=== PATIENT | male | born 1985 | race Hispanic/Latino ===

== ENCOUNTER 2017-09-01 19:21 | Emergency (ER) | payer OTHER ==
--- NOTE | 2017-09-01 20:18 | RAD REPORT ---
EXAM DESCRIPTION: RAD - Chest Pa And Lat (2 Views) - 09/01/2017 8:09 pm CLINICAL HISTORY: Chest pain. COMPARISON: 09/22/2015, 04/23/2013 FINDINGS: The lungs are clear. The heart is normal in size. No displaced fractures. IMPRESSION: No acute or concerning finding suspected.
--- NOTE | 2017-09-01 20:54 | EDPHYS ---
Physician Documentation [facility] Name: Raza Causey Age: 32 yrs Sex: Male : 1985 Arrival Date: 09/01/2017 Time: 19:21 Bed 12 Private MD: ED Physician South Siu HPI: 09/01 20:55 This 32 yrs old Male presents to ER via Ambulatory with complaints of Back snw Pain- W/ deep breath. 20:55 Onset: The symptoms/episode began/occurred gradually, this morning, and became snw persistent. Associated signs and symptoms: The patient has no apparent associated signs or symptoms. Modifying factors: The patient symptoms are alleviated by nothing, the patient symptoms are aggravated by movement, deep breath. The patient has not experienced similar symptoms in the past. The patient has not recently seen a physician, the patient's primary care provider is Dr. Junior. Historical: - Allergies: 19:44 No Known Allergies; fc - Home Meds: 19:44 lisinopril 20 mg Oral tab 1 tab once daily [Active]; omeprazole 20 mg Oral cpDR 1 cap fc once daily [Active]; - PMHx: 19:44 Hypertension; Anxiety; ADD/ADHD; fc - PSHx: 19:44 jaw surgery; fc - Immunization history:: Last tetanus immunization: up to date. - Social history:: Smoking status: Patient uses tobacco products, quit 2 weeks ago, Patient/guardian denies using alcohol, street drugs. ROS: 20:54 Constitutional: Negative for fever, chills, and weight loss, Eyes: Negative for injury, snw pain, redness, and discharge, ENT: Negative for injury, pain, and discharge, Neck: Negative for injury, pain, and swelling, Cardiovascular: Negative for chest pain, palpitations, and edema, Respiratory: Negative for shortness of breath, cough, wheezing, and pleuritic chest pain, Abdomen/GI: Negative for abdominal pain, nausea, vomiting, diarrhea, and constipation, : Negative for injury, bleeding, discharge, and swelling, MS/Extremity: Negative for injury and deformity, Skin: Negative for injury, rash, and discoloration, Neuro: Negative for headache, weakness, numbness, tingling, and seizure. 20:54 Back: Positive for pain with movement, pain to upper back with deep inspiration since this am. Exam: 20:54 Constitutional: This is a well developed, well nourished patient who is awake, alert, snw and in no acute distress. Head/Face: Normocephalic, atraumatic. Eyes: Pupils equal round and reactive to light, extra-ocular motions intact. Lids and lashes normal. Conjunctiva and sclera are non-icteric and not injected. Cornea within normal limits. Periorbital areas with no swelling, redness, or edema. ENT: Nares patent. No nasal discharge, no septal abnormalities noted. Tympanic membranes are normal and external auditory canals are clear. Oropharynx with no redness, swelling, or masses, exudates, or evidence of obstruction, uvula midline. Mucous membranes moist. Neck: Trachea midline, no thyromegaly or masses palpated, and no cervical lymphadenopathy. Supple, full range of motion without nuchal rigidity, or vertebral point tenderness. No Meningismus. Chest/axilla: Normal chest wall appearance and motion. Nontender with no deformity. No lesions are appreciated. Cardiovascular: Regular rate and rhythm with a normal S1 and S2. No gallops, murmurs, or rubs. Normal PMI, no JVD. No pulse deficits. Respiratory: Lungs have equal breath sounds bilaterally, clear to auscultation and percussion. No rales, rhonchi or wheezes noted. No increased work of breathing, no retractions or nasal flaring. Abdomen/GI: Soft, non-tender, with normal bowel sounds. No distension or tympany. No guarding or rebound. No evidence of tenderness throughout. Back: No spinal tenderness. No costovertebral tenderness. Full range of motion. Skin: Warm, dry with normal turgor. Normal color with no rashes, no lesions, and no evidence of cellulitis. MS/ Extremity: Pulses equal, no cyanosis. Neurovascular intact. Full, normal range of motion. Neuro: Awake and alert, GCS 15, oriented to person, place, time, and situation. Cranial nerves II-XII grossly intact. Motor strength 5/5 in all extremities. Sensory grossly intact. Cerebellar exam normal. Normal gait. Vital Signs: 19:44 BP 121 / 92; Pulse 82; Resp 18; Temp 98(O); Pulse Ox 98.4% on R/A; Weight 104.33 kg fc (R); Height 5 ft. 9 in. (175.26 cm) (R); Pain 7/10; 21:44 BP 116 / 82; Pulse 75; Resp 18; Pulse Ox 99% ; aj1 19:44 Body Mass Index 33.96 (104.33 kg, 175.26 cm) fc MDM: 20:01 Patient medically screened. [facility] [place] 20:56 Data reviewed: vital signs, nurses notes. Data interpreted: Pulse oximetry: on room air snw is 98 %. Interpretation: normal. Counseling: I had a detailed discussion with the patient and/or guardian regarding: the presence of at least one elevated blood pressure reading (>120/80) during this emergency department visit, radiology results, to return to the emergency department if symptoms worsen or persist or if there are any questions or concerns that arise at home. Special discussion: I have referred the patient to see his PCP for further evaluation of high blood pressure. Based on the history and exam findings, there is no indication for further emergent testing or inpatient evaluation. I discussed with the patient/guardian the need to see the primary care provider for further evaluation of the symptoms. 09/01 19:57 Order name: Chest Pa And Lat (2 Views) XRAY; Complete Time: 20:27 snw Administered Medications: 21:39 Drug: TORadol 60 mg Route: IM; Site: right gluteus; aj1 22:06 Follow up: Response: No adverse reaction aj1 Disposition: 09/02 06:47 Co-signature as Attending Physician, South Siu MD I agree with the assessment and [facility] [place] plan of care. Disposition: 09/01/17 20:53 Discharged to Home. Impression: Essential (primary) hypertension, Muscle spasm of back. - Condition is Stable. - Discharge Instructions: Hypertension, Muscle Cramps and Spasms, Back Exercises, [id number], Cryotherapy, Heat Therapy, Managing Your High Blood Pressure. - Prescriptions for Diclofenac Sodium 75 mg Oral Tablet Sustained Release - take 1 tablet by ORAL route 2 times per day; 30 tablet. orphenadrine citrate 100 mg Oral Tablet Sustained Release - take 1 tablet by ORAL route 2 times per day As needed; 20 tablet. - Work release form, Medication Reconciliation Form, Thank You Letter, Antibiotic Education, Prescription Opioid Use form. - Follow up: Private Physician; When: 2 - 3 days; Reason: Recheck today's complaints, Continuance of care, Re-evaluation by your physician. Follow up: Emergency Department; When: As needed; Reason: Worsening of condition. Signatures: Dispatcher [employer] Arabella Bean, RN RN South Lopez MD MD cha Therrien, Shelly, LABORER AMMUNITION ASSEMBLY-C LABORER AMMUNITION ASSEMBLY-Csnw Rosa Calhoun RN RN fc
--- NOTE | 2017-09-01 20:54 | ER ---
Nurse's Notes [facility] Name: Raza Causey Age: 32 yrs Sex: Male : 1985 Arrival Date: 09/01/2017 Time: 19:21 Bed 12 Private MD: Diagnosis: Essential (primary) hypertension;Muscle spasm of back Presentation: 09/01 19:40 Presenting complaint: Patient states: that he is having a sharp pain to his upper back fc but it is worse when he takes a deep breath. Denies any cough or congestion. Also denies any injury. Transition of care: patient was not received from another setting of care. Onset of symptoms was September 01, 2017 at 05:00. Care prior to arrival: Medication(s) given: Motrin, 600 mg, last at 1400. 19:40 Acuity: DEBO 4 fc 19:40 Method Of Arrival: Ambulatory fc Triage Assessment: 21:41 General: Behavior is calm, cooperative. aj1 Historical: - Allergies: 19:44 No Known Allergies; fc - Home Meds: 19:44 lisinopril 20 mg Oral tab 1 tab once daily [Active]; omeprazole 20 mg Oral cpDR 1 cap fc once daily [Active]; - PMHx: 19:44 Hypertension; Anxiety; ADD/ADHD; fc - PSHx: 19:44 jaw surgery; fc - Immunization history:: Last tetanus immunization: up to date. - Social history:: Smoking status: Patient uses tobacco products, quit 2 weeks ago, Patient/guardian denies using alcohol, street drugs. Screenin:55 Abuse screen: Denies threats or abuse. Denies injuries from another. Nutritional aj1 screening: No deficits noted. Tuberculosis screening: No symptoms or risk factors identified. 21:41 Fall Risk None identified. aj1 Assessment: 19:55 General: Appears in no apparent distress. comfortable. Pain: Complains of pain in left aj1 scapular area, right scapular area and thoracic area Pain does not radiate. Quality of pain is described as sharp, Pain began this morning Is continuous, Alleviated by nothing. Aggravated by deep breathing. Neuro: Level of Consciousness is awake, alert, obeys commands, Oriented to person, place, time, situation, Garage Hand are equal bilaterally Moves all extremities. Full function Gait is steady, Speech is normal, Facial symmetry appears normal, Pupils are PERRLA, Intact. Cardiovascular: Patient's skin is warm and dry. Respiratory: Airway is patent Respiratory effort is even, unlabored, Respiratory pattern is regular, symmetrical. GI: No signs and/or symptoms were reported involving the gastrointestinal system. : No signs and/or symptoms were reported regarding the genitourinary system. EENT: No signs and/or symptoms were reported regarding the EENT system. Derm: No signs and/or symptoms reported regarding the dermatologic system. Skin is pink, warm \T\ dry. normal. Musculoskeletal: No signs and/or symptoms reported regarding the musculoskeletal system. Range of motion: intact in all extremities. 20:55 Reassessment: Patient appears in no apparent distress at this time. No changes from [facility] previously documented assessment. Patient and/or family updated on plan of care and expected duration. Pain level reassessed. Patient is alert, oriented x 3, equal unlabored respirations, skin warm/dry/pink. 21:41 Reassessment: Patient appears in no apparent distress at this time. No changes from [facility] previously documented assessment. Patient and/or family updated on plan of care and expected duration. Pain level reassessed. Patient is alert, oriented x 3, equal unlabored respirations, skin warm/dry/pink. Vital Signs: 19:44 BP 121 / 92; Pulse 82; Resp 18; Temp 98(O); Pulse Ox 98.4% on R/A; Weight 104.33 kg fc (R); Height 5 ft. 9 in. (175.26 cm) (R); Pain 7/10; 21:44 BP 116 / 82; Pulse 75; Resp 18; Pulse Ox 99% ; aj1 19:44 Body Mass Index 33.96 (104.33 kg, 175.26 cm) ED Course: 19:21 Patient arrived in ED. ds1 19:42 Triage completed. fc 19:42 Arm band placed on Patient placed in an exam room. 19:47 Arabella Webb, RN is Primary Nurse. aj1 19:55 Patient has correct armband on for positive identification. Call light in reach. aj1 19:55 No provider procedures requiring assistance completed. aj1 19:56 Geov[facility] Key [facility]-C [facility] snw 19:56 South Siu MD is Attending Physician. snw 20:06 X-ray completed. Patient tolerated procedure well. kc2 20:06 Chest Pa And Lat (2 Views) XRAY In Process Unspecified. EDMS 21:41 Patient did not have IV access during this emergency room visit. aj1 Administered Medications: 21:39 Drug: TORadol 60 mg Route: IM; Site: right gluteus; aj1 22:06 Follow up: Response: No adverse reaction aj1 Outcome: 20:53 Discharge ordered by MD. hopper 22:06 Discharged to home ambulatory. aj1 22:06 Condition: good 22:06 Discharge instructions given to patient, Instructed on discharge instructions, follow up and referral plans. medication usage, Demonstrated understanding of instructions, follow-up care, medications, Prescriptions given X 2. 22:07 Patient left the ED. aj1 Signatures: Dispatcher [employer] EDArabella Andrew RN RN aj1 Geovanna Key, OPERATIONS MANAGER ASSISTANT-C OPERATIONS MANAGER ASSISTANT-Csnw Rosa Calhoun RN RN fc Sanford, Demi ds1 Dorcas Bhatti kc2
[2017-09-01] MEDS ORDERED: KETOROLAC 30 MG/ML INJ ONE (21:31)
[2017-09-01 22:11] VITALS: TEMP 98
[2017-09-01 22:13] VITALS: BP 116/82; O2SAT 99
== END 2017-09-01 22:07 | disposition home or self-care (01) ==
LOC: ER 19:21
DX: M62.830 Muscle spasm of back (principal); I10 Essential (primary) hypertension
CPT/HCPCS: 71046; 96372; 99283

== ENCOUNTER 2018-03-09 19:32 | Emergency (ER) | payer OTHER ==
[2018-03-09] MEDS ORDERED: KETOROLAC 30 MG/ML INJ ONE (20:38)
[2018-03-09] MEDS ORDERED: NA CHLORIDE 0.9% 1,000 ML ONE (20:38)
[2018-03-09 21:02] LABS: Absolute Lymphocytes (CBC) 0.9 K/uL (0.7-4.9); Absolute Monocytes 0.9 K/uL (0.1-1.3); Basophils % 0.1 % (0-1.3); Hematocrit 44.5 % (39.6-49.0); MCH 28.4 pg (27.0-35.0); MCV 84.3 fL (80-100); Monocytes % 6.3 % (3.3-12.3); RBC Red Blood Cell Count 5.28 M/uL (4.33-5.43)
[2018-03-09 21:19] LABS: Albumin 3.4 g/dL (3.4-5.0); Bilirubin Total 0.5 mg/dL (0.2-1.0); Potassium 3.8 mmol/L (3.5-5.1); Protein, Total 6.8 g/dL (6.4-8.2)
--- NOTE | 2018-03-09 21:24 | RAD REPORT ---
EXAM DESCRIPTION: [place] Single View03/09/2018 9:12 pm CLINICAL HISTORY: fever COMPARISON: August 2017 FINDINGS: The lungs appear clear of acute infiltrate. The heart is normal size. The mediastinum is a little more prominent than on the prior exam IMPRESSION: The mediastinum is little more prominent on the prior exam. This may simply be secondary to positioning and technique. PA and lateral chest series is recommended
--- NOTE | 2018-03-09 23:08 | ER ---
Nurse's Notes [facility] Name: Raza Causey Age: 32 yrs Sex: Male : 1985 Arrival Date: 03/09/2018 Time: 19:34 Bed 13 Private MD: Guerrero Junior Diagnosis: Viral Syndrome Presentation: 03/09 20:13 Presenting complaint: states: Fever since yesterday, with hallucinations; Patient lp1 last given Tylenol an hour ago for fever of 102; states any time he is sick, he starts hallucinating. Transition of care: patient was not received from another setting of care. Onset of symptoms was March 09, 2018. Risk Assessment: Do you want to hurt yourself or someone else? Patient reports no desire to harm self or others. Initial Sepsis Screen: Does the patient meet any 2 criteria? No. Patient's initial sepsis screen is negative. Does the patient have a suspected source of infection? No. Patient's initial sepsis screen is negative. Care prior to arrival: None. 20:13 Method Of Arrival: Wheelchair lp1 20:13 Acuity: DEBO 3 lp1 Historical: - Allergies: 20:12 No Known Allergies; lp1 - Home Meds: 20:12 None [Active]; lp1 - PMHx: 20:12 ADD/ADHD; Anxiety; Hypertension; lp1 - PSHx: 20:12 jaw surgery; lp1 Screenin:30 Abuse screen: Denies threats or abuse. Denies injuries from another. Nutritional aa1 screening: No deficits noted. Tuberculosis screening: No symptoms or risk factors identified. Fall Risk None identified. Assessment: 20:30 General: Appears in no apparent distress. comfortable, Behavior is calm, cooperative. aa1 Pain: Complains of pain in head Quality of pain is described as pressure, throbbing. Neuro: Level of Consciousness is awake, alert, obeys commands, Oriented to person, place, time, situation, Moves all extremities. Speech is normal, Facial symmetry appears normal, Pupils are PERRLA, Reports headache. Cardiovascular: Heart tones S1 S2 present. Respiratory: Airway is patent Respiratory effort is even, unlabored, Respiratory pattern is regular, symmetrical. GI: No signs and/or symptoms were reported involving the gastrointestinal system. : No signs and/or symptoms were reported regarding the genitourinary system. EENT: No signs and/or symptoms were reported regarding the EENT system. Derm: Skin is intact, is healthy with good turgor, Skin is moist, Skin is normal, Skin temperature is hot. Musculoskeletal: Circulation, motion, and sensation intact. Capillary refill < 3 seconds. 21:44 Reassessment: Patient appears in no apparent distress at this time. Patient and/or aa1 family updated on plan of care and expected duration. Pain level reassessed. Patient is alert, oriented x 3, equal unlabored respirations, skin warm/dry/pink. NS bolus still infusing. Reminded pt not to bend his arm to his fluids will continue to flow Patient states feeling better. 23:16 Reassessment: Patient appears in no apparent distress at this time. Patient is alert, aa1 oriented x 3, equal unlabored respirations, skin warm/dry/pink. Discussed d/c \T\ f/u instructions with pt \T\ spouse; denies questions or concerns at this time. Vital Signs: 20:11 BP 130 / 114; Pulse 111; Resp 18; Temp 101(O); Pulse Ox 100% on R/A; Weight 108.86 kg; lp1 Height 5 ft. 9 in. (175.26 cm); 20:50 BP 127 / 70; Pulse 99; Resp 20; Pulse Ox 97% on R/A; aa1 21:43 BP 124 / 80; Pulse 88; Resp 18; Temp 98.7(O); Pulse Ox 97% on R/A; aa1 23:16 BP 111 / 72; Pulse 82; Resp 18; Pulse Ox 98% on R/A; Pain 3/10; aa1 20:11 Body Mass Index 35.44 (108.86 kg, 175.26 cm) lp1 ED Course: 19:34 Patient arrived in ED. es 19:34 Guerrero Junior MD is Private Physician. es 20:09 Praneeth Joiner MD is Attending Physician. ps1 20:13 Alma Lopez, KEI is Primary Nurse. aa1 20:14 Triage completed. lp1 20:14 Arm band placed on left wrist. lp1 20:30 Patient has correct armband on for positive identification. Bed in low position. Call aa1 light in reach. Side rails up X2. Pulse ox on. NIBP on. 20:37 Initial lab(s) drawn, by me, held in ED. Inserted saline lock: 18 gauge in right cc antecubital area, using aseptic technique. Blood collected. 20:40 Flu and/or RSV swab sent to lab. cc 21:12 CXR XRAY In Process Unspecified. EDMS 23:04 X-ray completed. Patient tolerated procedure well. Patient moved back from radiology. ml 23:05 Chest Pa And Lat (2 Views) In Process Unspecified. EDMS 23:07 Guerrero Junior MD is Referral Physician. ps1 23:16 No provider procedures requiring assistance completed. IV discontinued, intact, aa1 bleeding controlled, No redness/swelling at site. Pressure dressing applied. Administered Medications: 20:49 Drug: NS 0.9% 1000 ml Route: IV; Rate: 1 bolus; Site: right antecubital; aa1 22:45 Follow up: IV Status: Completed infusion aa1 20:50 Drug: TORadol 30 mg Route: IVP; Site: right antecubital; aa1 21:50 Follow up: Response: No adverse reaction; Pain is decreased aa1 Outcome: 23:07 Discharge ordered by . ps1 23:16 Discharged to home ambulatory, with significant other. aa1 23:16 Condition: good 23:16 Discharge instructions given to patient, significant other, Instructed on discharge instructions, follow up and referral plans. medication usage, Demonstrated understanding of instructions, follow-up care, medications. 23:18 Patient left the ED. aa1 Signatures: Dispatcher [employer] Alma Laureano RN RN aa1 Odalys Yen Melissa ml Christian, Chelsea Reina Renee RN RN lp1 Praneeth Joiner MD MD ps1
--- NOTE | 2018-03-09 23:08 | EDPHYS ---
Physician Documentation [facility] Name: Raza Causey Age: 32 yrs Sex: Male : 1985 Arrival Date: 03/09/2018 Time: 19:34 Bed 13 Private MD: Guerrero Junior ED Physician Praneeth Joiner HPI: 03/09 22:54 This 32 yrs old Male presents to ER via Wheelchair with complaints of Fever. ps1 22:54 patient has viral syndrome, headache, fever, fatigue, bodyaches, and somnolent. Onset ps1 was two days ago. Has not felt well since. Decreased oral intake. Worked outside in rain and then got sick. No remitting or exacerbating factors. None tried. . Historical: - Allergies: 20:12 No Known Allergies; lp1 - Home Meds: 20:12 None [Active]; lp1 - PMHx: 20:12 ADD/ADHD; Anxiety; Hypertension; lp1 - PSHx: 20:12 jaw surgery; lp1 ROS: 22:54 Eyes: Negative for injury, pain, redness, and discharge, Cardiovascular: Negative for ps1 chest pain, palpitations, and edema, Respiratory: Negative for shortness of breath, cough, wheezing, and pleuritic chest pain, Abdomen/GI: Negative for abdominal pain, nausea, vomiting, diarrhea, and constipation, MS/Extremity: Negative for injury and deformity, Skin: Negative for injury, rash, and discoloration, Allergy/Immunology: Negative for hives, rash, and allergies. 22:54 Constitutional: Positive for body aches, chills, fatigue, fever, malaise, poor PO intake. 22:54 Neuro: Positive for headache. Exam: 22:54 Constitutional: This is a well developed, well nourished patient who is awake, alert, ps1 and in no acute distress. Head/Face: Normocephalic, atraumatic. Eyes: Pupils equal round and reactive to light, extra-ocular motions intact. Lids and lashes normal. Conjunctiva and sclera are non-icteric and not injected. Chest/axilla: Normal chest wall appearance and motion. Nontender with no deformity. No lesions are appreciated. Cardiovascular: Regular rate and rhythm. No gallops, murmurs, or rubs. Normal PMI, no JVD. No pulse deficits. Respiratory: Lungs have equal breath sounds bilaterally, clear to auscultation and percussion. No rales, rhonchi or wheezes noted. No increased work of breathing, no retractions or nasal flaring. Abdomen/GI: Soft, non-tender, with normal bowel sounds. No distension or tympany. No guarding or rebound. No evidence of tenderness throughout. Back: No spinal tenderness. No costovertebral tenderness. Full range of motion. MS/ Extremity: Pulses equal, no cyanosis. Neurovascular intact. Full, normal range of motion. Neuro: Awake and alert, GCS 15, oriented to person, place, time, and situation. Cranial nerves II-XII grossly intact. Sensory grossly intact. Psych: Awake, alert, with orientation to person, place and time. Behavior, mood, and affect are within normal limits. Vital Signs: 20:11 BP 130 / 114; Pulse 111; Resp 18; Temp 101(O); Pulse Ox 100% on R/A; Weight 108.86 kg; lp1 Height 5 ft. 9 in. (175.26 cm); 20:50 BP 127 / 70; Pulse 99; Resp 20; Pulse Ox 97% on R/A; aa1 21:43 BP 124 / 80; Pulse 88; Resp 18; Temp 98.7(O); Pulse Ox 97% on R/A; aa1 23:16 BP 111 / 72; Pulse 82; Resp 18; Pulse Ox 98% on R/A; Pain 3/10; aa1 20:11 Body Mass Index 35.44 (108.86 kg, 175.26 cm) lp1 MDM: 20:34 Patient medically screened. ps1 22:54 Data reviewed: vital signs, nurses notes, lab test result(s), radiologic studies, and ps1 as a result, I will discharge patient, administer IV fluids, NS bolus. Counseling: I had a detailed discussion with the patient and/or guardian regarding: the historical points, exam findings, and any diagnostic results supporting the discharge/admit diagnosis, lab results, radiology results. 03/09 20:11 Order name: Flu; Complete Time: 21:26 lp1 03/09 20:22 Order name: Lactate; Complete Time: 21:44 ps1 03/09 20:23 Order name: CBC with Automated Diff; Complete Time: 21:26 EDMS 03/09 20:23 Order name: Comprehensive Metabolic Panel; Complete Time: 21:26 EDMS 03/09 20:22 Order name: Urine Dipstick-Ancillary (obtain specimen); Complete Time: 22:18 ps1 03/09 20:22 Order name: CXR XRAY; Complete Time: 21:26 ps1 03/09 22:12 Order name: Urine Dipstick--Ancillary (enter results) mw2 03/09 22:53 Order name: Chest Pa And Lat (2 Views) EDMS Administered Medications: 20:49 Drug: NS 0.9% 1000 ml Route: IV; Rate: 1 bolus; Site: right antecubital; aa1 22:45 Follow up: IV Status: Completed infusion aa1 20:50 Drug: TORadol 30 mg Route: IVP; Site: right antecubital; aa1 21:50 Follow up: Response: No adverse reaction; Pain is decreased aa1 Disposition: 03/09/18 23:07 Discharged to Home. Impression: Viral Syndrome. - Condition is Stable. - Discharge Instructions: Fever, Adult. - Medication Reconciliation Form, Thank You Letter, Antibiotic Education, Prescription Opioid Use form. - Follow up: Guerrero Junior MD; When: As needed; Reason: Further diagnostic work-up, Recheck today's complaints, Re-evaluation by your physician. Follow up: Emergency Department; When: As needed; Reason: Worsening of condition. - Problem is new. - Symptoms have improved. Signatures: Dispatcher [employer] EDMS Alma Lopez RN RN aa1 Reina Renee RN RN lp1 Praneeth Joiner MD MD ps1 Corrections: (The following items were deleted from the chart) 23:18 23:07 03/09/2018 23:07 Discharged to Home. Impression: Viral Syndrome. Condition is aa1 Stable. Forms are Medication Reconciliation Form, Thank You Letter, Antibiotic Education, Prescription Opioid Use. Follow up: Guerrero Junior; When: As needed; Reason: Further diagnostic work-up, Recheck today's complaints, Re-evaluation by your physician. Follow up: Emergency Department; When: As needed; Reason: Worsening of condition. Problem is new. Symptoms have improved. ps1
[2018-03-09 23:27] VITALS: TEMP 98.7
[2018-03-09 23:28] VITALS: BP 111/72; O2SAT 98
[2018-03-10 00:40] LABS: Urine Blood TRACE (NEG); Urine Glucose NEGATIVE (NEG); Urine Protein NEGATIVE (NEG); Urine Specific Gravity 1.025 (1.005-1.030); Urine pH 5.5 (5.0-7.0)
--- NOTE | 2018-03-10 09:10 | RAD REPORT ---
EXAM DESCRIPTION: RAD - Chest Pa And Lat (2 Views) - 03/09/2018 11:04 pm CLINICAL HISTORY: ABNORMAL PA Chest pain. COMPARISON: Chest Single View dated 03/09/2018; Chest Pa And Lat (2 Views) dated 09/01/2017; Chest Si ngle View dated 09/22/2015; CHEST SINGLE VIEW dated 04/23/2013 FINDINGS: The lungs are clear. The heart is normal in size. No displaced fractures. IMPRESSION: No acute or concerning finding suspected.
== END 2018-03-09 23:18 | disposition home or self-care (01) ==
LOC: ER 19:32
DX: B34.9 Viral infection, unspecified (principal); I10 Essential (primary) hypertension
CPT/HCPCS: 36415; 71045; 71046; 80053; 81003; 83605; 85025; 87804; 96361; 96374; 99284; J7030

== ENCOUNTER 2018-05-21 17:37 | Emergency (ER) | payer OTHER ==
--- OUTSIDE RECORDS SUMMARY | 2018-05-21 17:39 | XMS REPORT ---
:1985 [facility] Organization [facility] Address Formerly [facility] Ram[address]rez [address] [place] [id number] Care Team Providers Name Role Phone Unavailable Unavailable Unavailable Problems This patient has no known problems. Allergies, Adverse Reactions, Alerts This patient has no known allergies or adverse reactions. Medications This patient has no known medications.
--- NOTE | 2018-05-21 19:28 | ER ---
Nurse's Notes [facility] Name: Raza Causey Age: 32 yrs Sex: Male : 1985 Arrival Date: 05/21/2018 Time: 17:40 Bed Waiting Private MD: Diagnosis: Presentation: 05/21 18:45 Presenting complaint: Patient states: Cough, congestion, pain with cough for 3 days. aj Transition of care: patient was not received from another setting of care. Onset of symptoms was May 18, 2018. Risk Assessment: Do you want to hurt yourself or someone else? Patient reports no desire to harm self or others. Initial Sepsis Screen: Does the patient meet any 2 criteria? No. Patient's initial sepsis screen is negative. Does the patient have a suspected source of infection? No. Patient's initial sepsis screen is negative. Care prior to arrival: None. 18:45 Method Of Arrival: Ambulatory 18:45 Acuity: DEBO 3 aj Triage Assessment: 18:46 General: Appears in no apparent distress. comfortable, Behavior is calm, cooperative, aj appropriate for age. Pain: Denies pain. EENT: Reports nasal congestion nasal discharge. Neuro: Level of Consciousness is awake, alert, obeys commands, Oriented to person, place, time, situation, Appropriate for age. Respiratory: Reports cough that is pain with cough Airway is patent Respiratory effort is even, unlabored, Respiratory pattern is regular, symmetrical. Derm: Skin is intact, is healthy with good turgor, Skin is pink, warm \T\ dry. normal. Historical: - Allergies: 18:46 No Known Allergies; aj - Home Meds: 18:46 None [Active]; aj - PMHx: 18:46 ADD/ADHD; Anxiety; Hypertension; aj - PSHx: 18:46 jaw surgery; aj - Immunization history:: Adult Immunizations up to date. - Social history:: Smoking status: Patient uses tobacco products, smokes one pack cigarettes per day. - Ebola Screening: : Patient negative for fever greater than or equal to 101.5 degrees Fahrenheit, and additional compatible Ebola Virus Disease symptoms Patient denies exposure to infectious person Patient denies travel to an Ebola-affected area in the 21 days before illness onset No symptoms or risks identified at this time. Assessment: 19:03 Reassessment: called from krzysztof, no answer will call XRAY to see if patient is having em images obtained. Vital Signs: 18:46 BP 143 / 103; Pulse 100; Resp 20; Temp 97.8; Pulse Ox 99% on R/A; Weight 101.6 kg; aj Height 5 ft. 8 in. (172.72 cm); 18:46 Body Mass Index 34.06 (101.60 kg, 172.72 cm) aj ED Course: 17:40 Patient arrived in ED. sb2 18:46 Triage completed. aj 18:46 Arm band placed on left wrist. Patient placed in waiting room, Patient notified of wait aj time. Labs ordered per protocol. X-ray ordered. 19:26 Patient's name was called from ER lobby. No response. Unable to locate patient. Will bb disposition as left without being seen by a provider. Administered Medications: No medications were administered Outcome: 19:27 Patient left the ED. bb Signatures: Jenelle Escobedo, RN RN Rodrigo Cruz LVN LVN em Ballard, Brenda RN RN Moon Amezcua sb2
[2018-05-21 19:34] VITALS: BP 143/103; TEMP 97.8; O2SAT 99
== END 2018-05-21 19:27 | disposition left against medical advice (07) ==
LOC: ER 17:37
DX: R05 Cough (principal); F17.210 Nicotine dependence, cigarettes, uncomplicated; Z53.21 Procedure and treatment not carried out due to patient leaving prior to being seen by health care provider
CPT/HCPCS: 87070; 87081; 87804; 99282

== ENCOUNTER 2018-10-12 17:49 | Emergency (ER) | payer SELFPAY ==
--- OUTSIDE RECORDS SUMMARY | 2018-10-12 17:52 | XMS REPORT ---
:1985 [facility] Ram[address]rez [address] [place] [id number] Care Team Providers Name Role Phone Unavailable Unavailable Unavailable Problems This patient has no known problems. Allergies, Adverse Reactions, Alerts This patient has no known allergies or adverse reactions. Medications This patient has no known medications.
[2018-10-12 18:43] LABS: Absolute Lymphocytes (CBC) 3.7 K/uL (0.7-4.9); Absolute Monocytes 0.7 K/uL (0.1-1.3); Absolute Neutrophil 7.3 K/uL (1.8-8.0); Eosinophils % 0.3 % (0-4.4); Hematocrit 47.6 % (39.6-49.0); Lymphocytes % 31.4 % (15.3-44.8); MPV 8.8 fL (7.6-11.3); Monocytes % 5.7 % (3.3-12.3); RBC Red Blood Cell Count 5.73 M/uL (4.33-5.43)
[2018-10-12] MEDS ORDERED: ONDANSETRON 4 MG/2 ML VIAL ONE (19:00)
[2018-10-12] MEDS ORDERED: FENTANYL CITR 100 MCG/2 ML ONE (19:00)
[2018-10-12] MEDS ORDERED: FAMOTIDINE 20 MG/2 ML VIAL IV ONE (19:00)
[2018-10-12 20:23] LABS: ALT/SGPT 27 U/L (12-78); AST/SGOT 24 U/L (15-37); Albumin 3.6 g/dL (3.4-5.0); Alkaline Phosphatase 104 U/L (45-117); BUN Blood Urea Nitrogen 17 mg/dL (7-18); Bicarbonate 23 mmol/L (21-32); Bilirubin Direct < 0.1 mg/dL (0-0.2); Bilirubin Total 0.3 mg/dL (0.2-1.0); Glucose Level 100 mg/dL (74-106); Lipase 76 U/L (73-393); Protein, Total 7.3 g/dL (6.4-8.2); Sodium Level 140 mmol/L (136-145)
[2018-10-12 20:25] LABS: Potassium 4.3 mmol/L (3.5-5.1)
--- NOTE | 2018-10-12 20:37 | RAD REPORT ---
EXAM DESCRIPTION: CT - Abdomen Pelvis W Contrast - 10/12/2018 8:28 pm CLINICAL HISTORY: Abdominal pain, epigastric pain radiating to the right lower quadrant COMPARISON: None. TECHNIQUE: Biphasic, helical CT imaging of the abdomen and pelvis was performed following 100 ml non -ionic IV contrast. Oral contrast was given. All CT scans are performed using dose optimization technique as appropriate and may include automated exposure control or mA/KV adjustment according to patient size. FINDINGS: No suspicious findings in the lung bases. The liver, spleen, and pancreas show no suspicious findings. Gallbladder and biliary tree are also wi thout suspicious finding. Symmetric renal function is seen with no hydronephrosis or suspicious renal mass. No pyelonephritis o r acute parenchymal process. Fullness of left renal pelvis and calices noted believed to be a normal variant. Patient has a 10 mm stellate calcification lower pole calyx on the left. No adrenal abnormal ities. No urinary bladder abnormality. Prostate gland and seminal vesicles show no suspicious finding s. No dilated bowel loops or bowel wall thickening. Appendix is normal. No free air, free fluid or infla mmatory stranding. No hernia, mass or bulky lymphadenopathy. No suspicious bony findings. IMPRESSION: Contrast enhanced CT abdomen and pelvis showing no significant or suspicious finding. N o abnormality seen to explain epigastric or right lower quadrant pain. Patient has a 10 mm stellate calcification lower pole calyx on the left. No acute finding.
--- NOTE | 2018-10-12 20:47 | EDPHYS ---
Physician Documentation [facility] Name: Raza Causey Age: 33 yrs Sex: Male : 1985 Arrival Date: 10/12/2018 Time: 17:53 Bed 15 Private MD: ED Physician Lloyd Willson HPI: 10/12 19:37 This 33 yrs old Male presents to ER via Ambulatory with complaints of jr8 Abdominal Pain. 19:37 The patient presents with abdominal pain in the upper abdomen, right lower quadrant. jr8 Onset: The symptoms/episode began/occurred acutely, today. The symptoms do not radiate. Associated signs and symptoms: Pertinent positives: nausea. The symptoms are described as stabbing. Modifying factors: The symptoms are alleviated by nothing, the symptoms are aggravated by nothing. Severity of pain: At its worst the pain was moderate in the emergency department the pain is unchanged. The patient has not experienced similar symptoms in the past. The patient has not recently seen a physician. 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 - Social history:: Smoking status: Patient uses tobacco products, smokes one pack cigarettes per day. - Ebola Screening: : Patient denies travel to an Ebola-affected area in the 21 days before illness onset. ROS: 19:37 ENT: Negative for injury, pain, and discharge, Neck: Negative for injury, pain, and jr8 swelling, Cardiovascular: Negative for chest pain, palpitations, and edema, Respiratory: Negative for shortness of breath, cough, wheezing, and pleuritic chest pain, Back: Negative for injury and pain, MS/Extremity: Negative for injury and deformity, Skin: Negative for injury, rash, and discoloration, Neuro: Negative for headache, weakness, numbness, tingling, and seizure. 19:37 Abdomen/GI: Positive for abdominal pain, nausea, Negative for vomiting, diarrhea, constipation, abdominal cramps, abdominal distension, anorexia, dysphagia, hematemesis, black/tarry stool, rectal pain, rectal bleeding, bowel incontinence, flatulence. Exam: 19:37 Eyes: Pupils equal round and reactive to light, extra-ocular motions intact. Lids and jr8 lashes normal. Conjunctiva and sclera are non-icteric and not injected. Cornea within normal limits. Periorbital areas with no swelling, redness, or edema. ENT: Nares patent. No nasal discharge, no septal abnormalities noted. Tympanic membranes are normal and external auditory canals are clear. Oropharynx with no redness, swelling, or masses, exudates, or evidence of obstruction, uvula midline. Mucous membranes moist. Neck: Trachea midline, no thyromegaly or masses palpated, and no cervical lymphadenopathy. Supple, full range of motion without nuchal rigidity, or vertebral point tenderness. No Meningismus. Cardiovascular: Regular rate and rhythm with a normal S1 and S2. No gallops, murmurs, or rubs. Normal PMI, no JVD. No pulse deficits. Respiratory: Lungs have equal breath sounds bilaterally, clear to auscultation and percussion. No rales, rhonchi or wheezes noted. No increased work of breathing, no retractions or nasal flaring. Back: No spinal tenderness. No costovertebral tenderness. Full range of motion. Skin: Warm, dry with normal turgor. Normal color with no rashes, no lesions, and no evidence of cellulitis. MS/ Extremity: Pulses equal, no cyanosis. Neurovascular intact. Full, normal range of motion. Neuro: Awake and alert, GCS 15, oriented to person, place, time, and situation. Cranial nerves II-XII grossly intact. Motor strength 5/5 in all extremities. Sensory grossly intact. Cerebellar exam normal. Normal gait. 19:37 Abdomen/GI: Inspection: obese Bowel sounds: active, all quadrants, Palpation: soft, in all quadrants, moderate abdominal tenderness, in the epigastric area and right lower quadrant, mass, is not appreciated, rebound tenderness, is not appreciated, voluntary guarding, is not appreciated, involuntary guarding, is not appreciated, no appreciated organomegaly, Indicators: McBurney's point is not tender, Copeland's sign is negative, Rovsing's sign is negative, Liver: tenderness, is not appreciated. Vital Signs: 18:02 BP 149 / 105; Pulse 93; Resp 18; Temp 97.2; Pulse Ox 98% on R/A; Weight 104.33 kg (R); aj1 Height 5 ft. 9 in. (175.26 cm) (R); Pain 8/10; 18:48 BP 154 / 90; Pulse 81; Resp 17 S; Pulse Ox 97% on R/A; ca1 19:04 BP 144 / 103; Pulse 81; Resp 17; Pulse Ox 95% on R/A; ca1 19:16 BP 145 / 92; Pulse 82; Resp 18; Pulse Ox 97% ; ca1 20:00 BP 136 / 77; Pulse 76; Resp 18; Pulse Ox 98% ; ea 21:15 BP 130 / 86; Pulse 66; Resp 18; Pulse Ox 97% on R/A; ea 18:02 Body Mass Index 33.96 (104.33 kg, 175.26 cm) aj1 MDM: 18:10 Patient medically screened. jr8 20:45 Data reviewed: vital signs, nurses notes, lab test result(s), radiologic studies, CT jr8 scan. Data interpreted: Pulse oximetry: on room air is 97 %. Interpretation: normal. Counseling: I had a detailed discussion with the patient and/or guardian regarding: the historical points, exam findings, and any diagnostic results supporting the discharge/admit diagnosis, lab results, radiology results, the need for outpatient follow up, a family practitioner, a permastone installer, to return to the emergency department if symptoms worsen or persist or if there are any questions or concerns that arise at home. Response to treatment: the patient's symptoms have markedly improved after treatment. Special discussion: Based on the patient's Hx, exam, and Dx evaluation, there is no indication for emergent surgery or inpatient Tx. It is understood by the patient/guardian that if the Sx's persist or worsen they need to return immediately for re-evaluation. 10/12 18:13 Order name: Basic Metabolic Panel; Complete Time: 20:27 8 10/12 18:13 Order name: CBC with Diff; Complete Time: 19:28 8 10/12 18:13 Order name: Creatinine for Radiology; Complete Time: 20:20 8 10/12 18:13 Order name: Hepatic Function; Complete Time: 20:27 jr8 10/12 18:13 Order name: Lipase; Complete Time: 20:27 8 10/12 19:28 Order name: CT Abd/Pelvis - W/Contrast; Complete Time: 20:41 jr8 10/12 18:13 Order name: IV Saline Lock; Complete Time: 18:36 jr8 10/12 18:13 Order name: Labs collected and sent; Complete Time: 18:36 Administered Medications: 18:42 Drug: Zofran 4 mg Route: IVP; Site: right antecubital; ca1 19:30 Follow up: Response: No adverse reaction; Nausea is decreased ea 18:45 Drug: Pepcid 20 mg Route: IVP; Site: right antecubital; ca1 20:47 Follow up: Response: No adverse reaction ea 18:50 Drug: fentaNYL (PF) 50 mcg Route: IVP; Site: right antecubital; ca1 19:30 Follow up: Response: No adverse reaction ea 21:17 Drug: GI Cocktail without - (Maalox Suspension 30 ml, Lidocaine Liquid 2 % 15 ea ml) Route: PO; 21:17 Follow up: Response: Medication administered at discharge. ea Disposition: 10/13 07:04 Co-signature as Attending Physician, Lloyd Willson MD. rn Disposition: 10/12/18 20:46 Discharged to Home. Impression: Gastritis, unspecified. - Condition is Stable. - Discharge Instructions: Gastritis, Adult. - Medication Reconciliation Form, Thank You Letter, Antibiotic Education, Prescription Opioid Use form. - Follow up: Laura Spence MD; When: 2 - 3 days; Reason: Recheck today's complaints, Continuance of care, Re-evaluation by your physician. - Problem is new. - Symptoms have improved. - Notes: Continue nexium at home No spicy, greecy, or acidic foods Signatures: Dispatcher [employer] EDArabella Andrew RN RN aj1 Lloyd Willson MD MD rn Roszak, Josh, PA PA jr8 Calli Carlos RN RN ea Prudence Randhawa RN RN ca1 Corrections: (The following items were deleted from the chart) 10/12 21: 20:46 10/12/2018 20:46 Discharged to Home. Impression: Gastritis, unspecified. ea Condition is Stable. Forms are Medication Reconciliation Form, Thank You Letter, Antibiotic Education, Prescription Opioid Use. Follow up: Laura Spence; When: 2 - 3 days; Reason: Recheck today's complaints, Continuance of care, Re-evaluation by your physician. Problem is new. Symptoms have improved. jr8
--- NOTE | 2018-10-12 20:47 | ER ---
Nurse's Notes [facility] Name: Raza Causey Age: 33 yrs Sex: Male : 1985 Arrival Date: 10/12/2018 Time: 17:53 Bed 15 Private MD: Diagnosis: Gastritis, unspecified Presentation: 10/12 17:59 Presenting complaint: Patient states: "I got pain right here (pt points to epigastric aj1 area) and it goes down to here (pts to RLQ)" reports nausea. Denies V/D/fever. Patient started yesterday and got worse today, Reports that pain is worse after eating. Transition of care: patient was not received from another setting of care. Onset of symptoms was October 11, 2018 at 19:00. Risk Assessment: Do you want to hurt yourself or someone else? Patient reports no desire to harm self or others. Initial Sepsis Screen: Does the patient meet any 2 criteria? HR > 90 bpm. No. Patient's initial sepsis screen is negative. Does the patient have a suspected source of infection? Yes: Acute abdominal pain. Care prior to arrival: None. 17:59 Method Of Arrival: [facility] 17:59 Acuity: DEBO 3 aj1 Triage Assessment: 18:01 General: Appears in no apparent distress. comfortable, Behavior is calm, cooperative, aj1 appropriate for age. Pain: Complains of pain in epigastric area Pain radiates to right lower quadrant. Pain: Pain currently is 8 out of 10 on a pain scale. Neuro: Level of Consciousness is awake, alert, obeys commands, Oriented to person, place, time, situation. Cardiovascular: Patient's skin is warm and dry. Respiratory: Airway is patent Respiratory effort is even, unlabored, Respiratory pattern is regular, symmetrical. GI: Reports lower abdominal pain, nausea, Patient currently denies diarrhea, vomiting. 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 - Social history:: Smoking status: Patient uses tobacco products, smokes one pack cigarettes per day. - Ebola Screening: : Patient denies travel to an Ebola-affected area in the 21 days before illness onset. Screenin:10 Abuse screen: Denies threats or abuse. Denies injuries from another. Nutritional ca1 screening: No deficits noted. Tuberculosis screening: No symptoms or risk factors identified. Fall Risk None identified. Assessment: 18:10 General: Appears in no apparent distress. comfortable, Behavior is calm, cooperative, ca1 appropriate for age. Pain: Complains of pain in right lower quadrant and abdomen and epigastric area Pain does not radiate. Pain currently is 8 out of 10 on a pain scale. Quality of pain is described as sharp, Pain began 1 day ago. Is intermittent, Aggravated by eating. Neuro: Level of Consciousness is awake, alert, obeys commands, Oriented to person, place, time, situation. Cardiovascular: Heart tones S1 S2 present Capillary refill < 3 seconds Patient's skin is warm and dry. Respiratory: Airway is patent Respiratory effort is even, unlabored, Respiratory pattern is regular, symmetrical, Breath sounds are clear bilaterally. GI: Abdomen is round non-distended, Bowel sounds present X 4 quads. Abd is soft X 4 quads Abdomen is tender to palpation in epigastric area, right upper quadrant and right lower quadrant Reports nausea. : No deficits noted. No signs and/or symptoms were reported regarding the genitourinary system. EENT: No deficits noted. No signs and/or symptoms were reported regarding the EENT system. Derm: Skin is intact, is healthy with good turgor, Skin is pink, warm \\T\\ dry. Musculoskeletal: Circulation, motion, and sensation intact. Capillary refill < 3 seconds, Range of motion: intact in all extremities. 18:55 Reassessment: Patient appears in no apparent distress at this time. Patient and/or ca1 family updated on plan of care and expected duration. Pain level reassessed. Patient is alert, oriented x 3, equal unlabored respirations, skin warm/dry/pink. 19:10 General: Appears in no apparent distress. comfortable, Behavior is calm, cooperative, ca1 appropriate for age. Pain: Complains of pain in right lower quadrant Pain currently is 6 out of 10 on a pain scale. Quality of pain is described as aching, Pain began 1 day ago. Neuro: Level of Consciousness is awake, alert, obeys commands, Oriented to person, place, time, situation. Cardiovascular: Patient's skin is warm and dry. Respiratory: Airway is patent Respiratory effort is even, unlabored, Respiratory pattern is regular, symmetrical. GI: Abdomen is non-distended, Bowel sounds present X 4 quads. Reports nausea. Derm: Skin is pink, warm \\T\\ dry. Musculoskeletal: Circulation, motion, and sensation intact. Range of motion:. 20:45 Reassessment: Patient and/or family updated on plan of care and expected duration. Pain ea level reassessed. Patient is alert, oriented x 3, equal unlabored respirations, skin warm/dry/pink. 21:15 Reassessment: Patient and/or family updated on plan of care and expected duration. Pain ea level reassessed. Patient is alert, oriented x 3, equal unlabored respirations, skin warm/dry/pink. Discharge instructions given to patient, verbalized the understanding of instruction. Pt left ED ambulatory, tolerating well. Patient states symptoms have improved. Vital Signs: 18:02 BP 149 / 105; Pulse 93; Resp 18; Temp 97.2; Pulse Ox 98% on R/A; Weight 104.33 kg (R); aj1 Height 5 ft. 9 in. (175.26 cm) (R); Pain 8/10; 18:48 BP 154 / 90; Pulse 81; Resp 17 S; Pulse Ox 97% on R/A; ca1 19:04 BP 144 / 103; Pulse 81; Resp 17; Pulse Ox 95% on R/A; ca1 19:16 BP 145 / 92; Pulse 82; Resp 18; Pulse Ox 97% ; ca1 20:00 BP 136 / 77; Pulse 76; Resp 18; Pulse Ox 98% ; ea 21:15 BP 130 / 86; Pulse 66; Resp 18; Pulse Ox 97% on R/A; ea 18:02 Body Mass Index 33.96 (104.33 kg, 175.26 cm) aj1 ED Course: 17:53 Patient arrived in ED. mr 18:00 Triage completed. aj1 18:02 Arm band placed on Patient placed in an exam room. aj1 18:04 Prudence Randhawa, KEI is Primary Nurse. ca1 18:10 Jaylon Miguel PA is PHCP. jr8 18:10 Lloyd Willson MD is Attending Physician. jr8 18:10 Patient has correct armband on for positive identification. Placed in gown. Bed in low ca1 position. Call light in reach. Side rails up X 1. Pulse ox on. NIBP on. Warm blanket given. 18:30 No provider procedures requiring assistance completed. Inserted saline lock: 20 gauge ca1 in right antecubital area, using aseptic technique. Blood collected. 20:07 Radiology exam delayed due to lab results not completed at this time. (BUN/Creatinine). 2 20:28 CT Abd/Pelvis - W/Contrast In Process Unspecified. EDMS 20:46 Laura Spence MD is Referral Physician. jr8 21:10 IV discontinued, intact, bleeding controlled, No redness/swelling at site. Pressure ea dressing applied. Administered Medications: 18:42 Drug: Zofran 4 mg Route: IVP; Site: right antecubital; ca1 19:30 Follow up: Response: No adverse reaction; Nausea is decreased ea 18:45 Drug: Pepcid 20 mg Route: IVP; Site: right antecubital; ca1 20:47 Follow up: Response: No adverse reaction ea 18:50 Drug: fentaNYL (PF) 50 mcg Route: IVP; Site: right antecubital; ca1 19:30 Follow up: Response: No adverse reaction ea 21:17 Drug: GI Cocktail without - (Maalox Suspension 30 ml, Lidocaine Liquid 2 % 15 ea ml) Route: PO; 21:17 Follow up: Response: Medication administered at discharge. ea Outcome: 20:46 Discharge ordered by . jr8 21:18 Discharged to home ambulatory, with family. ea 21:18 Condition: improved 21:18 Discharge instructions given to patient, Instructed on discharge instructions, follow up and referral plans. Demonstrated understanding of instructions, follow-up care. 21:19 Patient left the ED. ea Signatures: Dispatcher [employer] EDMS Arabella Webb RN RN [email or web address] Gloria Ware mr Jaylon Miguel, JODY VERA jr8 Quiana Roth 2 Calli Carlos RN RN ea Acob, Cheryl, RN RN ca1 Corrections: (The following items were deleted from the chart) 18:02 17:59 Presenting complaint: Patient states: "I got pain right here (pt points to aj1 epigastric area) and it goes down to here (pts to RLQ)" reports nausea. Denies V/D/fever. aj1
[2018-10-12] MEDS ORDERED: MAGNE/ALUM HYDROXD 30 ML UCUP ONE (21:17)
[2018-10-12] MEDS ORDERED: LIDOCAINE VISCOUS 2% SOLN 15 ML UDC ONE (21:17)
[2018-10-12 22:06] VITALS: BP 112/63; TEMP 98; O2SAT 99
== END 2018-10-12 21:19 | disposition home or self-care (01) ==
LOC: ER 17:49
DX: K29.70 Gastritis, unspecified, without bleeding (principal); I10 Essential (primary) hypertension; F17.210 Nicotine dependence, cigarettes, uncomplicated
CPT/HCPCS: 36415; 74177; 80048; 80076; 83690; 85025; 96374; 96375; 99284; J2405; J3010; Q9967

== ENCOUNTER 2019-04-03 09:57 | Emergency (ER) | payer SELFPAY ==
[2019-04-03] MEDS ORDERED: ALBUTEROL 2.5 MG/3 ML NEB SOL ONE (11:46)
[2019-04-03] MEDS ORDERED: IPRATROPIUM BROM 0.5MG/2.5ML ONE (11:46)
[2019-04-03] MEDS ORDERED: HYDROCODONE/CHLORPHEN 5 ML/OSYR ONE (11:47)
[2019-04-03] MEDS ORDERED: predniSONE 20 MG TAB ONE (11:47)
--- NOTE | 2019-04-03 12:30 | EDPHYS ---
Physician Documentation [facility] Name: Raza Causey Age: 33 yrs Sex: Male : 1985 Arrival Date: 04/03/2019 Time: 09:58 Bed 17 Private MD: ED Physician Vinod Chester HPI: 04/03 11:20 This 33 yrs old Male presents to ER via Ambulatory with complaints of pm1 Shortness Of Breath, Chest Pain, Back Pain. 11:20 The patient or guardian reports cough, with productive sputum. Onset: The pm1 symptoms/episode began/occurred 3 day(s) ago. Severity of symptoms: in the emergency department the symptoms are actually worse. Modifying factors: The symptoms are alleviated by nothing, the symptoms are aggravated by nothing. Associated signs and symptoms: Pertinent positives: chest pain, with cough, sore throat, Shortness of breath, Pertinent negatives: diarrhea, fever, nausea, vomiting. The patient has not experienced similar symptoms in the past. The patient has not recently seen a physician. Patient with complaints of post nasal drainage with cough and sore throat. Chest pain with coughing. 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 - Social history:: Smoking status: Patient uses tobacco products, smokes one-half pack cigarettes per day. - Ebola Screening: : Patient denies exposure to infectious person Patient denies travel to an Ebola-affected area in the 21 days before illness onset. ROS: 11:20 Constitutional: Negative for fever, chills, and weight loss, Eyes: Negative for injury, pm1 pain, redness, and discharge, Neck: Negative for injury, pain, and swelling, Cardiovascular: Negative for chest pain, palpitations, and edema, Abdomen/GI: Negative for abdominal pain, nausea, vomiting, diarrhea, and constipation, Back: Negative for injury and pain, MS/Extremity: Negative for injury and deformity, Skin: Negative for injury, rash, and discoloration. 11:20 ENT: Positive for sore throat, Negative for ear pain, difficulty swallowing, difficulty handling secretions, hoarseness. 11:20 Respiratory: Positive for cough, shortness of breath. Exam: 11:20 Constitutional: This is a well developed, well nourished patient who is awake, alert, pm1 and in no acute distress. Head/Face: Normocephalic, atraumatic. Eyes: Pupils equal round and reactive to light, extra-ocular motions intact. Lids and lashes normal. Conjunctiva and sclera are non-icteric and not injected. Cornea within normal limits. Periorbital areas with no swelling, redness, or edema. ENT: Nares patent. No nasal discharge, no septal abnormalities noted. Tympanic membranes are normal and external auditory canals are clear. Oropharynx with no redness, swelling, or masses, exudates, or evidence of obstruction, uvula midline. Mucous membranes moist. Neck: Trachea midline, no thyromegaly or masses palpated, and no cervical lymphadenopathy. Supple, full range of motion without nuchal rigidity, or vertebral point tenderness. No Meningismus. Chest/axilla: Normal chest wall appearance and motion. Nontender with no deformity. No lesions are appreciated. Cardiovascular: Regular rate and rhythm with a normal S1 and S2. No gallops, murmurs, or rubs. Normal PMI, no JVD. No pulse deficits. 11:20 Abdomen/GI: Soft, non-tender, with normal bowel sounds. No distension or tympany. No guarding or rebound. No evidence of tenderness throughout. Back: No spinal tenderness. No costovertebral tenderness. Full range of motion. Skin: Warm, dry with normal turgor. Normal color with no rashes, no lesions, and no evidence of cellulitis. MS/ Extremity: Pulses equal, no cyanosis. Neurovascular intact. Full, normal range of motion. 11:20 Respiratory: the patient does not display signs of respiratory distress, Respirations: normal, Breath sounds: wheezing: expiratory that is mild, is heard in the right posterior upper lobe and right posterior middle lobe. 11:20 Neuro: Orientation: is normal, Motor: is normal, moves all fours, Gait: is steady, at a normal pace, without difficulty. Vital Signs: 10:19 BP 159 / 101; Pulse 93; Resp 17; Temp 98.4(TE); Pulse Ox 98% on R/A; Weight 104.33 kg; ss Height 5 ft. 8 in. (172.72 cm); Pain 8/10; 12:12 BP 145 / 101; Pulse 88; Resp 18; Pulse Ox 100% on R/A; kj1 13:02 BP 140 / 85; Pulse 102; Resp 16; Pulse Ox 97% on R/A; em 10:19 Body Mass Index 34.97 (104.33 kg, 172.72 cm) ss MDM: 10:59 Patient medically screened. pm1 12:28 Data reviewed: vital signs. Data interpreted: Pulse oximetry: on room air is 100 %. pm1 Interpretation: normal. Counseling: I had a detailed discussion with the patient and/or guardian regarding: the historical points, exam findings, and any diagnostic results supporting the discharge/admit diagnosis. 04/03 11:19 Order name: Flu; Complete Time: 12:25 pm1 04/03 11:19 Order name: Strep; Complete Time: 12:25 pm1 04/03 11:19 Order name: Chest Pa And Lat (2 Views) XRAY pm1 Administered Medications: 11:55 Drug: Albuterol - atroVENT (3:1) (2.5 mg - 0.5 mg) 3 ml Route: Nebulizer; em 12:10 Follow up: Response: No adverse reaction em 11:55 Drug: predniSONE 60 mg Route: PO; em 12:10 Follow up: Response: No adverse reaction em 11:55 Drug: Tussionex Pennkinetic ER 5 ml Route: PO; em 12:11 Follow up: Response: No adverse reaction em 12:48 Drug: Rocephin (cefTRIAXone) 1 grams Route: IM; Site: right gluteus; em 13:01 Follow up: Response: No adverse reaction em Disposition: 04/03/19 12:29 Discharged to Home. Impression: Streptococcal pharyngitis. - Condition is Stable. - Discharge Instructions: Strep Throat. - Prescriptions for Zithromax Z- Zach 250 mg Oral Tablet - take 1 tablet by ORAL route as directed for 5 days Day 1 - take two (2) tablets one time. Day 2, 3, 4 , 5 take one (1) tablet once daily.; 6 tablet. Guaifenesin AC 10- 100 mg/5 mL Oral Liquid - take 10 milliliter by ORAL route every 4 hours As needed; 240 milliliter. - Medication Reconciliation Form, Thank You Letter, Antibiotic Education, Prescription Opioid Use form. - Follow up: Emergency Department; When: As needed; Reason: Worsening of condition. Follow up: Private Physician; When: 2 - 3 days; Reason: Recheck today's complaints, Continuance of care, Re-evaluation by your physician. - Problem is new. - Symptoms have improved. Addendum: 04/04/2019 16:42 Co-signature as Attending Physician, Vinod Chester MD. m a2 Signatures: Dispatcher [employer] EDTN Rodrigo Sharma, FOOD ADVISER FOOD ADVISER em Pam Medrano RN RN ss Romel Dia, REAL ESTATE PORTFOLIO MANAGER REAL ESTATE PORTFOLIO MANAGER pm1 Vinod Chester MD MD ma2 Corrections: (The following items were deleted from the chart) 04/03 13:03 12:29 04/03/2019 12:29 Discharged to Home. Impression: Streptococcal pharyngitis. em Condition is Stable. Forms are Medication Reconciliation Form, Thank You Letter, Antibiotic Education, Prescription Opioid Use. Follow up: Emergency Department; When: As needed; Reason: Worsening of condition. Follow up: Private Physician; When: 2 - 3 days; Reason: Recheck today's complaints, Continuance of care, Re-evaluation by your physician. Problem is new. Symptoms have improved. pm1
--- NOTE | 2019-04-03 12:30 | ER ---
Nurse's Notes [facility] Name: Raza Causey Age: 33 yrs Sex: Male : 1985 Arrival Date: 04/03/2019 Time: 09:58 Bed 17 Private MD: Diagnosis: Streptococcal pharyngitis Presentation: 04/03 10:20 Presenting complaint: Patient states: cough, painful cough, nasal/ chest congestion, ss headache that began 3-4 days ago. Denies fever. Transition of care: patient was not received from another setting of care. Onset of symptoms was March 30, 2019. Risk Assessment: Do you want to hurt yourself or someone else? Patient reports no desire to harm self or others. Initial Sepsis Screen: Does the patient meet any 2 criteria? HR > 90 bpm. Does the patient have a suspected source of infection? No. Patient's initial sepsis screen is negative. Care prior to arrival: None. 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 - Social history:: Smoking status: Patient uses tobacco products, smokes one-half pack cigarettes per day. - Ebola Screening: : Patient denies exposure to infectious person Patient denies travel to an Ebola-affected area in the 21 days before illness onset. Screenin:07 Abuse screen: Denies threats or abuse. Nutritional screening: No deficits noted. em Tuberculosis screening: No symptoms or risk factors identified. Fall Risk None identified. Assessment: 11:30 General: Appears in no apparent distress. uncomfortable, Behavior is calm, cooperative, em Reports fever for 1-2 days. Pain: Complains of pain in head and throat Pain does not radiate. Pain currently is 7 out of 10 on a pain scale. Pain began 2-3 days ago. Neuro: Level of Consciousness is awake, alert, obeys commands, Oriented to person, place, time, situation, Appropriate for age. Cardiovascular: Heart tones S1 S2 present Capillary refill < 3 seconds Patient's skin is warm and dry. Respiratory: Airway is patent Respiratory effort is even, unlabored, Respiratory pattern is regular, symmetrical, Breath sounds are clear bilaterally. Denies shortness of breath labored breathing. GI: Abdomen is flat, Patient currently denies nausea, vomiting. Derm: Skin is intact, is healthy with good turgor, Skin is pink, warm \T\ dry. Musculoskeletal: Capillary refill < 3 seconds, Range of motion: intact in all extremities. 11:40 General: The previous assessment is accurate, call light remains within reach. ss 12:12 Reassessment: Patient appears in no apparent distress at this time. Patient and/or em family updated on plan of care and expected duration. Pain level reassessed. Patient is alert, oriented x 3, equal unlabored respirations, skin warm/dry/pink. rates pain 4/10 Patient states feeling better. Patient states symptoms have improved. 12:48 Reassessment: pending shot time. em Vital Signs: 10:19 BP 159 / 101; Pulse 93; Resp 17; Temp 98.4(TE); Pulse Ox 98% on R/A; Weight 104.33 kg; ss Height 5 ft. 8 in. (172.72 cm); Pain 8/10; 12:12 BP 145 / 101; Pulse 88; Resp 18; Pulse Ox 100% on R/A; kj1 13:02 BP 140 / 85; Pulse 102; Resp 16; Pulse Ox 97% on R/A; em 10:19 Body Mass Index 34.97 (104.33 kg, 172.72 cm) ED Course: 09:58 Patient arrived in ED. rg4 10:19 Arm band placed on right wrist. ss 10:21 Triage completed. ss 10:59 Romel Dia NP is PHCP. pm1 10:59 Vinod Chester MD is Attending Physician. pm1 11:07 Rodrigo Sharma LVN is Primary Nurse. em 11:07 Patient has correct armband on for positive identification. Placed in gown. Bed in low em position. Call light in reach. Pulse ox on. NIBP on. 11:07 Patient maintains SpO2 saturation greater than 95% on room air. em 11:39 Chest Pa And Lat (2 Views) XRAY In Process Unspecified. EDMS 12:02 Strep Sent. kj1 12:02 Flu Sent. kj1 13:02 No provider procedures requiring assistance completed. Patient did not have IV access em during this emergency room visit. Administered Medications: 11:55 Drug: Albuterol - atroVENT (3:1) (2.5 mg - 0.5 mg) 3 ml Route: Nebulizer; em 12:10 Follow up: Response: No adverse reaction em 11:55 Drug: predniSONE 60 mg Route: PO; em 12:10 Follow up: Response: No adverse reaction em 11:55 Drug: Tussionex Pennkinetic ER 5 ml Route: PO; em 12:11 Follow up: Response: No adverse reaction em 12:48 Drug: Rocephin (cefTRIAXone) 1 grams Route: IM; Site: right gluteus; em 13:01 Follow up: Response: No adverse reaction em Outcome: 12:29 Discharge ordered by . pm1 13:02 Discharged to home ambulatory. em 13:02 Condition: good 13:02 Discharge instructions given to patient, Instructed on discharge instructions, follow up and referral plans. medication usage, Demonstrated understanding of instructions, follow-up care, medications, wound care, Prescriptions given X 2. 13:03 Patient left the ED. em Signatures: Dispatcher [employer] EDRodrigo Coleman, ASSISTANT PROFESSOR OF CRIMINAL JUSTICE ASSISTANT PROFESSOR OF CRIMINAL JUSTICE em Pam Medrano RN RN ss Marinas, Patrick, NP TIMBER MANAGEMENT SPECIALIST pm1 Carrie Nunez4 Oksana Mccray1
[2019-04-03] MEDS ORDERED: LIDOCAINE 1% MPF 2 ML AMPULE ONE (12:44)
[2019-04-03] MEDS ORDERED: CEFTRIAXONE 1000 MG/VIAL ONE (12:44)
--- NOTE | 2019-04-03 13:13 | RAD REPORT ---
EXAM DESCRIPTION: Jack Pryor (2 Views)04/03/2019 11:41 am CLINICAL HISTORY: Cough COMPARISON: 2018 FINDINGS: The lungs appear clear of acute infiltrate. The heart is normal size IMPRESSION: No acute abnormalities displayed
[2019-04-03 13:19] VITALS: TEMP 98.4
[2019-04-03 13:22] VITALS: BP 140/85; O2SAT 97
--- OUTSIDE RECORDS SUMMARY | 2019-04-04 07:06 | XMS REPORT ---
:1985 [facility] Address [address] [place] [address] [address] [place] [address] Care Team Providers Name Role Phone Unavailable Unavailable Unavailable Problems This patient has no known problems. Allergies, Adverse Reactions, Alerts This patient has no known allergies or adverse reactions. Medications This patient has no known medications.
== END 2019-04-03 13:03 | disposition home or self-care (01) ==
LOC: ER 09:57
DX: J02.0 Streptococcal pharyngitis (principal); I10 Essential (primary) hypertension; F17.210 Nicotine dependence, cigarettes, uncomplicated
CPT/HCPCS: 71046; 87081; 87804; 94640; 96372; 99285; J2001; J7512

== ENCOUNTER 2019-11-23 13:43 | Emergency (ER) | payer SELFPAY ==
--- NOTE | 2019-11-23 15:09 | RAD REPORT ---
EXAM DESCRIPTION: RAD - Chest Single View - 11/23/2019 3:02 pm CLINICAL HISTORY: CHEST PAIN COMPARISON: Two view chest March 2019 TECHNIQUE: AP portable chest image was obtained 11/23/2019 3:02 pm . FINDINGS: Lungs are clear. Heart and vasculature are normal. No measurable pleural effusion and no p neumothorax. No acute bony abnormality seen. No acute aortic findings suspected. IMPRESSION: No acute cardiopulmonary process. No suspicious interval change.
[2019-11-23] MEDS ORDERED: NA CHLORIDE 0.9% 1,000 ML ONE (15:12)
[2019-11-23] MEDS ORDERED: KETOROLAC 30 MG/ML INJ ONE (15:12)
[2019-11-23 15:30] LABS: Absolute Lymphocytes (CBC) 2.9 K/uL (0.7-4.9); Basophils % 0.8 % (0-1.3); Hematocrit 47.7 % (39.6-49.0); Lymphocytes % 24.8 % (15.3-44.8); RBC Red Blood Cell Count 5.66 M/uL (4.33-5.43)
[2019-11-23 15:37] LABS: ALT/SGPT 41 U/L (12-78); Albumin 3.5 g/dL (3.4-5.0); Alkaline Phosphatase 108 U/L (45-117); BUN Blood Urea Nitrogen 20 mg/dL (7-18); Bicarbonate 25 mmol/L (21-32); Bilirubin Direct < 0.1 mg/dL (0-0.2); Bilirubin Total 0.4 mg/dL (0.2-1.0); Glucose Level 102 mg/dL (74-106); NT PRO-BNP 25 pg/mL (<125); Protein, Total 7.3 g/dL (6.4-8.2); Sodium Level 139 mmol/L (136-145); Troponin (Emerg Dept Use Only) < 0.02 ng/mL (0.0-0.045)
[2019-11-23 15:38] LABS: AST/SGOT 24 U/L (15-37); Magnesium 2.3 mg/dL (1.8-2.4); Potassium 3.7 mmol/L (3.5-5.1); Protime INR 1.15
--- NOTE | 2019-11-23 16:48 | EDPHYS ---
Physician Documentation [facility] Name: Raza Causey Age: 34 yrs Sex: Male : 1985 Arrival Date: 11/23/2019 Time: 13:45 Bed 8 Private MD: ED Physician Karthik Lakhani HPI: 11/23 07:45 This 34 yrs old Male presents to ER via Ambulatory with complaints of Chest kdr Pain, Back Pain, Shortness Of Breath, Weakness. 07:46 The patient has generally been feeling poorly for the last few days. He denies fever or kdr congestion.. He has been hurting all over. He has no focal c/o. Onset: The symptoms/episode began/occurred gradually, 3 day(s) ago. Severity of symptoms: At their worst the symptoms were mild moderate just prior to arrival, in the emergency department the symptoms are unchanged. The patient has not experienced similar symptoms in the past. The patient has not recently seen a physician. 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 - Social history:: Smoking status: Patient reports the use of cigarette tobacco products, smokes one pack cigarettes per day. ROS: 11/23 07:46 Constitutional: Negative for fever, chills, and weight loss, Eyes: Negative for injury, kdr pain, redness, and discharge, ENT: Negative for injury, pain, and discharge, Neck: Negative for injury, pain, and swelling, Cardiovascular: Negative for chest pain, palpitations, and edema, Abdomen/GI: Negative for abdominal pain, nausea, vomiting, diarrhea, and constipation, : Negative for injury, bleeding, discharge, and swelling, MS/Extremity: Negative for injury and deformity, Skin: Negative for injury, rash, and discoloration, Neuro: Negative for headache, weakness, numbness, tingling, and seizure activity. Psych: Negative for depression, anxiety, suicide ideation, homicidal ideation, and hallucinations, Allergy/Immunology: Negative for hives, rash, and allergies, Endocrine: Negative for neck swelling, polydipsia, polyuria, polyphagia, and marked weight changes, Hematologic/Lymphatic: Negative for swollen nodes, abnormal bleeding, and unusual bruising. Respiratory: Positive for cough, Negative for hemoptysis, orthopnea, pleurisy, sputum production. Exam: 07:46 Constitutional: This is a well developed, well nourished patient who is awake, alert, kdr and in no acute distress. Head/Face: Normocephalic, atraumatic. Eyes: Pupils equal round and reactive to light, extra-ocular motions intact. Lids and lashes normal. Conjunctiva and sclera are non-icteric and not injected. Cornea within normal limits. Periorbital areas with no swelling, redness, or edema. Neck: Trachea midline, no thyromegaly or masses palpated, and no cervical lymphadenopathy. Supple, full range of motion without nuchal rigidity, or vertebral point tenderness. No Meningismus. Chest/axilla: Normal chest wall appearance and motion. Nontender with no deformity. No lesions are appreciated. Cardiovascular: Regular rate and rhythm with a normal S1 and S2. No gallops, murmurs, or rubs. Normal PMI, no JVD. No pulse deficits. Respiratory: Lungs have equal breath sounds bilaterally, clear to auscultation and percussion. No rales, rhonchi or wheezes noted. No increased work of breathing, no retractions or nasal flaring. Abdomen/GI: Soft, non-tender, with normal bowel sounds. No distension or tympany. No guarding or rebound. No evidence of tenderness throughout. Back: No spinal tenderness. No costovertebral tenderness. Full range of motion. Skin: Warm, dry with normal turgor. Normal color with no rashes, no lesions, and no evidence of cellulitis. MS/ Extremity: Pulses equal, no cyanosis. Neurovascular intact. Full, normal range of motion. Neuro: Awake and alert, GCS 15, oriented to person, place, time, and situation. Cranial nerves II-XII grossly intact. Motor strength 5/5 in all extremities. Sensory grossly intact. Cerebellar exam normal. Normal gait. Psych: Awake, alert, with orientation to person, place and time. Behavior, mood, and affect are within normal limits. Vital Signs: 11/22 14:02 BP 158 / 114; Pulse 93; Resp 18; Temp 98.5(O); Pulse Ox 99% on R/A; Weight 107.05 kg em (R); Height 5 ft. 9 in. (175.26 cm); Pain 8/10; 15:13 BP 161 / 116; Pulse 80; Resp 18; Pulse Ox 100% on R/A; ls4 14:02 Body Mass Index 34.85 (107.05 kg, 175.26 cm) em MDM: 16:48 Patient medically screened. kdr 11/23 07:46 Data reviewed: vital signs, nurses notes, lab test result(s), radiologic studies. kdr Counseling: I had a detailed discussion with the patient and/or guardian regarding: the historical points, exam findings, and any diagnostic results supporting the discharge/admit diagnosis, lab results, radiology results, the need for outpatient follow up. 11/22 14:50 Order name: Basic Metabolic Panel; Complete Time: 16:03 [facility] 11/22 14:50 Order name: CBC with Diff; Complete Time: 16:03 [facility] 11/22 14:50 Order name: LFT's; Complete Time: 16:03 [facility] 11/22 14:50 Order name: Magnesium; Complete Time: 16:03 [facility] 11/22 14:50 Order name: NT PRO-BNP; Complete Time: 16:03 [facility] 11/22 14:50 Order name: PT-INR; Complete Time: 16:03 [facility] 11/22 14:50 Order name: Troponin (emerg Dept Use Only); Complete Time: 16:03 [facility] 11/22 14:50 Order name: XRAY Chest (1 view); Complete Time: 15:19 [facility] 11/22 14:50 Order name: EKG; Complete Time: 14:51 [facility] 11/22 14:50 Order name: Cardiac monitoring; Complete Time: 15:09 [facility] 11/22 16:46 Order name: COVID-19 kdr 11/22 14:50 Order name: EKG - Nurse/Tech; Complete Time: 15:08 [facility] 11/22 14:50 Order name: IV Saline Lock; Complete Time: 15:09 [facility] 11/22 14:50 Order name: Labs collected and sent; Complete Time: 15:09 [facility] 11/22 14:50 Order name: O2 Per Protocol; Complete Time: 15:09 [facility] 11/22 14:50 Order name: O2 Sat Monitoring; Complete Time: 15:09 ls4 Administered Medications: 11/22 15:08 Drug: TORadol - Ketorolac 15 mg Route: IVP; Site: right antecubital; ls4 16:08 Follow up: Response: No adverse reaction; Marked relief of symptoms ls4 15:08 Drug: NS 0.9% 1000 ml Route: IV; Rate: 1 bolus; Site: right antecubital; ls4 16:08 Follow up: IV Status: Completed infusion; IV Intake: 1000ml ls4 17:00 Drug: Tylenol #3 (300 mg-30 mg) 2 tabs Route: PO; ls4 Disposition: 11/23/19 16:48 Discharged to Home. Impression: Viral infection, unspecified, Myalgia. - Condition is Stable. - Discharge Instructions: Musculoskeletal Pain, Pain Without a Known Cause, Viral Respiratory Infection, Kkgf-Vg-Asiw, COVID-19. - Prescriptions for Tramadol 50 mg Oral Tablet - take 1 tablet by ORAL route every 8 hours as needed; 20 tablet. Zofran 4 mg Oral Tablet - take 1 tablet by ORAL route every 12 hours As needed; 20 tablet. - Medication Reconciliation Form, Thank You Letter, Prescription Opioid Use form. - SBAR form (11/23/19 21:19). ls4 - Follow up: Private Physician; When: 2 - 3 days; Reason: If symptoms return, Further diagnostic work-up, Recheck today's complaints, Continuance of care, Re-evaluation by your physician. - Problem is new. - Symptoms have improved. Signatures: Dispatcher [employer] [facility] Karthik Lakhani MD MD kdr Munoz, Edgar, RN RN em Sania Butler RN RN ls4 Corrections: (The following items were deleted from the chart) 17:20 16:48 11/23/2019 16:48 Discharged to Home. Impression: Viral infection, unspecified; ls4 Myalgia. Condition is Stable. Forms are Medication Reconciliation Form, Thank You Letter, Antibiotic Education, Prescription Opioid Use. Follow up: Private Physician; When: 2 - 3 days; Reason: If symptoms return, Further diagnostic work-up, Recheck today's complaints, Continuance of care, Re-evaluation by your physician. Problem is new. Symptoms have improved. kdr
--- NOTE | 2019-11-23 16:48 | ER ---
Nurse's Notes [facility] Name: Raza Causey Age: 34 yrs Sex: Male : 1985 Arrival Date: 11/23/2019 Time: 13:45 Bed 8 Private MD: Diagnosis: Viral infection, unspecified;Myalgia Presentation: 11/22 14:02 Chief complaint: Patient states: weakness, cough, chest tightness and back pain since em yesterday morning, denies fever or shortness of breath. Coronavirus screen: Surgical mask placed on patient. Patient moved to private room, placed in contact and droplet isolation with eye protection until further assessment. Patient reports a cough. Patient reports shortness of breath or difficulty breathing. Patient denies measured and/or subjective temperature greater than 100.4F prior to today's visit. Patient denies travel on a cruise ship or to a country the [facility] currently lists as an affected area. Patient denies contact with known and/or suspected case of COVID-19. Ebola Screen: Patient negative for fever greater than or equal to 101.5 degrees Fahrenheit, and additional compatible Ebola Virus Disease symptoms Patient denies exposure to infectious person. Patient denies travel to an Ebola-affected area in the 21 days before illness onset. No symptoms or risks identified at this time. Initial Sepsis Screen: Does the patient meet any 2 criteria? HR > 90 bpm. No. Patient's initial sepsis screen is negative. Does the patient have a suspected source of infection? No. Patient's initial sepsis screen is negative. Risk Assessment: Do you want to hurt yourself or someone else? Patient reports no desire to harm self or others. Onset of symptoms was November 23, 2019. 14:02 Method Of Arrival: Ambulatory em 14:02 Acuity: DEBO 3 em Triage Assessment: 14:19 General: Appears in no apparent distress. comfortable, Behavior is calm, cooperative. 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 - Social history:: Smoking status: Patient reports the use of cigarette tobacco products, smokes one pack cigarettes per day. Screenin:14 Abuse screen: Denies threats or abuse. Denies injuries from another. Nutritional ls4 screening: No deficits noted. Tuberculosis screening: No symptoms or risk factors identified. Fall Risk None identified. Assessment: 14:58 Reassessment: Patient appears in no apparent distress at this time. Patient and/or ls4 family updated on plan of care and expected duration. Pain level reassessed. Patient is alert, oriented x 3, equal unlabored respirations, skin warm/dry/pink. 14:58 Pain: Complains of pain in forehead Pain does not radiate. Pain currently is 8 out of ls4 10 on a pain scale. Pain began gradually, 2-3 days ago. Cardiovascular: Reports fatigue, Denies chest pain, diaphoresis, lightheadedness, nausea, palpitations, shortness of breath, syncope, vomiting, Capillary refill < 3 seconds Clubbing of nail beds is absent Patient's skin is warm and dry. Respiratory: Airway is patent Respiratory effort is even, unlabored, Respiratory pattern is regular, Denies cough, shortness of breath labored breathing. GI: No deficits noted. No signs and/or symptoms were reported involving the gastrointestinal system. : No deficits noted. No signs and/or symptoms were reported regarding the genitourinary system. Derm: Skin is pink, warm \T\ dry. Skin temperature is. Vital Signs: 14:02 BP 158 / 114; Pulse 93; Resp 18; Temp 98.5(O); Pulse Ox 99% on R/A; Weight 107.05 kg em (R); Height 5 ft. 9 in. (175.26 cm); Pain 8/10; 15:13 BP 161 / 116; Pulse 80; Resp 18; Pulse Ox 100% on R/A; ls4 14:02 Body Mass Index 34.85 (107.05 kg, 175.26 cm) em ED Course: 13:45 Patient arrived in ED. as 13:59 Karthik Lakhani MD is Attending Physician. kdr 14:05 Triage completed. em 14:06 Arm band placed on. em 14:14 Sania Butler, KEI is Primary Nurse. ls4 14:14 Patient has correct armband on for positive identification. Bed in low position. Call ls4 light in reach. Side rails up X 1. classroom monitor on. Pulse ox on. NIBP on. Verbal reassurance given. 14:55 No provider procedures requiring assistance completed. Initial lab(s) drawn, by sony [email or web address] sent to lab. EKG done, by debug technician. reviewed by Karthik Lakhani MD. Inserted saline lock: in right antecubital area, using aseptic technique. Blood collected. 14:55 Patient maintains SpO2 saturation greater than 95% on room air. ls4 15:03 XRAY Chest (1 view) In Process Unspecified. EDMS Administered Medications: 15:08 Drug: TORadol - Ketorolac 15 mg Route: IVP; Site: right antecubital; ls4 16:08 Follow up: Response: No adverse reaction; Marked relief of symptoms ls4 15:08 Drug: NS 0.9% 1000 ml Route: IV; Rate: 1 bolus; Site: right antecubital; ls4 16:08 Follow up: IV Status: Completed infusion; IV Intake: 1000ml ls4 17:00 Drug: Tylenol #3 (300 mg-30 mg) 2 tabs Route: PO; ls4 Intake: 16:08 IV: 1000ml; Total: 1000ml. ls4 Outcome: 16:48 Discharge ordered by . kdr 17:20 Patient left the ED. ls4 Addendum: 11/26/2019 08:56 Addendum: Other pt notified of negative COVID-19 swab results. Pt advised to remain in d m5 isolation until symptom free for 3 days and to return to the ED if symptoms worsen. Signatures: Dispatcher [employer] Eliazbeth Razo, RN RN dm5 Karthik Lakhani MD MD kdr Munoz, Edgar, RN Yuni Chan Lisa, RN RN ls4
[2019-11-23] MEDS ORDERED: CODEINE 30MG/APAP 300MG TAB ONE (17:20)
[2019-11-23 17:28] VITALS: TEMP 98.5
[2019-11-23 17:29] VITALS: BP 161/116; O2SAT 100
--- OUTSIDE RECORDS SUMMARY | 2019-11-23 18:52 | XMS REPORT | Continuity of Care Document ---
:1985 Author Organization [facility] t Address [address] [place] [address] Care Team Providers Name Role Phone Unavailable Unavailable Unavailable Problems This patient has no known problems. Allergies, Adverse Reactions, Alerts This patient has no known allergies or adverse reactions. Medications This patient has no known medications. Procedures This patient has no known procedures. Results This patient has no known results.
--- NOTE | 2019-11-23 20:57 | EKG ---
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
== END 2019-11-23 17:20 | disposition home or self-care (01) ==
LOC: ER 13:43
DX: B34.9 Viral infection, unspecified (principal); Z20.828 Contact with and (suspected) exposure to other viral communicable diseases; I10 Essential (primary) hypertension; F17.210 Nicotine dependence, cigarettes, uncomplicated
CPT/HCPCS: 36415; 71045; 80048; 80076; 83735; 83880; 84484; 85025; 85610; 93005; 96361; 96374; 99285; J7030; U0001

== ENCOUNTER 2020-02-15 21:19 | Emergency (ER) | payer BC, SELFPAY ==
--- OUTSIDE RECORDS SUMMARY | 2020-02-15 21:21 | XMS REPORT | Continuity of Care Document ---
:1985 Author Organization [facility] t Address [address] [place] [address] Care Team Providers Name Role Phone Unavailable Unavailable Unavailable Problems This patient has no known problems. Allergies, Adverse Reactions, Alerts This patient has no known allergies or adverse reactions. Medications This patient has no known medications. Procedures This patient has no known procedures. Results This patient has no known results.
[2020-02-15] MEDS ORDERED: MORPHINE 2 MG/ML SYR ONE (21:48)
--- NOTE | 2020-02-15 23:33 | ER ---
Nurse's Notes [facility] Name: Raza Causey Age: 34 yrs Sex: Male : 1985 Arrival Date: 02/15/2020 Time: 21: Bed External Waiting [facility] MD: Diagnosis: Presentation: 02/14 21:27 Chief complaint: Patient states: intermittent chest pain started Thursday night, worse dm5 when drinking something, sometimes it is a sharp pain in left breast area to left axilla. Pain rated 6/10 this time, 8/10 at worse. Coronavirus screen: Client denies travel out of the [place] in the last 14 days. shortness of breath. Ebola Screen: Patient negative for fever greater than or equal to 101.5 degrees Fahrenheit, and additional compatible Ebola Virus Disease symptoms Patient denies exposure to infectious person. Patient denies travel to an Ebola-affected area in the 21 days before illness onset. No symptoms or risks identified at this time. Initial Sepsis Screen: Does the patient meet any 2 criteria? No. Patient's initial sepsis screen is negative. Does the patient have a suspected source of infection? No. Patient's initial sepsis screen is negative. Risk Assessment: Do you want to hurt yourself or someone else? Patient reports no desire to harm self or others. Onset of symptoms was February 12, 2020. 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 Vital Signs: 21:27 Weight 106.14 kg (R); Height 5 ft. 9 in. (175.26 cm); Pain 6/10; dm5 21:31 BP 148 / 105; Pulse 75; Resp 19; Temp 98.3(TE); Pulse Ox 99% on R/A; dm5 21:27 Body Mass Index 34.56 (106.14 kg, 175.26 cm) dm5 ED Course: :23 Patient arrived in ED. am2 21:30 Triage completed. dm5 21:35 Arm band placed on Patient placed in waiting room. dm5 22:27 Geovanna Curiel FNP-C is [facility]. snw 22:27 [place] MD is Attending Physician. snw 23:31 Pavel Hennessy, RN is Primary Nurse. mg2 Administered Medications: No medications were administered Outcome: 23:32 Patient left the ED. dm5 Signatures: Elizabeth Ng RN RN dmGeovanna Mock FNP-C [employer] Jenelle Guzman am2 Pavel Hennessy, RN RN mg2
[2020-02-16 00:11] VITALS: BP 148/105; TEMP 98.3; O2SAT 99
== END 2020-02-15 23:32 | disposition left against medical advice (07) ==
LOC: ER 21:19
DX: Z53.21 Procedure and treatment not carried out due to patient leaving prior to being seen by health care provider (principal)
CPT/HCPCS: 93005; 99281; J2270

== ENCOUNTER 2020-04-09 07:06 | Emergency (ER) | payer SELFPAY ==
--- OUTSIDE RECORDS SUMMARY | 2020-04-09 07:07 | XMS REPORT | Continuity of Care Document ---
:1985 Author Organization [facility] t Address [address] [place] [address] Care Team Providers Name Role Phone Ziggy Alva Attending Clinician Elizabet Covarrubias Attending Clinician Problems This patient has no known problems. Allergies, Adverse Reactions, Alerts This patient has no known allergies or adverse reactions. Medications This patient has no known medications. Procedures This patient has no known procedures. Encounters Start End Encounter Admission Attending Care Care Encounter Source Date/Time Date/Time Type Type Clinicians Facility Department ID 2020-02-16 2020-02-17 Emergency Ziggy Prasad [facility] [id number] 21:41:00 00:50:00 Jennifer Rangel [id number] [place] [id number] [place] [id number] 2019-06-12 2019-06-12 Emergency Kayla [facility] [id number] 16:15:07 18:19:00 Siobhan Rangel [id number] [place] [id number] [place] [address] [id number] Results This patient has no known results.
--- OUTSIDE RECORDS SUMMARY | 2020-04-09 07:08 | XMS REPORT | Summary of Care ---
:1985 Author Organization [facility] - Health Address [address] [place] [address] Care Team Providers Name Role Phone Pcp, Patient Does Not Have A Primary Care Provider [phone] Reason for Referral Radiology Services (STAT) Status Reason Specialty Diagnoses / Referred By Referred To Procedures Contact Contact New Request Diagnostic Diagnoses Chest pain, unspecified type Alan Sol, Radiology Procedures XR CHEST [address] [place] [address] [address] [place] [address] Reason for Visit Reason Comments Chest Pain Auth/Cert Status Reason Specialty Diagnoses / Referred By Referred To Procedures Contact Contact Emergency Medicine Diagnoses CHEST PAIN [facility] [address] [place] [address] Fax: Encounter Details Date Type Department Care Team Description 02/16/2020 - Emergency [facility] Osmar, K Pleuritic pain (Primary Dx); 02/17/2020 Department LINDSAY Rodriguez Chest pain, unspecified type [id number] [place] [id number] [place] [address] [phone] [id number] Allergies No Known Allergiesdocumented as of this encounter (statuses as of 02/17/2020) Medications Medication Sig Dispensed Refills Start Date End Date Status LISINOPRIL ORAL Take by mouth. 0 Active traMADOL 50 mg tablet Take 1 tablet by 10 tablet 0 01/28/2018 Active mouth every 8 (eight) hours as needed for Pain (scale 4-6). proMETHazine 25 mg Take 1 tablet by 12 tablet 0 03/10/2018 Active tablet mouth every 6 (six) hours as needed for Nausea and Vomiting (N/V). traMADOL (ULTRAM) 50 Take 1 tablet by 20 tablet 0 03/10/2018 Active mg tablet mouth every 6 (six) hours as needed for Pain (scale 4-6). benzonatate 200 mg Take 1 capsule by 21 capsule 0 05/13/2018 Active capsule mouth 3 (three) times daily as needed for Cough. albuterol 2.5 mg /3 Inhale 3 mL every 1 Box 0 04/05/2019 Active mL (0.083 %) 4 (four) hours as nebulizer needed for solutionIndications: Wheezing or Bronchitis Shortness of Breath. ibuprofen 600 mg Take 1 tablet by 30 tablet 0 02/17/2020 Active tabletIndications: mouth every 6 Pleuritic pain (six) hours as needed for Pain (scale 4-6). documented as of this encounter (statuses as of 02/17/2020) Active Problems No known active problemsdocumented as of this encounter (statuses as of 02/17/2020) Social History Tobacco Use Types Packs/Day Years Used Date Never Assessed Sex Assigned at Date Recorded Not on file COVID-19 Exposure Response Date Recorded In the last month, have you been in contact with No / Unsure 02/16/2020 8:43 PM CDT someone who was confirmed or suspected to have Coronavirus / COVID-19? documented as of this encounter Last Filed Vital Signs Vital Sign Reading Time Taken Comments Blood Pressure 124/77 02/17/2020 12:00 AM CDT Pulse 65 02/17/2020 12:00 AM CDT Temperature 36.8 C (98.2 F) 02/16/2020 8:13 PM CDT Respiratory Rate 16 02/17/2020 12:00 AM CDT Oxygen Saturation 97% 02/17/2020 12:00 AM CDT Inhaled Oxygen Concentration - - Weight 107 kg (236 lb) 02/16/2020 8:13 PM CDT Height - - Body Mass Index 34.85 06/12/2019 4:12 PM [employer] documented in this encounter Discharge Instructions AttachmentsThe following attachments cannot be sent through Care Everywhere. Chest Pain, Noncardiac (Frisian)documented in this encounter ED Notes Susan Zavala RN - 02/16/2020 8:12 PM CDTPatient c/o cp that has been ongoing x3 and becoming worse. Patient states that at times it "feels like my heart is racing". Patient states he had been taking lisinopril however is not now due to insurance. documented in this encounter Miscellaneous Notes ED Nurse Note - Nancy Morley, RN - 02/17/2020 12:48 AM CDTPt given printed and verbal discharge instructions regarding noncardiac chest pain and pleuritic pain, encouraged hydration. Prescriptions provided. Discussed ibuprofen and to take with food to avoid GI distress. Pt verbalized understanding of instructions, pt awake alert oriented, resp reg unlabored, skin w/d, color appropriate for race, moves all ext well, pt encouraged to follow up with PCP. Advised to seek medical attention for new/prolonged/worsening of symptoms. Symptoms addressed. No adverse reaction to meds given in ER noted upon discharge. PIV d'cd, dressing to site, catheter intact. Pt leaving amb with steady gait, in no apparent distress. documented in this encounter Plan of Treatment Health Maintenance Due Date Last Done Comments VARICELLA VACCINES (1 of 2 - 2-dose childhood series) 1984 PNEUMOCOCCAL 0-64 YEARS COMBINED SERIES (1 of 3 - 1989 PCV13) Depression Screening 1995 DTaP,Tdap,and Td Vaccines (1 - Tdap) 2002 INFLUENZA VACCINE (#1) 2020 documented as of this encounter Procedures Procedure Name Priority Date/Time Associated Diagnosis Comme nts TROPONIN I STAT 02/16/2020 10:49 Chest pain, Results for this PM CDT unspecified type procedure a re in the results section. XR CHEST 1 VW STAT 02/16/2020 9:30 Chest pain, Results fo r this PM CDT unspecified type procedure a re in the results section. ACTIVATED PARTIAL STAT 02/16/2020 8:21 Chest pain, Result s for this THRMPLAS AMY PM CDT unspecified type procedure a re in the results section. PROTHROMBIN TIME / STAT 02/16/2020 8:21 Chest pain, Resul ts for this INR PM CDT unspecified type procedure a re in the results section. CBC WITH DIFF STAT 02/16/2020 8:21 Chest pain, Results fo r this PM CDT unspecified type procedure a re in the results section. COMP. METABOLIC STAT 02/16/2020 8:21 Chest pain, Results for this PANEL (66874) PM CDT unspecified type procedure are in the results section. TROPONIN I STAT 02/16/2020 8:21 Chest pain, Results for this PM CDT unspecified type procedure a re in the results section. LIPASE STAT 02/16/2020 8:21 Chest pain, Results for this PM CDT unspecified type procedure a re in the results section. EKG-12 LEAD STAT 02/16/2020 8:18 PM CDT NOTICE OF PRIVACY Routine 02/16/2020 8:08 PRACTICES PM CDT CONSENT/REFUSAL FOR Routine 02/16/2020 8:08 DIAGNOSIS AND PM CDT TREATMENT documented in this encounter Results TROPONIN I (02/16/2020 10:49 PM CDT) Pathologist Sig nature TROPONIN I 0.001 <=0.034 ng/mL [facility] Specimen Blood - VENOUS Narrative Performed At Equal or Less than 0.034 ng/ml---Normal [facility] Note: Cardiac troponin begins to rise 3-4 hours after the onset of ischemia. Repeat in 4-6 hours if the sample was drawn within 3-4 hours of the onset of the symptom and found normal. Between 0.035 and 0.120 ng/mL--- Borderline. Questionable myocardial injury or necros is Note: Serial measurement may be necessary to confirm or exclude the diagnosis of myocardial injury or necrosis; Clinical correlation (symptoms, EKGs, imaging studies, and others) required; Repeat in 4-6 hours if clinically indicated. Equal or Higher than 0.121 ng/mL---Abnormal. Myocardial Injury or Necrosis Likely Biotin has been reported to cause a negative bias, interpret results relative to patient's use of biotin. Performing Organization Address City/State/Zipcode Phone Number [facility] CLIA: [id number] [place] [address] XR CHEST 1 VW (02/16/2020 9:30 PM CDT) Specimen Impressions Performed At [facility] No acute intrathoracic abnormality. Preliminary Report Dictated by Resident: Rome Kapoor MD., have reviewed this study and agree with the above report. Narrative Performed At PROCEDURE: XR CHEST [address] [facility]SE CLINICAL INDICATION: cp COMPARISON: Chest x-ray dated 05/13/2018 . FINDINGS: The lungs are clear. No pleural effusion or pneumothor ax is seen. The heart is normal in size. No acute bony abnormality. Procedure Note [facility], Radiant Results Inft User - 2019 11:44 PM CDT PROCEDURE: XR CHEST 1 VW CLINICAL INDICATION: cp COMPARISON: Chest x-ray dated 05/13/2018 . FINDINGS: The lungs are clear. No pleural effusion or pneumothorax is seen. The heart is normal in size. No acute bony abnormality. IMPRESSION No acute intrathoracic abnormality. Preliminary Report Dictated by Resident: Yuridia Diaz I, Rome Soria MD., have review ed this study and agree with the above report. Performing Organization Address City/State/Zipcode Phone Number [facility]//[facility] CBC WITH DIFF (02/16/2020 8:21 PM CDT) Pathologist Sig nature WBC 11.25 (H) 4.20 - 10.70 [facility] 10*3/L [facility] RBC 5.44 4.26 - 5.52 [facility] 10*6/L [facility] HGB 16.1 12.2 - 16.4 [facility] g/dL [facility] HCT 46.5 38.4 - 49.3 % [facility] MCV 85.5 81.7 - 95.6 fL [facility] MCH 29.6 26.1 - 32.7 pg [facility] MCHC 34.6 31.2 - 35.0 [facility] g/dL [facility] RDW-SD 42.9 38.5 - 51.6 fL [facility] RDW-CV 13.8 12.1 - 15.4 % [facility] PLT 173 150 - 328 [facility] 10*3/L [facility] MPV 11.3 9.8 - 13.0 fL [facility] NRBC/100 WBC 0.0 0.0 - 10.0 /100 [facility] WBCs [facility] NRBC x10^3 <0.01 10*3/L [facility] GRAN MAT (NEUT) % 62.6 % [facility] IMM GRAN % 0.40 % [facility] LYMPH % 31.0 % [facility] MONO % 5.2 % [facility] EOS % 0.4 % [facility] BASO % 0.4 % [facility] GRAN MAT x10^3(ANC) 7.04 (H) 1.99 - 6.95 [facility] 10*3/uL [facility]ITAL [facility] IMM GRAN x10^3 0.04 0.00 - 0.06 [facility] 10*3/uL [facility] LYMPH x10^3 3.49 (H) 1.09 - 3.23 [facility] 10*3/uL [facility] MONO x10^3 0.59 0.36 - 1.02 [facility] 10*3/uL [facility] EOS x10^3 0.04 (L) 0.06 - 0.53 [facility] 10*3/uL [facility] BASO x10^3 0.05 0.01 - 0.09 [facility] 10*3/uL [facility] Specimen Blood - VENOUS Performing Organization Address City/[facility]/Zipcode Phone Number [facility] CLIA: [id number] [place], [place] [id number] LABORATORY [address] [place] [address] LIPASE, SERUM (02/16/2020 8:21 PM CDT) Pathologist Sig nature LIPASE 85 0 - 220 U/L [facility] Specimen Blood - VENOUS Performing Organization Address City/[facility]/Zipcode Phone Number [facility] CLIA: [id number] [place], [place] [address] LABORATORY [address] [facility] COMP. METABOLIC PANEL (40550) (02/16/2020 8:21 PM CDT) Pathologist Sig nature NA 139 135 - 145 [facility] mmol/L [facility] K 3.9 3.5 - 5.0 [facility] mmol/L [facility] CL 105 98 - 108 mmol/L [facility] CO2 TOTAL 25 23 - 31 mmol/L [facility] AGAP 9 2 - 16 [facility] BUN 19 7 - 23 mg/dL [facility] GLUCOSE 115 (H) 70 - 110 mg/dL [facility] CREATININE 1.06 0.60 - 1.25 [facility] mg/dL [facility] TOTAL BILI 0.4 0.1 - 1.1 mg/dL [facility] CALCIUM 9.3 8.6 - 10.6 [facility] mg/dL [facility] T PROTEIN 7.5 6.3 - 8.2 g/dL [facility] ALBUMIN 4.1 3.5 - 5.0 g/dL [facility] ALK PHOS 88 34 - 122 U/L [facility] ALTv 20 5 - 50 U/L [facility] AST(SGOT) 28 13 - 40 U/L [facility] eGFR Calculation 79.1 mL/min/1.73m2 [facility] (Non-[facility] LABORATORY [place]) eGFR Calculation 95.8 mL/min/1.73m2 [facility] () [facility] Specimen Blood - VENOUS Narrative Performed At Association of Glomerular Filtration Rate (GFR) [facility] and Staging of Kidney Disease* + + +- + | GFR (mL/min/1.73 m2) | With Kidney Damage | Without Kidney Damage + + +- + | >90 | Stage one | Normal + + +- + | 60-89 | Stage two | Decreased GFR + + +- + | 30-59 | Stage three | Stage three + + +- + | 15-29 | Stage four | Stage four + + +- + | <15 (or dialysis) | Stage five | Stage five + + +- + *Each stage assumes the associated GFR level has been in effect for at least three months. Stages 1 to 5, with or without kidney disease, indicate chronic kidney disease. Notes: Determination of stages one and two (with eGFR >59mL/min/1.73 m2) requires estimation of kidney damage for at least three months as defined by structural or functional abnormalities of the kidney, manifested by either: Pathological abnormalities or Markers of kidney damage (including abnormalities in the composition of the blood or urine or abnormalities in imaging tests). Performing Organization Address City/State/Zipcode Phone Number [facility] CLIA: [id number] [place] [address] PROTHROMBIN TIME / INR (02/16/2020 8:21 PM CDT) PROTIME PATIENT 14.8 (H) 12.0 - 14.7 [facility] LABORATORY INR 1.2Comment: Normal [facility] INR <1.1; Warfarin [facility] Therapeutic range LABORATORY 2.0 to 3.0 or 2.5 to 3.5, depending upon the indications. Specimen Blood - VENOUS Performing Organization Address [facility] Phone Number [facility] CLIA: [id number] [place] [address] aPTT (02/16/2020 8:21 PM CDT) Pathologist Sig nature APTT Patient 34 23 - 38 Seconds [facility] Specimen Blood - VENOUS Narrative Performed At The [facility] patient population mean normal value [facility] for aPTT is 30 seconds. Performing Organization Address [facility] Phone Number [facility] CLIA: [id number] [place] [address] TROPONIN I (02/16/2020 8:21 PM CDT) Pathologist Sig nature TROPONIN I 0.001 <=0.034 ng/mL [facility] Specimen Blood - VENOUS Narrative Performed At Equal or Less than 0.034 ng/ml---Normal [facility] Note: Cardiac troponin begins to rise 3-4 hours after the onset of ischemia. Repeat in 4-6 hours if the sample was drawn within 3-4 hours of the onset of the symptom and found normal. Between 0.035 and 0.120 ng/mL--- Borderline. Questionable myocardial injury or necros is Note: Serial measurement may be necessary to confirm or exclude the diagnosis of myocardial injury or necrosis; Clinical correlation (symptoms, EKGs, imaging studies, and others) required; Repeat in 4-6 hours if clinically indicated. Equal or Higher than 0.121 ng/mL---Abnormal. Myocardial Injury or Necrosis Likely Biotin has been reported to cause a negative bias, interpret results relative to patient's use of biotin. Performing Organization Address City/State/Zipcode Phone Number [facility] CLIA: [id number] [place] [address] documented in this encounter Visit Diagnoses Diagnosis Pleuritic pain - Primary Painful respiration Chest pain, unspecified type documented in this encounter Administered Medications Medication Order MAR Action Action Date Dose Rate Site ketorolac (TORADOL) injection 30 Given 02/16/2020 11:03 PM CDT 3 0 mg mg 30 mg, Slow IV Push, ONCE, 1 dose, Thu02/17/20 at 0015, JONAS, philosophy faculty member approving Restricted medication: Ziggy SAN documented in this encounter Insurance Payer Benefit Plan Subscriber ID Effective Dates Phone Address Type / Group [facility] [place] [id number] 2019-Jessi [phone] [address] PPO/POS [facility] [id number] [place] [address] [phone] [address] (Home) [phone] [place], [place] 0 (Work) [id number] documented as of this encounter
--- NOTE | 2020-04-09 07:48 | RAD REPORT ---
EXAM DESCRIPTION: Jack Single View04/09/2020 7:30 am CLINICAL HISTORY: Cough COMPARISON: November 2019 FINDINGS: The lungs appear clear of acute infiltrate. The heart is normal size IMPRESSION: No acute abnormalities displayed
--- NOTE | 2020-04-09 08:27 | ER ---
Nurse's Notes [facility] [place] Name: Raza Causey Age: 34 yrs Sex: Male : 1985 Arrival Date: 04/09/2020 Time: 07:08 Bed 14 Private MD: Diagnosis: Fever, unspecified;Cough Presentation: 04/09 07:14 Chief complaint: Patient states: chills and body aches that began yesterday. TMAX 99.0. ss Coronavirus screen: Client denies travel out of the [place] in the last 14 days. chills, muscle pain, Client presents with at least one sign or symptom that may indicate coronavirus-19. Standard/surgical mask placed on the client. Provider contacted for isolation considerations. Ebola Screen: Patient denies exposure to infectious person. Patient denies travel to an Ebola-affected area in the 21 days before illness onset. Initial Sepsis Screen: Does the patient meet any 2 criteria? No. Patient's initial sepsis screen is negative. Does the patient have a suspected source of infection? No. Patient's initial sepsis screen is negative. Risk Assessment: Do you want to hurt yourself or someone else? Patient reports no desire to harm self or others. Onset of symptoms was April 08, 2020. 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 - Social history:: Smoking status: Patient reports the use of cigarette tobacco products, smokes one pack cigarettes per day. - Family history:: not pertinent. - Hospitalizations: : No recent hospitalization is reported. Screenin:50 Abuse screen: Denies threats or abuse. Denies injuries from another. Nutritional zb screening: No deficits noted. Tuberculosis screening: No symptoms or risk factors identified. Fall Risk No fall in past 12 months (0 pts). No secondary diagnosis (0 pts). No IV (0 pts). Ambulatory Aid- Furniture (30 pts.). Gait- Normal/Bed Rest/Wheelchair (0 pts) Mental Status- Oriented to own ability (0 pts). Total Gorman Fall Scale indicates No Risk (0-24 pts). Assessment: 07:48 General: Appears in no apparent distress. comfortable, well groomed, Behavior is calm, zb cooperative, appropriate for age. Pain: Complains of pain in generalized body aches. Neuro: Level of Consciousness is awake, alert, obeys commands, Oriented to person, place, time, situation. Cardiovascular: Capillary refill < 3 seconds in bilateral fingers. Respiratory: Airway is patent Respiratory effort is even, unlabored, Respiratory pattern is regular. GI: Abdomen is round. : No signs and/or symptoms were reported regarding the genitourinary system. EENT: No signs and/or symptoms were reported regarding the EENT system. Derm: No signs and/or symptoms reported regarding the dermatologic system. Skin is intact, is healthy with good turgor. Musculoskeletal: Circulation, motion, and sensation intact. 08:43 Reassessment: Patient appears in no apparent distress at this time. Patient and/or ph family updated on plan of care and expected duration. Pain level reassessed. Patient is alert, oriented x 3, equal unlabored respirations, skin warm/dry/pink. D/C pending flu swab results. Vital Signs: 07:14 BP 149 / 103; Pulse 83; Resp 16; Temp 98.1(TE); Pulse Ox 99% on R/A; Weight 107.05 kg; ss Height 5 ft. 9 in. (175.26 cm); Pain 8/10; 08:54 BP 141 / 89; Pulse 81; Resp 18; Pulse Ox 99% on R/A; ph 07:14 Body Mass Index 34.85 (107.05 kg, 175.26 cm) ED Course: 07:08 Patient arrived in ED. bp1 07:12 Lloyd Willson MD is Attending Physician. rn 07:15 Triage completed. ss 07:16 Arm band placed on right wrist. ss 07:30 XRAY Chest (1 view) In Process Unspecified. EDMS 07:48 Digna Blackburn, KEI is Primary Nurse. zb 07:51 No provider procedures requiring assistance completed. Patient did not have IV access zb during this emergency room visit. 07:51 Flu and/or RSV swab sent to lab. pt covid swabbed. zb 07:59 Patient has correct armband on for positive identification. Bed in low position. Call zb light in reach. Side rails up X 1. Administered Medications: No medications were administered Outcome: 08:27 Discharge ordered by . kei 09:32 Discharged to home ambulatory. susanne 09:32 Condition: good 09:32 Discharge instructions given to patient, Instructed on discharge instructions, follow up and referral plans. Demonstrated understanding of instructions, follow-up care, Prescriptions given X 09:32 Patient left the ED. susanne Addendum: 04/11/2020 12:27 Addendum: COVID-19 Result: Negative result given to RN to notify pt. Contacted by: Carmelo Ng RN. Notified pt of negative COVID 19 swab results. Pt advised that even with a negative test result they should remain in isolation until symptom free for 3 days without medication. Pt also advised to return to the ED for worsening symptoms. Signatures: Dispatcher [employer] EDMS Elizabeth Ng, KEI CHOUDHURY [id number] Lloyd Willson MD MD rn Smirch, Shelby, RN RN Modesta Geiger RN RN Abimbola Smith [place], RN RN zb
--- NOTE | 2020-04-09 08:28 | EDPHYS ---
Physician Documentation [facility] Name: Raza Causey Age: 34 yrs Sex: Male : 1985 Arrival Date: 04/09/2020 Time: 07:08 Bed 14 Private MD: ED Physician Lloyd Willson HPI: 04/09 07:43 This 34 yrs old Male presents to ER via Ambulatory with complaints of Body rn Aches, Chills. 07:43 The patient reports fever, that was measured at 99 degrees Fahrenheit. Onset: The rn symptoms/episode began/occurred yesterday. Modifying factors: there are no obvious modifying factors. Associated signs and symptoms: Pertinent positives: chills, cough, myalgias, Pertinent negatives: abdominal pain, altered mental status, chest pain, diarrhea, earache, headache, hemoptysis, runny nose, sinus congestion, sinus drainage, skin rash, shortness of breath, sore throat, swelling, vomiting. Severity of symptoms: At their worst the symptoms were mild in the emergency department the symptoms are unchanged. The patient has not experienced similar symptoms in the past. The patient has not recently seen a physician. 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 - Social history:: Smoking status: Patient reports the use of cigarette tobacco products, smokes one pack cigarettes per day. - Family history:: not pertinent. - Hospitalizations: : No recent hospitalization is reported. 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 Exam: 07:43 Constitutional: This is a well developed, well nourished patient who is awake, alert, rn and in no acute distress. Head/Face: Normocephalic, atraumatic. Eyes: Pupils equal round and reactive to light, extra-ocular motions intact. Lids and lashes normal. Conjunctiva and sclera are non-icteric and not injected. Cornea within normal limits. Periorbital areas with no swelling, redness, or edema. ENT: No stridor Neck: Trachea midline, and no cervical lymphadenopathy. Supple, full range of motion without nuchal rigidity, or vertebral point tenderness. No Meningismus. Cardiovascular: Regular rate and rhythm. No pulse deficits. Respiratory: Speaking full sentences. No increased work of breathing, no retractions or nasal flaring. Abdomen/GI: soft, non-tender Skin: Warm, dry with normal turgor. Normal color with no rashes, no lesions, and no evidence of cellulitis. MS/ Extremity: Pulses equal, no cyanosis. Neurovascular intact. Full, normal range of motion. Equal circumference. Neuro: Awake and alert, GCS 15, oriented to person, place, time, and situation. Vital Signs: 07:14 BP 149 / 103; Pulse 83; Resp 16; Temp 98.1(TE); Pulse Ox 99% on R/A; Weight 107.05 kg; ss Height 5 ft. 9 in. (175.26 cm); Pain 8/10; 08:54 BP 141 / 89; Pulse 81; Resp 18; Pulse Ox 99% on R/A; ph 07:14 Body Mass Index 34.85 (107.05 kg, 175.26 cm) ss MDM: 07:12 Patient medically screened. rn 08:26 Differential diagnosis: viral Infection, bacterial infection, URI, bronchitis, rn pneumonia. Data reviewed: vital signs, nurses notes, radiologic studies, plain films, and as a result, I will discharge patient. Counseling: I had a detailed discussion with the patient and/or guardian regarding: the historical points, exam findings, and any diagnostic results supporting the discharge/admit diagnosis, radiology results, the need for outpatient follow up, to return to the emergency department if symptoms worsen or persist or if there are any questions or concerns that arise at home. Special discussion: I discussed with the patient/guardian in detail that at this point there is no indication for admission to the hospital. It is understood, however, that if the symptoms persist or worsen the patient needs to return immediately for re-evaluation. ED course: Neg cxr, covid sent, no oxygen requirement. Will dc home pending covid results. Return precautions given and understood. . 08:27 ED course: Lab barely received FLu swab because batched with COVID, delay of care rn because of this. . 04/09 07:18 Order name: Flu; Complete Time: 09:20 rn 04/09 07:18 Order name: COVID-19 rn 04/09 07:18 Order name: XRAY Chest (1 view); Complete Time: 07:51 rn Administered Medications: No medications were administered Disposition: 04/09/20 08:27 Discharged to Home. Impression: Fever, unspecified, Cough. - Condition is Stable. - Discharge Instructions: Fever, Adult, Cough, Adult. - Medication Reconciliation Form, Thank You Letter, Antibiotic Education, Prescription Opioid Use, Work release form form. - Follow up: Private Physician; When: As needed; Reason: Recheck today's complaints, Re-evaluation by your physician. - Problem is new. - Symptoms have improved. Signatures: Dispatcher [employer] EDMS Lloyd Willson MD MD rn Smirch, Shelby, RN RN ss Brown, Zipporah, RN RN zb Corrections: (The following items were deleted from the chart) 09:32 08:27 04/09/2020 08:27 Discharged to Home. Impression: Fever, unspecified; Cough. zb Condition is Stable. Forms are Medication Reconciliation Form, Thank You Letter, Antibiotic Education, Prescription Opioid Use. Follow up: Private Physician; When: As needed; Reason: Recheck today's complaints, Re-evaluation by your physician. Problem is new. Symptoms have improved. rn
[2020-04-09 09:55] VITALS: TEMP 98.1; O2SAT 99
[2020-04-09 09:57] VITALS: BP 141/89
== END 2020-04-09 09:32 | disposition home or self-care (01) ==
LOC: ER 07:06
DX: R05 Cough (principal); Z20.828 Contact with and (suspected) exposure to other viral communicable diseases; I10 Essential (primary) hypertension; F17.210 Nicotine dependence, cigarettes, uncomplicated
CPT/HCPCS: 71045; 87804; 99283; U0002

== ENCOUNTER 2020-06-18 18:55 | Emergency (ER) | payer SELFPAY ==
--- OUTSIDE RECORDS SUMMARY | 2020-06-18 18:57 | XMS REPORT | Continuity of Care Document ---
:1985 Author Organization [facility] t Address [address] [place] [address] Care Team Providers Name Role Phone Ziggy [...] Department ID 2020-02-16 2020-02-17 Emergency Ziggy Prasad [facility] [id number] 21:41:00 00:50:00 Jennifer Rangel [id number] [place] [id number] [place] [phone] [id number] 2019-06-12 2019-06-12 Emergency Kayla WAGRETEL [id number] 16:15:07 18:19:00 Siobhan Rangel [id number] [place] [id number] [place] [phone] [id number] Results This patient has no known results.
[2020-06-18] MEDS ORDERED: lisinopriL 20 MG TAB ONE (22:38)
[2020-06-18 23:19] LABS: Absolute Lymphocytes (CBC) 4.1 K/uL (0.7-4.9); Basophils % 0.7 % (0-1.3); Hematocrit 48.9 % (39.6-49.0); Lymphocytes % 34.3 % (15.3-44.8); MPV 9.2 fL (7.6-11.3); RBC Red Blood Cell Count 5.67 M/uL (4.33-5.43)
[2020-06-18 23:20] LABS: Protime INR 1.16
[2020-06-18 23:36] LABS: ALT/SGPT 26 U/L (12-78); AST/SGOT 17 U/L (15-37); Albumin 3.7 g/dL (3.4-5.0); Alkaline Phosphatase 99 U/L (45-117); BUN Blood Urea Nitrogen 16 mg/dL (7-18); Bicarbonate 26 mmol/L (21-32); Bilirubin Direct < 0.1 mg/dL (0-0.2); Bilirubin Total 0.4 mg/dL (0.2-1.0); Glucose Level 88 mg/dL (74-106); Magnesium 2.2 mg/dL (1.8-2.4); NT PRO-BNP 25 pg/mL (<125); Potassium 3.9 mmol/L (3.5-5.1); Protein, Total 7.3 g/dL (6.4-8.2); Sodium Level 137 mmol/L (136-145); Troponin (Emerg Dept Use Only) < 0.02 ng/mL (0.0-0.045)
--- NOTE | 2020-06-18 23:45 | EDPHYS ---
Physician Documentation [facility] Name: Raza Causey Age: 35 yrs Sex: Male : 1985 Arrival Date: 06/18/2020 Time: 19:00 Bed 19 Private MD: ED Physician Praneeth Joiner HPI: 06/18 22:11 This 35 yrs old Male presents to ER via Ambulatory with complaints of pm1 Headache, Chest Pain. 22:11 The patient complains of pain to the left side of head. The patient describes the pm1 headache as aching, constant. Onset: The symptoms/episode began/occurred 3 day(s) ago. Associated signs and symptoms: Pertinent positives: chest pain, Pertinent negatives: fever, nausea, vomiting, cough, shortness of breath. Severity of symptoms: in the emergency department the pain is unchanged, a " 6" out of "10". Headache History: Other has had headache in the past when his blood pressure was elevated. Feels just like it. Patient has not taken his lisinopril 10 mg PO BID since last year. The symptoms are alleviated by nothing. the symptoms are aggravated by nothing. The patient has not recently seen a physician. 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 - Social history:: Smoking status: Patient reports the use of cigarette tobacco products, smokes one pack cigarettes per day. Patient uses alcohol, occasionally. Patient/guardian denies using street drugs. ROS: 22:11 Constitutional: Negative for fever, chills, and weight loss, Eyes: Negative for injury, pm1 pain, redness, and discharge, Neck: Negative for injury, pain, and swelling. 22:11 Respiratory: Negative for shortness of breath, cough, wheezing, and pleuritic chest pain, Abdomen/GI: Negative for abdominal pain, nausea, vomiting, diarrhea, and constipation, Back: Negative for injury and pain, MS/Extremity: Negative for injury and deformity, Skin: Negative for injury, rash, and discoloration. 22:11 Cardiovascular: Positive for chest pain, Negative for edema, orthopnea, palpitations. 22:11 Neuro: Positive for headache, Negative for dizziness, numbness, tingling, weakness. Exam: 22:11 Constitutional: This is a well developed, well nourished patient who is awake, alert, pm1 and in no acute distress. Head/Face: Normocephalic, atraumatic. 22:11 Skin: Warm, dry with normal turgor. Normal color with no rashes, no lesions, and no evidence of cellulitis. MS/ Extremity: Pulses equal, no cyanosis. Neurovascular intact. Full, normal range of motion. 22:11 Chest/axilla: Inspection: normal, Palpation: tenderness, that is mild, of the left lateral anterior chest, that totally reproduces the patient's complaints. 22:11 Cardiovascular: Exam negative for acute changes, Rate: normal, Rhythm: regular, Pulses: no pulse deficits are appreciated. 22:11 Respiratory: Exam negative for acute changes, respiratory distress, shortness of breath. 22:11 Neuro: Exam negative for acute changes, Orientation: is normal, Mentation: is normal, Motor: is normal, moves all fours, Sensation: is normal, no obvious gross deficits. Vital Signs: 19:16 BP 160 / 105; Pulse 81; Resp 17; Temp 98; Pulse Ox 99% ; Weight 107.05 kg; Height 5 ft. rr5 9 in. (175.26 cm); Pain 8/10; 22:00 BP 150 / 111; Pulse 66; Resp 18; Pulse Ox 100% on R/A; vg1 22:06 BP 163 / 107; Pulse 70; Resp 16; Pulse Ox 100% on R/A; vg1 23:00 BP 155 / 107; Pulse 64; Resp 20; Pulse Ox 98% on R/A; vg1 06/19 00:26 BP 142 / 85; Pulse 66; Resp 16; Pulse Ox 99% ; rr5 06/18 19:16 Body Mass Index 34.85 (107.05 kg, 175.26 cm) rr5 MDM: 06/18 22:05 Patient medically screened. pm1 23:42 Data reviewed: vital signs. Data interpreted: Pulse oximetry: on room air is 100 %. pm1 Interpretation: normal. Counseling: I had a detailed discussion with the patient and/or guardian regarding: the historical points, exam findings, and any diagnostic results supporting the discharge/admit diagnosis, lab results, radiology results, the need for outpatient follow up, to return to the emergency department if symptoms worsen or persist or if there are any questions or concerns that arise at home. Special discussion: I have referred the patient to see his PCP for further evaluation of high blood pressure. will restart patient on prior blood pressure medications and instructed patient to follow up with a PCP/clinic to continue blood pressure management. 06/18 22:09 Order name: Basic Metabolic Panel pm06/18 22:09 Order name: CBC with Diff; Complete Time: 23:27 pm06/18 22:09 Order name: LFT's; Complete Time: 23:38 pm06/18 22:09 Order name: Magnesium; Complete Time: 23:38 pm06/18 22:09 Order name: NT PRO-BNP; Complete Time: 23:38 pm06/18 22:09 Order name: PT-INR; Complete Time: 23:27 pm06/18 22:09 Order name: Troponin (emerg Dept Use Only); Complete Time: 23:38 pm1 06/18 22:09 Order name: XRAY Chest (1 view) 06/18 22:09 Order name: CT Head Brain wo Cont 06/18 22:10 Order name: Basic Metabolic Panel; Complete Time: 23:38 EDMS 06/18 22:12 Order name: Head Brain Wo Cont EDMS 06/18 19:40 Order name: EKG - Nurse/Tech; Complete Time: 19:40 rr5 06/18 22:09 Order name: EKG; Complete Time: 22:11 pm06/18 22:09 Order name: Cardiac monitoring; Complete Time: 22:12 pm06/18 22:09 Order name: IV Saline Lock; Complete Time: 23:21 pm06/18 22:09 Order name: Labs collected and sent; Complete Time: 23:21 pm06/18 22:09 Order name: O2 Per Protocol; Complete Time: 22:10 pm06/18 22:09 Order name: O2 Sat Monitoring; Complete Time: 22:10 pm06/18 22:11 Order name: EKG Electrocardiogram EDMS Administered Medications: 22:23 Drug: Lisinopril 20 mg Route: PO; vg1 06/19 00:10 Follow up: Response: No adverse reaction vg1 00:09 Drug: Benadryl 25 mg Route: IVP; Site: right antecubital; vg1 00:27 Follow up: Response: No adverse reaction rr5 00:09 Drug: Reglan 10 mg Route: IVP; Site: right antecubital; vg1 00:27 Follow up: Response: No adverse reaction rr5 00:10 Drug: TORadol 30 mg Route: IVP; Site: right antecubital; vg1 00:28 Follow up: Response: No adverse reaction; Pain is decreased rr5 Disposition: 04:05 Co-signature as Attending Physician, Praneeth Joiner MD did not see or evaluate patient. ps1 Signature for administrative purposes. . Disposition: 06/18/20 23:44 Discharged to Home. Impression: Chest pain, unspecified, Headache, Essential (primary) hypertension. - Condition is Stable. - Discharge Instructions: Nonspecific Chest Pain, General Headache Without Cause, Hypertension, How to Take Your Blood Pressure, Ldez-eo-Tbmh, DASH Eating Plan, Managing Your Hypertension. - Prescriptions for Lisinopril 20 mg Oral Tablet - take 1 tablet by ORAL route once daily; 20 tablet. - Medication Reconciliation Form, Thank You Letter, Antibiotic Education, Prescription Opioid Use form. - Follow up: Emergency Department; When: As needed; Reason: Worsening of condition. Follow up: Private Physician; When: 2 - 3 days; Reason: Recheck today's complaints, Continuance of care, Re-evaluation by your physician. - Problem is new. - Symptoms have improved. Signatures: Dispatcher [employer] [facility] [place] Romel Dia, LOGGING OPERATIONS INSPECTOR LOGGING OPERATIONS INSPECTOR pm1 Praneeth Joiner MD MD ps1 Alessandro Velarde, RN RN rr5 Quiana Nunez RN RN vg1 Corrections: (The following items were deleted from the chart) 06/18 22:14 22:11 Chest Single View ordered. [facility] 06/19 00:28 06/18 23:44 06/18/2020 23:44 Discharged to Home. Impression: Chest pain, unspecified; rr5 Headache; Essential (primary) hypertension. Condition is Stable. Forms are Medication Reconciliation Form, Thank You Letter, Antibiotic Education, Prescription Opioid Use. Follow up: Emergency Department; When: As needed; Reason: Worsening of condition. Follow up: Private Physician; When: 2 - 3 days; Reason: Recheck today's complaints, Continuance of care, Re-evaluation by your physician. Problem is new. Symptoms have improved. pm1
--- NOTE | 2020-06-18 23:45 | ER ---
Nurse's Notes [facility] Name: Raza Causey Age: 35 yrs Sex: Male : 1985 Arrival Date: 06/18/2020 Time: 19:00 Bed 19 Private MD: Diagnosis: Chest pain, unspecified;Headache;Essential (primary) hypertension Presentation: 06/18 19:16 Chief complaint: Patient states: the left side of my head starts pounding and it gets rr5 worse started last Thursday and left sided rib cage area pain started today 1100H. denies cough, Nausea, vomiting or fever. Coronavirus screen: Client denies travel out of the [place] in the last 14 days. At this time, the client does not indicate any symptoms associated with coronavirus-19. Ebola Screen: Patient negative for fever greater than or equal to 101.5 degrees Fahrenheit, and additional compatible Ebola Virus Disease symptoms Patient denies exposure to infectious person. Patient denies travel to an Ebola-affected area in the 21 days before illness onset. Initial Sepsis Screen: Does the patient meet any 2 criteria? No. Patient's initial sepsis screen is negative. Does the patient have a suspected source of infection? No. Patient's initial sepsis screen is negative. Risk Assessment: Do you want to hurt yourself or someone else? Patient reports no desire to harm self or others. Onset of symptoms was June 18, 2020. 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 - Social history:: Smoking status: Patient reports the use of cigarette tobacco products, smokes one pack cigarettes per day. Patient uses alcohol, occasionally. Patient/guardian denies using street drugs. Screenin:06 Abuse screen: Denies threats or abuse. Nutritional screening: No deficits noted. vg1 Tuberculosis screening: No symptoms or risk factors identified. Fall Risk No fall in past 12 months (0 pts). No secondary diagnosis (0 pts). No IV (0 pts). Ambulatory Aid- None/Bed Rest/Nurse Assist (0 pts). Gait- Normal/Bed Rest/Wheelchair (0 pts) Mental Status- Oriented to own ability (0 pts). Total Gorman Fall Scale indicates No Risk (0-24 pts). Assessment: 21:55 General: Appears in no apparent distress. comfortable, Behavior is calm, cooperative. vg1 Pain: Complains of pain in left side of head and left side of chest. Pain currently is 8 out of 10 on a pain scale. Pain began Thursday. Neuro: Level of Consciousness is awake, alert, obeys commands, Oriented to person, place, time, situation. Neuro: Reports blurred vision. Cardiovascular: Patient's skin is warm and dry. Respiratory: Airway is patent Respiratory effort is even, unlabored, Respiratory pattern is regular, symmetrical. GI: Patient currently denies diarrhea, nausea, vomiting. : No signs and/or symptoms were reported regarding the genitourinary system. EENT: No signs and/or symptoms were reported regarding the EENT system. Derm: Skin is intact, is healthy with good turgor. Musculoskeletal: Circulation, motion, and sensation intact. 22:57 Reassessment: Patient appears in no apparent distress at this time. Patient and/or vg1 family updated on plan of care and expected duration. Pain level reassessed. Patient is alert, oriented x 3, equal unlabored respirations, skin warm/dry/pink. 23:44 Reassessment: Patient appears in no apparent distress at this time. Patient and/or vg1 family updated on plan of care and expected duration. Pain level reassessed. Patient is alert, oriented x 3, equal unlabored respirations, skin warm/dry/pink. states pain is 6/10. Provider notified. 06/19 00:26 Reassessment: Patient appears in no apparent distress at this time. Patient is alert, rr5 oriented x 3, equal unlabored respirations, skin warm/dry/pink. discharge instruction given and explained without complaints made Patient states feeling better. Patient states symptoms have improved. Vital Signs: 06/18 19:16 BP 160 / 105; Pulse 81; Resp 17; Temp 98; Pulse Ox 99% ; Weight 107.05 kg; Height 5 ft. rr5 9 in. (175.26 cm); Pain 8/10; 22:00 BP 150 / 111; Pulse 66; Resp 18; Pulse Ox 100% on R/A; vg1 22:06 BP 163 / 107; Pulse 70; Resp 16; Pulse Ox 100% on R/A; vg1 23:00 BP 155 / 107; Pulse 64; Resp 20; Pulse Ox 98% on R/A; vg1 06/19 00:26 BP 142 / 85; Pulse 66; Resp 16; Pulse Ox 99% ; rr5 06/18 19:16 Body Mass Index 34.85 (107.05 kg, 175.26 cm) rr5 ED Course: 06/18 19:00 Patient arrived in ED. mr 19:19 Triage completed. rr5 19:21 Arm band placed on right wrist. EKG completed in triage. Results shown to MD. rr5 21:28 Romel Dia NP is PHCP. pm1 21:28 Praneeth Joiner MD is Attending Physician. pm1 21:47 Quiana Nunez, KEI is Primary Nurse. vg1 22:06 Patient has correct armband on for positive identification. Bed in low position. Call vg1 light in reach. Side rails up X 1. 22:[address] via stretcher. vg1 22:31 Head Brain Wo Cont In Process Unspecified. EDMS 22:34 XRAY Chest (1 view) In Process Unspecified. EDMS 22:56 Initial lab(s) drawn, by me, sent to lab. Inserted saline lock: 20 gauge in right vg1 antecubital area, using aseptic technique. Blood collected. 06/19 00:11 IV discontinued, intact, bleeding controlled, No redness/swelling at site. Pressure vg1 dressing applied. 00:27 No provider procedures requiring assistance completed. rr5 Administered Medications: 06/18 22:23 Drug: Lisinopril 20 mg Route: PO; vg1 06/19 00:10 Follow up: Response: No adverse reaction vg1 00:09 Drug: Benadryl 25 mg Route: IVP; Site: right antecubital; vg1 00:27 Follow up: Response: No adverse reaction rr5 00:09 Drug: Reglan 10 mg Route: IVP; Site: right antecubital; vg1 00:27 Follow up: Response: No adverse reaction rr5 00:10 Drug: TORadol 30 mg Route: IVP; Site: right antecubital; vg1 00:28 Follow up: Response: No adverse reaction; Pain is decreased rr5 Outcome: 06/18 23:44 Discharge ordered by . pm1 06/19 00:27 Discharged to home ambulatory. rr5 Condition: stable Discharge instructions given to patient, Instructed on discharge instructions, follow up and referral plans. medication usage, Demonstrated understanding of instructions, follow-up care, medications, Prescriptions given X 1. 00:28 Patient left the ED. rr5 Signatures: Dispatcher [employer] Gloria Thacker mr DiaRomel, REVENUE INSPECTOR REVENUE INSPECTOR pm1 Alessandro Velarde RN RN rr5 Quiana Nunez RN RN vg1
[2020-06-19] MEDS ORDERED: METOCLOPRAMIDE 10 MG/2mL INJ ONE (00:05)
[2020-06-19] MEDS ORDERED: DIPHENHYDRAMINE 50 MG/ML VIAL ONE (00:05)
[2020-06-19] MEDS ORDERED: KETOROLAC 30 MG/ML INJ ONE (00:06)
[2020-06-19 00:51] VITALS: TEMP 98
[2020-06-19 00:56] VITALS: BP 142/85; O2SAT 99
--- NOTE | 2020-06-19 06:52 | RAD REPORT ---
EXAM DESCRIPTION: RAD - Chest Single View - 06/18/2020 10:35 pm CLINICAL HISTORY: CHEST PAIN COMPARISON: Portable March 2020 TECHNIQUE: AP portable chest image was obtained 06/18/2020 10:35 pm . FINDINGS: Lungs are clear. Heart and vasculature are normal. No measurable pleural effusion and no p neumothorax. No acute bony abnormality seen. No acute aortic findings suspected. IMPRESSION: No acute cardiopulmonary process. No significant change from comparison study.
--- NOTE | 2020-06-19 10:43 | RAD REPORT ---
EXAM DESCRIPTION: CT - Head Brain Wo Cont - 06/19/2020 6:38 am CLINICAL HISTORY: Headache. COMPARISON: 03/07/2017 TECHNIQUE: CT scan of the brain was performed without IV contrast. This exam was performed accordi ng to our departmental dose-optimization program, which includes automated exposure control, adjustme nt of the mA and/or kV according to patient size and/or use of iterative reconstruction technique. FINDINGS: The ventricles, cisterns, and sulci are age-appropriate. No evidence of acute infarction, intracranial hemorrhage, extra-axial fluid collection, or midline shift. No air-fluid levels are seen in the paranasal sinuses to suggest acute sinusitis. No depressed skull fracture. IMPRESSION: No acute intracranial findings. Electronically signed by: Francis Hurst MD 06/18/2020 10:44 PM [facility]
--- NOTE | 2020-06-20 06:31 | EKG ---
Test Date: 2020-06-18 Test Time: 19:13:15 Elastic Yarn Twister Helper: RR MEASUREMENT RESULTS: Intervals: Rate: 87 CA: 154 QRSD: 90 QT: 360 QTc: 433 [place]: P: 56 CA: 154 QRS: 44 T: 14 INTERPRETIVE STATEMENTS: Normal sinus rhythm Normal ECG Compared to ECG 02/15/2020 21:30:13 No significant changes Electronically Signed On 06-20-20 06:27:30 RANCH HELPER by Jose Juan Thao
== END 2020-06-19 00:28 | disposition home or self-care (01) ==
LOC: ER 18:55
DX: R07.9 Chest pain, unspecified (principal); I10 Essential (primary) hypertension; F41.9 Anxiety disorder, unspecified; F17.210 Nicotine dependence, cigarettes, uncomplicated
CPT/HCPCS: 36415; 70450; 71045; 80048; 80076; 83735; 83880; 84484; 85025; 85610; 93005; 96374; 96375; 99284

== ENCOUNTER 2020-09-05 07:44 | Emergency (ER) | payer SELFPAY ==
--- OUTSIDE RECORDS SUMMARY | 2020-09-05 19:47 | XMS REPORT | Continuity of Care Document ---
:1985 Author Organization [facility] t Address [address] [place] [address] Care Team Providers Name Role Phone Alan Sol MD Attending Clinician Doctor Unassigned, [place] Attending Clinician Unavailable Jennifer Alva Attending Clinician Elizabet Covarrubias Attending Clinician Problems This patient has no known problems. Allergies, Adverse Reactions, Alerts This patient has no known allergies or adverse reactions. Medications This patient has no known medications. Procedures This patient has no known procedures. Encounters Start End Encounter Admission Attending Care Care Encounter Source Date/Time Date/Time Type Type Clinicians Facility Department ID 2020-08-21 2020-08-21 Emergency TED Sol [id number] 07:58:00 10:27:00 Alan Rangel [id number] [place] [id number] [place] [id number] 2020-08-21 2020-08-21 Orders Doctor ZHU [id number] 00:00:00 00:00:00 Only UnassignedLAUREN [id number] [place] [facility] [id number] 2020-02-16 2020-02-17 Emergency Ziggy Prasad [id number] 21:41:00 00:50:00 Jennifer Moraeston [id number] [place] [id number] [place] [id number] 2019-06-12 2019-06-12 Emergency Kayla, [facility] [id number] 16:15:07 18:19:00 Siobhan Moraeston [id number] [place] [id number] [place] [id number] Results This patient has no known results.
[2020-09-05] MEDS ORDERED: NA CHLORIDE 0.9% 500 ML ONE (22:13)
[2020-09-05] MEDS ORDERED: ASPIRIN 81 MG CHEWABLE TABLET ONE (22:13)
[2020-09-05] MEDS ORDERED: lisinopriL 20 MG TAB ONE (22:13)
[2020-09-05 22:38] LABS: Absolute Lymphocytes (CBC) 3.6 K/uL (0.7-4.9); Basophils % 0.5 % (0-1.3); Hematocrit 44.9 % (39.6-49.0); Lymphocytes % 32.3 % (15.3-44.8); MPV 9.1 fL (7.6-11.3); Protime INR 1.3; RBC Red Blood Cell Count 5.37 M/uL (4.33-5.43)
[2020-09-05 23:11] LABS: ALT/SGPT 28 U/L (12-78); AST/SGOT 18 U/L (15-37); Albumin 3.8 g/dL (3.4-5.0); Alkaline Phosphatase 93 U/L (45-117); BUN Blood Urea Nitrogen 17 mg/dL (7-18); Bicarbonate 27 mmol/L (21-32); Bilirubin Direct < 0.1 mg/dL (0-0.2); Bilirubin Total 0.4 mg/dL (0.2-1.0); Glucose Level 117 mg/dL (74-106); Protein, Total 7.3 g/dL (6.4-8.2); Sodium Level 141 mmol/L (136-145); Troponin (Emerg Dept Use Only) < 0.02 ng/mL (0.0-0.045)
--- NOTE | 2020-09-06 01:25 | ER ---
Nurse's Notes [facility] Name: Raza Causey Age: 35 yrs Sex: Male : 1985 Arrival Date: 09/05/2020 Time: 19:46 Bed 24 Private MD: Diagnosis: Hypertensive heart disease;Other chest pain Presentation: 09/05 20:35 Chief complaint: Patient states: I have a left sided chest pain that comes and goes and bb it started this morning. My left palm feels weird. I have a history of hypertension and have not had my meds for a few weeks because I ran out. I do not have a regular Dr. Coronavirus screen: Client denies travel out of the [place] in the last 14 days. Ebola Screen: Patient negative for fever greater than or equal to 101.5 degrees Fahrenheit, and additional compatible Ebola Virus Disease symptoms Patient denies exposure to infectious person. Patient denies travel to an Ebola-affected area in the 21 days before illness onset. Initial Sepsis Screen: Does the patient meet any 2 criteria? No. Patient's initial sepsis screen is negative. Does the patient have a suspected source of infection? No. Patient's initial sepsis screen is negative. Risk Assessment: Do you want to hurt yourself or someone else? Patient reports no desire to harm self or others. Onset of symptoms was September 05, 2020. 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 - Social history:: Smoking status: Patient reports the use of cigarette tobacco products, smokes one pack cigarettes per day. Screenin:48 Abuse screen: Denies threats or abuse. Nutritional screening: No deficits noted. bb Tuberculosis screening: No symptoms or risk factors identified. Fall Risk None identified. Assessment: 21:48 General: Appears in no apparent distress. Behavior is calm, cooperative. Pain: Denies bb pain. Pain does not radiate. Pain began pt has been having intermittent chest pain for several weeks states he is out of his blood pressure medication, denies pain at this time. Neuro: Level of Consciousness is awake, alert, obeys commands, Oriented to person, place, time, situation. Cardiovascular: Reports chest pain, Denies chest pain, at this time Heart tones present Capillary refill < 3 seconds Patient's skin is warm and dry. Respiratory: Airway is patent Respiratory effort is even, unlabored, Respiratory pattern is regular. Derm: Skin is pink, warm \T\ dry. Musculoskeletal: Circulation, motion, and sensation intact. 22:30 Reassessment: No changes from previously documented assessment. Patient is alert, bb oriented x 3, equal unlabored respirations, skin warm/dry/pink. awaiting diagnostic results. 23:53 Reassessment: pt appears to be sleeping, eyes closed, resp unlabored, IV site intact, bb no erythema or edema noted. 09/06 00:42 Reassessment: pt appears to be sleeping, eyes closed, resp unlabored, arouses easily, bb 2nd trop collected and sent to lab. IV site intact, patent. 01:32 Reassessment: Patient is alert, oriented x 3, equal unlabored respirations, skin bb warm/dry/pink. pt verbalized understanding of and agrees to plan of care discharge instructions given pt ambulated with steady gait to exit. Vital Signs: 09/05 20:37 BP 166 / 109; Pulse 73; Resp 16; Temp 98.2; Pulse Ox 99% on R/A; Weight 104.33 kg; bb Height 5 ft. 9 in. (175.26 cm); Pain 6/10; 22:29 BP 142 / 96; Pulse 68; Resp 16 S; Pulse Ox 94% on R/A; bb 23:54 BP 127 / 83; Pulse 63; Resp 14 S; Pulse Ox 97% on R/A; bb 09/06 00:43 BP 127 / 94; Pulse 62; Resp 14 S; Pulse Ox 99% on R/A; bb 01:31 BP 136 / 106; Pulse 73; Resp 16 S; Temp 97.8(O); Pulse Ox 95% on R/A; bb 09/05 20:37 Body Mass Index 33.96 (104.33 kg, 175.26 cm) bb ED Course: 09/05 19:46 Patient arrived in ED. cl3 20:36 Triage completed. bb 20:38 Arm band placed on right wrist. bb 20:46 EKG completed in triage. Results shown to MD. bb 21:35 [place] PA is PHCP. cp 21:35 Lloyd Willson MD is Attending Physician. cp 21:48 Patient has correct armband on for positive identification. Pulse ox on. NIBP on. bb 21:48 Patient maintains SpO2 saturation greater than 95% on room air. bb 22:00 Initial lab(s) drawn, by me, sent to lab. Inserted saline lock: 20 gauge in right bb antecubital area, using aseptic technique. Blood collected. 22:46 XRAY Chest (1 view) In Process Unspecified. EDMS 23:53 Eloina Avila RN is Primary Nurse. bb 09/06 00:42 Repeat lab(s) drawn. by me, sent to lab. bb 01:32 No provider procedures requiring assistance completed. IV discontinued, intact, bb bleeding controlled, No redness/swelling at site. Pressure dressing applied. Administered Medications: 09/05 22:05 Drug: Aspirin Chewable Tablet 324 mg Route: PO; bb 22:35 Follow up: Response: No adverse reaction bb 22:05 Drug: Lisinopril 20 mg Route: PO; bb 22:35 Follow up: Response: Blood pressure is lowered bb 22:05 Drug: NS 0.9% 500 ml Route: IV; Rate: bolus; Site: right antecubital; bb 22:36 Follow up: IV Status: Completed infusion; IV Intake: 500ml bb Intake: 22:36 IV: 500ml; Total: 500ml. bb Outcome: 09/06 01:24 Discharge ordered by MD. cp 01:32 Discharged to home ambulatory. bb 01:32 Condition: stable 01:32 Discharge instructions given to patient, Instructed on discharge instructions, follow up and referral plans. medication usage, Demonstrated understanding of instructions, follow-up care, medications, Prescriptions given X 1. 01:33 Patient left the ED. bb Signatures: Dispatcher [employer] EDMS Eloina Avila, KEI RN bb [place] PA PA cp Lewis, Charde cl3
--- NOTE | 2020-09-06 01:25 | EDPHYS ---
Physician Documentation [facility] Name: Raza Causey Age: 35 yrs Sex: Male : 1985 Arrival Date: 09/05/2020 Time: 19:46 Bed 24 Private MD: ED Physician Lloyd Willson HPI: 09/05 22:00 This 35 yrs old Male presents to ER via Ambulatory with complaints of Chest cp Pain. 22:00 The patient or guardian reports chest pain that is located primarily in the anterior cp chest wall, bilaterally. 22:00 The pain does not radiate. Associated signs and symptoms: Pertinent negatives: cp abdominal pain, diaphoresis, headache, lower extremity pain, lower extremity swelling, palpitations, shortness of breath, syncope, vomiting. Duration: The patient or guardian reports multiple episodes, that are intermittent. Modifying factors: the symptoms are aggravated by nothing. 22:00 Patient reports history of hypertension and that he takes Lisinopril. Patient reports cp he ran out of medication and does not have a primary physician. 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 - Social history:: Smoking status: Patient reports the use of cigarette tobacco products, smokes one pack cigarettes per day. ROS: 22:05 Constitutional: Negative for body aches, chills, fever, poor PO intake. cp 22:05 Cardiovascular: Positive for chest pain, Negative for edema, palpitations. cp 22:05 Respiratory: Negative for cough, shortness of breath, wheezing. 22:05 Abdomen/GI: Negative for abdominal pain, nausea, vomiting, and diarrhea. Exam: 20:50 ECG was reviewed by the Attending Physician. cp 22:10 Constitutional: The patient appears in no acute distress, alert, awake, comfortable, cp non-diaphoretic, non-toxic, well developed, well nourished. 22:10 Head/Face: Normocephalic, atraumatic. cp 22:10 Eyes: Periorbital structures: appear normal, Conjunctiva: normal, no exudate, no injection, Sclera: no appreciated abnormality, Lids and lashes: appear normal, bilaterally. 22:10 ENT: External ear(s): are unremarkable, Nose: is normal, Mouth: Lips: moist, Oral mucosa: moist, Posterior pharynx: Airway: no evidence of obstruction, patent. 22:10 Neck: ROM/movement: is normal, is supple, without pain, no range of motions limitations, no nuchal rigidity. 22:10 Chest/axilla: Inspection: normal, Palpation: is normal, no crepitus, no tenderness. 22:10 Cardiovascular: Rate: normal, Rhythm: regular, Edema: is not appreciated, JVD: is not appreciated. 22:10 Respiratory: the patient does not display signs of respiratory distress, Respirations: normal, no use of accessory muscles, no retractions, labored breathing, is not present, Breath sounds: are clear throughout, no decreased breath sounds. 22:10 Abdomen/GI: Inspection: abdomen appears normal, Palpation: abdomen is soft and non-tender, in all quadrants. 22:10 Neuro: Orientation: to person, place \T\ time. Mentation: is normal, Cerebellar function: is grossly normal, Motor: moves all fours, strength is normal, Sensation: is normal. Vital Signs: 20:37 BP 166 / 109; Pulse 73; Resp 16; Temp 98.2; Pulse Ox 99% on R/A; Weight 104.33 kg; bb Height 5 ft. 9 in. (175.26 cm); Pain 6/10; 22:29 BP 142 / 96; Pulse 68; Resp 16 S; Pulse Ox 94% on R/A; bb 23:54 BP 127 / 83; Pulse 63; Resp 14 S; Pulse Ox 97% on R/A; bb 09/06 00:43 BP 127 / 94; Pulse 62; Resp 14 S; Pulse Ox 99% on R/A; bb 01:31 BP 136 / 106; Pulse 73; Resp 16 S; Temp 97.8(O); Pulse Ox 95% on R/A; bb 09/05 20:37 Body Mass Index 33.96 (104.33 kg, 175.26 cm) bb MDM: 09/05 21:44 Patient medically screened. cp 22:15 Differential diagnosis: acute myocardial infarction, acute pericarditis, cp costochondritis, pancreatitis, pneumonia, pneumothorax, pulmonary embolus, stable angina, thoracic aortic disection, unstable angina. 09/06 01:23 Data reviewed: vital signs, nurses notes, lab test result(s), EKG, radiologic studies, cp plain films. 01:23 Test interpretation: by ED physician or midlevel provider: ECG, plain radiologic cp studies, chest xray negative for acute findings. Counseling: I had a detailed discussion with the patient and/or guardian regarding: the historical points, exam findings, and any diagnostic results supporting the discharge/admit diagnosis, the presence of at least one elevated blood pressure reading (>120/80) during this emergency department visit, lab results, radiology results, the need for outpatient follow up, for definitive care, a family practitioner. Response to treatment: the patient's symptoms have markedly improved after treatment, and as a result, I will discharge patient. 09/05 21:48 Order name: Basic Metabolic Panel; Complete Time: 23:44 cp 09/05 23:44 Interpretation: Normal except: GLUC 117; GFR 83. cp 09/05 21:48 Order name: CBC with Diff; Complete Time: 22:56 cp 09/05 22:56 Interpretation: Normal except: WBC 11.30. cp 09/05 21:48 Order name: LFT's; Complete Time: 23:44 cp 09/05 21:48 Order name: Magnesium; Complete Time: 23:44 cp 09/05 21:48 Order name: PT-INR; Complete Time: 22:56 cp 09/05 21:48 Order name: Troponin (emerg Dept Use Only); Complete Time: 23:44 cp 09/05 23:44 Interpretation: Normal except: TROPED < 0.02. 09/05 21:48 Order name: XRAY Chest (1 view) 09/05 21:48 Order name: EKG; Complete Time: 21:49 09/06 00:27 Order name: Troponin I 09/06 00:27 Order name: Troponin I [facility] 09/05 21:48 Order name: Cardiac monitoring; Complete Time: 22:36 cp 09/05 21:48 Order name: EKG - Nurse/Tech; Complete Time: 21:50 cp 09/05 21:48 Order name: IV Saline Lock; Complete Time: 22:36 cp 09/05 21:48 Order name: Labs collected and sent; Complete Time: 22:36 cp 09/05 21:48 Order name: O2 Per Protocol; Complete Time: 21:50 cp 09/05 21:48 Order name: O2 Sat Monitoring; Complete Time: 21:50 cp 09/05 22:20 Order name: Blood Pressure Recheck: bilateral upper extremity; Complete Time: 22:36 cp EC/14 20:50 Rate is 78 beats/min. Rhythm is regular. AL interval is normal. QRS interval is normal. cp QT interval is normal. T waves are Inverted in leads III, aVR. Interpreted by me. Reviewed by me. Administered Medications: 22:05 Drug: Aspirin Chewable Tablet 324 mg Route: PO; bb 22:35 Follow up: Response: No adverse reaction bb 22:05 Drug: Lisinopril 20 mg Route: PO; bb 22:35 Follow up: Response: Blood pressure is lowered bb 22:05 Drug: NS 0.9% 500 ml Route: IV; Rate: bolus; Site: right antecubital; bb 22:36 Follow up: IV Status: Completed infusion; IV Intake: 500ml bb Disposition: 09/06 01:35 Chart complete. cp 02:34 Co-signature as Attending Physician, Lloyd Willson MD. rn Disposition: 09/06/20 01:24 Discharged to Home. Impression: Hypertensive heart disease, Other chest pain. - Condition is Stable. - Discharge Instructions: Nonspecific Chest Pain, Hypertension, Aspirin and Your Heart. - Prescriptions for Lisinopril 20 mg Oral Tablet - take 1 tablet by ORAL route once daily; 30 tablet. - Medication Reconciliation Form, Thank You Letter, Antibiotic Education, Prescription Opioid Use form. - Follow up: Private Physician; When: 1 - 2 days; Reason: Recheck today's complaints. - Problem is new. - Symptoms have improved. Signatures: Dispatcher [employer] Eloina Edmonds RN RN Lloyd Jennings MD MD rn Page, Corey, PA PA cp Corrections: (The following items were deleted from the chart) 01:33 01:24 09/06/2020 01:24 Discharged to Home. Impression: Hypertensive heart disease; bb Other chest pain. Condition is Stable. Forms are Medication Reconciliation Form, Thank You Letter, Antibiotic Education, Prescription Opioid Use. Follow up: Private Physician; When: 1 - 2 days; Reason: Recheck today's complaints. Problem is new. Symptoms have improved. cp
[2020-09-06 01:46] VITALS: BP 136/106; TEMP 97.8; O2SAT 95
--- NOTE | 2020-09-06 07:35 | EKG ---
Test Date: 2020-09-05 Test Time: 20:42:58 Cutter Machine: TL MEASUREMENT RESULTS: Intervals: Rate: 78 MD: 156 QRSD: 86 QT: 366 QTc: 417 Jackson: P: 49 MD: 156 QRS: 9 T: 25 INTERPRETIVE STATEMENTS: Normal sinus rhythm Normal ECG Compared to ECG 06/18/2020 19:13:15 No significant changes Electronically Signed On 09-06-20 07:34:30 CDT by Jose Juan Thao
--- NOTE | 2020-09-06 09:16 | RAD REPORT ---
EXAM DESCRIPTION: RAD - Chest Single View - 09/05/2020 10:48 pm CLINICAL HISTORY: CHEST PAIN Chest pain. COMPARISON: Chest Single View dated 06/18/2020; Chest Single View dated 04/09/2020; Chest Single View dated 11/23/2019; Chest Pa And Lat (2 Views) dated 04/03/2019 FINDINGS: Portable technique limits examination quality. The lungs are grossly clear. The heart is normal in size. No displaced fractures. IMPRESSION: No acute intrathoracic process suspected.
== END 2020-09-06 01:33 | disposition home or self-care (01) ==
LOC: ER 07:44
DX: I11.9 Hypertensive heart disease without heart failure (principal); I10 Essential (primary) hypertension; F17.210 Nicotine dependence, cigarettes, uncomplicated
CPT/HCPCS: 36415; 71045; 80048; 80076; 83735; 84484; 85025; 85610; 93005; 96360; 99284; J7040

== ENCOUNTER 2020-10-17 13:51 | Emergency (ER) | payer SELFPAY ==
--- OUTSIDE RECORDS SUMMARY | 2020-10-17 13:53 | XMS REPORT | Continuity of Care Document ---
:1985 Author Organization [facility] t Address [address] [place] [address] Care Team Providers Name Role Phone Alan Sol MD Attending Clinician Doctor Unassigned, [place] Attending Clinician Unavailable Jennifer Alva Attending Clinician [...] Department ID 2020-08-21 2020-08-21 Emergency TED Sol [id number] 07:58:00 10:27:00 Alan Rangel [id number] [place] [id number] [place] [id number] 2020-08-21 2020-08-21 Orders Doctor ZHU [id number] 00:00:00 00:00:00 Only UnassignedLAUREN [id number] [place] [facility] [id number] 2020-02-16 2020-02-17 Emergency Ziggy Prasad [id number] 21:41:00 00:50:00 Jennifer [place] [id number] [place] [id number] [place] [id number] 2019-06-12 2019-06-12 Emergency Kayla, [facility] [id number] 16:15:07 18:19:00 Siobhan Moraeston [id number] [place] [id number] [place] [id number] [id number] Results This patient has no known results.
[2020-10-17 15:28] LABS: Urine Blood Trace-intact (Negative); Urine Glucose Negative (Negative); Urine Protein Negative (Negative); Urine Specific Gravity >=1.030 (1.005-1.030)
[2020-10-17 15:29] LABS: Absolute Lymphocytes (CBC) 2.9 K/uL (0.7-4.9); Basophils % 0.6 % (0-1.3); Hematocrit 47.8 % (39.6-49.0); Lymphocytes % 27.9 % (15.3-44.8); MPV 8.9 fL (7.6-11.3); RBC Red Blood Cell Count 5.67 M/uL (4.33-5.43)
--- NOTE | 2020-10-17 16:00 | RAD REPORT ---
EXAM DESCRIPTION: Jack Single View10/17/2020 3:27 pm CLINICAL HISTORY: malaise COMPARISON: August 2020 FINDINGS: The lungs appear clear of acute infiltrate. The heart is normal size IMPRESSION: No acute abnormalities displayed
[2020-10-17 16:01] LABS: BUN Blood Urea Nitrogen 15 mg/dL (7-18); Bicarbonate 25 mmol/L (21-32); Glucose Level 117 mg/dL (74-106); Potassium 4.4 mmol/L (3.5-5.1); Sodium Level 137 mmol/L (136-145)
[2020-10-17 16:35] LABS: SARS-COV-2 RT PCR NEGATIVE (NEGATIVE)
--- NOTE | 2020-10-17 16:38 | ER ---
Nurse's Notes [facility] Name: Raza Causey Age: 35 yrs Sex: Male : 1985 Arrival Date: 10/17/2020 Time: 13:54 Bed 19 Private MD: Diagnosis: Malaise and fatigue;Urinary tract infection, site not specified Presentation: 10/17 14:07 Chief complaint: Patient states: body aches since Thursday and pain when breathing, em states he started taking hydroxyzine and lisinopril, denies N/V, cough or fever, also reports rash on back and chest that started today. Coronavirus screen: Client denies travel out of the [place] in the last 14 days. Ebola Screen: Patient negative for fever greater than or equal to 101.5 degrees Fahrenheit, and additional compatible Ebola Virus Disease symptoms Patient denies exposure to infectious person. Patient denies travel to an Ebola-affected area in the 21 days before illness onset. No symptoms or risks identified at this time. Initial Sepsis Screen: Does the patient meet any 2 criteria? No. Patient's initial sepsis screen is negative. Does the patient have a suspected source of infection? No. Patient's initial sepsis screen is negative. Risk Assessment: Do you want to hurt yourself or someone else? Patient reports no desire to harm self or others. Onset of symptoms was October 17, 2020. 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 - Social history:: Smoking status: Patient denies any tobacco usage or history of. Screenin:23 Abuse screen: Denies threats or abuse. Nutritional screening: No deficits noted. ap3 Tuberculosis screening: No symptoms or risk factors identified. Fall Risk None identified. Assessment: 15:24 General: Appears in no apparent distress. comfortable, Behavior is calm, cooperative, ap3 appropriate for age. Pain: Complains of pain in generalized pain Pain does not radiate. Pain currently is 6 out of 10 on a pain scale. Quality of pain is described as aching. Neuro: Level of Consciousness is awake, alert, obeys commands, Oriented to person, place, time, situation, Speech is normal. Cardiovascular: Denies chest pain, shortness of breath, Capillary refill < 3 seconds. Respiratory: Airway is patent Respiratory effort is even, unlabored, Respiratory pattern is regular, symmetrical, Denies cough. GI: No signs and/or symptoms were reported involving the gastrointestinal system. : No signs and/or symptoms were reported regarding the genitourinary system. Vital Signs: 14:07 BP 132 / 99; Pulse 98; Resp 16; Temp 98.0; Pulse Ox 99% on R/A; Weight 102.51 kg; em Height 5 ft. 9 in. (175.26 cm); Pain 6/10; 15:27 BP 129 / 92; Pulse 88; Pulse Ox 97% on R/A; Pain 6/10; ap3 16:00 BP 128 / 92; Pulse 88; Pulse Ox 97% on R/A; ap3 14:07 Body Mass Index 33.37 (102.51 kg, 175.26 cm) em ED Course: 13:54 Patient arrived in ED. mr 14:11 Triage completed. em 14:12 Arm band placed on. em 14:16 Nanette Mccray FNP-C is [facility]. kb 14:16 Karthik Lakhani MD is Attending Physician. kb 14:20 Karthik Lakhani MD is Attending Physician. kdr 15:17 CBC with Diff Sent. mh5 15:17 Chem 7 Sent. mh5 15:17 Initial lab(s) drawn, by sd, sent to lab. Inserted saline lock: 18 gauge in right mh5 wrist, using aseptic technique. Blood collected. 15:18 COVID swab sent to lab. Flu and/or RSV swab sent to lab. mh5 15:19 Jenelle Langford, RN is Primary Nurse. ap3 15:23 Patient has correct armband on for positive identification. Bed in low position. Call ap3 light in reach. Side rails up X2. Pulse ox on. NIBP on. Door closed. Noise minimized. 15:27 CXR XRAY In Process Unspecified. EDMS 15:28 Urine collected: clean catch specimen, clear. 5 16:56 No provider procedures requiring assistance completed. IV discontinued, intact, ap3 bleeding controlled, No redness/swelling at site. Pressure dressing applied. Administered Medications: 16:56 Drug: Bactrim (trimethoprim-sulfamethoxazole) (160 mg-800 mg (DS) 1 tablet Route: PO; ap3 16:57 Follow up: Response: No adverse reaction ap3 Outcome: 16:38 Discharge ordered by . kdr 16:56 Discharged to home ambulatory. ap3 16:56 Condition: good 16:56 Discharge instructions given to patient, Instructed on discharge instructions, follow up and referral plans. medication usage, Demonstrated understanding of instructions, follow-up care, medications, Prescriptions given X 1. 16:57 Patient left the ED. ap3 Signatures: Dispatcher [employer] EDNanette Márquez, MANUFACTURING SUPPORT ENGINEER-C MANUFACTURING SUPPORT ENGINEER-Ckb Karthik Lakhani MD MD kdr Rivera, Mary Rodrigo Sharma RN RN Bisi Arnold [facility] Jenelle Langford RN RN ap3 Corrections: (The following items were deleted from the chart) 14:13 14:07 Chief complaint: Patient states: body aches since Ken and pain when breathing, em states he started taking hydroxyzine and lisinopril, denies N/V, cough or fever, em 15:51 15:17 CORONAVIRUS+MR.LAB.BRZ drawn and sent. [address] 15:51 15:17 Influenza Screen (A \T\ B)+BA.LAB.BRZ drawn and sent. [address]
--- NOTE | 2020-10-17 16:39 | EDPHYS ---
Physician Documentation [facility] Name: Raza Causey Age: 35 yrs Sex: Male : 1985 Arrival Date: 10/17/2020 Time: 13:54 Bed 19 Private MD: ED Physician Karthik Lakhani HPI: 10/17 18:06 This 35 yrs old Male presents to ER via Ambulatory with complaints of Body kdr Aches,chills, Rash. 18:06 The patient states that he has had general malaise and not feeling well since Thursday. kdr He also just noted a generalized raised trash today after taking a shower. The rash does not itch or is otherwise bothersome. HE has not had this before. Onset: The symptoms/episode began/occurred gradually, Thursday. Severity of symptoms: At their worst the symptoms were mild in the emergency department the symptoms are unchanged. The patient has not experienced similar symptoms in the past. The patient has not recently seen a physician. 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 - Social history:: Smoking status: Patient denies any tobacco usage or history of. ROS: 18:06 Constitutional: Negative for fever, chills, and weight loss - he has had weakness and kdr general malaise Eyes: Negative for injury, pain, redness, and discharge, ENT: Negative for injury, pain, and discharge, Neck: Negative for injury, pain, and swelling, Cardiovascular: Negative for chest pain, palpitations, and edema, Respiratory: Negative for shortness of breath, cough, wheezing, and pleuritic chest pain, Abdomen/GI: Negative for abdominal pain, nausea, vomiting, diarrhea, and constipation, Back: Negative for injury and pain, : Negative for injury, bleeding, discharge, and swelling, MS/Extremity: Negative for injury and deformity, Neuro: Negative for headache, weakness, numbness, tingling, and seizure activity. Psych: Negative for depression, anxiety, suicide ideation, homicidal ideation, and hallucinations, Allergy/Immunology: Negative for hives, rash, and allergies, Endocrine: Negative for neck swelling, polydipsia, polyuria, polyphagia, and marked weight changes, Hematologic/Lymphatic: Negative for swollen nodes, abnormal bleeding, and unusual bruising. 18:06 Skin: Positive for rash. Exam: 18:06 Constitutional: This is a well developed, well nourished patient who is awake, alert, kdr and in no acute distress. Head/Face: Normocephalic, atraumatic. Eyes: Pupils equal round and reactive to light, extra-ocular motions intact. Lids and lashes normal. Conjunctiva and sclera are non-icteric and not injected. Cornea within normal limits. Periorbital areas with no swelling, redness, or edema. Neck: Trachea midline, no thyromegaly or masses palpated, and no cervical lymphadenopathy. Supple, full range of motion without nuchal rigidity, or vertebral point tenderness. No Meningismus. Chest/axilla: Normal chest wall appearance and motion. Nontender with no deformity. No lesions are appreciated. Cardiovascular: Regular rate and rhythm with a normal S1 and S2. No gallops, murmurs, or rubs. Normal PMI, no JVD. No pulse deficits. Respiratory: Lungs have equal breath sounds bilaterally, clear to auscultation and percussion. No rales, rhonchi or wheezes noted. No increased work of breathing, no retractions or nasal flaring. Abdomen/GI: Soft, non-tender, with normal bowel sounds. No distension or tympany. No guarding or rebound. No evidence of tenderness throughout. Back: No spinal tenderness. No costovertebral tenderness. Full range of motion. MS/ Extremity: Pulses equal, no cyanosis. Neurovascular intact. Full, normal range of motion. Neuro: Awake and alert, GCS 15, oriented to person, place, time, and situation. Cranial nerves II-XII grossly intact. Motor strength 5/5 in all extremities. Sensory grossly intact. Cerebellar exam normal. Normal gait. Psych: Awake, alert, with orientation to person, place and time. Behavior, mood, and affect are within normal limits. 18:06 Skin: rash a moderate rash is noted, rash can be described as nonspecific, papular, raised. Vital Signs: 14:07 BP 132 / 99; Pulse 98; Resp 16; Temp 98.0; Pulse Ox 99% on R/A; Weight 102.51 kg; em Height 5 ft. 9 in. (175.26 cm); Pain 6/10; 15:27 BP 129 / 92; Pulse 88; Pulse Ox 97% on R/A; Pain 6/10; ap3 16:00 BP 128 / 92; Pulse 88; Pulse Ox 97% on R/A; ap3 14:07 Body Mass Index 33.37 (102.51 kg, 175.26 cm) em MDM: 14:16 Patient medically screened. kb 18:06 Data reviewed: vital signs, nurses notes, lab test result(s). Counseling: I had a kdr detailed discussion with the patient and/or guardian regarding: the historical points, exam findings, and any diagnostic results supporting the discharge/admit diagnosis, lab results, the need for outpatient follow up. 10/17 14:56 Order name: CBC with Diff; Complete Time: 15:43 kdr 10/17 14:56 Order name: Chem 7; Complete Time: 16:37 kdr 10/17 15:28 Order name: Urine Dipstick-Ancillary; Complete Time: 15:43 EDMS 10/17 16:36 Order name: COVID-19/FLU A+B; Complete Time: 16:37 EDMS 10/17 14:56 Order name: Urine Dipstick-Ancillary (obtain specimen); Complete Time: 15:28 kdr 10/17 14:56 Order name: CXR XRAY; Complete Time: 16:37 kdr Administered Medications: 16:56 Drug: Bactrim (trimethoprim-sulfamethoxazole) (160 mg-800 mg (DS) 1 tablet Route: PO; ap3 16:57 Follow up: Response: No adverse reaction ap3 Disposition: 10/17/20 16:38 Discharged to Home. Impression: Malaise and fatigue, Urinary tract infection, site not specified. - Condition is Stable. - Discharge Instructions: Urinary Tract Infection, Adult, [id number]. - Prescriptions for Bactrim DS 800- 160 mg Oral Tablet - take 1 tablet by ORAL route every 12 hours for 3 days; 6 tablet. - Medication Reconciliation Form, Thank You Letter, Antibiotic Education form. - Follow up: Private Physician; When: 2 - 3 days; Reason: If symptoms return, Further diagnostic work-up, Recheck today's complaints, Continuance of care, Re-evaluation by your physician. - Problem is new. - Symptoms have improved. Signatures: Dispatcher [employer] EDSC Nanette Mccray, ELECTRICAL CALIBRATOR-C ELECTRICAL CALIBRATOR-CkKarthik Franklin MD MD kdr Munoz, Edgar, RN RN em Jenelle Langford RN RN ap3 Corrections: (The following items were deleted from the chart) 15:51 14:56 CORONAVIRUS+MR.LAB.BRZ ordered. [facility] EDSC 15:51 14:56 Influenza Screen (A \T\ B)+BA.LAB.BRZ ordered. [facility] 16:57 16:38 10/17/2020 16:38 Discharged to Home. Impression: Malaise and fatigue; Urinary ap3 tract infection, site not specified. Condition is Stable. Forms are Medication Reconciliation Form, Thank You Letter, Antibiotic Education, Prescription Opioid Use. Follow up: Private Physician; When: 2 - 3 days; Reason: If symptoms return, Further diagnostic work-up, Recheck today's complaints, Continuance of care, Re-evaluation by your physician. Problem is new. Symptoms have improved. kdr
[2020-10-17] MEDS ORDERED: SMZ./TMP. 800/160 MG TABLET ONE (17:12)
[2020-10-17 18:59] VITALS: TEMP 98
[2020-10-17 19:01] VITALS: O2SAT 97
[2020-10-17 19:03] VITALS: BP 128/92
== END 2020-10-17 16:57 | disposition home or self-care (01) ==
LOC: ER 13:51
DX: N39.0 Urinary tract infection, site not specified (principal); R53.81 Other malaise; R21 Rash and other nonspecific skin eruption; F90.9 Attention-deficit hyperactivity disorder, unspecified type; F41.9 Anxiety disorder, unspecified; I10 Essential (primary) hypertension
CPT/HCPCS: 0240U; 36415; 71045; 80048; 81003; 85025; 99284

== ENCOUNTER 2021-03-19 18:51 | Emergency (ER) | payer SELFPAY ==
[2021-03-19] MEDS ORDERED: AZITHROMYCIN 250 MG TAB ONE (19:49)
[2021-03-19] MEDS ORDERED: NA CHLORIDE 0.9% 1,000 ML ONE (19:49)
[2021-03-19 19:50] LABS: Absolute Lymphocytes (CBC) 1.5 K/uL (0.7-4.9); Basophils % 0.4 % (0-1.3); Hematocrit 42.1 % (39.6-49.0); Lymphocytes % 40.2 % (15.3-44.8); MPV 8.8 fL (7.6-11.3)
[2021-03-19 20:11] LABS: ALT/SGPT 34 U/L (12-78); Albumin 3.7 g/dL (3.4-5.0); Alkaline Phosphatase 73 U/L (45-117); BUN Blood Urea Nitrogen 18 mg/dL (7-18); Bicarbonate 25 mmol/L (21-32); Bilirubin Total 0.2 mg/dL (0.2-1.0); Glucose Level 137 mg/dL (74-106); Protein, Total 7.2 g/dL (6.4-8.2); Sodium Level 142 mmol/L (136-145)
--- NOTE | 2021-03-19 20:22 | RAD REPORT ---
EXAM DESCRIPTION: RAD - Chest Single View - 03/19/2021 7:50 pm CLINICAL HISTORY: COUGH COMPARISON: Chest Single View dated 10/17/2020; Chest Single View dated 09/05/2020; Chest Single View dated 06/18/2020; Chest Single View dated 04/09/2020 FINDINGS: Lines: None. Lungs: No evidence of edema or pneumonia. Pleural: No significant pleural effusions or pneumothorax. Cardiac: The heart size is within normal limits. Bones: No acute fractures. Other: IMPRESSION: No acute cardiopulmonary disease.
[2021-03-19 20:23] LABS: AST/SGOT 23 U/L (15-37); Potassium 3.5 mmol/L (3.5-5.1)
--- NOTE | 2021-03-19 20:57 | EDPHYS ---
Physician Documentation [facility] Name: Raza Causey Age: 35 yrs Sex: Male : 1985 Arrival Date: 03/19/2021 Time: 18:53 Bed 11 Private MD: ANSON Physician [place] Siu HPI: 03/19 19:21 This 35 yrs old Male presents to ER via Ambulatory with complaints of Fever, clemente Diarrhea. 19:21 This 35 yrs old Male presents to ER via Ambulatory with complaints of Fever, clemente Diarrhea. 19:21 The patient reports fever, that was measured at 100 degrees Fahrenheit. Onset: The clemente symptoms/episode began/occurred 3 day(s) ago. Modifying factors: there are no obvious modifying factors. Associated signs and symptoms: Pertinent positives: cough, with yellow sputum. Severity of symptoms: At their worst the symptoms were mild in the emergency department the symptoms are unchanged. The patient has not experienced similar symptoms in the past. diarrhea and fever with cough and production x 3 days. 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 - Social history:: Smoking status: Patient reports the use of cigarette tobacco products, smokes one-half pack cigarettes per day. - Family history:: not pertinent. ROS: 19:21 Eyes: Negative for injury, pain, redness, and discharge, ENT: Negative for injury, clemente pain, and discharge, Neck: Negative for injury, pain, and swelling, Cardiovascular: Negative for chest pain, palpitations, and edema, Respiratory: Negative for shortness of breath, cough, wheezing, and pleuritic chest pain, Back: Negative for injury and pain, : Negative for injury, bleeding, discharge, and swelling, MS/Extremity: Negative for injury and deformity, Skin: Negative for injury, rash, and discoloration, Neuro: Negative for headache, weakness, numbness, tingling, and seizure, Psych: Negative for depression, anxiety, suicide ideation, homicidal ideation, and hallucinations, Allergy/Immunology: Negative for hives, rash, and allergies, Endocrine: Negative for neck swelling, polydipsia, polyuria, polyphagia, and marked weight changes, Hematologic/Lymphatic: Negative for swollen nodes, abnormal bleeding, and unusual bruising. 19:21 Constitutional: Positive for fever. 19:21 Respiratory: Positive for cough, with green sputum. 19:21 Abdomen/GI: Positive for diarrhea. Exam: 19:21 Constitutional: This is a well developed, well nourished patient who is awake, alert, clemente and in no acute distress. Head/Face: Normocephalic, atraumatic. Eyes: Pupils equal round and reactive to light, extra-ocular motions intact. Lids and lashes normal. Conjunctiva and sclera are non-icteric and not injected. Cornea within normal limits. Periorbital areas with no swelling, redness, or edema. ENT: Nares patent. No nasal discharge, no septal abnormalities noted. Tympanic membranes are normal and external auditory canals are clear. Oropharynx with no redness, swelling, or masses, exudates, or evidence of obstruction, uvula midline. Mucous membranes moist. Neck: Trachea midline, no thyromegaly or masses palpated, and no cervical lymphadenopathy. Supple, full range of motion without nuchal rigidity, or vertebral point tenderness. No Meningismus. Chest/axilla: Normal chest wall appearance and motion. Nontender with no deformity. No lesions are appreciated. Cardiovascular: Regular rate and rhythm with a normal S1 and S2. No gallops, murmurs, or rubs. Normal PMI, no JVD. No pulse deficits. Respiratory: Lungs have equal breath sounds bilaterally, clear to auscultation and percussion. No rales, rhonchi or wheezes noted. No increased work of breathing, no retractions or nasal flaring. Abdomen/GI: Soft, non-tender, with normal bowel sounds. No distension or tympany. No guarding or rebound. No evidence of tenderness throughout. Back: No spinal tenderness. No costovertebral tenderness. Full range of motion. Skin: Warm, dry with normal turgor. Normal color with no rashes, no lesions, and no evidence of cellulitis. MS/ Extremity: Pulses equal, no cyanosis. Neurovascular intact. Full, normal range of motion. Neuro: Awake and alert, GCS 15, oriented to person, place, time, and situation. Cranial nerves II-XII grossly intact. Motor strength 5/5 in all extremities. Sensory grossly intact. Cerebellar exam normal. Normal gait. Psych: Awake, alert, with orientation to person, place and time. Behavior, mood, and affect are within normal limits. 19:21 Musculoskeletal/extremity: DVT Exam: No signs of deep vein thrombosis. no pain, no swelling, no tenderness, negative Homans' sign noted on exam, no appreciated bluish discoloration, no erythema, no increased warmth. Vital Signs: 19:02 BP 130 / 98; Pulse 90; Resp 18; Temp 98.4; Pulse Ox 98% ; Weight 99.79 kg; Height 5 ft. tw5 9 in. (175.26 cm); Pain 0/10; 19:37 BP 126 / 92; Pulse 86; Resp 18; Pulse Ox 99% on R/A; ld1 20:33 BP 128 / 95; Pulse 88; Resp 18; Pulse Ox 99% on R/A; ld1 19:02 Body Mass Index 32.49 (99.79 kg, 175.26 cm) tw5 MDM: 19:07 Patient medically screened. [facility] 19:28 Differential diagnosis: viral Infection, bacterial infection, URI, bronchitis, clemente pneumonia gastroenteritis. Data reviewed: vital signs, nurses notes, lab test result(s), radiologic studies, plain films. Data interpreted: overhead cleaner: rate is 90 beats/min, rhythm is regular, Pulse oximetry: on room air is 98 %. Test interpretation: by ED physician or midlevel provider: plain radiologic studies. Counseling: I had a detailed discussion with the patient and/or guardian regarding: the historical points, exam findings, and any diagnostic results supporting the discharge/admit diagnosis, lab results, radiology results, the need for outpatient follow up, for definitive care, a family practitioner. 03/19 19:21 Order name: SARS-COV-2 RT PCR (Document "Date of Onset" if Symptomatic); Complete Time: clemente 20:42 03/19 19:21 Order name: CBC with Diff; Complete Time: 20:22 [facility] 03/19 19:21 Order name: Chest Single View XRAY; Complete Time: 20:42 [facility] 03/19 19:21 Order name: Comprehensive Metabolic Panel; Complete Time: 20:42 [facility] Administered Medications: 19:24 Drug: Zithromax (azithromycin) 500 mg Route: PO; ld1 19:37 Follow up: Response: No adverse reaction ld1 19:37 Drug: NS 0.9% 1000 ml Route: IV; Rate: 1 bolus; Site: right antecubital; ld1 20:53 Follow up: Response: No adverse reaction; IV Status: Completed infusion; IV Intake: ld1 1000ml 20:52 Drug: Aspirin Chewable Tablet 324 mg Route: PO; ld1 20:53 Follow up: Response: No adverse reaction ld1 20:53 Not Given (Patient Refused): Pepcid (famotidine) 40 mg PO once ld1 20:53 Not Given (Patient Refused): Casirivimab-Imdevimab Dose Pack 120 mg/mL-120 mg/mL (EUA) ld1 1 vials IV at per protocol once; infuse 1,200 mg CASIRIVIMAB and 1,200 mg IMDEVIMAB (2,400 mg total dose) together as a SINGLE infusion per protocol Disposition Summary: 03/19/21 20:57 Discharge Ordered Location: Home [facility] Problem: new [facility] Symptoms: have improved clemente Condition: Stable clemente Diagnosis - Bronchitis, not specified as acute or chronic clemente - Fever, unspecified clemente - Diarrhea, unspecified clemente - Coronavirus infection, unspecified clemente Followup: clemente - With: Private Physician - When: 2 - 3 days - Reason: Recheck today's complaints, Continuance of care, Re-evaluation by your physician Followup: clemente - With: - When: 2 - 3 days - Reason: Recheck today's complaints, Re-evaluation by your physician Discharge Instructions: - Discharge Summary Sheet clemente - Acute Bronchitis, Adult clemente - Food Choices to Help Relieve Diarrhea, Adult clemente - Diarrhea, Adult clemente - Fever, Adult clemente - Upper Respiratory Infection, Adult clemente - COVID-19 clemente - COVID-19 Frequently Asked Questions [facility] - 10 Things You Can Do to Manage Your COVID-19 Symptoms at Home - [facility] Forms: - Medication Reconciliation Form clemente - Thank You Letter clemente - Antibiotic Education clemente - Prescription Opioid Use [facility] Prescriptions: - Pepcid 20 mg Oral Tablet - take 1 tablet by ORAL route every 12 hours for 15 days; 30 tablet; Refills: 0, [facility] Product Selection Permitted - Singulair 10 mg Oral tablet - take 1 tablet by ORAL route once daily; 30 tablet; Refills: 0, Product [facility] Selection Permitted - Zithromax 500 mg Oral Tablet - take 1 tablet by ORAL route once daily for 5 days; 5 tablet; Refills: 0, [facility] Product Selection Permitted - ivermectin 3 mg Oral tablet - take 5 tablet by ORAL route once daily; 15 tablet; Refills: 0, Product [facility] Selection Permitted Signatures: Dispatcher [employer] [place] MD MD cha Dibbern, Lauren RN RN ld1 Brittany Cheung [facility]
--- NOTE | 2021-03-19 20:57 | ER ---
Nurse's Notes [facility] Name: Raza Causey Age: 35 yrs Sex: Male : 1985 Arrival Date: 03/19/2021 Time: 18:53 Bed 11 Private MD: Diagnosis: Bronchitis, not specified as acute or chronic;Fever, unspecified;Diarrhea, unspecified;Coronavirus infection, unspecified Presentation: 03/19 19:02 Chief complaint: Patient states: "Started Thursday morning, Started body aches, fever, tw5 all day Thursday all night. All day Thursday and all night. This morning my fever was 100.9, then the fever stopped then I started getting diarrhea. I still have body aches and sweats.". Coronavirus screen: Vaccine status: Patient reports being unvaccinated. Ebola Screen: Patient negative for fever greater than or equal to 101.5 degrees Fahrenheit, and additional compatible Ebola Virus Disease symptoms Patient denies exposure to infectious person. Patient denies travel to an Ebola-affected area in the 21 days before illness onset. Initial Sepsis Screen: Does the patient meet any 2 criteria? No. Patient's initial sepsis screen is negative. Does the patient have a suspected source of infection? No. Patient's initial sepsis screen is negative. Risk Assessment: Do you want to hurt yourself or someone else? Patient reports no desire to harm self or others. Onset of symptoms was March 17, 2021. 19:02 Method Of Arrival: Ambulatory tw5 19:02 Acuity: DEBO 4 tw5 Triage Assessment: 19:04 General: Appears in no apparent distress. Behavior is calm, cooperative. Pain: Denies tw5 pain. GI: Reports diarrhea. 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 - Social history:: Smoking status: Patient reports the use of cigarette tobacco products, smokes one-half pack cigarettes per day. - Family history:: not pertinent. Screenin:37 Abuse screen: Denies threats or abuse. Denies injuries from another. Nutritional ld1 screening: No deficits noted. Tuberculosis screening: No symptoms or risk factors identified. Fall Risk None identified. Assessment: 19:37 General: Appears in no apparent distress. comfortable, Behavior is calm, cooperative, ld1 appropriate for age. Pain: Denies pain. Neuro: Level of Consciousness is awake, alert, obeys commands, Oriented to person, place, time, situation. Cardiovascular: Capillary refill < 3 seconds Patient's skin is warm and dry. Respiratory: Airway is patent Respiratory effort is even, unlabored, Respiratory pattern is regular, symmetrical. GI: Abdomen is flat, non-distended. GI: Reports diarrhea, nausea. : No signs and/or symptoms were reported regarding the genitourinary system. EENT: No signs and/or symptoms were reported regarding the EENT system. Derm: No signs and/or symptoms reported regarding the dermatologic system. Musculoskeletal: No signs and/or symptoms reported regarding the musculoskeletal system. 20:33 Reassessment: Patient appears in no apparent distress at this time. No changes from ld1 previously documented assessment. Patient and/or family updated on plan of care and expected duration. Pain level reassessed. Patient is alert, oriented x 3, equal unlabored respirations, skin warm/dry/pink. 20:53 Reassessment: PT refused Regen. Stated "I do not want that or the vaccine." Notified ld1 ERP. Vital Signs: 19:02 BP 130 / 98; Pulse 90; Resp 18; Temp 98.4; Pulse Ox 98% ; Weight 99.79 kg; Height 5 ft. tw5 9 in. (175.26 cm); Pain 0/10; 19:37 BP 126 / 92; Pulse 86; Resp 18; Pulse Ox 99% on R/A; ld1 20:33 BP 128 / 95; Pulse 88; Resp 18; Pulse Ox 99% on R/A; ld1 19:02 Body Mass Index 32.49 (99.79 kg, 175.26 cm) tw5 ED Course: 18:53 Patient arrived in ED. mr 19:04 Triage completed. tw5 19:04 Arm band placed on right wrist. tw5 19:07 [place] Siu MD is Attending Physician. clemente 19:21 Gisel Dobbins, KEI is Primary Nurse. ld1 19:37 Patient has correct armband on for positive identification. Bed in low position. Call ld1 light in reach. Side rails up X2. Pulse ox on. NIBP on. Door closed. Noise minimized. Warm blanket given. 19:37 SARS-COV-2 RT PCR (Document "Date of Onset" if Symptomatic) Sent. ld1 19:37 CBC with Diff Sent. ld1 19:37 Comprehensive Metabolic Panel Sent. ld1 19:37 No provider procedures requiring assistance completed. Inserted saline lock: 20 gauge ld1 in right antecubital area, using aseptic technique. Blood collected. 19:50 Chest Single View XRAY In Process Unspecified. EDMS 20:57 Iron Payne MD is Referral Physician. clemente 21:05 IV discontinued, intact, bleeding controlled, No redness/swelling at site. ld1 Administered Medications: 19:24 Drug: Zithromax (azithromycin) 500 mg Route: PO; ld1 19:37 Follow up: Response: No adverse reaction ld1 19:37 Drug: NS 0.9% 1000 ml Route: IV; Rate: 1 bolus; Site: right antecubital; ld1 20:53 Follow up: Response: No adverse reaction; IV Status: Completed infusion; IV Intake: ld1 1000ml 20:52 Drug: Aspirin Chewable Tablet 324 mg Route: PO; ld1 20:53 Follow up: Response: No adverse reaction ld1 20:53 Not Given (Patient Refused): Pepcid (famotidine) 40 mg PO once ld1 20:53 Not Given (Patient Refused): Casirivimab-Imdevimab Dose Pack 120 mg/mL-120 mg/mL (EUA) ld1 1 vials IV at per protocol once; infuse 1,200 mg CASIRIVIMAB and 1,200 mg IMDEVIMAB (2,400 mg total dose) together as a SINGLE infusion per protocol Intake: 20:53 IV: 1000ml; Total: 1000ml. ld1 Outcome: 20:57 Discharge ordered by . clemente 21:05 Discharged to home ambulatory. ld1 21:05 Condition: stable 21:05 Discharge instructions given to patient, Instructed on discharge instructions, follow up and referral plans. medication usage, Demonstrated understanding of instructions, follow-up care, medications, Prescriptions given X 4. 21:05 Patient left the ED. ld1 Signatures: Dispatcher [employer] EDSouth Nieto MD MD cha Rivera, Mary mr Dibbern, Lauren, RN RN ld1 Brittany Cheung tw5
[2021-03-19] MEDS ORDERED: CASIRIVIMAB/IMDEVIMAB 10 ML VIAL ONE (21:08)
[2021-03-19] MEDS ORDERED: ASPIRIN 81 MG CHEWABLE TABLET ONE (21:11)
[2021-03-19] MEDS ORDERED: FAMOTIDINE 20 MG TAB ONE (21:11)
[2021-03-19 21:15] VITALS: TEMP 98.4
[2021-03-19 21:16] VITALS: O2SAT 99
[2021-03-19 21:17] VITALS: BP 128/95
== END 2021-03-19 21:05 | disposition home or self-care (01) ==
LOC: ER 18:51
DX: U07.1 COVID-19 (principal); J40 Bronchitis, not specified as acute or chronic; R19.7 Diarrhea, unspecified; I10 Essential (primary) hypertension; F41.9 Anxiety disorder, unspecified
CPT/HCPCS: 36415; 71045; 80053; 85025; 96360; 99284; J7030; U0003

== ENCOUNTER 2021-10-10 21:19 | Emergency (ER) | payer SELFPAY ==
--- OUTSIDE RECORDS SUMMARY | 2021-10-10 21:24 | XMS REPORT | Continuity of Care Document ---
:1985 Author Organization [facility] t Address [address] [place] [address] Care Team Providers Name Role Phone Erickson Sol MD Attending Clinician ERICKSON SOL Attending Clinician Unavailable Doctor Unassigned, [place] Attending Clinician Unavailable Jennifer Alva Attending Clinician Elizabet Covarrubias Attending Clinician Payers Payer Name Policy Type Policy Number Effective Date Expiration Date S osiris [facility] [id number] 2019 00:00:00 Problems Condition Condition Condition Status Onset Resolution Last Treating Co mments Source Name Details Category Date Date Treatment Clinician Date No known No known Disease Unive rs active active ity of problems problems [place] [facility] Allergies, Adverse Reactions, Alerts Allergy Allergy Status Severity Reaction(s) Onset Inactive Treating Comm ents Source Name Type Date Date Clinician NO KNOWN Drug Active Univers ALLERGIE Class ity of S [place] [facility] Social History Social Habit Start Date Stop Date Quantity Comments Source Exposure to Not sure [facility] SARS-CoV-2 (event) Medica l Branch Sex Assigned At [birth year] [facility] 00:00:00 00:00:00 [place] Smoking Status Start Date Stop Date Source Unknown if ever smoked [facility] Medications Ordered Filled Start Stop Current Ordering Indication Dosage Frequency Signature Comments Components Source Medication Medication Date Date Medication? Clinician (SIG) Name Name NaCl 0.9% No 1000mL at 999 Uni vers (NS) bolus 3-30 03-30 mL/hr, ity of infusion 15:45: 15:25 1,000 mL, Shyam as 1,000 mL 00 :00 IV Medical Piggyback, Branch ONCE, 1 dose, 08/21/20 at 1045, STAT ketorolac 2019- No 30mg 30 mg, Unive rs (TORADOL) 02-16 0925 Slow IV ity of injection 05:15: 04:03 Push, [place] 30 mg 00 :00 ONCE, 1 Medical dose, Fri Branch 02/17/20 at 0015, JONAS
Fa culty member approving Restricted medication : Ziggy SAN ibuprofen 2019-0 Yes [id number] 600mg Take 1 Un ana maria 600 mg 9-25 tablet by ity of tablet 00:00: mouth [place] 00 every 6 Medical (six) Branch hours as needed for Pain (scale 4-6). ibuprofen 2019-0 Yes [id number] 600mg Take 1 Un ana maria 600 mg 9-25 tablet by ity of tablet 00:00: mouth [place] 00 every 6 Medical (six) Branch hours as needed for Pain (scale 4-6). ibuprofen 2019-0 Yes [id number] 600mg Take 1 Un ana maria 600 mg 9-25 tablet by ity of tablet 00:00: mouth [place] 00 every 6 Medical (six) Branch hours as needed for Pain (scale 4-6). ibuprofen 2019-2019- No 800mg 800 mg, Uni vers (IBU) 06-12 Oral, ity of tablet 800 23:45: 22:54 ONCE, 1 Shyam as mg 00 :00 dose, [facility] 06/12/19 at Branch 1745, JONAS amoxicillin 2019- 2020- No [id number] 875mg Take 1 Univers 875 mg 06-12 tablet by ity of tablet 00:00: 05:59 mouth 2 [place] 00 :00 (two) Medical times Branch daily for 10 days. oseltamivir 2019- 2020- No [id number] 75mg Take 1 Univers 75 mg 06-12 capsule by ity of capsule 00:00: 05:59 mouth 2 [place] 00 :00 (two) Medical times Branch daily for 5 days. albuterol 2018-05 Yes [id number] 2.5mg Inhale 3 Univers 2.5 mg /3 1-12 mL every 4 ity of mL (0.083 00:00: (four) [place] %) 00 hours as Medical nebulizer needed for Bran ch solution Wheezing or Shortness of Breath. albuterol 2018-05 Yes [id number] 2.5mg Inhale 3 Univers 2.5 mg /3 1-12 mL every 4 ity of mL (0.083 00:00: (four) [place] %) 00 hours as Medical nebulizer needed for Bran ch solution Wheezing or Shortness of Breath. albuterol 2018-05 Yes [id number] 2.5mg Inhale 3 Univers 2.5 mg /3 1-12 mL every 4 ity of mL (0.083 00:00: (four) [place] %) 00 hours as Medical nebulizer needed for Bran ch solution Wheezing or Shortness of Breath. albuterol 2018-05 Yes [id number] 2.5mg Inhale 3 Univers 2.5 mg /3 1-12 mL every 4 ity of mL (0.083 00:00: (four) [place] %) 00 hours as Medical nebulizer needed for Bran ch solution Wheezing or Shortness of Breath. benzonatate 2017-05 Yes 200mg Take 1 Uni vers 200 mg 2-20 capsule by ity of capsule 00:00: mouth 3 (three) Medical times Branch daily as needed for Cough. benzonatate 2017-05 Yes 200mg Take 1 Uni vers 200 mg 2-20 capsule by ity of capsule 00:00: mouth 3 (three) Medical times Branch daily as needed for Cough. benzonatate 2017-05 Yes 200mg Take 1 Uni vers 200 mg 2-20 capsule by ity of capsule 00:00: mouth 3 (three) Medical times Branch daily as needed for Cough. benzonatate 2017-05 Yes 200mg Take 1 Uni vers 200 mg 2-20 capsule by ity of capsule 00:00: mouth 3 (three) Medical times Branch daily as needed for Cough. proMETHazin 2017-05 Yes 25mg Take 1 Univ ers e 25 mg 0-17 tablet by ity of tablet 00:00: mouth [place] 00 every 6 Medical (six) Branch hours as needed for Nausea and Vomiting (N/V). traMADOL 2017- Yes 50mg Take 1 Univers (ULTRAM) 50 0-17 tablet by ity of mg tablet 00:00: mouth [place] 00 every 6 Medical (six) Branch hours as needed for Pain (scale 4-6). proMETHazin 2017- Yes 25mg Take 1 Univ ers e 25 mg 0-17 tablet by ity of tablet 00:00: mouth [place] 00 every 6 Medical (six) Branch hours as needed for Nausea and Vomiting (N/V). traMADOL 2017-05 Yes 50mg Take 1 Univers (ULTRAM) 50 0-17 tablet by ity of mg tablet 00:00: mouth [place] 00 every 6 Medical (six) Branch hours as needed for Pain (scale 4-6). proMETHazin 2017- Yes 25mg Take 1 Univ ers e 25 mg 0-17 tablet by ity of tablet 00:00: mouth [place] 00 every 6 Medical (six) Branch hours as needed for Nausea and Vomiting (N/V). traMADOL 2017-05 Yes 50mg Take 1 Univers (ULTRAM) 50 0-17 tablet by ity of mg tablet 00:00: mouth [place] 00 every 6 Medical (six) Branch hours as needed for Pain (scale 4-6). proMETHazin 2017- Yes 25mg Take 1 Univ ers e 25 mg 0-17 tablet by ity of tablet 00:00: mouth [place] 00 every 6 Medical (six) Branch hours as needed for Nausea and Vomiting (N/V). traMADOL 2017-05 Yes 50mg Take 1 Univers (ULTRAM) 50 0-17 tablet by ity of mg tablet 00:00: mouth [place] 00 every 6 Medical (six) Branch hours as needed for Pain (scale 4-6). LISINOPRIL 2018-0 Yes Take by Uni vers ORAL 01-28 mouth. ity of 20:38: [address] LISINOPRIL 2018-0 Yes Take by Uni vers ORAL 01-28 mouth. ity of 20:38: [address] LISINOPRIL 2018-0 Yes Take by Uni vers ORAL 01-28 mouth. ity of 20:38: [address] LISINOPRIL 2018-0 Yes Take by Uni vers ORAL 01-28 mouth. ity of 20:38: [address] traMADOL 50 2017-0 Yes 50mg Take 1 Univ ers mg tablet 9-06 tablet by ity o f 00:00: mouth [place] 00 every 8 Medical (eight) Branch hours as needed for Pain (scale 4-6). traMADOL 50 2018-0 Yes 50mg Take 1 Univ ers mg tablet 9-06 tablet by ity o f 00:00: mouth [place] 00 every 8 Medical (eight) Branch hours as needed for Pain (scale 4-6). traMADOL 50 2018-0 Yes 50mg Take 1 Univ ers mg tablet 9-06 tablet by ity o f 00:00: mouth [place] 00 every 8 Medical (eight) Branch hours as needed for Pain (scale 4-6). traMADOL 50 2018-0 Yes 50mg Take 1 Univ ers mg tablet 9-06 tablet by ity o f 00:00: mouth [place] 00 every 8 Medical (eight) Branch hours as needed for Pain (scale 4-6). Vital Signs Vital Name Observation Time Observation Value Comments Source Systolic blood 2020-08-21 15:00:00 139 mm[facility]Hg[facility] 2020-08-21 15:00:00 103 [facility]Hg[facility] 2020-08-21 15:00:00 77 /min [facility] Respiratory rate 2020-08-21 15:00:00 16 /min [facility] Oxygen saturation in 2020-08-21 15:00:00 96 /min [facility] Arterial blood by [facility] Pulse oximetry Branch Body temperature 2020-08-21 12:54:00 36.89 Gini [facility] Body weight 2020-08-21 12:54:00 104.327 kg [facility] BMI 2020-08-21 12:54:00 33.97 kg/m2 [facility] Systolic blood 2020-08-21 15:00:00 139 mm[Hg] [facility] blood 2020-08-21 15:00:00 103 mm[Hg] [facility] 2020-08-21 15:00:00 77 /min [facility] Respiratory rate 2020-08-21 15:00:00 16 /min [facility] [place] [facility] Oxygen saturation in 2020-08-21 15:00:00 96 /min University of Arterial blood by [facility] snehal Pulse oximetry Branch Body temperature 2020-08-21 12:54:00 36.89 Gini [facility] [place] [facility] Body weight 2020-08-21 12:54:00 104.327 kg [facility] [place] [facility] BMI 2020-08-21 12:54:00 33.97 kg/m2 [facility] [place] [facility] Systolic blood 2020-02-17 05:00:00 124 mm[Hg] Univer sity of pressure [place] [facility] Diastolic blood 2020-02-17 05:00:00 77 mm[Hg] Unive rsity of pressure [place] [facility] Heart rate 2020-02-17 05:00:00 65 /min [facility] [place] [facility] Respiratory rate 2020-02-17 05:00:00 16 /min [facility] [place] [facility] Oxygen saturation in 2020-02-17 05:00:00 97 /min University of Arterial blood by [facility] snehal Pulse oximetry Branch Body temperature 2020-02-17 01:13:00 36.78 Gini [facility] [place] [facility] Body weight 2020-02-17 01:13:00 107.049 kg [facility] [place] [facility] BMI 2020-02-17 01:13:00 34.85 kg/m2 [facility] [place] [facility] Systolic blood 2020-02-17 05:00:00 124 mm[Hg] Univer sity of [facility] [place] [facility] Diastolic blood 2020-02-17 05:00:00 77 mm[Hg] Unive rsity of pressure [place] [facility] Heart rate 2020-02-17 05:00:00 65 /min [facility] [place] [facility] Respiratory rate 2020-02-17 05:00:00 16 /min [facility] [place] [facility] Oxygen saturation in 2020-02-17 05:00:00 97 /min University of Arterial blood by [facility] snehal Pulse oximetry Branch Body temperature 2020-02-17 01:13:00 36.78 Gini [facility] [place] [facility] Body weight 2020-02-17 01:13:00 107.049 kg [facility] [place] [facility] BMI 2020-02-17 01:13:00 34.85 kg/m2 [facility] [place] [facility] Body temperature 2019-06-13 00:13:36 37.22 Gini [facility] [place] [facility] Systolic blood 2019-06-12 22:12:00 155 mm[Hg] Univer sity of [facility] [place] [facility] Diastolic blood 2019-06-12 22:12:00 111 mm[Hg] Unive rsity of pressure [place] [facility] Heart rate 2019-06-12 22:12:00 111 /min [facility] [place] [facility] Respiratory rate 2019-06-12 22:12:00 18 /min [facility] [place] [facility] Body height 2019-06-12 22:12:00 175.3 cm [facility] [place] [facility] Body weight 2019-06-12 22:12:00 102.513 kg [facility] [place] [facility] BMI 2019-06-12 22:12:00 33.37 kg/m2 [facility] [place] [facility] Oxygen saturation in 2019-06-12 22:12:00 99 /min University of Arterial blood by [place] [employer] snehal Pulse oximetry Branch Body temperature 2019-06-13 00:13:36 37.22 Gini [facility] [place] [facility] Systolic blood 2019-06-12 22:12:00 155 mm[Hg] Univer sity of pressure [place] [facility] Diastolic blood 2019-06-12 22:12:00 111 mm[Hg] Unive rsity of pressure [place] [facility] Heart rate 2019-06-12 22:12:00 111 /min [facility] [place] [facility] Respiratory rate 2019-06-12 22:12:00 18 /min [facility] [place] [facility] Body height 2019-06-12 22:12:00 175.3 cm [facility] [place] [facility] Body weight 2019-06-12 22:12:00 102.513 kg [facility] [place] [facility] BMI 2019-06-12 22:12:00 33.37 kg/m2 [facility] [place] [facility] Oxygen saturation in 2019-06-12 22:12:00 99 /min University of Arterial blood by [place] [employer] Pulse oximetry Branch Procedures Procedure Date / Time Performing Clinician Source Performed XR CHEST 1 VW 2020-08-21 15:08:40 Erickson Sol [facility] CREATINE KINASE 2020-08-21 13:31:00 Erickson Sol [facility] MAGNESIUM 2020-08-21 13:31:00 Erickson Sol [facility] THYROID STIMULATING 2020-08-21 13:31:00 Erickson Sol [facility] HORMONE Medical Branch HEPATIC FUNCTION PANEL 2020-08-21 13:31:00 Erickson Sol [facility] ([id number]) (ALB,T.PRO,BILI Medical Branch T,BU/BC,ALT,AST,ALK PHOS) BASIC METABOLIC PANEL 2020-08-21 13:31:00 Erickson Sol [facility] (NA, K, CL, CO2, Medical Branch GLUCOSE, BUN, CREATININE, CA) CBC WITH DIFF 2020-08-21 13:31:00 Ebenezer Erickson [facility] URINALYSIS 2020-08-21 13:31:00 Ebenezer Erickson [facility] ADC / LCC - DRUG SCREEN 2020-08-21 13:31:00 Ebenezer [facility] TRIAGE Medical Branch COVID-19 (ID NOW RAPID 2020-08-21 13:31:00 Erickson Sol [facility] TESTING) Medical Branch NOTICE OF PRIVACY 2020-08-21 12:46:36 Doctor Unassigned, No [facility] PRACTICES Name Medical Branch CONSENT/REFUSAL FOR 2020-08-21 12:46:21 Doctor Unassigned, No [facility] DIAGNOSIS AND TREATMENT Name [facility] TROPONIN I 2020-02-17 03:49:00 Ziggy San [facility] XR CHEST 1 VW 2020-02-17 02:30:42 Erickson Sol [facility] LIPASE 2020-02-17 01:21:00 Erickson Sol [facility] TROPONIN I 2020-02-17 01:21:00 Erickson Sol [facility] COMP. METABOLIC PANEL 2020-02-17 01:21:00 Erickson Sol [facility] ([id number]) Medical Branch CBC WITH DIFF 2020-02-17 01:21:00 Ebenezer Erickson [facility] PROTHROMBIN TIME / INR 2020-02-17 01:21:00 Erickson Sol [facility] ACTIVATED PARTIAL 2020-02-17 01:21:00 Erickson Sol [facility] THRMPLAS AMY [facility] EKG-12 LEAD 2020-02-17 01:18:35 Erickson Sol [place] [facility] Branch NOTICE OF PRIVACY 2020-02-17 01:08:49 Doctor Unassigned, No [facility] [place] PRACTICES Name Medical Branch CONSENT/REFUSAL FOR 2020-02-17 01:08:34 Doctor Unassigned, No [facility] [place] DIAGNOSIS AND TREATMENT Name Medical Branch RAPID STREP SCREEN FOR 2019-06-12 22:38:00 Siobhan Garza [facility] [place] GROUP A Medical Branch ADC,CLC OR LCC ONLY - 2019-06-12 22:38:00 Siobhan Garza [facility] [place] INFLUENZA A & B DIRECT Medical B ranch ANTIGEN CONSENT/REFUSAL FOR 2019-06-12 22:06:34 Doctor Unassigned, No [facility] [place] DIAGNOSIS AND TREATMENT Name [place] Encounters Start End Encounter Admission Attending Care Care Encounter Source Date/Time Date/Time Type Type Clinicians Facility Department ID 2020-08-21 2020-08-21 [id number] 07:58:00 10:27:00 Erickson Rangel [id number] [place] 4.2.7.2.686 [place] [id number] [facility] 2020-08-21 2020-08-21 [facility] [id number] [facility] 07:58:00 10:27:00 Erickson Rangel [id number] i ty of [place] 4.2.7.2.6 [facility] [id number] [place] [address] Branch 2020-08-21 2020-08-21 Emergency [facility] [id number] Univers 07:48:00 07:48:00 ERICKSON luther [facility] 2020-08-21 2020-08-21 Orders Doctor ZHU [id number] 00:00:00 00:00:00 Only UnassLAUREN galvez [id number] [place] [facility] 4.2.7.2.68 [id number] 2020-08-21 2020-08-21 Orders Doctor ZHU [id number] Univers 00:00:00 00:00:00 Only Unassigned, LAUREN [id number] ity of [facility] 4.2.7.2.686 [facility] [id number] [facility] 009 Branch 2020-02-16 2020-02-17 Emergency Ziggy San [facility] [id number] 21:41:00 00:50:00 Jennifer [place] [id number] [place] 4.2.7.2.686 [place] [id number] [facility] 2020-02-16 2020-02-17 Emergency Osmar, Ziggy [facility] [id number] Univers 21:41:00 00:50:00 Jennifer Rangel [id number] i ty of [place] 4.2.7.2.686 [facility] s [place] [id number] [address] 2020-02-16 2020-02-16 Emergency X [facility] ERT [id number] Univers 20:06:00 20:06:00 ity of [place] [facility] 2019-06-12 2019-06-12 Emergency [facility], [facility] [id number] Univers 16:15:07 18:19:00 Siobhan Rangel [id number] ity of [place] 4.2.7.2.686 [facility] [id number] [address] 2019-06-12 2019-06-12 Emergency [facility], [facility] [id number] 16:15:07 18:19:00 Siobhan Mcneal [place] [id number] [place] 4.2.7.2.686 [place] [id number] Results Test Description Test Time Test Comments Results Result Comments Source LIPID PANEL 2021-09-07 04:16:00 Test Item Value Reference Range Interpretation Comme nts CHOLESTEROL (test code = 2210) 257 MG/DL <200 H TRIGLYCERIDES (test code = 2232) 229 MG/DL <150 H HDL CHOLESTEROL (test code = 30 MG/DL >39 L 2220) CALC LDL CHOL (test code = 2237) 185 MG/DL <100 H NOTE: CALCULATED LDL IS BASED ON NAHEED-RUANO METHOD WHICHINCLUDES A DJUSTABLE TRIGLYCERIDE:VL DL CHOLESTEROL RATIO.THIS FACT OR VARIES BY MEASURED TRIGLY CERIDE AND NON-HDLCHOLESTE ROL CONCENTRATIONS WITH INCREASED CALCULATED LDL SEENIN HIGHER T RIGLYCERIDE OR LOWER NON-HDL S PECIMENS. FOR MOREINFORMATION , SEE CLIENT ANNOUNCEMENT AT [email or web address] RATIO LDL/HDL (test code = 6.17 RATIO <3.55 H 2238) TSH, THIRD [id number] 03:58:52 Test Item Value Reference Range Interpretation Comments TSH, THIRD 0.715 UIU/ML 0.400-4.100 UNLESS GENERATION (test OTHERWISE I NDICATED, code = 2821) ALL TESTING PER FORMED [facility], [place] [place] [address] LABORATORY DIRE CTOR: ELA LEONE M.D. CLIA NUMBER [id number] CAP ACCREDITATION N O. [id number] XR CHEST 1 [id number] 15:10:55HISTORY: Cough. TECHNIQUE: Portable AP erect view of the chest is obtained. Comparison madewith 02/16/2020 study. FINDINGS: No acute pneumonia. No pneumothorax or pleural effusion orpulmonary congestion detected. Cardiac size is within normal limits. CONCLUSIONS: No signs of acute cardiopulmonary disease.[facility], Radiant Results Inft User - 08/21/2020 10:12 AM CDTHISTORY: Cough.TECHNIQUE: Portable AP erect view of the chest is obtained. Comparison madewith 02/16/2020 study.FINDINGS: No acute pneumonia. No pneumothorax or pleural effusion orpulmonary congestion detected. Cardiac size is within normal limits. CONCLUSIONS: No signs of acute cardiopulmonary disease. [facility] / [facility] - DRUG SCREEN [id number] 15:06:33 Test Item Value Reference Range Interpretation Comments BENZO U (test code = Negative Negative [id number]) HARRIETT U (test code = Negative Negative 6951521621) AMPHET (test code = Presumptive Positive Negative A 3078959164) THC (test code = Negative Negative 7780918918) METHADONE (test code = Negative Negative 0337531978) Meth U (test code = Presumptive Positive Negative A 1794216188) OPIATES (test code = Negative Negative 7215177923) Cocaine Metabolite (test Negative Negative code = 3423418341) PROPOXY (test code = Negative Negative 7970108857) Tric U (test code = Negative Negative 0776522324) PCP (test code = Negative Negative 4416340668) OXYCOD (test code = Negative Negative 2874985841) LOUIE (test code = LOUIE) Urine Drug Cutoff Ranges Benzodiazepines: ? ? 150 ng/mLBarbiturates: ?200 ng/mLAmphetamine: ? 500 ng/mLCannabinoids: ?50 ?ng/mLMethadone: ? 200 ng/mLMethamphetamine: ? ? 500 ng/mL Opiates: ? 100 ng/mL or 2000 ng/mLCocaine: ? 150 ng/mLPropoxyphene: ?300 ng/mLTricyclics: ?300 ng/mLOxycodone: ? 100 ng/mLPCP: ? 25 ?ng/mL The results are to be used only for medical (i.e., treatment) purposes. Unconfirmed screening results must not be used for non-medical purposes (e.g., employment testing, legal testing). Lab Interpretation (test Abnormal code = 04889-9) [facility] [id number] 14:41:43 Test Item Value Reference Range Interpretation Comments TSH (test code = See_Comment [Automated message] [id number]) The system [employer] generated this result transmitted ref erence range: 0.45 - 4 .70 mIU/L. The refe rence range was not u sed to interpret this result as normal/abnor mal. Lab Interpretation (test Normal code = 69533-0) [facility]21-[facility]30 14:13:20 Test Item Value Reference Range Interpretation Comments MAGNESIUM (test code = 4697293172) 1.7 mg/dL 1.7-2.4 Lab Interpretation (test code = Normal 62220-8) [facility] (ID NOW RAPID TESTING)2020-08-21 14:13:20 Test Item Value Reference Range Interpretation Comments SARS-CoV-2 Rapid ID NOW Not Detected Not Detected (test code = 14222-2) LOUIE (test code = LOUIE) ID NOW COVID-19 Assay is an isothermal nucleic acid amplification test intended for the qualitative detection of nucleic acid from SARS-CoV-2 viral RNA in nasopharyngeal (BAREBACK RIDER) specimens. It is used under Emergency Use Authorization (EUA) by FDA. The limit of detection (LOD) of the assay is 125 Genome Equivalents/mL. A positive result is indicative of the presence of SARS-CoV-2 RNA. ?Clinical correlation with patient history and other diagnostic information is necessary to determine patient infection status. A negative (Not Detected) result does not preclude SARS-CoV-2 infection. In patients with clinical symptoms and other tests that are consistent with SARS-CoV-2 infection, negative results should be treated as presumptive negative and a new specimen should be tested with alternative PCR molecular test. Invalid: Please collect a new specimen for repeat patient testing if clinically indicated. Lab Interpretation Normal (test code = 78513-1) [facility] Metabolic Panel (NA, K, CL, CO2, GLUCOSE, BUN, CREATININE, CA)2020-08-21 14:13:15 Test Item Value Reference Range Interpretation Comments NA (test code = 138 mmol/L 135-145 8841470927) K (test code = 3.8 mmol/L 3.5-5.0 8915873483) CL (test code = 108 mmol/L 98-108 9605938200) CO2 TOTAL (test code = 23 mmol/L 23-31 2455859687) AGAP (test code = 2-16 7898531471) BUN (test code = 14 mg/dL 7-23 2296967035) GLUCOSE (test code = 123 mg/dL 70-110 H 7393058017) CREATININE (test code = 0.83 mg/dL 0.60-1.25 8029528593) CALCIUM (test code = 8.7 mg/dL 8.6-10.6 9031075988) eGFR Calculation mL/min/1.73m2 (Non-) (test code = 6896391008) eGFR Calculation mL/min/1.73m2 () (test code = 6034553742) LOUIE (test code = LOUIE) Association of Glomerular Filtration Rate (GFR) and Staging of Kidney Disease* + --+ --+ ------+| GFR (mL/min/1.73 m2) ?| With Kidney Damage ?| ?Without Kidney Damage+ --------+ --------+ +| ?>90 ?| ?Stage one ?| ? Normal ?+ ---+ ---+ -------+| ?60-89 ?| ?Stage two ?| ? Decreased GFR ? + --+ --+ ------+| ?30-59 ?| ?Stage three ?| ? Stage three ? + --+ --+ ------+| ?15-29 ?| ?Stage four ? | ? Stage four ?+ ---+ ---+ -------+| ?<15 (or dialysis) ? ?| ?Stage five ? | ? Stage five ?+ ---+ ---+ -------+ *Each stage assumes the associated GFR level has been in effect for at least three months. ?Stages 1 to 5, with or without kidney disease, indicate chronic kidney disease. Notes: Determination of stages one and two (with eGFR >59mL/min/1.73 m2) requires estimation of kidney damage for at least three months as defined by structural or functional abnormalities of the kidney, manifested by either:Pathological abnormalities or Markers of kidney damage (including abnormalities in the composition of the blood or urine or abnormalities in imaging tests). Lab Interpretation Abnormal (test code = 03450-4) [facility] (ALB, T.PRO, BILI T, BU/BC, ALT, AST, ALK PHOS)2020-08-21 14:13:15 Test Item Value Reference Range Interpretation Comments TOTAL BILI (test code = 6418987277) 0.5 mg/dL 0.1-1.1 BILI UNCON (test code = 0434669781) 0.3 mg/dL 0.1-1.1 BILI CONJ (test code = 7688686147) 0.0 mg/dL 0.0-0.3 T PROTEIN (test code = 3738778751) 7.1 g/dL 6.3-8.2 ALBUMIN (test code = 3013031039) 4.2 g/dL 3.5-5.0 ALK PHOS (test code = 9687627359) 93 U/L 34-122 ALTv (test code = 1742-6) 21 U/L 5-50 AST(SGOT) (test code = 5909106681) 25 U/L 13-40 Lab Interpretation (test code = Normal 21264-0) [facility] [id number] 14:13:14 Test Item Value Reference Range Interpretation Comments CK (test code = 4657922901) 74 U/L 33-194 Lab Interpretation (test code = Normal 13608-5) [facility]IS2021[facility]-30 14:12:24 Test Item Value Reference Range Interpretation Comments APPEARANCE (test code = Hazy Clear A 9520679510) COLOR (test code = Yellow Yellow 6247012534) PH (test code = 4.8-8.0 2086612993) SP GRAVITY (test code = 1.003-1.030 9207212595) GLU U QUAL (test code = Normal Normal 7109432614) BLOOD (test code = 1+ Negative A 5055438833) KETONES (test code = Negative Negative 4892192258) PROTEIN (test code = 30 mg/dL Negative A 2887-8) UROBILIN (test code = 2.0 mg/dL Normal A 1356600381) BILIRUBIN (test code = Negative Negative 8277870457) NITRITE (test code = Negative Negative 1941049804) LEUK DEANGELO (test code = 25/uL Negative A 9978556828) RBC/HPF (test code = See_Comment H [Autom ated message] 9972275666) The system [employer] generated this result transmit bahman reference range : 0 - 3 HPF. The refe rence range was not u sed to interpret th is result as normal/abnormal . WBC/HPF (test code = See_Comment [Autom ated message] 4714932172) The system [employer] generated this result transmit bahman reference range : 0 - 5 HPF. The refe rence range was not u sed to interpret th is result as normal/abnormal . BACTERIA (test code = Few Negative A 7550431830) MUCOUS (test code = Slight Negative LPF A 1715733154) AMORPHOUS (test code = Few Rare HPF A 7912089094) CA OXALATE (test code = See_Comment [Au tomated message] 9992178710) The system [employer] generated this result transmit bahman reference range : <=1 HPF. The refere nce range was not u sed to interpret th is result as normal/abnormal . YEAST BUD (test code = <1 See_Comment [Aut omated message] 1514537160) The system whic h generated this result transmit bahman reference range : <=1 HPF. The refere nce range was not u sed to interpret th is result as normal/abnormal . Lab Interpretation (test Abnormal code = 79595-9) [facility] with [id number] 13:52:37 Test Item Value Reference Range Interpretation Comments WBC (test code = See_Comment H [Automated 6690-2) message] The sy stem which generated this result transmitted reference range : 4.20 - 10.70 10*3/?L. The reference range was not used to interpret this result as normal/abnormal . RBC (test code = See_Comment H [Automated 789-8) message] The sy stem which generated this result transmitted reference range : 4.26 - 5.52 10*6/?L. The reference range was not used to interpret this result as normal/abnormal . HGB (test code = 17.0 g/dL 12.2-16.4 H 718-7) HCT (test code = 49.5 % 38.4-49.3 H 4544-3) MCV (test code = 84.0 fL 81.7-95.6 787-2) MCH (test code = 28.9 pg 26.1-32.7 785-6) MCHC (test code = 34.3 g/dL 31.2-35.0 786-4) RDW-SD (test code = 40.7 fL 38.5-51.6 50996-3) RDW-CV (test code = 13.2 % 12.1-15.4 788-0) PLT (test code = See_Comment [Automated 777-3) message] The sy stem which generated this result transmitted reference range : 150 - 328 10*3/ ?L. The reference r marge was not used to interpret this result as normal/abnormal . MPV (test code = 10.1 fL 9.8-13.0 09770-4) NRBC/100 WBC (test See_Comment [Automat ed code = 9635806658) message] The system which generated this result transmitted reference range : 0.0 - 10.0 /100 WBCs. The refer ence range was not u sed to interpret th is result as normal/abnormal . NRBC x10^3 (test code <0.01 See_Comment [Auto mated = 4088374048) message] The s [employer] which generated this result transmitted reference range : 10*3/?L. The reference range was not used to interpret this result as normal/abnormal . GRAN MAT (NEUT) % 63.6 % (test code = 770-8) IMM GRAN % (test code 0.40 % = 3516564397) LYMPH % (test code = 30.0 % 736-9) MONO % (test code = 5.2 % 5905-5) EOS % (test code = 0.4 % 713-8) BASO % (test code = 0.4 % 706-2) GRAN MAT x10^3(ANC) 7.15 10*3/uL 1.99-6.95 H (test code = 0233879371) IMM GRAN x10^3 (test 0.05 10*3/uL 0.00-0.06 code = 7317361315) LYMPH x10^3 (test code 3.38 10*3/uL 1.09-3.23 H = 731-0) MONO x10^3 (test code 0.59 10*3/uL 0.36-1.02 = 742-7) EOS x10^3 (test code = 0.04 10*3/uL 0.06-0.53 L 711-2) BASO x10^3 (test code 0.05 10*3/uL 0.01-0.09 = 704-7) Lab Interpretation Abnormal (test code = 16053-1) [id number] Test Item Value Reference Range Interpretation Comments TROPONIN I (test 0.001 ng/mL See_Comment [Automated code = 2072458599) message] The system which generated this result transmitted reference range : <=0.034. The reference range was not used to interpret this result as normal/abnormal . LOUIE (test code = Equal or Less than LOUIE) 0.034 ng/ml---Normal ?Note: Cardiac troponin begins to rise 3-4 hours after the onset of ischemia. Repeat in 4-6 hours if the sample was drawn within 3-4 hours of the onset of the symptom and found normal. Between 0.035 and 0.120 ng/mL--- Borderline. Questionable myocardial injury or necrosis ? ?Note: Serial measurement may be necessary to confirm or exclude the diagnosis of myocardial injury or necrosis; Clinical correlation (symptoms, EKGs, imaging studies, and others) required; Repeat in 4-6 hours if clinically indicated. ? Equal or Higher than 0.121 ng/mL---Abnormal. Myocardial Injury or Necrosis Likely ? Biotin has been reported to cause a negative bias, interpret results relative to patient's use of biotin. ? Lab Interpretation Normal (test code = 98002-1) [facility] 1 [id number] 04:43:03 No acute intrathoracic abnormality. Preliminary Report Dictated by Resident: Rome Mendoza MD., have reviewed this study and agree with theabove report.PROCEDURE: XR CHEST 1 VW CLINICAL INDICATION: cp COMPARISON: Chest x-ray dated 05/13/2018. FINDINGS: The lungs are clear. No pleural effusion or pneumothorax is seen. The heartis normal in size. No acute bony abnormality. [facility], Radiant Results Inft User - 02/16/2020 11:44 PM CDTPROCEDURE: XR CHEST 1 VWCLINICAL INDICATION: cp COMPARISON: Chest x- ray dated 05/13/2018.FINDINGS:The lungs are clear. No pleural effusion or pneumothorax is seen. The heartis normal in size.No acute bony abnormality.IMPRESSIONNo acute intrathoracic abnormality.Preliminary Report Dictated by Resident: Rome Branch MD., have reviewed this study and agree with theabove report.[facility]TROP[facility] [id number] 02:14:00 Test Item Value Reference Range Interpretation Comments TROPONIN I (test 0.001 ng/mL See_Comment [Automated code = 6798834525) message] The system which generated this result transmitted reference range : <=0.034. The reference range was not used to interpret this result as normal/abnormal . LOUIE (test code = Equal or Less than LOUIE) 0.034 ng/ml---Normal ?Note: Cardiac troponin begins to rise 3-4 hours after the onset of ischemia. Repeat in 4-6 hours if the sample was drawn within 3-4 hours of the onset of the symptom and found normal. Between 0.035 and 0.120 ng/mL--- Borderline. Questionable myocardial injury or necrosis ? ?Note: Serial measurement may be necessary to confirm or exclude the diagnosis of myocardial injury or necrosis; Clinical correlation (symptoms, EKGs, imaging studies, and others) required; Repeat in 4-6 hours if clinically indicated. ? Equal or Higher than 0.121 ng/mL---Abnormal. Myocardial Injury or Necrosis Likely ? Biotin has been reported to cause a negative bias, interpret results relative to patient's use of biotin. ? Lab Interpretation Normal (test code = 73302-8) [facility] METABOLIC PANEL (92431)2020-02-17 02:03:00 Test Item Value Reference Range Interpretation Comments NA (test code = 139 mmol/L 135-145 6636963241) K (test code = 3.9 mmol/L 3.5-5 0495142694) CL (test code = 105 mmol/L 98-108 4753419709) CO2 TOTAL (test code = 25 mmol/L 23-31 8206339042) AGAP (test code = 2-16 9474491817) BUN (test code = 19 mg/dL 7-23 6464195038) GLUCOSE (test code = 115 mg/dL 70-110 H 8115124652) CREATININE (test code = 1.06 mg/dL 0.6-1.25 5136024743) TOTAL BILI (test code = 0.4 mg/dL 0.1-1.8 9644564446) CALCIUM (test code = 9.3 mg/dL 8.6-10.6 5618750432) T PROTEIN (test code = 7.5 g/dL 6.3-8.2 1156739428) ALBUMIN (test code = 4.1 g/dL 3.5-5 7692867657) ALK PHOS (test code = 88 U/L 34-122 2519564703) ALTv (test code = 20 U/L 5-50 1742-6) AST(SGOT) (test code = 28 U/L 13-40 2241891409) eGFR Calculation mL/min/1.73m2 (Non-) (test code = 2953201141) eGFR Calculation mL/min/1.73m2 () (test code = 8568357173) LOUIE (test code = LOUIE) Association of Glomerular Filtration Rate (GFR) and Staging of Kidney Disease* + --+ --+ ------+| GFR (mL/min/1.73 m2) ?| With Kidney Damage ?| ?Without Kidney Damage+ --------+ --------+ +| ?>90 ?| ?Stage one ?| ? Normal ?+ ---+ ---+ -------+| ?60-89 ?| ?Stage two ?| ? Decreased GFR ? + --+ --+ ------+| ?30-59 ?| ?Stage three ?| ? Stage three ? + --+ --+ ------+| ?15-29 ?| ?Stage four ? | ? Stage four ?+ ---+ ---+ -------+| ?<15 (or dialysis) ? ?| ?Stage five ? | ? Stage five ?+ ---+ ---+ -------+ *Each stage assumes the associated GFR level has been in effect for at least three months. ?Stages 1 to 5, with or without kidney disease, indicate chronic kidney disease. Notes: Determination of stages one and two (with eGFR >59mL/min/1.73 m2) requires estimation of kidney damage for at least three months as defined by structural or functional abnormalities of the kidney, manifested by either:Pathological abnormalities or Markers of kidney damage (including abnormalities in the composition of the blood or urine or abnormalities in imaging tests). Lab Interpretation Abnormal (test code = 94796-3) [facility] BranchLIP[facility], [id number] 02:03:00 Test Item Value Reference Range Interpretation Comments LIPASE (test code = 5210782307) 85 U/L 0-220 Lab Interpretation (test code = Normal 92823-4) [facility] CampusaPTT2020-09-25 01:50:00 Test Item Value Reference Range Interpretation Comments APTT Patient (test See_Comment [Automat ed code = 3173-2) message] The system which generated this result transmitted reference range : 23 - 38 Seconds . The reference range was not used to interpr et this result as normal/abnormal . LOUIE (test code = LOUIE) The [facility] patient population mean normal value for aPTT is 30 seconds. Lab Interpretation Normal (test code = 23705-9) [facility] CampusPROTHROMBIN TIME / [id number] 01:48:00 Test Item Value Reference Range Interpretation Comments PROTIME PATIENT (test See_Comment H [Auto mated message] code = 5964-2) The system wh ich generated this result transmitted ref erence range: 12.0 - 1 4.7 Seconds. The reference range was not used to int erpret this result as normal/abnormal . INR (test code = 6301-6) Nor mal INR <1.1; Warfarin Therap eutic range 2.0 to 3. 0 or 2.5 to 3.5, dep ending upon the indica tions. Lab Interpretation (test Abnormal code = 00196-2) [facility] CampusCB WITH [id number] 01:36:00 Test Item Value Reference Range Interpretation Comments WBC (test code = See_Comment H [Automated 2990-2) message] The sy stem which generated this result transmitted reference range : 4.20 - 10.70 10*3/?L. The reference range was not used to interpret this result as normal/abnormal . RBC (test code = See_Comment [Automated 789-8) message] The sy stem which generated this result transmitted reference range : 4.26 - 5.52 10*6/?L. The reference range was not used to interpret this result as normal/abnormal . HGB (test code = 16.1 g/dL 12.2-16.4 718-7) HCT (test code = 46.5 % 38.4-49.3 4544-3) MCV (test code = 85.5 fL 81.7-95.6 787-2) MCH (test code = 29.6 pg 26.1-32.7 785-6) MCHC (test code = 34.6 g/dL 31.2-35 786-4) RDW-SD (test code = 42.9 fL 38.5-51.6 86160-9) RDW-CV (test code = 13.8 % 12.1-15.4 788-0) PLT (test code = See_Comment [Automated 777-3) message] The sy stem which generated this result transmitted reference range : 150 - 328 10*3/ ?L. The reference r marge was not used to interpret this result as normal/abnormal . MPV (test code = 11.3 fL 9.8-13 46706-4) NRBC/100 WBC (test See_Comment [Automat ed code = 8830721677) message] The system which generated this result transmitted reference range : 0.0 - 10.0 /100 WBCs. The refer ence range was not u sed to interpret th is result as normal/abnormal . NRBC x10^3 (test code <0.01 See_Comment [Auto mated = 3585759510) message] The s [employer] which generated this result transmitted reference range : 10*3/?L. The reference range was not used to interpret this result as normal/abnormal . GRAN MAT (NEUT) % 62.6 % (test code = 770-8) IMM GRAN % (test code 0.40 % = 9863124742) LYMPH % (test code = 31.0 % 736-9) MONO % (test code = 5.2 % 5905-5) EOS % (test code = 0.4 % 713-8) BASO % (test code = 0.4 % 706-2) GRAN MAT x10^3(ANC) 7.04 10*3/uL 1.99-6.95 H (test code = 9621097855) IMM GRAN x10^3 (test 0.04 10*3/uL 0-0.06 code = 5285411031) LYMPH x10^3 (test code 3.49 10*3/uL 1.09-3.23 H = 731-0) MONO x10^3 (test code 0.59 10*3/uL 0.36-1.02 = 742-7) EOS x10^3 (test code = 0.04 10*3/uL 0.06-0.53 L 711-2) BASO x10^3 (test code 0.05 10*3/uL 0.01-0.09 = 704-7) Lab Interpretation Abnormal (test code = 15332-4) [facility]ADC,CLC OR [facility] ONLY - INFLUENZA A & B DIRECT [id number] 23:48:00 Test Item Value Reference Range Interpretation Comments Influenza A (test code = 21719-1) Negative Negative Influenza B (test code = 37140-1) Negative Negative Lab Interpretation (test code = Normal 54261-7) [facility] CampusRAPI STREP SCREEN FOR GROUP [id number] 23:32:00 Test Item Value Reference Range Interpretation Comments Streptococcus pyogenes (group A) Negative Negative antigen (test code = 20982-4) Lab Interpretation (test code = Normal 30428-7) [facility]"
--- NOTE | 2021-10-10 21:46 | ER ---
Nurse's Notes [facility] Name: Raza Causey Age: 36 yrs Sex: Male : 1985 Arrival Date: 10/10/2021 Time: 21:23 Bed Waiting Private MD: Diagnosis: Cellulitis of left lower limb Presentation: 10/10 21:35 Chief complaint: Patient states: "I fell two weeks ago in from on my apartment and I tw5 cleaned up my knee the best I could. I thought it was just a little grown in hair so I pulled at it. However now it is starting to get red, swollen, and hot.". Coronavirus screen: Vaccine status: Patient reports being unvaccinated. Ebola Screen: Patient negative for fever greater than or equal to 101.5 degrees Fahrenheit, and additional compatible Ebola Virus Disease symptoms Patient denies exposure to infectious person. Patient denies travel to an Ebola-affected area in the 21 days before illness onset. Initial Sepsis Screen: Does the patient meet any 2 criteria? HR > 90 bpm. Does the patient have a suspected source of infection? Yes: Skin breakdown/wound. Risk Assessment: Do you want to hurt yourself or someone else? Patient reports no desire to harm self or others. Onset of symptoms is unknown. 21:35 Method Of Arrival: Ambulatory tw5 21:35 Acuity: DEBO 5 tw5 Triage Assessment: 21:43 General: Appears in no apparent distress. Behavior is calm, cooperative, appropriate tw5 for age. Pain: Complains of pain in left knee Pain currently is 6 out of 10 on a pain scale. Historical: - Allergies: 21:43 No Known Allergies; tw5 - Immunization history:: Flu vaccine is not up to date. - Social history:: Smoking status: Patient reports the use of cigarette tobacco products, smokes one-half pack cigarettes per day. - Family history:: not pertinent. - Hospitalizations: : No recent hospitalization is reported. Screenin:43 Abuse screen: Denies threats or abuse. Denies injuries from another. Nutritional tw5 screening: No deficits noted. Tuberculosis screening: No symptoms or risk factors identified. Fall Risk None identified. Vital Signs: 21:35 BP 154 / 79; Pulse 105; Resp 18; Temp 98.1(O); Pulse Ox 95% on R/A; Weight 106.59 kg; tw5 Height 5 ft. 9 in. (175.26 cm); Pain 6/10; 21:35 Body Mass Index 34.70 (106.59 kg, 175.26 cm) tw5 ED Course: 21:23 Patient arrived in ED. ja2 21:30 Lloyd Willson MD is Attending Physician. rn 21:42 Triage completed. tw5 21:43 Arm band placed on left wrist. tw5 21:43 No provider procedures requiring assistance completed. Patient did not have IV access tw5 during this emergency room visit. 21:44 Patient has correct armband on for positive identification. tw5 Administered Medications: No medications were administered Medication: 21:44 VIS not applicable for this client. tw5 Outcome: 21:43 Discharged to home ambulatory. tw5 21:43 Condition: good 21:43 Discharge instructions given to patient, Instructed on discharge instructions, follow up and referral plans. Demonstrated understanding of instructions, follow-up care, medications, Prescriptions given X 2. 21:46 Discharge ordered by . rn 21:49 Patient left the ED. tw5 Signatures: Lloyd Willson MD MD rn Alexander, Jessica ja2 Wood, Tiffany tw5
--- NOTE | 2021-10-10 21:47 | EDPHYS ---
Physician Documentation [facility] Name: Raza Causey Age: 36 yrs Sex: Male : 1985 Arrival Date: 10/10/2021 Time: 21:23 Bed Waiting Private MD: ED Physician Lloyd Willson HPI: 10/10 21:41 This 36 yrs old Male presents to ER via Unassigned with complaints of Knee rn Pain. 21:41 The patient presents with cellulitis of the left knee. Description: erythematous, hot, rn warm. Onset: The symptoms/episode began/occurred 2 day(s) ago. Possible cause(s): fall, scrape to knee. Associated signs and symptoms: Pertinent positives: erythema, Pertinent negatives: drainage, foreign body sensation, fever, vomiting. Modifying factors: the symptoms are alleviated by remaining still, OTC meds, the symptoms are aggravated by squeezing the lesion and expressing the contents, touching. Severity of symptoms: At their worst the symptoms were mild, in the emergency department the symptoms are unchanged. The patient has not experienced similar symptoms in the past. The patient has not recently seen a physician. Pt reports 2 weeks ago fell, left knee hit directly on concrete, did not feel broken, cleaned dirt out, didn't feel like any foreign bodies, was doing ok but then yesterday noticed redness and some swelling anterior to left knee. still ambulatory, no pain inside knee, no fever. Redness getting larger.. Historical: - Allergies: 21:43 No Known Allergies; tw5 - Immunization history:: Flu vaccine is not up to date. - Social history:: Smoking status: Patient reports the use of cigarette tobacco products, smokes one-half pack cigarettes per day. - Family history:: not pertinent. - Hospitalizations: : No recent hospitalization is reported. ROS: 21:41 Constitutional: Negative for fever, chills, and weight loss, MS/Extremity: + redness rn and warmth surrounding abrasion anterior to left knee Skin: Negative for cyanosis Exam: 21:41 Constitutional: This is a well developed, well nourished patient who is awake, alert, rn and in no acute distress. MS/ Extremity: Pulses equal, no cyanosis. Neurovascular intact. Full, normal range of motion of knee without apparent pain. Equal circumference. + mild erythema surrounding healed abrasion anterior and inferior to left knee, no abscess or fluctuance. + mild induration. + tender left inguinal LAD. Vital Signs: 21:35 BP 154 / 79; Pulse 105; Resp 18; Temp 98.1(O); Pulse Ox 95% on R/A; Weight 106.59 kg; tw5 Height 5 ft. 9 in. (175.26 cm); Pain 6/10; 21:35 Body Mass Index 34.70 (106.59 kg, 175.26 cm) tw5 MDM: 21:30 Patient medically screened. rn 21:41 Differential diagnosis: cellulitis. Data reviewed: vital signs, nurses notes, and as a rn result, I will discharge patient. Counseling: I had a detailed discussion with the patient and/or guardian regarding: the historical points, exam findings, and any diagnostic results supporting the discharge/admit diagnosis, the need for outpatient follow up, to return to the emergency department if symptoms worsen or persist or if there are any questions or concerns that arise at home. Special discussion: I discussed with the patient/guardian in detail that at this point there is no indication for admission to the hospital. It is understood, however, that if the symptoms persist or worsen the patient needs to return immediately for re-evaluation. 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
[2021-10-10 21:56] VITALS: BP 154/79; TEMP 98.1; O2SAT 95
== END 2021-10-10 21:49 | disposition home or self-care (01) ==
LOC: ER 21:19
DX: L03.116 Cellulitis of left lower limb (principal); F17.210 Nicotine dependence, cigarettes, uncomplicated
CPT/HCPCS: 99282

== ENCOUNTER 2021-12-29 20:06 | Emergency (ER) | payer SELFPAY ==
--- OUTSIDE RECORDS SUMMARY | 2021-12-29 20:10 | XMS REPORT | Continuity of Care Document ---
:1985 Author Organization [facility] t Address [address] [place] [address] Care Team Providers Name Role Phone Erickson Sol MD Attending Clinician ERICKSON SOL Attending Clinician Unavailable Doctor Unassigned, [place] Attending Clinician Unavailable Ziggy Alva Attending Clinician Siobhan Covarrubias Attending Clinician Payers Payer Name Policy Type Policy Number Effective Date Expiration Date S osiris [facility] [id number] 2019 00:00:00 Problems Condition Condition Condition Status Onset Resolution Last Treating Co mments Source Name Details Category Date Date Treatment Clinician Date No known No known Disease Unive rs active active ity of problems problems [facility] Allergies, Adverse Reactions, Alerts Allergy Allergy Status Severity Reaction(s) Onset Inactive Treating Comm ents Source Name Type Date Date Clinician NO KNOWN Drug Active Univers ALLERGIE Class ity of S [facility] Social History Social Habit Start Date Stop Date Quantity Comments Source Exposure to Not sure [facility] SARS-CoV-2 (event) Medica l Branch Sex Assigned At [birth year] [facility] 00:00:00 00:00:00 Medical [place] Smoking Status Start Date Stop Date Source Unknown if ever smoked [facility] Medications Ordered Filled Start Stop [...] 30mg 30 mg, Unive rs (TORADOL) 02-16 09 Slow IV ity of injection 05:15: 04:03 Push, [place] 30 mg 00 :00 ONCE, 1 Medical dose, Fri Branch 02/17/20 at 0015, JONAS
Fa culty member approving Restricted medication : Ziggy SAN ibuprofen 2019-0 Yes [id number] 600mg Take 1 Un ana maria 600 mg 9-25 tablet by ity of tablet 00:00: mouth [place] 00 every 6 Medical (six) Branch hours as needed for Pain (scale 4-6). ibuprofen 2019-0 Yes [id number] 600mg Take 1 Un ana maria 600 mg 9-25 tablet by ity of tablet 00:00: mouth [place] 00 every 6 Medical (six) Branch hours as needed for Pain (scale 4-6). ibuprofen 2019-0 Yes [id number] 600mg Take 1 Un ana maria 600 [...] Branch 1745, JONAS amoxicillin 2019- 2020- No [id number] 875mg Take 1 Univers 875 mg 06-12 tablet by ity of tablet 00:00: 05:59 mouth 2 [place] 00 :00 (two) Medical times Branch daily for 10 days. oseltamivir 2019- 2020- No [id number] 75mg Take 1 Univers 75 mg 06-12 capsule by ity of capsule 00:00: 05:59 mouth 2 [place] 00 :00 (two) Medical times Branch daily for 5 days. albuterol 2018-05 Yes [id number] 2.5mg Inhale 3 Univers 2.5 mg /3 1-12 mL every 4 ity of mL (0.083 00:00: (four) [place] %) 00 hours as Medical nebulizer needed for Bran ch solution Wheezing or Shortness of Breath. albuterol 2018-05 Yes [id number] 2.5mg Inhale 3 Univers 2.5 mg /3 1-12 mL every 4 ity of mL (0.083 00:00: (four) [place] %) 00 hours as Medical nebulizer needed for Bran ch solution Wheezing or Shortness of Breath. albuterol 2018-05 Yes [id number] 2.5mg Inhale 3 Univers 2.5 mg /3 1-12 mL every 4 ity of mL (0.083 00:00: (four) [place] %) 00 hours as Medical nebulizer needed for Bran ch solution Wheezing or Shortness of Breath. albuterol 2018-05 Yes [id number] 2.5mg Inhale 3 Univers 2.5 mg /3 [...] (scale 4-6). LISINOPRIL 2018-0 Yes Take by [facility] ers ORAL 9-06 mouth. ity of 20:38: [address] LISINOPRIL 2018-0 Yes Take by [facility] ers ORAL 9-06 mouth. ity of 20:38: [address] LISINOPRIL 2018-0 Yes Take by Univ ers ORAL 9-06 mouth. ity of 20:38: [address] Branch LISINOPRIL 2018-0 Yes Take by [facility] ers ORAL 9-06 mouth. ity of 20:38: [address] traMADOL 50 2018-0 Yes 50mg Take 1 [...] Systolic blood 2020-08-21 15:00:00 139 mm[Hg] [facility] 2020-08-21 15:00:00 103 mm[Hg] Unive [facility] Heart rate 2020-08-21 15:00:00 77 /min [facility] Respiratory rate 2020-08-21 15:00:00 16 /min [facility] Oxygen saturation in 2020-08-21 15:00:00 96 /min [facility] Arterial blood by [facility] Pulse oximetry Branch Body temperature 2020-08-21 12:54:00 36.89 Gini [facility] Body weight 2020-08-21 12:54:00 104.327 kg [facility] BMI 2020-08-21 12:54:00 33.97 kg/m2 [facility] Systolic blood 2020-08-21 15:00:00 139 mm[Hg] [facility] Diastolic blood 2020-08-21 15:00:00 103 mm[facility]Hg[facility] 2020-08-21 15:00:00 77 /min [facility] Respiratory rate 2020-08-21 15:00:00 16 /min Univ [facility] [place] [facility] Oxygen saturation in 2020-08-21 15:00:00 96 /min University of Arterial blood by [place] [employer] [facility] Pulse oximetry Branch Body temperature 2020-08-21 12:54:00 36.89 Gini [facility] [place] [facility] Body weight 2020-08-21 12:54:00 104.327 kg [facility] [place] [facility] BMI 2020-08-21 12:54:00 33.97 kg/m2 [facility] [place] [facility] Systolic blood 2020-02-17 05:00:00 124 mm[Hg] Univer sity of pressure [place] [facility] Diastolic blood 2020-02-17 05:00:00 77 mm[Hg] Unive rsity of pressure [place] [facility] Heart rate 2020-02-17 05:00:00 65 /min [facility] [place] [facility] Respiratory rate 2020-02-17 05:00:00 16 /min Univ [facility] [place] [facility] Oxygen saturation in 2020-02-17 05:00:00 97 /min University of Arterial blood by [facility] snehal Pulse oximetry Branch Body temperature 2020-02-17 01:13:00 36.78 Gini Univ [facility] [place] [facility] Body weight 2020-02-17 01:13:00 107.049 kg [facility] [place] [facility] BMI 2020-02-17 01:13:00 34.85 kg/m2 [facility] [place] [facility] Systolic blood 2020-02-17 05:00:00 124 mm[Hg] Univer sity of [facility] [place] [facility] Diastolic blood 2020-02-17 05:00:00 77 mm[Hg] Unive rsity of pressure [place] [facility] Heart rate 2020-02-17 05:00:00 65 /min [facility] [place] [facility] Respiratory rate 2020-02-17 05:00:00 16 /min Univ [facility] [place] [facility] Oxygen saturation in 2020-02-17 05:00:00 97 /min University of Arterial blood by [facility] snehal Pulse oximetry Branch Body temperature 2020-02-17 01:13:00 36.78 Gini Univ [facility] [place] [facility] Body weight 2020-02-17 01:13:00 107.049 kg [facility] [place] [facility] BMI 2020-02-17 01:13:00 34.85 kg/m2 [facility] [place] [facility] Body temperature 2019-06-13 00:13:36 37.22 Gini Univ [facility] [place] [facility] Systolic blood 2019-06-12 22:12:00 155 mm[Hg] Univer sity of [facility] [place] [facility] Diastolic blood 2019-06-12 22:12:00 111 mm[Hg] Unive rsity of pressure [place] [facility] Heart rate 2019-06-12 22:12:00 111 /min [facility] [place] [facility] Respiratory rate 2019-06-12 22:12:00 18 /min Univ [facility] [place] [facility] Body height 2019-06-12 22:12:00 175.3 cm [facility] [place] [facility] Body weight 2019-06-12 22:12:00 102.513 kg [facility] [place] [facility] BMI 2019-06-12 22:12:00 33.37 kg/m2 [facility] [place] [facility] [place] Oxygen saturation in 2019-06-12 22:12:00 99 /min University of Arterial blood by [place] [employer] Pulse oximetry Branch Body temperature 2019-06-13 00:13:36 37.22 Gini Univ ersity of [place] [facility] Branch Systolic blood 2019-06-12 22:12:00 155 mm[Hg] Univer sity of pressure [place] [facility] Diastolic blood 2019-06-12 22:12:00 111 mm[Hg] Unive rsity of pressure [facility] Heart rate 2019-06-12 22:12:00 111 /min [facility] [place] [facility] Respiratory rate 2019-06-12 22:12:00 18 /min Univ ersity of [facility] Body height 2019-06-12 22:12:00 175.3 cm [facility] [place] [facility] Body weight 2019-06-12 22:12:00 102.513 kg [facility] [place] [facility] BMI 2019-06-12 22:12:00 33.37 kg/m2 [facility] [place] [facility] Oxygen saturation in 2019-06-12 22:12:00 99 /min University of Arterial blood by [place] [employer] Pulse oximetry Branch Procedures Procedure Date / Time Performing Clinician Source Performed XR CHEST 1 VW 2020-08-21 15:08:40 Erickson Sol [facility] CREATINE KINASE 2020-08-21 13:31:00 Erickson Sol [facility] MAGNESIUM 2020-08-21 13:31:00 Erickson Sol [facility] THYROID STIMULATING 2020-08-21 13:31:00 Erickson Sol [facility] HORMONE Medical Branch HEPATIC FUNCTION PANEL 2020-08-21 13:31:[address] [facility] ([id number]) (ALB,T.PRO,BILI Medical Branch T,BU/BC,ALT,AST,ALK PHOS) BASIC METABOLIC PANEL 2020-08-21 13:31:00 Erickson Sol [facility] (NA, K, CL, CO2, Medical Branch GLUCOSE, BUN, CREATININE, CA) CBC WITH DIFF 2020-08-21 13:31:00 Ebenezer Erickson [facility] URINALYSIS 2020-08-21 13:31:00 Ebenezer Erickson [facility] ADC / LCC - DRUG SCREEN 2020-08-21 13:31:00 [facility] Branch COVID-19 (ID NOW RAPID 2020-08-21 13:31:[address] [facility] TESTING) Medical Branch NOTICE OF PRIVACY 2020-08-21 12:46:36 Doctor Unassigned, No [facility] PRACTICES Name Medical Branch CONSENT/REFUSAL FOR 2020-08-21 12:46:21 [facility], [facility] Name [facility] TROPONIN I 2020-02-17 03:49:00 Ziggy [facility] XR CHEST 1 VW 2020-02-17 02:30:42 Erickson Sol [facility] LIPASE 2020-02-17 01:21:00 Erickson Sol [facility] TROPONIN I 2020-02-17 01:21:00 Erickson Sol [facility] COMP. METABOLIC PANEL 2020-02-17 01:21:00 Erickson Sol [facility] ([id number]) Medical Branch CBC WITH DIFF 2020-02-17 01:21:00 Ebenezer Erickson [facility] PROTHROMBIN TIME / INR 2020-02-17 01:21:00 Erickson Sol [facility] ACTIVATED PARTIAL 2020-02-17 01:21:00 Ebenezer Counts include 234 beds at the [facility] THRMPLAS AMY Medical Branch EKG-12 LEAD 2020-02-17 01:18:35 Ebenezer Erickson Switzer o f [place] [facility] Branch NOTICE OF PRIVACY 2020-02-17 01:08:49 Doctor Unassigned, No Univ [facility] [place] PRACTICES Name Medical Branch CONSENT/REFUSAL FOR 2020-02-17 01:08:34 Doctor Unassigned, No [facility] [place] DIAGNOSIS AND TREATMENT Name Medical Branch RAPID STREP SCREEN FOR 2019-06-12 22:38:00 Siobhan Garza [facility] [place] GROUP A Medical Branch ADC,CLC OR LCC ONLY - 2019-06-12 22:38:00 Siobhan Garza [facility] [place] INFLUENZA A & B DIRECT Medical B ranch ANTIGEN CONSENT/REFUSAL FOR 2019-06-12 22:06:34 Doctor Unassigned, No Un [facility] [place] DIAGNOSIS AND TREATMENT Name Medical Branch Encounters Start End Encounter Admission Attending Care Care Encounter Source Date/Time Date/Time Type Type Clinicians Facility Department ID 2020-08-21 2020-08-21 Emergency [facility] [id number] 07:58:00 10:27:00 Erickson Rangel [id number] [place] 4.2.7.2.686 [place] [id number] 2020-08-21 2020-08-21 Emergency [facility] [id number] Univers 07:58:00 10:27:00 Erickson Rangel 350.1.13.10 i ty of [place] 4.2.7.2.6 [facility] [id number] [place] [id number] Branch 2020-08-21 2020-08-21 Emergency X [facility] ERT [id number] Univers 07:48:00 07:48:00 ERICKSON luther [facility] 2020-08-21 2020-08-21 Orders Doctor ZHU [id number] 00:00:00 00:00:00 Only UnassLAUREN galvez 350.1.13.10 [place] [facility] 4.2.7.2.[facility] [id number] 2020-08-21 2020-08-21 Orders Doctor ZHU [id number] Univers 00:00:00 00:00:00 Only Unassigned, LAUREN 350.1.13.10 ity of [facility] 4.2.7.2.686 [facility] [id number] [place] [address] Branch 2020-02-16 2020-02-17 Emergency Osmar, Ziggy [place] [id number] 21:41:00 00:50:00 Jennifer [place] 350.1.13.10 [place] 4.2.7.2.686 [place] [id number] [facility] 2020-02-16 2020-02-17 Emergency Osmar, Ziggy [place] [id number] Univers 21:41:00 00:50:00 Jennifer [place] 350.1.13.10 i ty of [place] 4.2.7.2.686 [facility] [id number] [address] 2020-02-16 2020-02-16 Emergency X [facility] ERT [id number] Univers 20:06:00 20:06:00 ity of [facility] 2019-06-12 2019-06-12 Emergency [facility], [facility] [id number] Univers 16:15:07 18:19:00 Siobhan Mcneal [place] 350.1.13.10 ity of [place] 4.2.7.2.686 [facility] [id number] [address] 2019-06-12 2019-06-12 Emergency [facility], [facility] [id number] 16:15:07 18:19:00 Siobhan Mcneal [place] 350.1.13.10 [place] [address] [place] [address] [id number] Results Test Description Test Time Test [...] FOR MOREINFORMATION , SEE CLIENT ANNOUNCEMENT AT [email or web address] RISK RATIO LDL/HDL (test code = 6.17 RATIO <3.55 H 2238) TSH, THIRD [id number] 03:58:52 Test Item Value Reference Range Interpretation Comments TSH, THIRD 0.715 UIU/ML 0.400-4.100 UNLESS OTHERWI SE GENERATION (test INDICATED, ALL TESTING code = 2821) PERFORMED [facility], [id number] [place] [address] DIRECTOR: ELA CAMPBELL M.D. CLIA NUMBER [id number] CAP ACCREDITATION N O. [id number] XR CHEST 1 [id number] 15:10:55HISTORY: Cough. TECHNIQUE: Portable AP erect view [...] CONCLUSIONS: No signs of acute cardiopulmonary disease. [facility] / [facility] - DRUG SCREEN [id number] 15:06:33 Test Item Value Reference Range Interpretation Comments BENZO U (test code = Negative Negative 6189802081) HARRIETT U (test code = Negative Negative 2388795157) AMPHET (test code = Presumptive Positive Negative A 1087277728) THC (test code = Negative Negative 8571980978) METHADONE (test code = Negative Negative 6031135882) Meth U (test code = Presumptive Positive Negative A 7183294383) OPIATES (test code = Negative Negative 1539681756) Cocaine Metabolite (test Negative Negative code = 6914268835) PROPOXY (test code = Negative Negative 2209999810) Tric U (test code = Negative Negative 6311078789) PCP (test code = Negative Negative 2374998682) OXYCOD (test code = Negative Negative 5747177332) LOUIE (test code = LOUIE) Urine Drug [...] testing). Lab Interpretation (test Abnormal code = 14914-4) [facility] [id number] 14:41:43 Test Item Value Reference Range Interpretation Comments TSH (test code = See_Comment [Automated message] 7926626135) The system [employer] generated this result transmitted ref erence range: 0.45 - 4 .70 mIU/L. The refe rence range was not u sed to interpret this result as normal/abnor mal. Lab Interpretation (test Normal code = 31577-0) [facility]2021-03-30 14:13:20 Test Item Value Reference Range Interpretation Comments MAGNESIUM (test code = 3537141569) 1.7 mg/dL 1.7-2.4 Lab Interpretation (test code = Normal 61662-9) [facility] (ID NOW RAPID TESTING)2020-08-21 14:13:20 Test Item Value Reference Range Interpretation Comments SARS-CoV-2 Rapid ID NOW Not Detected Not Detected (test code = 50575-7) LOUIE (test code = LOUIE) ID NOW COVID-19 Assay is an isothermal nucleic acid amplification test intended for the qualitative detection of nucleic acid from SARS-CoV-2 viral RNA in nasopharyngeal ([employer]) specimens. It is used under Emergency Use [...] indicated. Lab Interpretation Normal (test code = 76958-9) [facility] Metabolic Panel (NA, K, CL, CO2, GLUCOSE, BUN, CREATININE, CA)2020-08-21 14:13:15 Test Item Value Reference Range Interpretation Comments NA (test code = 138 mmol/L 135-145 4557486556) K (test code = 3.8 mmol/L 3.5-5.0 9490949484) CL (test code = 108 mmol/L 98-108 2241237363) CO2 TOTAL (test code = 23 mmol/L 23-31 6839936934) AGAP (test code = 2-16 1508094293) BUN (test code = 14 mg/dL 7-23 4051023614) GLUCOSE (test code = 123 mg/dL 70-110 H 1717409174) CREATININE (test code = 0.83 mg/dL 0.60-1.25 7245767415) CALCIUM (test code = 8.7 mg/dL 8.6-10.6 4823304524) eGFR Calculation mL/min/1.73m2 (Non-) (test code = 2757600835) eGFR Calculation mL/min/1.73m2 () (test code = 5961327866) LOUIE (test code = LOUIE) Association of [...] tests). Lab Interpretation Abnormal (test code = 99123-5) [facility] (ALB, T.PRO, BILI T, BU/BC, ALT, AST, ALK PHOS)2020-08-21 14:13:15 Test Item Value Reference Range Interpretation Comments TOTAL BILI (test code = 4193482792) 0.5 mg/dL 0.1-1.1 BILI UNCON (test code = 6087284892) 0.3 mg/dL 0.1-1.1 BILI CONJ (test code = 7861630081) 0.0 mg/dL 0.0-0.3 T PROTEIN (test code = 7952626916) 7.1 g/dL 6.3-8.2 ALBUMIN (test code = 8768022786) 4.2 g/dL 3.5-5.0 ALK PHOS (test code = 8815370318) 93 U/L 34-122 ALTv (test code = 1742-6) 21 U/L 5-50 AST(SGOT) (test code = 7071653354) 25 U/L 13-40 Lab Interpretation (test code = Normal 76581-3) [facility]AT[facility] [id number] 14:13:14 Test Item Value Reference Range Interpretation Comments CK (test code = 3982628002) 74 U/L 33-194 Lab Interpretation (test code = Normal 11984-2) [facility]2021-03-30 14:12:24 Test Item Value Reference Range Interpretation Comments APPEARANCE (test code = Hazy Clear A 8873749805) COLOR (test code = Yellow Yellow 2001862343) PH (test code = 4.8-8.0 9888776815) SP GRAVITY (test code = 1.003-1.030 6310000755) GLU U QUAL (test code = Normal Normal 4667202632) BLOOD (test code = 1+ Negative A 8657368000) KETONES (test code = Negative Negative 0786550864) PROTEIN (test code = 30 mg/dL Negative A 2887-8) UROBILIN (test code = 2.0 mg/dL Normal A 2169734139) BILIRUBIN (test code = Negative Negative 3002589465) NITRITE (test code = Negative Negative 8477780066) LEUK DEANGELO (test code = 25/uL Negative A 2955955823) RBC/HPF (test code = See_Comment H [Autom ated message] 0972880039) The system [employer] generated this result transmit [place] reference range : 0 - 3 HPF. The refe rence range was not u sed to interpret th is result as normal/abnormal . WBC/HPF (test code = See_Comment [Autom ated message] 3715138732) The system [employer] generated this result transmit [place] reference range : 0 - 5 HPF. The refe rence range was not u sed to interpret th is result as normal/abnormal . BACTERIA (test code = Few Negative A 8254639810) MUCOUS (test code = Slight Negative LPF A 9801143234) AMORPHOUS (test code = Few Rare HPF A 5528108009) CA OXALATE (test code = See_Comment [Au tomated message] 1057447129) The system [employer] generated this result transmit [place] reference range : <=1 HPF. The refere nce range was not u sed to interpret th is result as normal/abnormal . YEAST BUD (test code = <1 See_Comment [Aut omated message] 5078661062) The system whic h generated this result transmit [place] reference range : <=1 HPF. The refere nce range was not u sed to interpret th is result as normal/abnormal . Lab Interpretation (test Abnormal code = 92933-1) [facility] with [id number] 13:52:37 Test Item Value Reference Range Interpretation [...] RDW-SD (test code = 40.7 fL 38.5-51.6 53050-7) RDW-CV (test code = 13.2 % 12.1-15.4 788-0) PLT (test code = See_Comment [Automated 777-3) message] The sy stem which generated this result transmitted reference range : 150 - 328 10*3/ ?L. The reference r marge was not used to interpret this result as normal/abnormal . MPV (test code = 10.1 fL 9.8-13.0 10248-2) NRBC/100 WBC (test See_Comment [Automat ed code = 9771072716) message] The system which generated this result transmitted reference range : 0.0 - 10.0 /100 WBCs. The refer ence range was not u sed to interpret th is result as normal/abnormal . NRBC x10^3 (test code <0.01 See_Comment [Auto mated = 7598477018) message] The s [employer] which generated this result transmitted reference range : 10*3/?L. The reference range was not used to interpret this result as normal/abnormal . GRAN MAT (NEUT) % 63.6 % (test code = 770-8) IMM GRAN % (test code 0.40 % = 1277418683) LYMPH % (test code = 30.0 % 736-9) MONO % (test code = 5.2 % 5905-5) EOS % (test code = 0.4 % 713-8) BASO % (test code = 0.4 % 706-2) GRAN MAT x10^3(ANC) 7.15 10*3/uL 1.99-6.95 H (test code = 4228194644) IMM GRAN x10^3 (test 0.05 10*3/uL 0.00-0.06 code = 8212010150) LYMPH x10^3 (test code 3.38 10*3/uL 1.09-3.23 H = 731-0) MONO x10^3 (test code 0.59 10*3/uL 0.36-1.02 = 742-7) EOS x10^3 (test code = 0.04 10*3/uL 0.06-0.53 L 711-2) BASO x10^3 (test code 0.05 10*3/uL 0.01-0.09 = 704-7) Lab Interpretation Abnormal (test code = 38117-0) [facility] [id number] 04:53:00 Test Item Value Reference Range Interpretation Comments TROPONIN I (test 0.001 ng/mL See_Comment [Automated code = 0586981219) message] The system which generated this result [...] ? Lab Interpretation Normal (test code = 25939-0) [facility] CHEST 1 [id number] 04:43:03 No acute intrathoracic abnormality. Preliminary Report Dictated by Resident: Rome Mendoza MD., have reviewed this study and agree with theabove report.PROCEDURE: XR CHEST 1 VW CLINICAL INDICATION: cp COMPARISON: Chest x-ray dated 05/13/2018. FINDINGS: The lungs are clear. No pleural effusion or pneumothorax is seen. The heartis normal in size. No acutebony abnormality. [facility], Radiant Results Inft User - 02/16/2020 11:44 PM CDTPROCEDURE: XR CHEST 1 VWCLINICAL INDICATION: cp COMPARISON: Chest x-ray dated 05/13/2018.FINDINGS:The lungs are clear. No pleural effusion or pneumothorax is seen. The heartis normal in size.No acute bony abnormality.IMPRESSIONNo acute intrathoracic abnormality.Preliminary Report Dictated by Resident: Rome Oro MD., have reviewed this study and agree with theabove report.[facility]villeTROPONIFroylan I 2020-02-17 02:14:00 Test Item Value Reference Range Interpretation Comments TROPONIN I (test 0.001 ng/mL See_Comment [Automated code = 5938315978) message] The system which generated this result transmitted reference range : <=0.034. The reference range was not used to interpret this result as normal/abnormal . LOUEI (test code = Equal or Less than [...] ? Lab Interpretation Normal (test code = 85977-3) [facility]villeCOMP. METABOLIC PANEL (66248)2020-02-17 02:03:00 Test Item Value Reference Range Interpretation Comments NA (test code = 139 mmol/L 135-145 0813739592) K (test code = 3.9 mmol/L 3.5-5 2900125564) CL (test code = 105 mmol/L 98-108 2747236936) CO2 TOTAL (test code = 25 mmol/L 23-31 9543893363) AGAP (test code = 2-16 1550158749) BUN (test code = 19 mg/dL 7-23 2865359280) GLUCOSE (test code = 115 mg/dL 70-110 H 7618590739) CREATININE (test code = 1.06 mg/dL 0.6-1.25 4435249820) TOTAL BILI (test code = 0.4 mg/dL 0.1-1.7 4820807663) CALCIUM (test code = 9.3 mg/dL 8.6-10.6 9699852432) T PROTEIN (test code = 7.5 g/dL 6.3-8.2 9113851939) ALBUMIN (test code = 4.1 g/dL 3.5-5 6680584520) ALK PHOS (test code = 88 U/L 34-122 0264738023) ALTv (test code = 20 U/L 5-50 1742-6) AST(SGOT) (test code = 28 U/L 13-40 2426052157) eGFR Calculation mL/min/1.73m2 (Non-) (test code = 2499227695) eGFR Calculation mL/min/1.73m2 () (test code = 5165846710) LOUIE (test code = LOUIE) Association of [...] tests). Lab Interpretation Abnormal (test code = 66068-0) [facility] [id number] 02:03:00 Test Item Value Reference Range Interpretation Comments LIPASE (test code = 2665046142) 85 U/L 0-220 Lab Interpretation (test code = Normal 42966-9) [facility] 01:50:00 Test Item Value Reference Range Interpretation Comments APTT Patient (test See_Comment [Automat ed code = 3173-2) message] The system which generated this result transmitted reference range : 23 - 38 Seconds . The reference range was not used to interpr et this result as normal/abnormal . LOUIE (test code = LOUIE) The [facility] patient population mean normal value for aPTT is 30 seconds. Lab Interpretation Normal (test code = 97131-9) [facility] / [id number] 01:48:00 Test Item Value Reference Range Interpretation [...] tions. Lab Interpretation (test Abnormal code = 17984-3) [facility] WITH [id number] 01:36:00 Test Item Value Reference Range Interpretation Comments WBC (test code = See_Comment H [Automated 5890-2) message] The sy stem which generated this result transmitted reference range : 4.20 - 10.70 10*3/?L. The reference range was not used to interpret this result as normal/abnormal . RBC (test code = See_Comment [Automated 589-8) message] The sy stem which generated this [...] RDW-SD (test code = 42.9 fL 38.5-51.6 70052-9) RDW-CV (test code = 13.8 % 12.1-15.4 788-0) PLT (test code = See_Comment [Automated 777-3) message] The sy stem which generated this result transmitted reference range : 150 - 328 10*3/ ?L. The reference r marge was not used to interpret this result as normal/abnormal . MPV (test code = 11.3 fL 9.8-13 71843-8) NRBC/100 WBC (test See_Comment [Automat ed code = 6785510837) message] The system which generated this result transmitted reference range : 0.0 - 10.0 /100 WBCs. The refer ence range was not u sed to interpret th is result as normal/abnormal . NRBC x10^3 (test code <0.01 See_Comment [Auto mated = 9775123802) message] The s ystem which generated this result transmitted reference range : 10*3/?L. The reference range was not used to interpret this result as normal/abnormal . GRAN MAT (NEUT) % 62.6 % (test code = 770-8) IMM GRAN % (test code 0.40 % = 0803266460) LYMPH % (test code = 31.0 % 736-9) MONO % (test code = 5.2 % 5905-5) EOS % (test code = 0.4 % 713-8) BASO % (test code = 0.4 % 706-2) GRAN MAT x10^3(ANC) 7.04 10*3/uL 1.99-6.95 H (test code = 6333908584) IMM GRAN x10^3 (test 0.04 10*3/uL 0-0.06 code = 3169460344) LYMPH x10^3 (test code 3.49 10*3/uL 1.09-3.23 H = 731-0) MONO x10^3 (test code 0.59 10*3/uL 0.36-1.02 = 742-7) EOS x10^3 (test code = 0.04 10*3/uL 0.06-0.53 L 711-2) BASO x10^3 (test code 0.05 10*3/uL 0.01-0.09 = 704-7) Lab Interpretation Abnormal (test code = 15533-1) [facility],CLC OR [facility] ONLY - INFLUENZA A & B DIRECT [id number] 23:48:00 Test Item Value Reference Range Interpretation Comments Influenza A (test code = 29208-1) Negative Negative Influenza B (test code = 42932-5) Negative Negative Lab Interpretation (test code = Normal 12891-7) [facility]ville[facility]API STREP SCREEN FOR GROUP [id number] 23:32:00 Test Item Value Reference Range Interpretation Comments Streptococcus pyogenes (group A) Negative Negative antigen (test code = 71609-9) Lab Interpretation (test code = Normal 79043-0) [facility]"
[2021-12-29 20:53] LABS: Urine Blood Trace-intact (Negative); Urine Glucose 2+ (Negative); Urine Protein Negative (Negative); Urine Specific Gravity 1.025 (1.005-1.030)
[2021-12-29] MEDS ORDERED: NA CHLORIDE 0.9% 1,000 ML ONE ×2 (21:17→22:41)
[2021-12-29 21:47] LABS: Protime INR 1.17
[2021-12-29 21:48] LABS: Absolute Lymphocytes (CBC) 2.9 K/uL (0.7-4.9); Hematocrit 42.8 % (39.6-49.0); Lymphocytes % 35.2 % (15.3-44.8); MCV 81.3 fL (80-100); MPV 9.3 fL (7.6-11.3); RBC Red Blood Cell Count 5.26 M/uL (4.33-5.43)
--- NOTE | 2021-12-29 22:00 | RAD REPORT ---
EXAM DESCRIPTION: Jack Single View12/29/2021 9:49 pm CLINICAL HISTORY: Hypertension COMPARISON: 2020 FINDINGS: The lungs appear clear of acute infiltrate. The heart is normal size IMPRESSION: No acute abnormalities displayed
[2021-12-29 22:08] LABS: Albumin 3.7 g/dL (3.4-5.0); BUN Blood Urea Nitrogen 12 mg/dL (7-18); Bicarbonate 23 mmol/L (21-32); Glucose Level 326 mg/dL (74-106); Sodium Level 133 mmol/L (136-145)
[2021-12-29 22:10] LABS: ALT/SGPT 30 U/L (12-78); Alkaline Phosphatase 138 U/L (45-117); Bilirubin Total 0.3 mg/dL (0.2-1.0); Glomerular Filtration Rate 87 ml/min (=/>90); NT PRO-BNP 7 pg/mL (<125); Protein, Total 7.4 g/dL (6.4-8.2); Troponin High Sensitivity 4.5 pg/mL (<58.9)
[2021-12-29 22:12] LABS: AST/SGOT 20 U/L (15-37); Bilirubin Direct < 0.1 mg/dL (0-0.2); Magnesium 1.8 mg/dL (1.8-2.4)
[2021-12-29 22:39] LABS: Arterial Blood Carboxyhemoglob 2.3 % (0-1.5); Blood Gas Oxyhemoglobin 92.8 % (94-97); Blood O2 Saturation 96.8 % (92-98.5)
--- NOTE | 2021-12-30 00:16 | ER ---
Nurse's Notes [facility] Name: Raza Causey Age: 36 yrs Sex: Male : 1985 Arrival Date: 12/29/2021 Time: 20:09 Bed 4 Private MD: Diagnosis: Other specified diabetes mellitus with hyperglycemia Presentation: 12/29 20:20 Chief complaint: Patient states: shamar been urinating a lot and really thirsty since lg3 Thursday. denies burning with urination. i feel like my taste buds are messed up and my tongue and throat are white. generalized weakness. episodes of blurry vision. states"diabetes runs in my family so im concerned that i may be too". Coronavirus screen: Client denies travel out of the [place] in the last 14 days. At this time, the client does not indicate any symptoms associated with coronavirus-19. Ebola Screen: No symptoms or risks identified at this time. Initial Sepsis Screen: Does the patient meet any 2 criteria? No. Patient's initial sepsis screen is negative. Does the patient have a suspected source of infection? No. Patient's initial sepsis screen is negative. Risk Assessment: Do you want to hurt yourself or someone else? Patient reports no desire to harm self or others. Onset of symptoms was December 25, 2021. 20:20 Method Of Arrival: Ambulatory lg3 20:20 Acuity: DEBO 3 lg3 20:38 Note pt reports redness to tip of penis using over the counter yeast cream pt is kl uncircumcised. Triage Assessment: 20:25 General: Appears in no apparent distress. comfortable, Behavior is calm, cooperative. lg3 Pain: Denies pain. EENT: No deficits noted. No signs and/or symptoms were reported regarding the EENT system. Neuro: No deficits noted. Level of Consciousness is awake, alert, obeys commands, Oriented to person, place, time, situation. Cardiovascular: No deficits noted. Denies chest pain, shortness of breath, Capillary refill < 3 seconds Clubbing of nail beds is absent JVD is absent Patient's skin is warm and dry. Respiratory: No deficits noted. Airway is patent Trachea midline Respiratory effort is even, unlabored, Respiratory pattern is regular, symmetrical. GI: No deficits noted. No signs and/or symptoms were reported involving the gastrointestinal system. Abdomen is round non-distended, Bowel sounds present X 4 quads. : Reports urinary frequency. Derm: No deficits noted. No signs and/or symptoms reported regarding the dermatologic system. Skin is intact, is healthy with good turgor, Skin is dry, Skin temperature is warm. Musculoskeletal: No deficits noted. No signs and/or symptoms reported regarding the musculoskeletal system. Circulation, motion, and sensation intact. Range of motion: intact in all extremities. 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 - Social history:: Smoking status: Patient reports the use of cigarette tobacco products, smokes one-half pack cigarettes per day, Patient/guardian denies using alcohol, street drugs. Screenin:41 Abuse screen: Denies threats or abuse. Nutritional screening: No deficits noted. Tuberculosis screening: No symptoms or risk factors identified. Fall Risk None identified. Assessment: 20:39 General: Appears in no apparent distress. comfortable, Behavior is calm, cooperative. Pain: Denies pain. Neuro: No deficits noted. Chandra Agitation-Sedation Scale (RASS): 0 - Alert and Calm. Cardiovascular: No deficits noted. Respiratory: No deficits noted. Airway is patent Trachea midline Respiratory effort is even, unlabored, Breath sounds are clear bilaterally. GI: No deficits noted. No signs and/or symptoms were reported involving the gastrointestinal system. : Reports urinary frequency. EENT: No deficits noted. Reports. Derm: Reports redness to penis. Musculoskeletal: No deficits noted. 21:57 Reassessment: No changes from previously documented assessment. Patient and/or family ll3 updated on plan of care and expected duration. Pain level reassessed. Patient is alert, oriented x 3, equal unlabored respirations, skin warm/dry/pink. 23:39 Reassessment: No changes from previously documented assessment. 12/30 00:06 Reassessment: No changes from previously documented assessment. Patient and/or family ll3 updated on plan of care and expected duration. Pain level reassessed. Patient is alert, oriented x 3, equal unlabored respirations, skin warm/dry/pink. Vital Signs: 12/29 20:20 BP 142 / 104; Pulse 80; Resp 18 S; Temp 98.8(O); Pulse Ox 100% on R/A; Weight 104.33 kg lg3 (R); Height 5 ft. 9 in. (175.26 cm) (R); 21:34 BP 122 / 88; Pulse 70; Resp 18; Pulse Ox 98% on R/A; Pain 0/10; kl 21:57 BP 122 / 88; Pulse 85; Resp 19; Pulse Ox 99% on R/A; ll3 12/30 00:06 BP 105 / 78; Pulse 63; Resp 18; Pulse Ox 100% on R/A; ll3 12/29 20:20 Body Mass Index 33.96 (104.33 kg, 175.26 cm) lg3 Vitals: 12/29 21:34 Cardiac Rhythm Assessment Regular Sinus rhythm. ED Course: 20:09 Patient arrived in ED. bp1 20:25 Triage completed. lg3 20:25 Arm band placed on right wrist. lg3 20:31 Romero Dominguez MD is Attending Physician. mh7 21:10 Inserted saline lock: 20 gauge in left antecubital area, using aseptic technique. kl 21:34 Basic Metabolic Panel Sent. kl 21:34 CBC with Diff Sent. kl 21:34 LFT's Sent. kl 21:34 Magnesium Sent. kl 21:34 NT PRO-BNP Sent. kl 21:34 PT-INR Sent. kl 21:34 Troponin HS Sent. kl 21:48 No apparent distress. Resting quietly. kl 21:50 XRAY Chest (1 view) In Process Unspecified. EDMS 12/30 00:37 No provider procedures requiring assistance completed. IV discontinued, intact, kl bleeding controlled, No redness/swelling at site. Pressure dressing applied. 00:38 Patient has correct armband on for positive identification. kl Administered Medications: 12/29 21:15 Drug: NS 0.9% 1000 ml Route: IV; Rate: 1000 ml; Site: left antecubital; kl 22:35 Drug: NS 0.9% 1000 ml Route: IV; Rate: 1000 ml; Site: left antecubital; Medication: 12/30 00:38 VIS not applicable for this client. bernie Point of Care Testing: Blood Glucose: 12/29 20:28 Blood Glucose: 354 mg/dL; lg3 23:57 Blood Glucose: 262 mg/dL; ll3 Ranges: Outcome: 12/30 00:16 Discharge ordered by . julienne 00:37 Discharged to home ambulatory. 00:37 Condition: improved 00:37 Discharge instructions given to patient, Instructed on discharge instructions, follow up and referral plans. medication usage, Demonstrated understanding of instructions, follow-up care, medications, Prescriptions given X 1. 00:38 Patient left the ED. Signatures: Dispatcher [employer] EDKatharina Sibley RN RN kl Gibson, Lacie, RN RN lg3 Abimbola Smith Maurice, MD MD [facility] Mikki Turcios RN RN ll3 Corrections: (The following items were deleted from the chart) 12/29 20:28 20:20 Chief complaint: Patient states: shamar been urinating a lot and really thirsty lg3 since Thursday and i feel like my taste buds are messed up and my tongue and throat are white. generalized weakness .denies burning on urination. lg3
--- NOTE | 2021-12-30 00:17 | EDPHYS ---
Physician Documentation [facility] Name: Raza Causey Age: 36 yrs Sex: Male : 1985 Arrival Date: 12/29/2021 Time: 20:09 Bed 4 Private MD: ED Physician Romero Dominguez HPI: 12/29 20:45 This 36 yrs old Male presents to ER via Ambulatory with complaints of Urinary mh7 Frequency. 20:45 The patient or guardian reports polydipsia, polyuria, that was potentially precipitated mh7 by no particular event, with the patient's symptoms witnessed by no one. Onset: The symptoms/episode began/occurred 4 day(s) ago. Associated signs and symptoms: Pertinent positives: polydipsia, polyuria, Pertinent negatives: anorexia, constipation, decreased urine output, diaphoresis, diarrhea, dry skin, hair loss, seizure activity, skin flushing, urinary incontinence, vomiting. 20:45 Current symptoms: In the emergency department the patient's symptoms are unchanged from mh7 the initial presentation. 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 - Social history:: Smoking status: Patient reports the use of cigarette tobacco products, smokes one-half pack cigarettes per day, Patient/guardian denies using alcohol, street drugs. ROS: 20:45 Constitutional: Negative for fever, chills, and weight loss, Eyes: Negative for injury, mh7 pain, redness, and discharge. 20:45 Neck: Negative for injury, pain, and swelling, Cardiovascular: Negative for chest pain, palpitations, and edema, Respiratory: Negative for shortness of breath, cough, wheezing, and pleuritic chest pain, Abdomen/GI: Negative for abdominal pain, nausea, vomiting, diarrhea, and constipation, Back: Negative for injury and pain. 20:45 MS/Extremity: Negative for injury and deformity, Skin: Negative for injury, rash, and discoloration, Neuro: Negative for headache, weakness, numbness, tingling, and seizure, Psych: Negative for depression, anxiety, suicide ideation, homicidal ideation, and hallucinations, Allergy/Immunology: Negative for hives, rash, and allergies, Hematologic/Lymphatic: Negative for swollen nodes, abnormal bleeding, and unusual bruising. 20:45 Eyes: Positive for blurry vision, intermittent, for weeks. 20:45 ENT: Positive for dry mouth. 20:45 : Negative for small amounts, hematuria, pelvic pain, flank pain, burning with urination, difficulty urinating, bladder incontinence, foul smelling urine, penile discharge, penile pain, testicular pain Exam: 20:45 Constitutional: This is a well developed, well nourished patient who is awake, alert, mh7 and in no acute distress. Head/Face: Normocephalic, atraumatic. Eyes: Pupils equal round and reactive to light, extra-ocular motions intact. Lids and lashes normal. Conjunctiva and sclera are non-icteric and not injected. Cornea within normal limits. Periorbital areas with no swelling, redness, or edema. Neck: Trachea midline, no thyromegaly or masses palpated, and no cervical lymphadenopathy. Supple, full range of motion without nuchal rigidity, or vertebral point tenderness. No Meningismus. Chest/axilla: Normal chest wall appearance and motion. Nontender with no deformity. No lesions are appreciated. Cardiovascular: Regular rate and rhythm with a normal S1 and S2. No gallops, murmurs, or rubs. Normal PMI, no JVD. No pulse deficits. Respiratory: Lungs have equal breath sounds bilaterally, clear to auscultation and percussion. No rales, rhonchi or wheezes noted. No increased work of breathing, no retractions or nasal flaring. Abdomen/GI: Soft, non-tender, with normal bowel sounds. No distension or tympany. No guarding or rebound. No evidence of tenderness throughout. Back: No spinal tenderness. No costovertebral tenderness. Full range of motion. Skin: Warm, dry with normal turgor. Normal color with no rashes, no lesions, and no evidence of cellulitis. MS/ Extremity: Pulses equal, no cyanosis. Neurovascular intact. Full, normal range of motion. Neuro: Awake and alert, GCS 15, oriented to person, place, time, and situation. Cranial nerves II-XII grossly intact. Motor strength 5/5 in all extremities. Sensory grossly intact. Cerebellar exam normal. Normal gait. Psych: Awake, alert, with orientation to person, place and time. Behavior, mood, and affect are within normal limits. 20:45 ENT: Mouth: Lips: normal, Oral mucosa: dry, Gums: normal with healthy appearance, Tongue: is normal, abscess, is not appreciated, drooling, is not appreciated, Posterior pharynx: is normal, airway is patent, Dental exam: normal, Voice: is normal. Vital Signs: 20:20 BP 142 / 104; Pulse 80; Resp 18 S; Temp 98.8(O); Pulse Ox 100% on R/A; Weight 104.33 kg lg3 (R); Height 5 ft. 9 in. (175.26 cm) (R); 21:34 BP 122 / 88; Pulse 70; Resp 18; Pulse Ox 98% on R/A; Pain 0/10; kl 21:57 BP 122 / 88; Pulse 85; Resp 19; Pulse Ox 99% on R/A; ll3 12/30 00:06 BP 105 / 78; Pulse 63; Resp 18; Pulse Ox 100% on R/A; ll3 12/29 20:20 Body Mass Index 33.96 (104.33 kg, 175.26 cm) lg3 MDM: 00:13 Differential diagnosis: DKA, hyperglycemia, new onset diabetes. Data reviewed: vital 7 signs, nurses notes, old medical records, lab test result(s), finger stick glucose, cardiac enzymes, CBC, electrolytes, urinalysis, EKG, radiologic studies, plain films. Data interpreted: Pulse oximetry: on room air is 100 %. Interpretation: normal. Counseling: I had a detailed discussion with the patient and/or guardian regarding: the historical points, exam findings, and any diagnostic results supporting the discharge/admit diagnosis, lab results, radiology results, the need for outpatient follow up, to return to the emergency department if symptoms worsen or persist or if there are any questions or concerns that arise at home. Response to treatment: the patient's symptoms have resolved after treatment, the patient's blood pressure is in an acceptable range, mental status has returned to baseline, the patient no longer shows bradycardia, the patient is not short of breath, the patient is not tachycardic, the patient's pain is gone, the patient's temperature has normalized, the patient is now symptom free, patient is well hydrated. 00:16 Patient medically screened. [facility] 12/29 20:41 Order name: Glucose, Ancillary Testing; Complete Time: 20:50 [facility] 12/29 20:53 Order name: Urine Dipstick-Ancillary; Complete Time: 22:26 [facility] 12/29 20:55 Order name: Basic Metabolic Panel; Complete Time: 22:26 [facility] 12/29 20:55 Order name: CBC with Diff; Complete Time: 22:26 [facility] 12/29 20:55 Order name: LFT's; Complete Time: 22:26 [facility] 12/29 20:55 Order name: Magnesium; Complete Time: 22:26 [facility] 12/29 20:55 Order name: NT PRO-BNP; Complete Time: 22:26 [facility] 12/29 20:55 Order name: PT-INR; Complete Time: 22:26 [facility] 12/29 20:55 Order name: Troponin HS; Complete Time: 22:26 [facility] 12/29 20:55 Order name: XRAY Chest (1 view); Complete Time: 22:26 [facility] 12/29 20:55 Order name: Arterial Blood Gas; Complete Time: 22:50 [facility] 12/30 00:08 Order name: Glucose, Ancillary Testing; Complete Time: 00:11 [facility] 12/29 20:55 Order name: EKG; Complete Time: 21:00 [facility] 12/29 20:55 Order name: Cardiac monitoring; Complete Time: 21:33 [facility] 12/29 20:55 Order name: EKG - Nurse/Tech; Complete Time: 21:33 [facility] 12/29 20:55 Order name: IV Saline Lock; Complete Time: 21:33 [facility] 12/29 20:55 Order name: Labs collected and sent; Complete Time: 21:33 [facility] 12/29 20:55 Order name: O2 Per Protocol; Complete Time: 21:07 [facility] 12/29 20:55 Order name: O2 Sat Monitoring; Complete Time: 21: [facility] 12/29 20:55 Order name: Urine Dipstick-Ancillary (obtain specimen); Complete Time: 21: [facility] 12/29 23:45 Order name: Accucheck Blood Glucose; Complete Time: 23:56 mh7 Administered Medications: 12/29 21:15 Drug: NS 0.9% 1000 ml Route: IV; Rate: 1000 ml; Site: left antecubital; 22:35 Drug: NS 0.9% 1000 ml Route: IV; Rate: 1000 ml; Site: left antecubital; Point of Care Testing: Blood Glucose: 20:28 Blood Glucose: 354 mg/dL; lg3 23:57 Blood Glucose: 262 mg/dL; ll3 Ranges: Critical Glucose Levels:Adult <50 mg/dl or >400 mg/dl <40 mg/dl or >180 mg/dl Disposition Summary: 12/30/21 00:16 Discharge Ordered Location: Home [facility] Problem: new [facility] Symptoms: have improved [facility] Condition: Stable [facility] Diagnosis - Other specified diabetes mellitus with hyperglycemia [facility] Followup: [facility] - With: Private Physician - When: 1 - 2 days - Reason: Worsening of condition, Recheck today's complaints, Continuance of care, Re-evaluation by your physician Discharge Instructions: - Discharge Summary Sheet [facility] - Form - Daily Diabetes Record [facility] - Diabetes Mellitus and Exercise [facility] - Diabetes Mellitus and Nutrition, Adult [facility] - Hyperglycemia, [id number] [facility] - Blood Glucose Monitoring, Adult [facility] Forms: - Medication Reconciliation Form [facility] - Thank You Letter [facility] - Antibiotic Education [facility] - Prescription Opioid Use [facility] Prescriptions: - Metformin 500 mg Oral Tablet - take 1 tablet by ORAL route every 12 hours . Then take 1 tablet with morning [facility] meals AND evening meals; 60 tablet; Refills: 0, Product Selection Permitted Signatures: Dispatcher [employer] Katharina Snyder, RN RN Kaila Dobson RN RN lg3 Romero Dominguez MD MD [facility]
[2021-12-30 01:46] VITALS: TEMP 98.8
[2021-12-30 02:07] VITALS: BP 105/78; O2SAT 100
--- NOTE | 2021-12-30 13:44 | EKG ---
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
== END 2021-12-30 00:38 | disposition home or self-care (01) ==
LOC: ER 20:06
DX: E13.65 Other specified diabetes mellitus with hyperglycemia (principal); I10 Essential (primary) hypertension; F17.210 Nicotine dependence, cigarettes, uncomplicated
CPT/HCPCS: 36415; 71045; 80048; 80076; 81003; 82805; 82947; 83735; 83880; 84484; 85025; 85610; 93005; 99284; J7030

== ENCOUNTER 2022-08-06 19:18 | Emergency (ER) | payer SELFPAY ==
--- OUTSIDE RECORDS SUMMARY | 2022-08-06 19:22 | XMS REPORT | Continuity of Care Document ---
:[address] [facility] t Address [address] [place] [address] Care Team Providers Name Role Phone Caitlyn DRISCOLL Maddy Primary Care Physician [phone] Erickson Sol MD Attending Clinician ERICKSON SOL Attending Clinician Unavailable Doctor Unassigned, [place] Attending Clinician Unavailable Ziggy Alva Attending Clinician Siobhan Covarrubias Attending Clinician Payers Payer Name Policy Type Policy Number Effective Date Expiration Date S [facility] [id number] 2019 00:00:00 Problems Condition Condition Condition Status Onset Resolution Last Treating Co mments Source Name Details Category Date Date Treatment Clinician Date No known No known Disease Unive rs active active ity of problems problems [facility] Allergies, Adverse Reactions, Alerts Allergy Allergy Status Severity Reaction(s) Onset Inactive Treating Comm ents Source Name Type Date Date Clinician NO KNOWN Drug Active Univers ALLERGIE Class ity of S [facility] Social History Social Habit Start Date Stop Date Quantity Comments Source Exposure to Not sure [facility] SARS-CoV-2 (event) Medica l Branch Sex Ass[birth year] [place] [facility] 00:00:00 00:00:00 Medical Branch Smoking Status Start Date Stop Date Source Unknown if ever smoked [facility] Medications Ordered Filled Start Stop Current Ordering Indication Dosage Frequency Signature Comments Components Source Medication Medication Date Date Medication? Clinician (SIG) Name Name Dose 2-0 No Unknown 4-13 00:00: 00 Dose 2022-0 No Unknown 4-13 00:00: 00 Dose 2022-0 No Unknown 4-13 00:00: 00 Dose 2022-0 No Unknown 4-13 00:00: 00 Dose 2022-0 No Unknown 4-13 00:00: 00 Dose 2022-0 No Unknown 4-13 00:00: 00 Dose 2022-0 No Unknown 4-13 00:00: 00 Dose 2022-0 No Unknown 4-13 00:00: 00 Dose 2-0 No Unknown 4-13 00:00: 00 Dose 2022-0 No Unknown 3-21 00:00: 00 Dose 2022-0 No Unknown 3-21 00:00: 00 Dose 2022-0 No Unknown 3-21 00:00: 00 Dose 2022-0 No Unknown 3-21 00:00: 00 Dose 2022-0 No Unknown 3-21 00:00: 00 Dose 2022-0 No Unknown 3-21 00:00: 00 Dose 2022-0 No Unknown 3-21 00:00: 00 Dose 2022-0 No Unknown 3-21 00:00: 00 Dose 2022-0 No Unknown 3-21 00:00: 00 Dose 2022-0 No Unknown 3-21 00:00: 00 Dose 2022-0 No Unknown 3-21 00:00: 00 Dose 2022-0 No Unknown 3-21 00:00: 00 Dose 2022-0 No Unknown 1-03 00:00: 00 Dose 2022-0 No Unknown 1-03 00:00: 00 Dose 2022-0 No Unknown 1-03 00:00: 00 Dose 2021-0 No Unknown 9 00:00: 00 Dose 2021-0 No Unknown 02-18 00:00: 00 Dose 2021-0 No Unknown 02-18 00:00: 00 Dose 2021-0 No Unknown 02-16 00:00: 00 Dose 2021-0 No Unknown 02-16 00:00: 00 Dose 2021-0 No Unknown 02-16 00:00: 00 Dose 2021-0 No Unknown 02-16 00:00: 00 Dose 2021-0 No Unknown 02-16 00:00: 00 Dose 2020-0 No Unknown 02-16 00:00: 00 lisinopril 2021-0 No 1mg 20 mg 6-22 tablet 00:00: 00 citalopram 2021-0 No 1mg 10 mg 6-22 tablet 00:00: 00 lisinopril 2021-0 No 1mg 20 mg 6-22 tablet 00:00: 00 citalopram 2021-0 No 1mg 10 mg 6-22 tablet 00:00: 00 lisinopril 2021-0 No 1mg 20 mg 6-22 tablet 00:00: 00 citalopram 2021-0 No 1mg 10 mg 6-22 tablet 00:00: 00 lisinopril 2021-0 No 1mg 20 mg 5-24 tablet 00:00: 00 lisinopril 2021-0 No 1mg 20 mg 5-24 tablet 00:00: 00 hydroxyzine 2021-0 No 12mg HCl 25 mg 5-24 tablet 00:00: 00 lisinopril 2021-0 No 1mg 20 mg 5-24 tablet 00:00: 00 lisinopril 2021-0 No 1mg 20 mg 5-24 tablet 00:00: 00 hydroxyzine 2021-0 No 12mg HCl 25 mg 5-24 tablet 00:00: 00 lisinopril 2021-0 No 1mg 20 mg 5-24 tablet 00:00: 00 lisinopril 2021-0 No 1mg 20 mg 5-24 tablet 00:00: 00 hydroxyzine 1-0 No 12mg HCl 25 mg 5-24 tablet 00:00: 00 NaCl 0.9% 0 2020- No 1000mL at 999 Uni vers (NS) bolus 30 03-30 mL/hr, ity of infusion 15:45: 15:25 1,000 mL, Shyam as 1,000 mL 00 :00 IV Medical Piggyback, Branch ONCE, 1 dose, [facility] 08/21/20 at 1045, STAT ketorolac 2019- No 30mg 30 mg, Unive rs (TORADOL) 02-16 09-25 Slow IV ity of injection 05:15: 04:03 Push, [place] 30 mg 00 :00 ONCE, 1 Medical dose, Fri Branch 02/17/20 at 0015, JONAS
[facility] medication : Ziggy SAN ibuprofen 2019-0 Yes [id number] 600mg Take 1 Un ana maria 600 mg 9-25 tablet by ity of tablet 00:00: mouth [place] 00 every 6 Medical (six) Branch hours as needed for Pain (scale 4-6). ibuprofen 2019- Yes [id number] 600mg Take 1 Un ana maria 600 mg 9-25 tablet by ity of tablet 00:00: mouth [place] 00 every 6 Medical (six) Branch hours as needed for Pain (scale 4-6). ibuprofen 2019-0 Yes [id number] 600mg Take 1 Un ana maria 600 mg 9-25 tablet by ity of tablet 00:00: mouth [place] 00 every 6 Medical (six) Branch hours as needed for Pain (scale 4-6). ibuprofen 2020- No 800mg 800 mg, Uni vers (IBU) 06-12 Oral, ity of tablet 800 23:45: 22:54 ONCE, 1 Shyam as mg 00 :00 dose, [facility] 06[facility]19 at Branch 1745, [facility] amoxicillin 2020- No [id number] 875mg Take 1 Univers 875 mg 06-1230 tablet by ity of tablet 00:00: 05:59 mouth 2 [place] 00 :00 (two) Medical times Branch daily for 10 days. oseltamivir 2020- No [id number] 75mg Take 1 Univers 75 mg 06-1225 capsule by ity of capsule 00:00: 05:59 mouth 2 [place] 00 :00 (two) Medical times Branch daily for 5 days. albuterol 2018-05 Yes [id number] 2.5mg Inhale 3 Univers 2.5 mg /3 1-12 mL every 4 ity of mL (0.083 00:00: (four) [place] %) 00 hours as Medical nebulizer needed for Bran ch solution Wheezing or Shortness of Breath. albuterol 2018-05 Yes [id number] 2.5mg Inhale 3 Univers 2.5 mg /3 1-12 mL every 4 ity of mL (0.083 00:00: (four) [place] %) 00 hours as Medical nebulizer needed for Bran ch solution Wheezing or Shortness of Breath. albuterol 2018-05 Yes [id number] 2.5mg Inhale 3 Univers 2.5 mg /3 1-12 mL every 4 ity of mL (0.083 00:00: (four) [place] %) 00 hours as Medical nebulizer needed for Bran ch solution Wheezing or Shortness of Breath. albuterol 2018-05 Yes [id number] 2.5mg Inhale 3 Univers 2.5 mg /3 1-12 mL every 4 ity of mL (0.083 00:00: (four) [place] %) 00 hours as Medical nebulizer needed for Bran ch solution Wheezing or Shortness of Breath. benzonatate 2017-05 Yes 200mg Take 1 Uni vers 200 mg 2-20 capsule by ity of capsule 00:00: mouth 3 00 (three) Medical times Branch daily as needed for Cough. benzonatate 2017-05 Yes 200mg Take 1 Uni vers 200 mg 2-20 capsule by ity of capsule 00:00: mouth 3 (three) Medical times Branch daily as needed for Cough. benzonatate 2017-05 Yes 200mg Take 1 Uni vers 200 mg 2-20 capsule by ity of capsule 00:00: mouth 3 00 (three) Medical times Branch daily as needed for Cough. benzonatate 2017-05 Yes 200mg Take 1 Uni vers 200 mg 2-20 capsule by ity of capsule 00:00: mouth 3 00 (three) Medical times Branch daily as needed [...] as needed for Pain (scale 4-6). proMETHazin 2017-05 Yes 25mg Take 1 Univ [...] as needed for Pain (scale 4-6). proMETHazin 2018- Yes 25mg Take 1 Univ ers e [...] (scale 4-6). LISINOPRIL 2018-0 Yes Take by Univ ers ORAL 9-06 mouth. ity of 20:38: [address] LISINOPRIL 2018-0 Yes Take by Univ ers ORAL 9-06 mouth. ity of 20:38: [address] LISINOPRIL 2018-0 Yes Take by Univ ers ORAL 9-06 mouth. ity of 20:38: [address] LISINOPRIL 2018-0 Yes Take by Univ ers ORAL 9-06 mouth. ity of 20:38: [address] traMADOL 50 2018-0 Yes 50mg Take [...] Systolic blood 2020-08-21 15:00:00 139 mm[Hg] Univer sity of pressure [place] [facility] Diastolic blood 2020-08-21 15:00:00 103 mm[Hg] Unive rsity of [facility] Branch Heart rate 2020-08-21 15:00:00 77 /min Universi ty of [place] [facility] Respiratory rate 2020-08-21 15:00:00 16 /min Univ ersity of [place] [facility] Oxygen saturation in 2020-08-21 15:00:00 96 /min University of Arterial blood by [facility] Pulse oximetry Branch Body temperature 2020-08-21 12:54:00 36.89 Gini Univ ersity of [facility] Body weight 2020-08-21 12:54:00 104.327 kg Universi ty of [place] [facility] BMI 2020-08-21 12:54:00 33.97 kg/m2 Universi ty of [facility] Branch Systolic blood 2020-08-21 15:00:00 139 mm[Hg] Univer sity of [facility] Branch Diastolic blood 2020-08-21 15:00:00 103 mm[Hg] Unive rsity of [facility] Branch Heart rate 2020-08-21 15:00:00 77 /min Universi ty of [place] [facility] Respiratory rate 2020-08-21 15:00:00 16 /min Univ ersity of [place] [facility] Oxygen saturation in 2020-08-21 15:00:00 96 /min University of Arterial blood by [facility] Pulse oximetry Branch Body temperature 2020-08-21 12:54:00 36.89 Gini Univ ersity of [place] [facility] Body weight 2020-08-21 12:54:00 104.327 kg Universi ty [facility] [place] [facility] BMI 2020-08-21 12:54:00 33.97 kg/m2 Universi ty of [facility] Branch Systolic blood 2020-02-17 05:00:00 124 mm[Hg] Univer sity of pressure [facility] Branch Diastolic blood 2020-02-17 05:00:00 77 mm[Hg] Unive rsity of pressure [place] [facility] Heart rate 2020-02-17 05:00:00 65 /min Universi ty of [place] [facility] Respiratory rate 2020-02-17 05:00:00 16 /min Univ ersity of [place] [facility] Oxygen saturation in 2020-02-17 05:00:00 97 /min University of Arterial blood by [facility] Pulse oximetry Branch Body temperature 2020-02-17 01:13:00 36.78 Gini Univ ersity of [place] [facility] Body weight 2020-02-17 01:13:00 107.049 kg Universi ty [facility] [place] [facility] BMI 2020-02-17 01:13:00 34.85 kg/m2 Universi ty [facility] [place] [facility] Systolic blood 2020-02-17 05:00:00 124 mm[Hg] Univer sity of pressure [place] [facility] Diastolic blood 2020-02-17 05:00:00 77 mm[Hg] Unive rsity of pressure [place] [facility] Heart rate 2020-02-17 05:00:00 65 /min Universi ty of [place] [facility] Respiratory rate 2020-02-17 05:00:00 16 /min Univ ersity of [place] [facility] Oxygen saturation in 2020-02-17 05:00:00 97 /min University of Arterial blood by [facility] Pulse oximetry Branch Body temperature 2020-02-17 01:13:00 36.78 Gini Univ ersity of [place] [facility] Body weight 2020-02-17 01:13:00 107.049 kg Universi ty of [place] [facility] BMI 2020-02-17 01:13:00 34.85 kg/m2 Universi ty [facility] [place] [facility] Body temperature 2019-06-13 00:13:36 37.22 Gini Univ ersity of [place] [facility] Systolic blood 2019-06-12 22:12:00 155 mm[Hg] Univer sity of pressure [place] [facility] Diastolic blood 2019-06-12 22:12:00 111 mm[Hg] Unive rsity of pressure [place] [facility] Heart rate 2019-06-12 22:12:00 111 /min Universi ty of [place] [facility] Respiratory rate 2019-06-12 22:12:00 18 /min Univ ersity of [place] [facility] Body height 2019-06-12 22:12:00 175.3 cm Universi ty [facility] [place] [facility] Body weight 2019-06-12 22:12:00 102.513 kg Universi ty [facility] [place] [facility] BMI 2019-06-12 22:12:00 33.37 kg/m2 Universi ty of [facility] Oxygen saturation in 2019-06-12 22:12:00 99 /min University of Arterial blood by [facility] Pulse oximetry Branch Body temperature 2019-06-13 00:13:36 37.22 Gini Univ ersity of [facility] Systolic blood 2019-06-12 22:12:00 155 mm[Hg] Univer sity of pressure [facility] Diastolic blood 2019-06-12 22:12:00 111 mm[Hg] Unive rsity of pressure [facility] Heart rate 2019-06-12 22:12:00 111 /min Universi ty of [facility] Respiratory rate 2019-06-12 22:12:00 18 /min [facility] Body height 2019-06-12 22:12:00 175.3 cm Universi ty of [facility] Body weight 2019-06-12 22:12:00 102.513 kg Universi ty of [facility] BMI 2019-06-12 22:12:00 33.37 kg/m2 Universi ty of [facility] Oxygen saturation in 2019-06-12 22:12:00 99 /min University of Arterial blood by [facility] Pulse oximetry Branch BP Systolic 2022-04-04 17:16:00 132 mm[Hg] BP Diastolic 2022-04-04 17:16:00 94 mm[Hg] Weight Measured 2022-04-04 17:16:00 205.00 pounds Height Measured 2022-04-04 17:16:00 67.72 inches Body Temperature 2022-04-04 17:16:00 98.20 degrees Heart Rate 2022-04-04 17:16:00 77.00 /min Respiratory Rate 2022-04-04 17:16:00 18.00 /min BP Systolic 2022-01-29 19:02:00 BP Diastolic 2022-01-29 19:02:00 Weight Measured 2022-01-29 19:02:00 220.00 pounds Height Measured 2022-01-29 19:02:00 67.72 inches Body Temperature 2022-01-29 19:02:00 Heart Rate 2022-01-29 19:02:00 Respiratory Rate 2022-01-29 19:02:00 BP Systolic 2022-01-06 16:15:00 129 mm[Hg] BP Diastolic 2022-01-06 16:15:00 78 mm[Hg] Weight Measured 2022-01-06 16:15:00 221.20 pounds Height Measured 2022-01-06 16:15:00 67.72 inches Body Temperature 2022-01-06 16:15:00 98.40 degrees Heart Rate 2022-01-06 16:15:00 59.00 /min Respiratory Rate 2022-01-06 16:15:00 18.00 /min BP Systolic 2021-09-04 17:23:00 132 mm[Hg] BP Diastolic 2021-09-04 17:23:00 82 mm[Hg] Weight Measured 2021-09-04 17:23:00 229.80 pounds Height Measured 2021-09-04 17:23:00 67.72 inches Body Temperature 2021-09-04 17:23:00 98.20 degrees Heart Rate 2021-09-04 17:23:00 72.00 /min Respiratory Rate 2021-09-04 17:23:00 17.00 /min BP Systolic 2021-05-27 17:11:00 127 mm[Hg] BP Diastolic 2021-05-27 17:11:00 81 mm[Hg] Weight Measured 2021-05-27 17:11:00 228.60 pounds Height Measured 2021-05-27 17:11:00 67.72 inches Body Temperature 2021-05-27 17:11:00 98.40 degrees Heart Rate 2021-05-27 17:11:00 75.00 /min Respiratory Rate 2021-05-27 17:11:00 21.00 /min BP Systolic 2021-03-19 08:09:00 132 mm[Hg] BP Diastolic 2021-03-19 08:09:00 91 mm[Hg] Weight Measured 2021-03-19 08:09:00 214.80 pounds Height Measured 2021-03-19 08:09:00 67.72 inches Body Temperature 2021-03-19 08:09:00 98.40 degrees Heart Rate 2021-03-19 08:09:00 80.00 /min Respiratory Rate 2021-03-19 08:09:00 16.00 /min BP Systolic 2021-02-16 14:40:00 123 mm[Hg] BP Diastolic 2021-02-16 14:40:00 79 mm[Hg] Weight Measured 2021-02-16 14:40:00 229.40 pounds Height Measured 2021-02-16 14:40:00 67.72 inches Body Temperature 2021-02-16 14:40:00 97.90 degrees Heart Rate 2021-02-16 14:40:00 69.00 /min Respiratory Rate 2021-02-16 14:40:00 16.00 /min BP Systolic 2020-11-13 16:34:00 129 mm[Hg] BP Diastolic 2020-11-13 16:34:00 86 mm[Hg] Weight Measured 2020-11-13 16:34:00 220.60 pounds Height Measured 2020-11-13 16:34:00 67.72 inches Body Temperature 2020-11-13 16:34:00 98.40 degrees Heart Rate 2020-11-13 16:34:00 86.00 /min Respiratory Rate 2020-11-13 16:34:00 16.00 /min BP Systolic 2020-10-15 14:09:00 130 mm[Hg] BP Diastolic 2020-10-15 14:09:00 81 mm[Hg] Weight Measured 2020-10-15 14:09:00 226.20 pounds Height Measured 2020-10-15 14:09:00 67.72 inches Body Temperature 2020-10-15 14:09:00 98.00 degrees Heart Rate 2020-10-15 14:09:00 68.00 /min Respiratory Rate 2020-10-15 14:09:00 Procedures Procedure Date / Time Performing Clinician Source Performed XR CHEST 1 VW 2020-08-21 15:08:[facility] CREAT[facility] KINASE 2020-08-21 13:31:[facility] MAGNESIUM 2020-08-21 13:31:00 [facility] THYROID STIMULATING 2020-08-21 13:31:00 Erickson Sol [facility] HORMONE Medical Branch HEPATIC FUNCTION PANEL 2020-08-21 13:31:00 Erickson Sol [facility] ([id number]) (ALB,T.PRO,BILI Medical Branch T,BU/BC,ALT,AST,ALK PHOS) BASIC METABOLIC PANEL 2020-08-21 13:31:00 Erickson Sol [facility] (NA, K, CL, CO2, Medical Branch GLUCOSE, BUN, CREATININE, CA) CBC WITH DIFF 2020-08-21 13:31:00 Erickson Sol [facility] URINALYSIS 2020-08-21 13:31:00 Ebenezer [facility] ADC / LCC - DRUG SCREEN 2020-08-21 13:31[facility] COVID-19 (ID NOW RAPID 2020-08-21 13:31:00 Ebenezer Erickson [facility] TESTING) Medical Branch NOTICE OF PRIVACY 2020-08-21 12:46:36 Doctor Unassigned, No [facility] Name Medical [place] CONSENT/REFUSAL FOR 2020-08-21 12:46:21 [facility] TROPONIN I 2020-02-17 03:49:00 Ziggy San [facility] XR CHEST 1 VW 2020-02-17 02:30:42 Ebenezer [facility] LIPASE 2020-02-17 01:21:00 Ebenezer [facility] TROPONIN I 2020-02-17 01:21:00 Ebenezer Erickson [facility] COMP. METABOLIC PANEL 2020-02-17 01:21:00 Erickson Slo [facility] ([id number]) Medical Branch CBC WITH DIFF 2020-02-17 01:21:00 Ebenezer Erickson [facility] PROTHROMBIN TIME / INR 2020-02-17 01:21:00 Erickson Sol [facility] ACTIVATED PARTIAL 2020-02-17 01:21:00 Ebenezer Counts include 234 beds at the [facility] THRMPLAS AMY [facility] Branch EKG-12 LEAD 2020-02-17 01:18:35 Ebenezer [facility] NOTICE OF PRIVACY 2020-02-17 01:08:49 Doctor Unassigned, No Univ [facility] Name Medical Branch CONSENT/REFUSAL FOR 2020-02-17 01:08:34 Doctor Unassigned, No [facility] [place] [facility] Name Medical Branch RAPID STREP SCREEN FOR 2019-06-12 22:38:00 Siobhan Garza [facility] [place] GROUP A Medical Branch ADC,CLC OR LCC ONLY - 2019-06-12 22:38:00 Siobhan Garza [facility] [place] INFLUENZA A & B DIRECT Medical B ranch ANTIGEN CONSENT/REFUSAL FOR 2019-06-12 22:06:34 Doctor Unassigned, No [facility] [place] [facility] Name Medical Branch Plan of Care Planned Activity Planned Date Details Comments Source Goal Plan of Care Note [code = 71670-0] Goal Plan of Care Note [code = 83635-4] Goal Plan of Care Note [code = 93613-7] Goal Plan of Care Note [code = 86107-0] Goal Plan of Care Note [code = 70122-1] Goal Plan of Care Note [code = 45023-9] Goal Plan of Care Note [code = 35200-8] Goal Plan of Care Note [code = 37749-0] Goal Plan of Care Note [code = 76055-5] Goal Plan of Care Note [code = 32509-7] Goal Plan of Care Note [code = 96115-9] Goal Plan of Care Note [code = 21167-0] Goal Plan of Care Note [code = 85995-3] Goal Plan of Care Note [code = 76607-3] Goal Plan of Care Note [code = 52929-8] Goal Plan of Care Note [code = 36260-1] Goal Plan of Care Note [code = 73467-5] Goal Plan of Care Note [code = 37906-0] Goal Plan of Care Note [code = 21080-6] Goal Plan of Care Note [code = 75809-8] Goal Plan of Care Note [code = 33195-9] Goal Plan of Care Note [code = 80860-6] Goal Plan of Care Note [code = 45761-8] Goal Plan of Care Note [code = 01251-7] Goal Plan of Care Note [code = 75334-4] Goal Plan of Care Note [code = 17867-0] Goal Plan of Care Note [code = 68084-2] Goal Plan of Care Note [code = 54539-0] Goal Plan of Care Note [code = 72931-0] Goal Plan of Care Note [code = 15086-8] Goal Plan of Care Note [code = 00656-2] Goal Plan of Care Note [code = 35478-2] Goal Plan of Care Note [code = 64008-4] Goal Plan of Care Note [code = 46638-2] Goal Plan of Care Note [code = 29577-1] Goal Plan of Care Note [code = 70861-1] Goal Plan of Care Note [code = 32554-0] Goal Plan of Care Note [code = 01460-6] Goal Plan of Care Note [code = 80359-1] Goal Plan of Care Note [code = 80856-0] Goal Plan of Care Note [code = 30165-0] Goal Plan of Care Note [code = 39754-2] Goal Plan of Care Note [code = 38048-3] Goal Plan of Care Note [code = 08167-5] Goal Plan of Care Note [code = 46730-7] Goal Plan of Care Note [code = 34895-6] Encounters Start End Encounter Admission Attending Care Care Encounter Source Date/Time Date/Time Type Type Clinicians Facility Department ID 2022-07-11 2022-07-11 Outpatient SFA SFA [id number] 08:00:18 08:00:18 [id number] F Reed 2022-07-08 2022-07-08 Outpatient SFA SFA [id number] 16:50:35 16:50:35 [id number] F Reed 2022-04-07 2022-04-07 Outpatient SFA SFA [id number] Jose 08:15:31 08:15:31 [id number] F Reed 2022-04-04 2022-04-04 Outpatient SFA SFA [id number] Jose 17:00:04 17:00:04 [id number] F Reed 2022-04-04 2022-04-04 Outpatient [id number] 00:00:00 00:00:00 Visit [id number] [id number] [id number] 2022-01-29 2022-01-29 Outpatient [id number] 00:00:00 00:00:00 Visit [id number] 2022-01-06 2022-01-06 Outpatient [id number] 00:00:00 00:00:00 Visit [id number]-b [id number] [id number] 2020-08-21 2020-08-21 [facility] [id number] [facility] 07:58:00 10:27:00 Erickson Rangel 350.1.13.10 i ty [facility] 4.2.7.2.686 [facility] [id number] [address] 2020-08-21 2020-08-[address] [facility] [id number] 07:58:00 10:27:00 Erickson Rangel 350.1.13.10 [place] [address] [place] [address] [id number] 2020-08-21 2020-08-21 Emergency X EBENEZER [facility] ERT [id number] Univers 07:48:00 07:48:00 ERICKSON luther [facility] 2020-08-21 2020-08-21 Orders Doctor ZHU [id number] 00:00:00 00:00:00 Only UnassignedLAUREN 350.1.13.[address] [facility] 4.2.7.2.686 [id number] 2020-08-21 2020-08-21 Orders Doctor ZHU [id number] Univers 00:00:00 00:00:00 Only UnassignedLAUREN 350.1.13.[address] [place] [facility] 4.2.7.2.686 [facility] [id number] [address] 2020-02-16 2020-02-17 Emergency Ziggy [place] [facility] [id number] 21:41:00 00:50:00 Jennifer Rangel 350.1.13.10 [place] 4.2.7.2.686 [place] [id number] [facility] 2020-02-16 2020-02-17 [address] [facility] [id number] Univers 21:41:00 00:50:00 Jennifer Rangel 350.1.13.10 i ty of [place] 4.2.7.2.686 [facility] [id number] [address] 2020-02-16 2020-02-[address] [facility] ERT [id number] Univers 20:06:00 20:06:00 ity [facility] 2019-06-12 2019-06-12 Emergency [facility] 1.2.840.114 [id number] 16:15:07 18:19:00 Siobhan Rangel 350.1.13.10 [place] 4.2.7.2.686 [place] [id number] [facility] 2019-06-12 2019-06-12 Emergency [facility] [id number] [facility] 16:15:07 18:19:00 Siobhan Rangel 350.1.13.10 ity of [place] 4.2.7.2.686 [facility] [id number] [address] Results Test Description Test Time Test Comments Results Result Comments Source LIPID PANEL 2022-07-14 01:53:14 Test Item Value Reference Range Interpretation Comme nts CHOLESTEROL (test code = 2210) 176 MG/DL <200 TRIGLYCERIDES (test code = 2232) 116 MG/DL <150 HDL CHOLESTEROL (test code = 33 MG/DL >39 L 2220) CALC LDL CHOL (test code = 2237) 121 MG/DL <100 H NOTE: CALCULATED LDL IS BASED ON NAHEED-RUANO METHOD WHICHINCLUDES A DJUSTABLE TRIGLYCERIDE:VL DL CHOLESTEROL RATIO.THIS FACT OR VARIES BY MEASURED TRIGLY CERIDE AND NON-HDLCHOLESTE ROL CONCENTRATIONS WITH INCREASED CALCULATED LDL SEENIN HIGHER T RIGLYCERIDE OR LOWER NON-HDL S PECIMENS. FOR MOREINFORMATION , SEE CLIENT ANNOUNCEMENT AT [email or web address] RATIO LDL/HDL (test code = 3.67 RATIO <3.55 H [facility] has important pathology 2238) staff changes e ffective 07/23/2022. New pathology staff will prov abdoul uninterrupted, excellent patie nt care and clinical consul tation. See URL: [email or web address]. UNLESS OTHERWIS E INDICATED, ALL TESTING PERFORM ED AT CLINICAL PATHOLOGY [facility], [facility]. [address], [place] CLIA: [id number], CAP : LIPID [id number] 04:16:00 Test Item Value Reference Range Interpretation Comments CHOLESTEROL (test 257 MG/DL <200 H code = 2210) TRIGLYCERIDES (test 229 MG/DL <150 H code = 2232) HDL CHOLESTEROL (test 30 MG/DL >39 L code = 2220) CALC LDL CHOL (test 185 MG/DL <100 H NOTE: C ALCULATED LDL code = 2237) IS BASED ON NAHEED-RUANO METHOD WHICHINCLUDES ADJUSTABLE TRIGLYCERIDE:VL DL CHOLESTEROL RAT IO.THIS FACTOR VARIES B Y MEASURED TRIGLY CERIDE AND NON-HDLCHOL ESTEROL CONCENTRATIONS WITH INCREASED CALCU LATED LDL SEENIN HIGH ER TRIGLYCERIDE OR LOWER NON-HDL SPECIME NS. FOR MOREINFORMATION , SEE CLIENT ANNOUNCE MENT AT [email or web address] RATIO LDL/HDL 6.17 RATIO <3.55 H (test code = 2238) TSH, THIRD [id number] 03:58:52 Test Item Value Reference Range Interpretation Comments TSH, THIRD 0.715 UIU/ML 0.400-4.100 UNLESS OTHERWI SE GENERATION (test INDICATED, ALL TESTING code = 2821) PERFORMED [facility], [facility]. [address] [place] [address] [facility] DIRECTOR: ELA CAMPBELL M.D. CLIA NUMBER [id number] CAP ACCREDITATION N O. [id number] LIPID [id number] 00:00:00 Test Item Value Reference Range Interpretation Comments CHOLESTEROL (test code = 2210) 257 MG/DL TRIGLYCERIDES (test code = 2232) 229 MG/DL HDL CHOLESTEROL (test code = 2220) 30 MG/DL CALC LDL CHOL (test code = 2237) 185 MG/DL RISK RATIO LDL/HDL (test code = 6.17 RATIO 2238) LIPID [id number] 00:00:00 Test Item Value Reference Range Interpretation Comments CHOLESTEROL (test code = 2210) 257 MG/DL TRIGLYCERIDES (test code = 2232) 229 MG/DL HDL CHOLESTEROL (test code = 2220) 30 MG/DL CALC LDL CHOL (test code = 2237) 185 MG/DL RISK RATIO LDL/HDL (test code = 6.17 RATIO 2238) [id number] 00:00:00 Test Item Value Reference Range Interpretation Comments TSH, THIRD GENERATION (test code 0.715 UIU/ML = 2821) [id number] 00:00:00 Test Item Value Reference Range Interpretation Comments TSH, THIRD GENERATION (test code 0.715 UIU/ML = 2821) [id number] 00:00:00 Test Item Value Reference Range Interpretation Comments TSH, THIRD GENERATION (test code 0.715 UIU/ML = 2821) LIPID [id number] 00:00:00 Test Item Value Reference Range Interpretation Comments CHOLESTEROL (test code = 2210) 257 MG/DL TRIGLYCERIDES (test code = 2232) 229 MG/DL HDL CHOLESTEROL (test code = 2220) 30 MG/DL CALC LDL CHOL (test code = 2237) 185 MG/DL RISK RATIO LDL/HDL (test code = 6.17 RATIO 2238) LIPID [id number] 00:00:00 Test Item Value Reference Range Interpretation Comments CHOLESTEROL (test code = 2210) 257 MG/DL TRIGLYCERIDES (test code = 2232) 229 MG/DL HDL CHOLESTEROL (test code = 2220) 30 MG/DL CALC LDL CHOL (test code = 2237) 185 MG/DL RISK RATIO LDL/HDL (test code = 6.17 RATIO 2238) [id number] 00:00:00 Test Item Value Reference Range Interpretation Comments TSH, THIRD GENERATION (test code 0.715 UIU/ML = 2821) [id number] 00:00:00 Test Item Value Reference Range Interpretation Comments TSH, THIRD GENERATION (test code 0.715 UIU/ML = 2821) [id number] 00:00:00 Test Item Value Reference Range Interpretation Comments TSH, THIRD GENERATION (test code 0.715 UIU/ML = 2821) LIPID [id number] 00:00:00 Test Item Value Reference Range Interpretation Comments CHOLESTEROL (test code = 2210) 257 MG/DL TRIGLYCERIDES (test code = 2232) 229 MG/DL HDL CHOLESTEROL (test code = 2220) 30 MG/DL CALC LDL CHOL (test code = 2237) 185 MG/DL RISK RATIO LDL/HDL (test code = 6.17 RATIO 2238) LIPID [id number] 00:00:00 Test Item Value Reference Range Interpretation Comments CHOLESTEROL (test code = 2210) 257 MG/DL TRIGLYCERIDES (test code = 2232) 229 MG/DL HDL CHOLESTEROL (test code = 2220) 30 MG/DL CALC LDL CHOL (test code = 2237) 185 MG/DL RISK RATIO LDL/HDL (test code = 6.17 RATIO 2238) [id number] 00:00:00 Test Item Value Reference Range Interpretation Comments TSH, THIRD GENERATION (test code 0.715 UIU/ML = 2821) [id number] 00:00:00 Test Item Value Reference Range Interpretation Comments TSH, THIRD GENERATION (test code 0.715 UIU/ML = 2821) [id number] 00:00:00 Test Item Value Reference Range Interpretation Comments TSH, THIRD GENERATION (test code 0.715 UIU/ML = 2821) LIPID [id number] 00:00:00 Test Item Value Reference Range Interpretation Comments CHOLESTEROL (test code = 2210) 143 MG/DL TRIGLYCERIDES (test code = 2232) 122 MG/DL HDL CHOLESTEROL (test code = 2220) 29 MG/DL CALC LDL CHOL (test code = 2237) 92 MG/DL RISK RATIO LDL/HDL (test code = 3.17 RATIO 2238) LIPID [id number] 00:00:00 Test Item Value Reference Range Interpretation Comments CHOLESTEROL (test code = 2210) 143 MG/DL TRIGLYCERIDES (test code = 2232) 122 MG/DL HDL CHOLESTEROL (test code = 2220) 29 MG/DL CALC LDL CHOL (test code = 2237) 92 MG/DL RISK RATIO LDL/HDL (test code = 3.17 RATIO 2238) LIPID [id number] 00:00:00 Test Item Value Reference Range Interpretation Comments CHOLESTEROL (test code = 2210) 143 MG/DL TRIGLYCERIDES (test code = 2232) 122 MG/DL HDL CHOLESTEROL (test code = 2220) 29 MG/DL CALC LDL CHOL (test code = 2237) 92 MG/DL RISK RATIO LDL/HDL (test code = 3.17 RATIO 2238) LIPID [id number] 00:00:00 Test Item Value Reference Range Interpretation Comments CHOLESTEROL (test code = 2210) 143 MG/DL TRIGLYCERIDES (test code = 2232) 122 MG/DL HDL CHOLESTEROL (test code = 2220) 29 MG/DL CALC LDL CHOL (test code = 2237) 92 MG/DL RISK RATIO LDL/HDL (test code = 3.17 RATIO 2238) LIPID [id number] 00:00:00 Test Item Value Reference Range Interpretation Comments CHOLESTEROL (test code = 2210) 143 MG/DL TRIGLYCERIDES (test code = 2232) 122 MG/DL HDL CHOLESTEROL (test code = 2220) 29 MG/DL CALC LDL CHOL (test code = 2237) 92 MG/DL RISK RATIO LDL/HDL (test code = 3.17 RATIO 2238) LIPID [id number] 00:00:00 Test Item Value Reference Range Interpretation Comments CHOLESTEROL (test code = 2210) 143 MG/DL TRIGLYCERIDES (test code = 2232) 122 MG/DL HDL CHOLESTEROL (test code = 2220) 29 MG/DL CALC LDL CHOL (test code = 2237) 92 MG/DL RISK RATIO LDL/HDL (test code = 3.17 RATIO 2238) COMPREHENSIVE METABOLIC [id number] 00:00:00 Test Item Value Reference Range Interpretation Comments GLUCOSE (test code = 2217) 122 MG/DL BUN (test code = 2208) 15 MG/DL CREATININE (test code = 2214) 0.84 MG/DL eGFR AMER. (test code 130 ML/MIN/1.73 = 21411) eGFR NON- AMER. (test 112 ML/MIN/1.73 code = 07388) CALC BUN/CREAT (test code = 18 RATIO 2235) SODIUM (test code = 2231) 137 MEQ/L POTASSIUM (test code = 2228) 4.4 MEQ/L CHLORIDE (test code = 2215) 102 MEQ/L CARBON DIOXIDE (test code = 23 MEQ/L 2205) CALCIUM (test code = 2209) 9.0 MG/DL PROTEIN, TOTAL (test code = 7.0 G/DL 2228) ALBUMIN (test code = 2201) 4.6 G/DL CALC GLOBULIN (test code = 2.4 G/DL 2240) CALC A/G RATIO (test code = 1.9 RATIO 2234) BILIRUBIN, TOTAL (test code = 0.3 MG/DL 2206) ALKALINE PHOSPHATASE (test 102 U/L code = 2204) AST (test code = 2218) 18 U/L ALT (test code = 2219) 10 U/L COMPREHENSIVE METABOLIC [id number] 00:00:00 Test Item Value Reference Range Interpretation Comments GLUCOSE (test code = 2217) 122 MG/DL BUN (test code = 2208) 15 MG/DL CREATININE (test code = 2214) 0.84 MG/DL eGFR AMER. (test code 130 ML/MIN/1.73 = 30654) eGFR NON- AMER. (test 112 ML/MIN/1.73 code = 35220) CALC BUN/CREAT (test code = 18 RATIO 2235) SODIUM (test code = 2231) 137 MEQ/L POTASSIUM (test code = 2228) 4.4 MEQ/L CHLORIDE (test code = 2215) 102 MEQ/L CARBON DIOXIDE (test code = 23 MEQ/L 220) CALCIUM (test code = 2209) 9.0 MG/DL PROTEIN, TOTAL (test code = 7.0 G/DL 2228) ALBUMIN (test code = 2201) 4.6 G/DL CALC GLOBULIN (test code = 2.4 G/DL 2240) CALC A/G RATIO (test code = 1.9 RATIO 2234) BILIRUBIN, TOTAL (test code = 0.3 MG/DL 2206) ALKALINE PHOSPHATASE (test 102 U/L code = 2204) AST (test code = 2218) 18 U/L ALT (test code = 2219) 10 U/L LIPID [id number] 00:00:00 Test Item Value Reference Range Interpretation Comments CHOLESTEROL (test code = 2210) 306 MG/DL TRIGLYCERIDES (test code = 2232) 1458 MG/DL HDL CHOLESTEROL (test code = 18 MG/DL 2220) CALC LDL CHOL (test code = 2237) (NOTE) MG/DL RISK RATIO LDL/HDL (test code = (NOTE) RATIO 2238) LIPID [id number] 00:00:00 Test Item Value Reference Range Interpretation Comments CHOLESTEROL (test code = 2210) 306 MG/DL TRIGLYCERIDES (test code = 2232) 1458 MG/DL HDL CHOLESTEROL (test code = 18 MG/DL 2220) CALC LDL CHOL (test code = 2237) (NOTE) MG/DL RISK RATIO LDL/HDL (test code = (NOTE) RATIO 2238) COMPREHENSIVE METABOLIC [id number] 00:00:00 Test Item Value Reference Range Interpretation Comments GLUCOSE (test code = 2217) 122 MG/DL BUN (test code = 2208) 15 MG/DL CREATININE (test code = 2214) 0.84 MG/DL eGFR AMER. (test code 130 ML/MIN/1.73 = 68588) eGFR NON- AMER. (test 112 ML/MIN/1.73 code = 83122) CALC BUN/CREAT (test code = 18 RATIO 2235) SODIUM (test code = 2231) 137 MEQ/L POTASSIUM (test code = 2228) 4.4 MEQ/L CHLORIDE (test code = 2215) 102 MEQ/L CARBON DIOXIDE (test code = 23 MEQ/L 2205) CALCIUM (test code = 2209) 9.0 MG/DL PROTEIN, TOTAL (test code = 7.0 G/DL 2228) ALBUMIN (test code = 2201) 4.6 G/DL CALC GLOBULIN (test code = 2.4 G/DL 2240) CALC A/G RATIO (test code = 1.9 RATIO 2234) BILIRUBIN, TOTAL (test code = 0.3 MG/DL 2206) ALKALINE PHOSPHATASE (test 102 U/L code = 2204) AST (test code = 2218) 18 U/L ALT (test code = 2219) 10 U/L COMPREHENSIVE METABOLIC [id number] 00:00:00 Test Item Value Reference Range Interpretation Comments GLUCOSE (test code = 2217) 122 MG/DL BUN (test code = 2208) 15 MG/DL CREATININE (test code = 2214) 0.84 MG/DL eGFR AMER. (test code 130 ML/MIN/1.73 = 63024) eGFR NON- AMER. (test 112 ML/MIN/1.73 code = 60106) CALC BUN/CREAT (test code = 18 RATIO 2235) SODIUM (test code = 2231) 137 MEQ/L POTASSIUM (test code = 2228) 4.4 MEQ/L CHLORIDE (test code = 2215) 102 MEQ/L CARBON DIOXIDE (test code = 23 MEQ/L 2205) CALCIUM (test code = 2209) 9.0 MG/DL PROTEIN, TOTAL (test code = 7.0 G/DL 2228) ALBUMIN (test code = 2201) 4.6 G/DL CALC GLOBULIN (test code = 2.4 G/DL 2240) CALC A/G RATIO (test code = 1.9 RATIO 2234) BILIRUBIN, TOTAL (test code = 0.3 MG/DL 2206) ALKALINE PHOSPHATASE (test 102 U/L code = 2204) AST (test code = 2218) 18 U/L ALT (test code = 2219) 10 U/L LIPID [id number] 00:00:00 Test Item Value Reference Range Interpretation Comments CHOLESTEROL (test code = 2210) 306 MG/DL TRIGLYCERIDES (test code = 2232) 1458 MG/DL HDL CHOLESTEROL (test code = 18 MG/DL 2220) CALC LDL CHOL (test code = 2237) (NOTE) MG/DL RISK RATIO LDL/HDL (test code = (NOTE) RATIO 2238) LIPID [id number] 00:00:00 Test Item Value Reference Range Interpretation Comments CHOLESTEROL (test code = 2210) 306 MG/DL TRIGLYCERIDES (test code = 2232) 1458 MG/DL HDL CHOLESTEROL (test code = 18 MG/DL 2220) CALC LDL CHOL (test code = 2237) (NOTE) MG/DL RISK RATIO LDL/HDL (test code = (NOTE) RATIO 2238) COMPREHENSIVE METABOLIC [id number] 00:00:00 Test Item Value Reference Range Interpretation Comments GLUCOSE (test code = 2217) 122 MG/DL BUN (test code = 2208) 15 MG/DL CREATININE (test code = 2214) 0.84 MG/DL eGFR AMER. (test code 130 ML/MIN/1.73 = 00798) eGFR NON- AMER. (test 112 ML/MIN/1.73 code = 96112) CALC BUN/CREAT (test code = 18 RATIO 2235) SODIUM (test code = 2231) 137 MEQ/L POTASSIUM (test code = 2228) 4.4 MEQ/L CHLORIDE (test code = 2215) 102 MEQ/L CARBON DIOXIDE (test code = 23 MEQ/L 2205) CALCIUM (test code = 2209) 9.0 MG/DL PROTEIN, TOTAL (test code = 7.0 G/DL 2228) ALBUMIN (test code = 2201) 4.6 G/DL CALC GLOBULIN (test code = 2.4 G/DL 2240) CALC A/G RATIO (test code = 1.9 RATIO 2234) BILIRUBIN, TOTAL (test code = 0.3 MG/DL 2206) ALKALINE PHOSPHATASE (test 102 U/L code = 2204) AST (test code = 2218) 18 U/L ALT (test code = 2219) 10 U/L COMPREHENSIVE METABOLIC [id number] 00:00:00 Test Item Value Reference Range Interpretation Comments GLUCOSE (test code = 2217) 122 MG/DL BUN (test code = 2208) 15 MG/DL CREATININE (test code = 2214) 0.84 MG/DL eGFR AMER. (test code 130 ML/MIN/1.73 = 77589) eGFR NON- AMER. (test 112 ML/MIN/1.73 code = 93952) CALC BUN/CREAT (test code = 18 RATIO 2235) SODIUM (test code = 2231) 137 MEQ/L POTASSIUM (test code = 2228) 4.4 MEQ/L CHLORIDE (test code = 2215) 102 MEQ/L CARBON DIOXIDE (test code = 23 MEQ/L 2205) CALCIUM (test code = 2209) 9.0 MG/DL PROTEIN, TOTAL (test code = 7.0 G/DL 2228) ALBUMIN (test code = 2201) 4.6 G/DL CALC GLOBULIN (test code = 2.4 G/DL 2240) CALC A/G RATIO (test code = 1.9 RATIO 2234) BILIRUBIN, TOTAL (test code = 0.3 MG/DL 2206) ALKALINE PHOSPHATASE (test 102 U/L code = 2204) AST (test code = 2218) 18 U/L ALT (test code = 2219) 10 U/L LIPID [id number] 00:00:00 Test Item Value Reference Range Interpretation Comments CHOLESTEROL (test code = 2210) 306 MG/DL TRIGLYCERIDES (test code = 2232) 1458 MG/DL HDL CHOLESTEROL (test code = 18 MG/DL 2219) CALC LDL CHOL (test code = 2237) (NOTE) MG/DL RISK RATIO LDL/HDL (test code = (NOTE) RATIO 2238) LIPID [id number] 00:00:00 Test Item Value Reference Range Interpretation Comments CHOLESTEROL (test code = 2210) 306 MG/DL TRIGLYCERIDES (test code = 2232) 1458 MG/DL HDL CHOLESTEROL (test code = 18 MG/DL 2220) CALC LDL CHOL (test code = 2237) (NOTE) MG/DL RISK RATIO LDL/HDL (test code = (NOTE) RATIO 2238) COMPREHENSIVE METABOLIC [id number] 00:00:00 Test Item Value Reference Range Interpretation Comments GLUCOSE (test code = 2217) 92 MG/DL BUN (test code = 2208) 14 MG/DL CREATININE (test code = 2214) 0.83 MG/DL eGFR AMER. (test code 130 ML/MIN/1.73 = 05968) eGFR NON- AMER. (test 112 ML/MIN/1.73 code = 98731) CALC BUN/CREAT (test code = 17 RATIO 2235) SODIUM (test code = 2231) 139 MEQ/L POTASSIUM (test code = 2228) 4.7 MEQ/L CHLORIDE (test code = 2215) 102 MEQ/L CARBON DIOXIDE (test code = 25 MEQ/L 2206) CALCIUM (test code = 2209) 9.5 MG/DL PROTEIN, TOTAL (test code = 7.3 G/DL 2228) ALBUMIN (test code = 2201) 4.2 G/DL CALC GLOBULIN (test code = 3.1 G/DL 2240) CALC A/G RATIO (test code = 1.4 RATIO 2234) BILIRUBIN, TOTAL (test code = <0.2 MG/DL 220) ALKALINE PHOSPHATASE (test 98 U/L code = 2204) AST (test code = 2218) 36 U/L ALT (test code = 2219) 28 U/L COMPREHENSIVE METABOLIC [id number] 00:00:00 Test Item Value Reference Range Interpretation Comments GLUCOSE (test code = 2217) 92 MG/DL BUN (test code = 2208) 14 MG/DL CREATININE (test code = 2214) 0.83 MG/DL eGFR AMER. (test code 130 ML/MIN/1.73 = 82866) eGFR NON- AMER. (test 112 ML/MIN/1.73 code = 37549) CALC BUN/CREAT (test code = 17 RATIO 2235) SODIUM (test code = 2231) 139 MEQ/L POTASSIUM (test code = 2228) 4.7 MEQ/L CHLORIDE (test code = 2215) 102 MEQ/L CARBON DIOXIDE (test code = 25 MEQ/L 2205) CALCIUM (test code = 2209) 9.5 MG/DL PROTEIN, TOTAL (test code = 7.3 G/DL 2228) ALBUMIN (test code = 2201) 4.2 G/DL CALC GLOBULIN (test code = 3.1 G/DL 2240) CALC A/G RATIO (test code = 1.4 RATIO 2234) BILIRUBIN, TOTAL (test code = <0.2 MG/DL 2206) ALKALINE PHOSPHATASE (test 98 U/L code = 2204) AST (test code = 2218) 36 U/L ALT (test code = 2219) 28 U/L LIPID [id number] 00:00:00 Test Item Value Reference Range Interpretation Comments CHOLESTEROL (test code = 2210) 261 MG/DL TRIGLYCERIDES (test code = 2232) 1248 MG/DL HDL CHOLESTEROL (test code = 22 MG/DL 2220) CALC LDL CHOL (test code = 2237) (NOTE) MG/DL RISK RATIO LDL/HDL (test code = (NOTE) RATIO 2238) LIPID [id number] 00:00:00 Test Item Value Reference Range Interpretation Comments CHOLESTEROL (test code = 2210) 261 MG/DL TRIGLYCERIDES (test code = 2232) 1248 MG/DL HDL CHOLESTEROL (test code = 22 MG/DL 2220) CALC LDL CHOL (test code = 2237) (NOTE) MG/DL RISK RATIO LDL/HDL (test code = (NOTE) RATIO 2238) COMPREHENSIVE METABOLIC [id number] 00:00:00 Test Item Value Reference Range Interpretation Comments GLUCOSE (test code = 2217) 92 MG/DL BUN (test code = 2208) 14 MG/DL CREATININE (test code = 2214) 0.83 MG/DL eGFR AMER. (test code 130 ML/MIN/1.73 = 45187) eGFR NON- AMER. (test 112 ML/MIN/1.73 code = 77902) CALC BUN/CREAT (test code = 17 RATIO 2235) SODIUM (test code = 2231) 139 MEQ/L POTASSIUM (test code = 2228) 4.7 MEQ/L CHLORIDE (test code = 2215) 102 MEQ/L CARBON DIOXIDE (test code = 25 MEQ/L 2205) CALCIUM (test code = 2209) 9.5 MG/DL PROTEIN, TOTAL (test code = 7.3 G/DL 2228) ALBUMIN (test code = 2201) 4.2 G/DL CALC GLOBULIN (test code = 3.1 G/DL 2240) CALC A/G RATIO (test code = 1.4 RATIO 2234) BILIRUBIN, TOTAL (test code = <0.2 MG/DL 2206) ALKALINE PHOSPHATASE (test 98 U/L code = 220) AST (test code = 2218) 36 U/L ALT (test code = 2219) 28 U/L COMPREHENSIVE METABOLIC [id number] 00:00:00 Test Item Value Reference Range Interpretation Comments GLUCOSE (test code = 2217) 92 MG/DL BUN (test code = 2208) 14 MG/DL CREATININE (test code = 2214) 0.83 MG/DL eGFR AMER. (test code 130 ML/MIN/1.73 = 84647) eGFR NON- AMER. (test 112 ML/MIN/1.73 code = 18767) CALC BUN/CREAT (test code = 17 RATIO 2234) SODIUM (test code = 2231) 139 MEQ/L POTASSIUM (test code = 2228) 4.7 MEQ/L CHLORIDE (test code = 2215) 102 MEQ/L CARBON DIOXIDE (test code = 25 MEQ/L 2205) CALCIUM (test code = 2209) 9.5 MG/DL PROTEIN, TOTAL (test code = 7.3 G/DL 2228) ALBUMIN (test code = 2201) 4.2 G/DL CALC GLOBULIN (test code = 3.1 G/DL 2240) CALC A/G RATIO (test code = 1.4 RATIO 2234) BILIRUBIN, TOTAL (test code = <0.2 MG/DL 2206) ALKALINE PHOSPHATASE (test 98 U/L code = 2204) AST (test code = 2218) 36 U/L ALT (test code = 2219) 28 U/L LIPID [id number] 00:00:00 Test Item Value Reference Range Interpretation Comments CHOLESTEROL (test code = 2210) 261 MG/DL TRIGLYCERIDES (test code = 2232) 1248 MG/DL HDL CHOLESTEROL (test code = 22 MG/DL 2220) CALC LDL CHOL (test code = 2237) (NOTE) MG/DL RISK RATIO LDL/HDL (test code = (NOTE) RATIO 2238) LIPID [id number] 00:00:00 Test Item Value Reference Range Interpretation Comments CHOLESTEROL (test code = 2210) 261 MG/DL TRIGLYCERIDES (test code = 2232) 1248 MG/DL HDL CHOLESTEROL (test code = 22 MG/DL 2220) CALC LDL CHOL (test code = 2237) (NOTE) MG/DL RISK RATIO LDL/HDL (test code = (NOTE) RATIO 2238) COMPREHENSIVE METABOLIC [id number] 00:00:00 Test Item Value Reference Range Interpretation Comments GLUCOSE (test code = 2217) 92 MG/DL BUN (test code = 2208) 14 MG/DL CREATININE (test code = 2214) 0.83 MG/DL eGFR AMER. (test code 130 ML/MIN/1.73 = 92612) eGFR NON- AMER. (test 112 ML/MIN/1.73 code = 44608) CALC BUN/CREAT (test code = 17 RATIO 2235) SODIUM (test code = 2231) 139 MEQ/L POTASSIUM (test code = 2228) 4.7 MEQ/L CHLORIDE (test code = 2215) 102 MEQ/L CARBON DIOXIDE (test code = 25 MEQ/L 220) CALCIUM (test code = 2209) 9.5 MG/DL PROTEIN, TOTAL (test code = 7.3 G/DL 2228) ALBUMIN (test code = 2201) 4.2 G/DL CALC GLOBULIN (test code = 3.1 G/DL 2240) CALC A/G RATIO (test code = 1.4 RATIO 2234) BILIRUBIN, TOTAL (test code = <0.2 MG/DL 2206) ALKALINE PHOSPHATASE (test 98 U/L code = 2204) AST (test code = 2218) 36 U/L ALT (test code = 2219) 28 U/L COMPREHENSIVE METABOLIC [id number] 00:00:00 Test Item Value Reference Range Interpretation Comments GLUCOSE (test code = 2217) 92 MG/DL BUN (test code = 2208) 14 MG/DL CREATININE (test code = 2214) 0.83 MG/DL eGFR AMER. (test code 130 ML/MIN/1.73 = 89048) eGFR NON- AMER. (test 112 ML/MIN/1.73 code = 66516) CALC BUN/CREAT (test code = 17 RATIO 2235) SODIUM (test code = 2231) 139 MEQ/L POTASSIUM (test code = 2228) 4.7 MEQ/L CHLORIDE (test code = 2215) 102 MEQ/L CARBON DIOXIDE (test code = 25 MEQ/L 220) CALCIUM (test code = 2209) 9.5 MG/DL PROTEIN, TOTAL (test code = 7.3 G/DL 2228) ALBUMIN (test code = 2201) 4.2 G/DL CALC GLOBULIN (test code = 3.1 G/DL 2240) CALC A/G RATIO (test code = 1.4 RATIO 2234) BILIRUBIN, TOTAL (test code = <0.2 MG/DL 2206) ALKALINE PHOSPHATASE (test 98 U/L code = 2204) AST (test code = 2218) 36 U/L ALT (test code = 2219) 28 U/L LIPID [id number] 00:00:00 Test Item Value Reference Range Interpretation Comments CHOLESTEROL (test code = 2210) 261 MG/DL TRIGLYCERIDES (test code = 2232) 1248 MG/DL HDL CHOLESTEROL (test code = 22 MG/DL 2220) CALC LDL CHOL (test code = 2237) (NOTE) MG/DL RISK RATIO LDL/HDL (test code = (NOTE) RATIO 2238) LIPID [id number] 00:00:00 Test Item Value Reference Range Interpretation Comments CHOLESTEROL (test code = 2210) 261 MG/DL TRIGLYCERIDES (test code = 2232) 1248 MG/DL HDL CHOLESTEROL (test code = 22 MG/DL 2220) CALC LDL CHOL (test code = 2237) (NOTE) MG/DL RISK RATIO LDL/HDL (test code = (NOTE) RATIO 2238) XR CHEST 1 [id number] 15:10:55HISTORY: Cough. TECHNIQUE: Portable AP erect view [...] CONCLUSIONS: No signs of acute cardiopulmonary disease. [facility] / [facility] - DRUG SCREEN [id number] 15:06:33 Test Item Value Reference Range Interpretation Comments BENZO U (test code = Negative Negative 6808743139) HARRIETT U (test code = Negative Negative 6086923020) AMPHET (test code = Presumptive Positive Negative A 9000984485) THC (test code = Negative Negative 7460417551) METHADONE (test code = Negative Negative 3749229044) Meth U (test code = Presumptive Positive Negative A 6208885172) OPIATES (test code = Negative Negative 7955893844) Cocaine Metabolite (test Negative Negative code = 5511408367) PROPOXY (test code = Negative Negative 1630234994) Tric U (test code = Negative Negative 8670767090) PCP (test code = Negative Negative 5944502033) OXYCOD (test code = Negative Negative 2071433185) LOUIE (test code = LOUIE) Urine Drug [...] testing). Lab Interpretation (test Abnormal code = 79820-7) [facility] [id number] 14:41:43 Test Item Value Reference Range Interpretation Comments TSH (test code = See_Comment [Automated message] [id number]) The system [employer] generated this result transmitted ref erence range: 0.45 - 4 .70 mIU/L. The refe rence range was not u sed to interpret this result as normal/abnor mal. Lab Interpretation (test Normal code = 69602-0) [facility] 14:13:20 Test Item Value Reference Range Interpretation Comments MAGNESIUM (test code = 1769123447) 1.7 mg/dL 1.7-2.4 Lab Interpretation (test code = Normal 54566-8) [facility] (ID NOW RAPID TESTING)2020-08-21 14:13:20 Test Item Value Reference Range Interpretation Comments SARS-CoV-2 Rapid ID NOW Not Detected Not Detected (test code = 19504-9) LOUIE (test code = LOUIE) ID NOW COVID-19 Assay is an isothermal nucleic acid amplification test intended for the qualitative detection of nucleic acid from SARS-CoV-2 viral RNA in nasopharyngeal ([employer] SAL[employer]) specimens. It is used under Emergency Use [...] indicated. Lab Interpretation Normal (test code = 53475-4) [facility] Metabolic Panel (NA, K, CL, CO2, GLUCOSE, BUN, CREATININE, CA)2020-08-21 14:13:15 Test Item Value Reference Range Interpretation Comments NA (test code = 138 mmol/L 135-145 3846695367) K (test code = 3.8 mmol/L 3.5-5.0 1632006154) CL (test code = 108 mmol/L 98-108 7417937916) CO2 TOTAL (test code = 23 mmol/L 23-31 4626918067) AGAP (test code = 2-16 8701101688) BUN (test code = 14 mg/dL 7-23 2306135244) GLUCOSE (test code = 123 mg/dL 70-110 H 0639015316) CREATININE (test code = 0.83 mg/dL 0.60-1.25 2790667784) CALCIUM (test code = 8.7 mg/dL 8.6-10.6 8918636440) eGFR Calculation mL/min/1.73m2 (Non-) (test code = 4095362010) eGFR Calculation mL/min/1.73m2 () (test code = 2380022186) LOUIE (test code = LOUIE) Association of [...] tests). Lab Interpretation Abnormal (test code = 66085-1) [facility] (ALB, T.PRO, BILI T, BU/BC, ALT, AST, ALK PHOS)2020-08-21 14:13:15 Test Item Value Reference Range Interpretation Comments TOTAL BILI (test code = 6484083561) 0.5 mg/dL 0.1-1.1 BILI UNCON (test code = 1222071745) 0.3 mg/dL 0.1-1.1 BILI CONJ (test code = 7840126549) 0.0 mg/dL 0.0-0.3 T PROTEIN (test code = [id number]) 7.1 g/dL 6.3-8.2 ALBUMIN (test code = 2162664200) 4.2 g/dL 3.5-5.0 ALK PHOS (test code = 6129620839) 93 U/L 34-122 ALTv (test code = 1742-6) 21 U/L 5-50 AST(SGOT) (test code = 9392026344) 25 U/L 13-40 Lab Interpretation (test code = Normal 03413-9) [facility] [id number] 14:13:14 Test Item Value Reference Range Interpretation Comments CK (test code = 5748667410) 74 U/L 33-194 Lab Interpretation (test code = Normal 46485-9) [facility]IS2021-03-30 14:12:24 Test Item Value Reference Range Interpretation Comments APPEARANCE (test code = Hazy Clear A 7008615821) COLOR (test code = Yellow Yellow 9425606876) PH (test code = 4.8-8.0 3845202873) SP GRAVITY (test code = 1.003-1.030 0587011827) GLU U QUAL (test code = Normal Normal 6077447553) BLOOD (test code = 1+ Negative A 6412494769) KETONES (test code = Negative Negative 3735564177) PROTEIN (test code = 30 mg/dL Negative A 2887-8) UROBILIN (test code = 2.0 mg/dL Normal A 8927270842) BILIRUBIN (test code = Negative Negative 3277118292) NITRITE (test code = Negative Negative 7717772005) LEUK DEANGELO (test code = 25/uL Negative A 9084422201) RBC/HPF (test code = See_Comment H [Autom ated message] 9677619555) The system [employer] generated this result transmit bahman reference range : 0 - 3 HPF. The refe rence range was not u sed to interpret th is result as normal/abnormal . WBC/HPF (test code = See_Comment [Autom ated message] 0600353168) The system [employer] generated this result transmit bahman reference range : 0 - 5 HPF. The refe rence range was not u sed to interpret th is result as normal/abnormal . BACTERIA (test code = Few Negative A 2539483920) MUCOUS (test code = Slight Negative LPF A 9812490376) AMORPHOUS (test code = Few Rare HPF A 8778170363) CA OXALATE (test code = See_Comment [Au tomated message] 2235670539) The system [employer] generated this result transmit bahman reference range : <=1 HPF. The refere nce range was not u sed to interpret th is result as normal/abnormal . YEAST BUD (test code = <1 See_Comment [Aut omated message] 8238668624) The system [employer] generated this result transmit bahman reference range : <=1 HPF. The refere nce range was not u sed to interpret th is result as normal/abnormal . Lab Interpretation (test Abnormal code = 40765-6) [facility] with [id number] 13:52:37 Test Item Value Reference Range Interpretation Comments WBC (test code = See_Comment H [Automated 1490-2) message] The sy stem which generated this result transmitted reference range : 4.20 - 10.70 10*3/?L. The reference range was not used to interpret this result as normal/abnormal . RBC (test code = See_Comment H [Automated 119-8) message] The sy stem which generated this [...] RDW-SD (test code = 40.7 fL 38.5-51.6 45123-9) RDW-CV (test code = 13.2 % 12.1-15.4 788-0) PLT (test code = See_Comment [Automated 777-3) message] The sy stem which generated this result transmitted reference range : 150 - 328 10*3/ ?L. The reference r marge was not used to interpret this result as normal/abnormal . MPV (test code = 10.1 fL 9.8-13.0 01693-9) NRBC/100 WBC (test See_Comment [Automat ed code = 6787873001) message] The system which generated this result transmitted reference range : 0.0 - 10.0 /100 WBCs. The refer ence range was not u sed to interpret th is result as normal/abnormal . NRBC x10^3 (test code <0.01 See_Comment [Auto mated = 4580359461) message] The s ystem which generated this result transmitted reference range : 10*3/?L. The reference range was not used to interpret this result as normal/abnormal . GRAN MAT (NEUT) % 63.6 % (test code = 770-8) IMM GRAN % (test code 0.40 % = 9465732352) LYMPH % (test code = 30.0 % 736-9) MONO % (test code = 5.2 % 5905-5) EOS % (test code = 0.4 % 713-8) BASO % (test code = 0.4 % 706-2) GRAN MAT x10^3(ANC) 7.15 10*3/uL 1.99-6.95 H (test code = 9653851231) IMM GRAN x10^3 (test 0.05 10*3/uL 0.00-0.06 code = 1400223743) LYMPH x10^3 (test code 3.38 10*3/uL 1.09-3.23 H = 731-0) MONO x10^3 (test code 0.59 10*3/uL 0.36-1.02 = 742-7) EOS x10^3 (test code = 0.04 10*3/uL 0.06-0.53 L 711-2) BASO x10^3 (test code 0.05 10*3/uL 0.01-0.09 = 704-7) Lab Interpretation Abnormal (test code = 60245-1) [facility] HospitalTROPONIN [id number] 04:53:00 Test Item Value Reference Range Interpretation Comments TROPONIN I (test 0.001 ng/mL See_Comment [Automated code = 5109078808) message] The system which generated this result [...] ? Lab Interpretation Normal (test code = 23214-8) [facility]XR [facility]ST 1 [id number] 04:43:03 No acute intrathoracic abnormality. Preliminary Report Dictated by Resident: Rome Mendoza MD., have reviewed this study and agree with theabove report.PROCEDURE: XR CHEST 1 VW CLINICAL INDICATION: cp COMPARISON: Chest x-ray dated 05/13/2018. FINDINGS: The lungs are clear. No pleural effusion or pneumothorax is seen. The heartis normal in size. No acutebony abnormality. [facility], Radiant Results Inft User - 02/16/2020 11:44 PM CDTPROCEDURE: XR CHEST 1 VWCLINICAL INDICATION: cp COMPARISON: Chest x-ray dated 05/13/2018.FINDINGS:The lungs are clear. No pleural effusion or pneumothorax is seen. The heartis normal in size.No acute bony abnormality.IMPRESSIONNo acute intrathoracic abnormality.Preliminary Report Dictated by Resident: Yuridia Westfall, Rome Soria MD., have reviewed this study and agree with theabove report.[facility]TROPON[facility] I 2020-02-17 02:14:00 Test Item Value Reference Range Interpretation Comments TROPONIN I (test 0.001 ng/mL See_Comment [Automated code = 7539195554) message] The system which generated this result [...] ? Lab Interpretation Normal (test code = 05646-6) [facility] HospitalCOMP. METABOLIC PANEL (99436)2020-02-17 02:03:00 Test Item Value Reference Range Interpretation Comments NA (test code = 139 mmol/L 135-145 3888118990) K (test code = 3.9 mmol/L 3.5-5 2611589486) CL (test code = 105 mmol/L 98-108 2829716033) CO2 TOTAL (test code = 25 mmol/L 23-31 6303438424) AGAP (test code = 2-16 5967343683) BUN (test code = 19 mg/dL 7-23 7255150526) GLUCOSE (test code = 115 mg/dL 70-110 H 0937826109) CREATININE (test code = 1.06 mg/dL 0.6-1.25 1339189511) TOTAL BILI (test code = 0.4 mg/dL 0.1-1.5 8159490264) CALCIUM (test code = 9.3 mg/dL 8.6-10.6 8381734097) T PROTEIN (test code = 7.5 g/dL 6.3-8.2 4099455700) ALBUMIN (test code = 4.1 g/dL 3.5-5 8271565386) ALK PHOS (test code = 88 U/L 34-122 5259862765) ALTv (test code = 20 U/L 5-50 1742-6) AST(SGOT) (test code = 28 U/L 13-40 1990043414) eGFR Calculation mL/min/1.73m2 (Non-) (test code = 6535665047) eGFR Calculation mL/min/1.73m2 () (test code = 4139035482) LOUIE (test code = LOUIE) Association of [...] tests). Lab Interpretation Abnormal (test code = 71056-9) [facility] HospitalLIPASE, [id number] 02:03:00 Test Item Value Reference Range Interpretation Comments LIPASE (test code = 9528223038) 85 U/L 0-220 Lab Interpretation (test code = Normal 87975-7) [facility] HospitalaPTT2020-09-25 01:50:00 Test Item Value Reference Range Interpretation Comments APTT Patient (test See_Comment [Automat ed code = 3173-2) message] The system which generated this result transmitted reference range : 23 - 38 Seconds . The reference range was not used to interpr et this result as normal/abnormal . LOUIE (test code = LOUIE) The [facility] patient population mean normal value for aPTT is 30 seconds. Lab Interpretation Normal (test code = 27577-7) [facility] HospitalPROTHROMBIN TIME / [id number] 01:48:00 Test Item Value Reference Range Interpretation [...] tions. Lab Interpretation (test Abnormal code = 39188-5) [facility] WITH [id number] 01:36:00 Test Item Value Reference Range Interpretation [...] RDW-SD (test code = 42.9 fL 38.5-51.6 94240-7) RDW-CV (test code = 13.8 % 12.1-15.4 788-0) PLT (test code = See_Comment [Automated 777-3) message] The sy stem which generated this result transmitted reference range : 150 - 328 10*3/ ?L. The reference r mrage was not used to interpret this result as normal/abnormal . MPV (test code = 11.3 fL 9.8-13 90436-7) NRBC/100 WBC (test See_Comment [Automat ed code = 6313918459) message] The system which generated this result transmitted reference range : 0.0 - 10.0 /100 WBCs. The refer ence range was not u sed to interpret th is result as normal/abnormal . NRBC x10^3 (test code <0.01 See_Comment [Auto mated = 4217746279) message] The s ystem which generated this result transmitted reference range : 10*3/?L. The reference range was not used to interpret this result as normal/abnormal . GRAN MAT (NEUT) % 62.6 % (test code = 999-8) IMM GRAN % (test code 0.40 % = 7645786001) LYMPH % (test code = 31.0 % 736-9) MONO % (test code = 5.2 % 5905-5) EOS % (test code = 0.4 % 713-8) BASO % (test code = 0.4 % 706-2) GRAN MAT x10^3(ANC) 7.04 10*3/uL 1.99-6.95 H (test code = 4774208820) IMM GRAN x10^3 (test 0.04 10*3/uL 0-0.06 code = 2090575757) LYMPH x10^3 (test code 3.49 10*3/uL 1.09-3.23 H = 731-0) MONO x10^3 (test code 0.59 10*3/uL 0.36-1.02 = 742-7) EOS x10^3 (test code = 0.04 10*3/uL 0.06-0.53 L 711-2) BASO x10^3 (test code 0.05 10*3/uL 0.01-0.09 = 704-7) Lab Interpretation Abnormal (test code = 64942-8) [facility] HospitalADC,CLC OR [facility] ONLY - INFLUENZA A & B DIRECT [id number] 23:48:00 Test Item Value Reference Range Interpretation Comments Influenza A (test code = 91780-3) Negative Negative Influenza B (test code = 83082-2) Negative Negative Lab Interpretation (test code = Normal 09418-6) [facility] HospitalRAPID STREP SCREEN FOR GROUP [id number] 23:32:00 Test Item Value Reference Range Interpretation Comments Streptococcus pyogenes (group A) Negative Negative antigen (test code = 63480-2) Lab Interpretation (test code = Normal 37693-2) [facility]"
--- NOTE | 2022-08-06 20:15 | RAD REPORT ---
EXAM DESCRIPTION: RAD - Knee Right 3 View - 08/06/2022 8:08 pm CLINICAL HISTORY: PAIN COMPARISON: No comparisons FINDINGS: No acute fracture or dislocation is seen. Small suprapatellar joint effusion.
--- NOTE | 2022-08-06 20:44 | RAD REPORT ---
EXAM DESCRIPTION: US - Extremity Venous Uni Ltd - 08/06/2022 8:39 pm CLINICAL HISTORY: PAIN Leg swelling and edema. COMPARISON: No comparisons FINDINGS: Right lower extremity venous system was interrogated with Doppler technique. Normal flow, compressibility and augmentation was noted. There is no DVT present. IMPRESSION: No evidence of right lower extremity deep venous thrombosis.
[2022-08-06] MEDS ORDERED: HYDROCODONE/APAP 7.5/325 MG TAB ONE (21:43)
[2022-08-06] MEDS ORDERED: IBUPROFEN 400 MG TAB ONE (21:44)
--- NOTE | 2022-08-06 21:51 | EDPHYS ---
Physician Documentation [facility] Name: Raza Causey Age: 37 yrs Sex: Male : 1985 Arrival Date: 08/06/2022 Time: 19:19 Bed 16 Private MD: ED Physician Austyn Cervantes HPI: 08/06 20:05 This 37 yrs old Male presents to ER via Ambulatory with complaints of Knee cp Pain. 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 - Social history:: Smoking status: Patient reports the use of cigarette tobacco products, smokes one-half pack cigarettes per day. ROS: 20:10 MS/extremity: Positive for pain, swelling, tenderness, of the right knee. cp Vital Signs: 19:41 BP 133 / 87; Pulse 82; Resp 17; Temp 98.1; Pulse Ox 100% ; Weight 88.9 kg; Height 5 ft. mb9 9 in. ; Pain 7/10; 21:31 BP 110 / 83; Pulse 64; Resp 17; Pulse Ox 98% ; vc1 19:41 Body Mass Index 28.94 (88.90 kg, 175.26 cm) mb9 19:41 Pain Scale: Adult mb9 MDM: 19:48 Patient medically screened. cp 08/06 19:56 Order name: XRAY Knee RIGHT 3 view; Complete Time: 21:30 cp 08/06 19:56 Order name: US Extremity Venous Unilateral Ltd; Complete Time: 21:30 cp 08/06 21:30 Order name: Sancho wrap-joint; Complete Time: 21:43 cp Administered Medications: 21:42 Drug: Hydrocodone-Acetaminophen PO (7.5 mg-325 mg) 1 tabs Route: PO; vc1 21:42 Drug: Ibuprofen PO 800 mg Route: PO; vc1 Disposition Summary: 08/06/22 21:51 Discharge Ordered Location: Home cp Problem: new cp Symptoms: have improved cp Condition: Stable cp Diagnosis - Pain in right knee cp Followup: cp - With: Sander Hightower MD - When: 1 week - Reason: symptoms continue Forms: - Medication Reconciliation Form cp - Thank You Letter cp - Antibiotic Education cp - Prescription Opioid Use cp Signatures: Dispatcher [employer] EDSouth Rabago PA PA cp Calcote, Vanessa RN RN vc1 Gloria Deleon RN RN mb9
--- NOTE | 2022-08-06 21:51 | ER ---
Nurse's Notes [facility] Name: Raza Causey Age: 37 yrs Sex: Male : 1985 Arrival Date: 08/06/2022 Time: 19:19 Bed 16 Private MD: Diagnosis: Pain in right knee Presentation: 08/06 19:41 Chief complaint: Patient states: "My right knee started hurting Thursday morning. The mb9 pain is getting worse and is traveling up my right leg.". Coronavirus screen: At this time, the client does not indicate any symptoms associated with coronavirus-19. Ebola Screen: No symptoms or risks identified at this time. Initial Sepsis Screen: Does the patient meet any 2 criteria? No. Patient's initial sepsis screen is negative. Does the patient have a suspected source of infection? No. Patient's initial sepsis screen is negative. Risk Assessment: Do you want to hurt yourself or someone else? Patient reports no desire to harm self or others. Onset of symptoms was August 03, 2022. 19:41 Method Of Arrival: Ambulatory [facility] 19:41 Acuity: DEBO 4 mb9 Triage Assessment: 21:29 General: Appears in no apparent distress. uncomfortable, Behavior is calm, cooperative, vc1 appropriate for age. Pain: Complains of pain in right knee Pain does not radiate. 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 - Social history:: Smoking status: Patient reports the use of cigarette tobacco products, smokes one-half pack cigarettes per day. Screenin:28 [facility] ED Fall Risk Assessment (Adult) History of falling in the last 3 months, vc1 including since admission No falls in past 3 months (0 pts) Confusion or Disorientation No (0 pts) Intoxicated or Sedated No (0 pts) Impaired Gait No (0 pts) Mobility Assist Device Used No (0 pt) Altered Elimination No (0 pt) Score/Fall Risk Level 0 - 2 = Low Risk Oriented to surroundings, Maintained a safe environment. Abuse screen: Denies threats or abuse. Nutritional screening: No deficits noted. Tuberculosis screening: No symptoms or risk factors identified. Vital Signs: 19:41 BP 133 / 87; Pulse 82; Resp 17; Temp 98.1; Pulse Ox 100% ; Weight 88.9 kg; Height 5 ft. mb9 9 in. ; Pain 7/10; 21:31 BP 110 / 83; Pulse 64; Resp 17; Pulse Ox 98% ; vc1 19:41 Body Mass Index 28.94 (88.90 kg, 175.26 cm) mb9 19:41 Pain Scale: Adult mb9 ED Course: 19:19 Patient arrived in ED. ag3 19:32 [place] PA is PHCP. cp 19:32 Austyn Cervantes MD is Attending Physician. cp 19:44 Triage completed. mb9 19:46 Arm band placed on. mb9 20:09 XRAY Knee RIGHT 3 view In Process Unspecified. EDMS 20:41 US Extremity Venous Unilateral Ltd In Process Unspecified. EDMS 21:28 Alaina Rico, RN is Primary Nurse. vc1 21:31 Patient has correct armband on for positive identification. Bed in low position. Pulse vc1 ox on. NIBP on. 21:50 Sander Hightower MD is Referral Physician. cp Administered Medications: 21:42 Drug: Hydrocodone-Acetaminophen PO (7.5 mg-325 mg) 1 tabs Route: PO; vc1 21:42 Drug: Ibuprofen PO 800 mg Route: PO; vc1 Medication: 19:46 VIS not applicable for this client. mb9 Outcome: 21:51 Discharge ordered by . cp Signatures: Dispatcher [employer] EDMS [place] Gonzalez PA PA cp Janeth Sandhu ag3 Alaina Rico, RN RN vc1 Gloria Deleon RN RN mb9 Corrections: (The following items were deleted from the chart) 19:46 19:41 Pulse 82bpm; Resp 17bpm; Pulse Ox 100%; Temp 98.1F; 88.9 kg; Height 5 ft. 9 in.; mb9 BMI: 28.9; Pain 7/10, Adult; mb9
[2022-08-07 06:09] VITALS: TEMP 98.1
[2022-08-07 06:10] VITALS: BP 110/83; O2SAT 98
== END 2022-08-06 22:13 | disposition home or self-care (01) ==
LOC: ER 19:18
DX: M25.561 Pain in right knee (principal)
CPT/HCPCS: 93971

== ENCOUNTER 2022-11-23 17:46 | Emergency (ER) | payer SELFPAY ==
--- OUTSIDE RECORDS SUMMARY | 2022-11-23 17:51 | XMS REPORT | Continuity of Care Document ---
:1985 Author Organization [facility] t Address [address] [facility] [address] [place] [address] Care Team Providers Name Role Phone Caitlyn DRISCOLL Maddy Primary Care Physician [phone] Erickson Sol MD Attending Clinician ERICKSON SOL Attending Clinician Unavailable Doctor Unassigned, [place] Attending Clinician Unavailable Ziggy Alva Attending Clinician Siobhan Covarrubias Attending Clinician Payers Payer Name Policy Type Policy Number Effective Date Expiration Date S [facility] [id number] 2019 00:00:00 Problems Condition Condition Condition Status Onset Resolution Last Treating Co mments Source Name Details Category Date Date Treatment Clinician Date No known No known Disease Unive rs active active ity of problems problems [facility] Allergies, Adverse Reactions, Alerts Allergy Allergy Status Severity Reaction(s) Onset Inactive Treating Comm ents Source Name Type Date Date Clinician NO KNOWN Drug Active Univers ALLERGIE Class ity of S [facility] Social History Social Habit Start Date Stop Date Quantity Comments Source Exposure to Not sure [facility] SARS-CoV-2 (event) Medica l Branch Sex Assigned At [birth year] [facility] 00:00:00 00:00:00 Medical Branch Smoking Status Start Date Stop Date Source Unknown if ever smoked [facility] Medications Ordered Filled Start Stop Current [...] IV Medical Piggyback, Branch ONCE, 1 dose, [facility] 08/21/20 at 1045, STAT ketorolac 2019- No 30mg 30 mg, Unive rs (TORADOL) 02-16 09-25 Slow IV ity of injection 05:15: 04:03 Push, [place] 30 mg 00 :00 ONCE, 1 Medical dose, Fri Branch 02/17/20 at 0015, JONAS
[facility] Rest[facility] : Ziggy SAN ibuprofen 2019-0 Yes [id number] 600mg Take 1 Un ana maria 600 mg 9-25 tablet by ity of tablet 00:00: mouth [place] 00 every 6 Medical (six) Branch hours as needed for Pain (scale 4-6). ibuprofen 2019- Yes [id number] 600mg Take 1 Un ana maria 600 mg 9-25 tablet by ity of tablet 00:00: mouth [place] 00 every 6 Medical (six) Branch hours as needed for Pain (scale 4-6). ibuprofen 2019-0 Yes [id number] 600mg Take 1 Un ana maria 600 mg 9-25 tablet by ity of tablet 00:00: mouth [place] 00 every 6 Medical (six) Branch hours as needed for Pain (scale 4-6). ibuprofen 2020- No 800mg 800 mg, Uni vers (IBU) 06-12 Oral, ity of tablet 800 23:45: 22:54 ONCE, 1 Shyam as mg 00 :00 dose, [facility] 06/12/19 at Branch 1745, [facility] amoxicillin 2020- No [id number] 875mg Take 1 Univers 875 mg 06-1230 tablet by ity of tablet 00:00: 05:59 mouth 2 [place] 00 :00 (two) Medical times Branch daily for 10 days. oseltamivir 2020- No [id number] 75mg Take 1 Univers 75 mg 06-1225 capsule by ity of capsule 00:00: 05:59 mouth 2 [place] 00 :00 (two) Medical times Branch daily for 5 days. albuterol 2018-05 Yes [id number] 2.5mg Inhale 3 Univers 2.5 mg /3 1-12 mL every 4 ity of mL (0.083 00:00: (four) [place] %) 00 hours as Medical nebulizer needed for Bran ch solution Wheezing or Shortness of Breath. albuterol 2018-05 Yes [id number] 2.5mg Inhale 3 Univers 2.5 mg /3 1-12 mL every 4 ity of mL (0.083 00:00: (four) [place] %) 00 hours as Medical nebulizer needed for Bran ch solution Wheezing or Shortness of Breath. albuterol 2018-05 Yes [id number] 2.5mg Inhale 3 Univers 2.5 mg /3 1-12 mL every 4 ity of mL (0.083 00:00: (four) [place] %) 00 hours as Medical nebulizer needed for Bran ch solution Wheezing or Shortness of Breath. albuterol 2018-05 Yes [id number] 2.5mg Inhale 3 Univers 2.5 mg /3 [...] ers ORAL 9-06 mouth. ity of 20:38: [address] LISINOPRIL 2018-0 Yes Take by Univ ers ORAL 9-06 mouth. ity of 20:38: [address] LISINOPRIL 2018-0 Yes Take by Univ ers ORAL 9-06 mouth. ity of 20:38: [address] LISINOPRIL 2018-0 Yes Take by Univ ers ORAL 9-06 mouth. ity of 20:38: [address] traMADOL 50 2018-0 Yes 50mg Take [...] 15:00:00 139 mm[Hg] Univer sity of pressure [place] [facility] Diastolic blood 2020-08-21 15:00:00 103 mm[Hg] Unive rsity of [facility] Branch Heart rate 2020-08-21 15:00:00 77 /min Universi ty of [place] [facility] Respiratory rate 2020-08-21 15:00:00 16 /min Univ ersity of [place] [facility] Oxygen saturation in 2020-08-21 15:00:00 96 /min University of Arterial blood by [facility] Pulse oximetry Branch Body temperature 2020-08-21 12:54:00 36.89 Gini Univ ersity of [facility] Body weight 2020-08-21 12:54:00 104.327 kg Universi ty of [place] [facility] BMI 2020-08-21 12:54:00 33.97 kg/m2 Universi ty of [facility] Branch Systolic blood 2020-08-21 15:00:00 139 mm[Hg] Univer sity of [facility] Branch Diastolic blood 2020-08-21 15:00:00 103 mm[Hg] Unive rsity of [facility] Branch Heart rate 2020-08-21 15:00:00 77 /min Universi ty of [place] [facility] Respiratory rate 2020-08-21 15:00:00 16 /min Univ ersity of [place] [facility] Oxygen saturation in 2020-08-21 15:00:00 96 /min University of Arterial blood by [facility] Pulse oximetry Branch Body temperature 2020-08-21 12:54:00 36.89 Gini Univ ersity of [place] [facility] Body weight 2020-08-21 12:54:00 104.327 kg Universi ty of [place] [facility] BMI 2020-08-21 12:54:00 33.97 kg/m2 Universi ty of [facility] Branch Systolic blood 2020-02-17 05:00:00 124 mm[Hg] Univer sity of pressure [facility] Branch Diastolic blood 2020-02-17 05:00:00 77 mm[Hg] Unive rsity of pressure [place] [facility] Heart rate 2020-02-17 05:00:00 65 /min Universi ty of [place] [facility] Respiratory rate 2020-02-17 05:00:00 16 /min Univ ersity of [place] [facility] Oxygen saturation in 2020-02-17 05:00:00 97 /min University of Arterial blood by [facility] Pulse oximetry Branch Body temperature 2020-02-17 01:13:00 36.78 Gini Univ ersity of [place] [facility] Body weight 2020-02-17 01:13:00 107.049 kg Universi ty of [place] [facility] BMI 2020-02-17 01:13:00 34.85 kg/m2 Universi ty of [place] [facility] Systolic blood 2020-02-17 05:00:00 124 mm[Hg] Univer sity of pressure [place] [facility] Diastolic blood 2020-02-17 05:00:00 77 mm[Hg] Unive rsity of pressure [place] [facility] Heart rate 2020-02-17 05:00:00 65 /min Universi ty of [place] [facility] Respiratory rate 2020-02-17 05:00:00 16 /min Univ ersity of [place] [facility] Oxygen saturation in 2020-02-17 05:00:00 97 /min University of Arterial blood by [facility] Pulse oximetry Branch Body temperature 2020-02-17 01:13:00 36.78 Gini Univ ersity of [place] [facility] Body weight 2020-02-17 01:13:00 107.049 kg Universi ty of [place] [facility] BMI 2020-02-17 01:13:00 34.85 kg/m2 Universi ty of [place] [facility] Body temperature 2019-06-13 00:13:36 37.22 Gini Univ ersity of [place] [facility] Systolic blood 2019-06-12 22:12:00 155 mm[Hg] Univer sity of pressure [place] [facility] Diastolic blood 2019-06-12 22:12:00 111 mm[Hg] Unive rsity of pressure [place] [facility] Heart rate 2019-06-12 22:12:00 111 /min Universi ty of [place] [facility] Respiratory rate 2019-06-12 22:12:00 18 /min Univ ersity of [place] [facility] Body height 2019-06-12 22:12:00 175.3 cm Universi ty of [place] [facility] Body weight 2019-06-12 22:12:00 102.513 kg Universi ty of [place] [facility] BMI 2019-06-12 22:12:00 33.37 kg/m2 Universi ty of [facility] Oxygen saturation in 2019-06-12 22:12:00 99 /min University of Arterial blood by [facility] Pulse oximetry Branch Body temperature 2019-06-13 00:13:36 37.22 Gini Univ ersity of [facility] Systolic blood 2019-06-12 22:12:00 155 mm[Hg] Univer sity of pressure [facility] Diastolic blood 2019-06-12 22:12:00 111 mm[Hg] Unive rsity of pressure [facility] Heart rate 2019-06-12 22:12:00 111 /min Universi ty of [facility] Respiratory rate 2019-06-12 22:12:00 18 /min [facility] Body height 2019-06-12 22:12:00 175.3 cm Universi ty of [facility] Body weight 2019-06-12 22:12:00 102.513 kg Universi ty of [facility] BMI 2019-06-12 22:12:00 33.37 kg/m2 Universi ty of [facility] Oxygen saturation in 2019-06-12 22:12:00 99 /min University of Arterial blood by [facility] Pulse oximetry Branch BP Systolic 2022-04-04 17:16:00 [...] Performed XR CHEST 1 VW 2020-08-21 15:08:40 [facility] CREATINE KINASE 2020-08-21 13:31:00 [facility] MAGNESIUM 2020-08-21 13:31:00 [facility] THYROID STIMULATING 2020-08-21 13:31:00 Erickson Sol [facility] HORMONE Medical Branch HEPATIC FUNCTION PANEL 2020-08-21 13:31:00 Erickson Sol [facility] ([id number]) (ALB,T.PRO,BILI Medical Branch T,BU/BC,ALT,AST,ALK PHOS) BASIC METABOLIC PANEL 2020-08-21 13:31:00 Erickson Sol [facility] (NA, K, CL, CO2, Medical Branch GLUCOSE, BUN, CREATININE, CA) CBC WITH DIFF 2020-08-21 13:31:00 Erickson Sol [facility] URINALYSIS 2020-08-21 13:31:00 Ebenezer [facility] ADC / LCC - DRUG SCREEN 2020-08-21 13:31[facility] COVID-19 (ID NOW RAPID 2020-08-21 13:31:00 Ebenezer Erickson [facility] TESTING) Medical Branch NOTICE OF PRIVACY 2020-08-21 12:46:36 Doctor Unassigned, No [facility] Name Medical [place] CONSENT/REFUSAL FOR 2020-08-21 12:46:21 [facility]assigned, [facility] TROPONIN I 2020-02-17 03:49:00 Ziggy [facility] XR CHEST 1 VW 2020-02-17 02:30:42 Ebenezer [facility] LIPASE 2020-02-17 01:21:00 Ebenezer [facility] TROPONIN I 2020-02-17 01:21:00 Ebenezer Erickson [facility] COMP. METABOLIC PANEL 2020-02-17 01:21:00 Erickson Sol [facility] ([id number]) Medical Branch CBC WITH DIFF 2020-02-17 01:21:00 Ebenezer Erickson [facility] PROTHROMBIN TIME / INR 2020-02-17 01:21:00 Erickson Sol [facility] ACTIVATED PARTIAL 2020-02-17 01:21:00 Ebenezer [facility] THRMPLAS AMY [facility] Branch EKG-12 LEAD 2020-02-17 01:18:35 Ebenezer [facility] NOTICE OF PRIVACY 2020-02-17 01:08:49 Doctor Unassigned, No Univ [facility] Name Medical Branch CONSENT/REFUSAL FOR 2020-02-17 01:08:34 Doctor Unassigned, No [facility] [place] [facility] Name Medical Branch RAPID STREP SCREEN FOR 2019-06-12 22:38:00 Siobhan Garza [facility] [place] GROUP A Medical Branch ADC,CLC OR LCC ONLY - 2019-06-12 22:38:00 Siobhan Garza [facility] [place] INFLUENZA A & B DIRECT Medical B ranch ANTIGEN CONSENT/REFUSAL FOR 2019-06-12 22:06:34 Doctor Unassigned, No Un [facility] [place] [facility] Name Medical Branch Plan of Care Planned Activity Planned Date Details Comments Source Goal Plan of Care Note [code = 16047-9] Goal Plan of Care Note [code = 79823-3] Goal Plan of Care Note [code = 83010-0] Goal Plan of Care Note [code = 45449-8] Goal Plan of Care Note [code = 39168-6] Goal Plan of Care Note [code = 11033-2] Goal Plan of Care Note [code = 95385-4] Goal Plan of Care Note [code = 42025-0] Goal Plan of Care Note [code = 84543-5] Goal Plan of Care Note [code = 39970-1] Goal Plan of Care Note [code = 89978-2] Goal Plan of Care Note [code = 20299-6] Goal Plan of Care Note [code = 41564-0] Goal Plan of Care Note [code = 97802-5] Goal Plan of Care Note [code = 25225-9] Goal Plan of Care Note [code = 99382-6] Goal Plan of Care Note [code = 59854-1] Goal Plan of Care Note [code = 45584-8] Goal Plan of Care Note [code = 16660-2] Goal Plan of Care Note [code = 75532-8] Goal Plan of Care Note [code = 87125-4] Goal Plan of Care Note [code = 79844-9] Goal Plan of Care Note [code = 00252-8] Goal Plan of Care Note [code = 30675-1] Goal Plan of Care Note [code = 81128-5] Goal Plan of Care Note [code = 68497-7] Goal Plan of Care Note [code = 61595-0] Goal Plan of Care Note [code = 11570-4] Goal Plan of Care Note [code = 65263-0] Goal Plan of Care Note [code = 57249-0] Goal Plan of Care Note [code = 33163-3] Goal Plan of Care Note [code = 66048-1] Goal Plan of Care Note [code = 46216-1] Goal Plan of Care Note [code = 51385-8] Goal Plan of Care Note [code = 31690-0] Goal Plan of Care Note [code = 98279-7] Goal Plan of Care Note [code = 57136-7] Goal Plan of Care Note [code = 83376-8] Goal Plan of Care Note [code = 69543-6] Goal Plan of Care Note [code = 13611-3] Goal Plan of Care Note [code = 38692-5] Goal Plan of Care Note [code = 43452-0] Goal Plan of Care Note [code = 63081-7] Goal Plan of Care Note [code = 49084-4] Goal Plan of Care Note [code = 31135-2] Goal Plan of Care Note [code = 25690-4] Encounters Start End Encounter Admission Attending Care Care Encounter Source Date/Time Date/Time Type Type Clinicians Facility Department ID 2022-07-11 2022-07-11 Outpatient SFA SFA [id number] Jose 08:00:18 08:00:18 [id number] F Reed 2022-07-08 2022-07-08 Outpatient SFA SFA [id number] Jose 16:50:35 16:50:35 [id number] F Reed 2022-04-07 2022-04-07 Outpatient SFA SFA [id number] Jose 08:15:31 08:15:31 [id number] F Reed 2022-04-04 2022-04-04 Outpatient SFA SFA [id number] Jose 17:00:04 17:00:04 [id number] F Reed 2022-04-04 2022-04-04 Outpatient [id number] 00:00:00 00:00:00 Visit p27k-35mm 27e-40ae-b -vp81-w86 w14-a77x33 e432hulg2 6daba5 2022-01-29 2022-01-29 Outpatient [id number] 00:00:00 00:00:00 Visit r945-700z 502-497e-8 -816f-d21 16f-d21d98 i64k9uy93 d1ed27 2022-01-06 2022-01-06 Outpatient [id number] 00:00:00 00:00:00 Visit 54b7-43eq 9l6-10gu-i -w2b4-837 9d4-636p68 [id number] 2020-08-21 2020-08-21 [id number] [facility] 07:58:00 10:27:00 Erickson Rangel 350.1.13.10 i ty [facility] 4.2.7.2.686 [facility] [id number] [address] 2020-08-21 2020-08-[address] [facility] [id number] 07:58:00 10:27:00 Erickson Rangel 350.1.13.10 [place] [address] [place] [address] [id number] 2020-08-21 2020-08-[address] [facility] ERT [id number] Univers 07:48:00 07:48:[address] [facility] 2020-08-21 2020-08-21 Orders Doctor ZHU [id number] 00:00:00 00:00:00 Only UnassignedLAUREN 350.1.13.[address] [facility] 4.2.7.2.686 [id number] 2020-08-21 2020-08-21 Orders Doctor ZHU [id number] [id number] Univers 00:00:00 00:00:00 Only UnassignedLAUREN 350.1.13.[address] [facility] 4.2.7.2.686 [facility] [id number] [address] 2020-02-16 2020-02-[address] [facility] [id number] 21:41:00 00:50:00 Jennifer Rangel 350.1.13.10 [place] 4.2.7.2.686 [place] [id number] [facility] 2020-02-16 2020-02-[address] [facility] 1.2.840.114 [id number] Univers 21:41:00 00:50:00 Jennifer Rangel 350.1.13.10 i ty of [place] 4.2.7.2.686 [facility] [id number] [address] 2020-02-16 2020-02-[address] [facility] ERT [id number] Univers 20:06:00 20:06:[address] [facility] 2019-06-12 2019-06-12 Emergency [facility] 1.2.840.114 [id number] 16:15:07 18:19:00 Siobhan Rangel 350.1.13.10 [place] 4.2.7.2.686 [place] [id number] [facility] 2019-06-12 2019-06-12 Emergency [facility] 1.2.840.114 [id number] [facility] 16:15:07 18:19:00 Siobhan Rangel 350.1.13.10 ity of [place] 4.2.7.2.686 [facility] [id number] [address] Results Test Description Test Time Test [...] MOREINFORMATION , SEE CLIENT ANNOUNCEMENT AT [email or web address] RISK RATIO LDL/HDL (test code = 3.67 RATIO <3.55 H [facility] has important pathology 2238) staff changes e ffective 07/23/2022. New pathology staff will prov abdoul uninterrupted, excellent patie nt care and clinical consul tation. See URL: [email or web address]. UNLESS OTHERWIS E INDICATED, ALL TESTING PERFORM ED AT CLINICAL PATHOLOGY [facility], [facility]. [address] [place], [place] CLIA: [id number], CAP : LIPID [id number] 04:16:00 Test Item Value Reference Range Interpretation [...] MOREINFORMATION , SEE CLIENT ANNOUNCE MENT AT [email or web address] RISK RATIO LDL/HDL 6.17 RATIO <3.55 H (test code = 2238) TSH, THIRD [id number] 03:58:52 Test Item Value Reference Range Interpretation Comments TSH, THIRD 0.715 UIU/ML 0.400-4.100 UNLESS OTHERWI SE GENERATION (test INDICATED, ALL TESTING code = 2821) PERFORMED [facility], [facility]. [address] [place] [address] [facility] DIRECTOR: ELA CAMPBELL M.D. CLIA NUMBER [id number] CAP ACCREDITATION N O. [id number] 00:00:00 Test Item Value Reference Range Interpretation Comments TSH, THIRD GENERATION (test code 0.715 UIU/ML = 2821) [id number] 00:00:00 Test Item Value Reference Range Interpretation Comments TSH, THIRD GENERATION (test code 0.715 UIU/ML = 2821) LIPID [id number] 00:00:00 Test Item Value Reference Range Interpretation Comments CHOLESTEROL (test code = 2210) 257 MG/DL TRIGLYCERIDES (test code = 2232) 229 MG/DL HDL CHOLESTEROL (test code = 2220) 30 MG/DL CALC LDL CHOL (test code = 2237) 185 MG/DL RISK RATIO LDL/HDL (test code = 6.17 RATIO 2238) LIPID [id number] 00:00:00 Test Item Value Reference Range Interpretation Comments CHOLESTEROL (test code = 2210) 257 MG/DL TRIGLYCERIDES (test code = 2232) 229 MG/DL HDL CHOLESTEROL (test code = 2220) 30 MG/DL CALC LDL CHOL (test code = 2237) 185 MG/DL RISK RATIO LDL/HDL (test code = 6.17 RATIO 2238) [id number] 00:00:00 Test Item Value Reference Range Interpretation Comments TSH, THIRD GENERATION (test code 0.715 UIU/ML = 2821) [id number] 00:00:00 Test Item Value Reference Range Interpretation Comments TSH, THIRD GENERATION (test code 0.715 UIU/ML = 2821) [id number] 00:00:00 Test Item Value Reference Range Interpretation Comments TSH, THIRD GENERATION (test code 0.715 UIU/ML = 2821) LIPID [id number] 00:00:00 Test Item Value Reference Range Interpretation Comments CHOLESTEROL (test code = 2210) 257 MG/DL TRIGLYCERIDES (test code = 2232) 229 MG/DL HDL CHOLESTEROL (test code = 2220) 30 MG/DL CALC LDL CHOL (test code = 2237) 185 MG/DL RISK RATIO LDL/HDL (test code = 6.17 RATIO 2238) LIPID [id number] 00:00:00 Test Item Value Reference Range Interpretation Comments CHOLESTEROL (test code = 2210) 257 MG/DL TRIGLYCERIDES (test code = 2232) 229 MG/DL HDL CHOLESTEROL (test code = 2220) 30 MG/DL CALC LDL CHOL (test code = 2237) 185 MG/DL RISK RATIO LDL/HDL (test code = 6.17 RATIO 2238) [id number] 00:00:00 Test Item Value Reference Range Interpretation Comments TSH, THIRD GENERATION (test code 0.715 UIU/ML = 2821) [id number] 00:00:00 Test Item Value Reference Range Interpretation Comments TSH, THIRD GENERATION (test code 0.715 UIU/ML = 2821) [id number] 00:00:00 Test Item Value Reference Range Interpretation Comments TSH, THIRD GENERATION (test code 0.715 UIU/ML = 2821) LIPID [id number] 00:00:00 Test Item Value Reference Range Interpretation Comments CHOLESTEROL (test code = 2210) 257 MG/DL TRIGLYCERIDES (test code = 2232) 229 MG/DL HDL CHOLESTEROL (test code = 2220) 30 MG/DL CALC LDL CHOL (test code = 2237) 185 MG/DL RISK RATIO LDL/HDL (test code = 6.17 RATIO 2238) LIPID [id number] 00:00:00 Test Item Value Reference Range Interpretation Comments CHOLESTEROL (test code = 2210) 257 MG/DL TRIGLYCERIDES (test code = 2232) 229 MG/DL HDL CHOLESTEROL (test code = 2220) 30 MG/DL CALC LDL CHOL (test code = 2237) 185 MG/DL RISK RATIO LDL/HDL (test code = 6.17 RATIO 2238) [id number] 00:00:00 Test Item Value Reference Range Interpretation Comments TSH, THIRD GENERATION (test code 0.715 UIU/ML = 2821) LIPID [id number] 00:00:00 Test Item Value Reference Range Interpretation Comments CHOLESTEROL (test code = 2210) 143 MG/DL TRIGLYCERIDES (test code = 2232) 122 MG/DL HDL CHOLESTEROL (test code = 2220) 29 MG/DL CALC LDL CHOL (test code = 2237) 92 MG/DL RISK RATIO LDL/HDL (test code = 3.17 RATIO 2238) LIPID [id number] 00:00:00 Test Item Value Reference Range Interpretation Comments CHOLESTEROL (test code = 2210) 143 MG/DL TRIGLYCERIDES (test code = 2232) 122 MG/DL HDL CHOLESTEROL (test code = 2220) 29 MG/DL CALC LDL CHOL (test code = 2237) 92 MG/DL RISK RATIO LDL/HDL (test code = 3.17 RATIO 2238) LIPID [id number] 00:00:00 Test Item Value Reference Range Interpretation Comments CHOLESTEROL (test code = 2210) 143 MG/DL TRIGLYCERIDES (test code = 2232) 122 MG/DL HDL CHOLESTEROL (test code = 2220) 29 MG/DL CALC LDL CHOL (test code = 2237) 92 MG/DL RISK RATIO LDL/HDL (test code = 3.17 RATIO 2238) LIPID [id number] 00:00:00 Test Item Value Reference Range Interpretation Comments CHOLESTEROL (test code = 2210) 143 MG/DL TRIGLYCERIDES (test code = 2232) 122 MG/DL HDL CHOLESTEROL (test code = 2220) 29 MG/DL CALC LDL CHOL (test code = 2237) 92 MG/DL RISK RATIO LDL/HDL (test code = 3.17 RATIO 2238) LIPID [id number] 00:00:00 Test Item Value Reference Range Interpretation Comments CHOLESTEROL (test code = 2210) 143 MG/DL TRIGLYCERIDES (test code = 2232) 122 MG/DL HDL CHOLESTEROL (test code = 2220) 29 MG/DL CALC LDL CHOL (test code = 2237) 92 MG/DL RISK RATIO LDL/HDL (test code = 3.17 RATIO 2238) LIPID [id number] 00:00:00 Test Item Value Reference Range Interpretation Comments CHOLESTEROL (test code = 2210) 143 MG/DL TRIGLYCERIDES (test code = 2232) 122 MG/DL HDL CHOLESTEROL (test code = 2220) 29 MG/DL CALC LDL CHOL (test code = 2237) 92 MG/DL RISK RATIO LDL/HDL (test code = 3.17 RATIO 2238) LIPID [id number] 00:00:00 Test Item Value Reference Range Interpretation Comments CHOLESTEROL (test code = 2210) 306 MG/DL TRIGLYCERIDES (test code = 2232) 1458 MG/DL HDL CHOLESTEROL (test code = 18 MG/DL 2220) CALC LDL CHOL (test code = 2237) (NOTE) MG/DL RISK RATIO LDL/HDL (test code = (NOTE) RATIO 2238) LIPID [id number] 00:00:00 Test Item Value Reference Range Interpretation Comments CHOLESTEROL (test code = 2210) 306 MG/DL TRIGLYCERIDES (test code = 2232) 1458 MG/DL HDL CHOLESTEROL (test code = 18 MG/DL 2220) CALC LDL CHOL (test code = 2237) (NOTE) MG/DL RISK RATIO LDL/HDL (test code = (NOTE) RATIO 2238) COMPREHENSIVE METABOLIC [id number] 00:00:00 Test Item Value Reference Range Interpretation Comments GLUCOSE (test code = 2217) 122 MG/DL BUN (test code = 2208) 15 MG/DL CREATININE (test code = 2214) 0.84 MG/DL eGFR AMER. (test code 130 ML/MIN/1.73 = 84140) eGFR NON- AMER. (test 112 ML/MIN/1.73 code = 03773) CALC BUN/CREAT (test code = 18 RATIO [...] A/G RATIO (test code = 1.9 RATIO 2233) BILIRUBIN, TOTAL (test code = 0.3 MG/DL 2206) ALKALINE PHOSPHATASE (test 102 U/L code = 2204) AST (test code = 2218) 18 U/L ALT (test code = 2219) 10 U/L COMPREHENSIVE METABOLIC [id number] 00:00:00 Test Item Value Reference Range Interpretation Comments GLUCOSE (test code = 2217) 122 MG/DL BUN (test code = 2208) 15 MG/DL CREATININE (test code = 2214) 0.84 MG/DL eGFR AMER. (test code 130 ML/MIN/1.73 = 94887) eGFR NON- AMER. (test 112 ML/MIN/1.73 code = 16907) CALC BUN/CREAT (test code = 18 RATIO [...] CALC GLOBULIN (test code = 2.4 G/DL 224) CALC A/G RATIO (test code = 1.9 RATIO 2234) BILIRUBIN, TOTAL (test code = 0.3 MG/DL 2206) ALKALINE PHOSPHATASE (test 102 U/L code = 2204) AST (test code = 2218) 18 U/L ALT (test code = 2219) 10 U/L LIPID [id number] 00:00:00 Test Item Value Reference Range Interpretation Comments CHOLESTEROL (test code = 2210) 306 MG/DL TRIGLYCERIDES (test code = 2232) 1458 MG/DL HDL CHOLESTEROL (test code = 18 MG/DL 2220) CALC LDL CHOL (test code = 2237) (NOTE) MG/DL RISK RATIO LDL/HDL (test code = (NOTE) RATIO 2238) LIPID [id number] 00:00:00 Test Item Value Reference Range Interpretation Comments CHOLESTEROL (test code = 2210) 306 MG/DL TRIGLYCERIDES (test code = 2232) 1458 MG/DL HDL CHOLESTEROL (test code = 18 MG/DL 2220) CALC LDL CHOL (test code = 2237) (NOTE) MG/DL RISK RATIO LDL/HDL (test code = (NOTE) RATIO 2238) COMPREHENSIVE METABOLIC [id number] 00:00:00 Test Item Value Reference Range Interpretation Comments GLUCOSE (test code = 2217) 122 MG/DL BUN (test code = 2208) 15 MG/DL CREATININE (test code = 2214) 0.84 MG/DL eGFR AMER. (test code 130 ML/MIN/1.73 = 44239) eGFR NON- AMER. (test 112 ML/MIN/1.73 code = 70995) CALC BUN/CREAT (test code = 18 RATIO [...] CALC GLOBULIN (test code = 2.4 G/DL 0) CALC A/G RATIO (test code = 1.9 RATIO 2234) BILIRUBIN, TOTAL (test code = 0.3 MG/DL 2206) ALKALINE PHOSPHATASE (test 102 U/L code = 2204) AST (test code = 2218) 18 U/L ALT (test code = 2219) 10 U/L COMPREHENSIVE METABOLIC [id number] 00:00:00 Test Item Value Reference Range Interpretation Comments GLUCOSE (test code = 2217) 122 MG/DL BUN (test code = 2208) 15 MG/DL CREATININE (test code = 2214) 0.84 MG/DL eGFR AMER. (test code 130 ML/MIN/1.73 = 03208) eGFR NON- AMER. (test 112 ML/MIN/1.73 code = 57652) CALC BUN/CREAT (test code = 18 RATIO [...] A/G RATIO (test code = 1.9 RATIO 4) BILIRUBIN, TOTAL (test code = 0.3 MG/DL 2206) ALKALINE PHOSPHATASE (test 102 U/L code = 2204) AST (test code = 2218) 18 U/L ALT (test code = 2219) 10 U/L LIPID [id number] 00:00:00 Test Item Value Reference Range Interpretation Comments CHOLESTEROL (test code = 2210) 306 MG/DL TRIGLYCERIDES (test code = 2232) 1458 MG/DL HDL CHOLESTEROL (test code = 18 MG/DL 2220) CALC LDL CHOL (test code = 2237) (NOTE) MG/DL RISK RATIO LDL/HDL (test code = (NOTE) RATIO 2238) LIPID [id number] 00:00:00 Test Item Value Reference Range Interpretation Comments CHOLESTEROL (test code = 2210) 306 MG/DL TRIGLYCERIDES (test code = 2232) 1458 MG/DL HDL CHOLESTEROL (test code = 18 MG/DL 2220) CALC LDL CHOL (test code = 2237) (NOTE) MG/DL RISK RATIO LDL/HDL (test code = (NOTE) RATIO 2238) COMPREHENSIVE METABOLIC [id number] 00:00:00 Test Item Value Reference Range Interpretation Comments GLUCOSE (test code = 2217) 122 MG/DL BUN (test code = 2208) 15 MG/DL CREATININE (test code = 2214) 0.84 MG/DL eGFR AMER. (test code 130 ML/MIN/1.73 = 19739) eGFR NON- AMER. (test 112 ML/MIN/1.73 code = 49393) CALC BUN/CREAT (test code = 18 RATIO [...] CALC GLOBULIN (test code = 2.4 G/DL 2239) CALC A/G RATIO (test code = 1.9 RATIO 2234) BILIRUBIN, TOTAL (test code = 0.3 MG/DL 2206) ALKALINE PHOSPHATASE (test 102 U/L code = 2204) AST (test code = 2218) 18 U/L ALT (test code = 2219) 10 U/L COMPREHENSIVE METABOLIC [id number] 00:00:00 Test Item Value Reference Range Interpretation Comments GLUCOSE (test code = 2217) 122 MG/DL BUN (test code = 2208) 15 MG/DL CREATININE (test code = 2214) 0.84 MG/DL eGFR AMER. (test code 130 ML/MIN/1.73 = 48029) eGFR NON- AMER. (test 112 ML/MIN/1.73 code = 96450) CALC BUN/CREAT (test code = 18 RATIO [...] CALC GLOBULIN (test code = 2.4 G/DL 224) CALC A/G RATIO (test code = 1.9 RATIO 2234) BILIRUBIN, TOTAL (test code = 0.3 MG/DL 2206) ALKALINE PHOSPHATASE (test 102 U/L code = 2204) AST (test code = 2218) 18 U/L ALT (test code = 2219) 10 U/L LIPID [id number] 00:00:00 Test Item Value Reference Range Interpretation Comments CHOLESTEROL (test code = 2210) 261 MG/DL TRIGLYCERIDES (test code = 2232) 1248 MG/DL HDL CHOLESTEROL (test code = 22 MG/DL 2220) CALC LDL CHOL (test code = 2237) (NOTE) MG/DL RISK RATIO LDL/HDL (test code = (NOTE) RATIO 2238) COMPREHENSIVE METABOLIC [id number] 00:00:00 Test Item Value Reference Range Interpretation Comments GLUCOSE (test code = 2217) 92 MG/DL BUN (test code = 2208) 14 MG/DL CREATININE (test code = 2214) 0.83 MG/DL eGFR AMER. (test code 130 ML/MIN/1.73 = 19972) eGFR NON- AMER. (test 112 ML/MIN/1.73 code = 86143) CALC BUN/CREAT (test code = 17 RATIO [...] code = 2219) 28 U/L COMPREHENSIVE METABOLIC [id number] 00:00:00 Test Item Value Reference Range Interpretation Comments GLUCOSE (test code = 2217) 92 MG/DL BUN (test code = 2208) 14 MG/DL CREATININE (test code = 2214) 0.83 MG/DL eGFR AMER. (test code 130 ML/MIN/1.73 = 85070) eGFR NON- AMER. (test 112 ML/MIN/1.73 code = 79874) CALC BUN/CREAT (test code = 17 RATIO [...] (test code = 2219) 28 U/L LIPID [id number] 00:00:00 Test Item Value Reference Range Interpretation Comments CHOLESTEROL (test code = 2210) 261 MG/DL TRIGLYCERIDES (test code = 2232) 1248 MG/DL HDL CHOLESTEROL (test code = 22 MG/DL 2220) CALC LDL CHOL (test code = 2237) (NOTE) MG/DL RISK RATIO LDL/HDL (test code = (NOTE) RATIO 2238) LIPID [id number] 00:00:00 Test Item Value Reference Range Interpretation Comments CHOLESTEROL (test code = 2210) 261 MG/DL TRIGLYCERIDES (test code = 2232) 1248 MG/DL HDL CHOLESTEROL (test code = 22 MG/DL 2220) CALC LDL CHOL (test code = 2237) (NOTE) MG/DL RISK RATIO LDL/HDL (test code = (NOTE) RATIO 2238) COMPREHENSIVE METABOLIC [id number] 00:00:00 Test Item Value Reference Range Interpretation Comments GLUCOSE (test code = 2217) 92 MG/DL BUN (test code = 2208) 14 MG/DL CREATININE (test code = 2214) 0.83 MG/DL eGFR AMER. (test code 130 ML/MIN/1.73 = 60223) eGFR NON- AMER. (test 112 ML/MIN/1.73 code = 61756) CALC BUN/CREAT (test code = 17 RATIO [...] code = 2219) 28 U/L COMPREHENSIVE METABOLIC [id number] 00:00:00 Test Item Value Reference Range Interpretation Comments GLUCOSE (test code = 2217) 92 MG/DL BUN (test code = 2208) 14 MG/DL CREATININE (test code = 2214) 0.83 MG/DL eGFR AMER. (test code 130 ML/MIN/1.73 = 23203) eGFR NON- AMER. (test 112 ML/MIN/1.73 code = 96105) CALC BUN/CREAT (test code = 17 RATIO [...] (test code = 2219) 28 U/L LIPID [id number] 00:00:00 Test Item Value Reference Range Interpretation Comments CHOLESTEROL (test code = 2210) 261 MG/DL TRIGLYCERIDES (test code = 2232) 1248 MG/DL HDL CHOLESTEROL (test code = 22 MG/DL 2220) CALC LDL CHOL (test code = 2237) (NOTE) MG/DL RISK RATIO LDL/HDL (test code = (NOTE) RATIO 2238) LIPID [id number] 00:00:00 Test Item Value Reference Range Interpretation Comments CHOLESTEROL (test code = 2210) 261 MG/DL TRIGLYCERIDES (test code = 2232) 1248 MG/DL HDL CHOLESTEROL (test code = 22 MG/DL 2220) CALC LDL CHOL (test code = 2237) (NOTE) MG/DL RISK RATIO LDL/HDL (test code = (NOTE) RATIO 2238) COMPREHENSIVE METABOLIC [id number] 00:00:00 Test Item Value Reference Range Interpretation Comments GLUCOSE (test code = 2217) 92 MG/DL BUN (test code = 2208) 14 MG/DL CREATININE (test code = 2214) 0.83 MG/DL eGFR AMER. (test code 130 ML/MIN/1.73 = 64440) eGFR NON- AMER. (test 112 ML/MIN/1.73 code = 66703) CALC BUN/CREAT (test code = 17 RATIO [...] CALC GLOBULIN (test code = 3.1 G/DL 2239) CALC A/G RATIO (test code = 1.4 RATIO 2234) BILIRUBIN, TOTAL (test code = <0.2 MG/DL 2207) ALKALINE PHOSPHATASE (test 98 U/L code = 2204) AST (test code = 2218) 36 U/L ALT (test code = 2219) 28 U/L COMPREHENSIVE METABOLIC [id number] 00:00:00 Test Item Value Reference Range Interpretation Comments GLUCOSE (test code = 2217) 92 MG/DL BUN (test code = 2208) 14 MG/DL CREATININE (test code = 2214) 0.83 MG/DL eGFR AMER. (test code 130 ML/MIN/1.73 = 78992) eGFR NON- AMER. (test 112 ML/MIN/1.73 code = 16531) CALC BUN/CREAT (test code = 17 RATIO [...] (test code = 2219) 28 U/L LIPID [id number] 00:00:00 Test Item Value Reference Range Interpretation Comments CHOLESTEROL (test code = 2210) 261 MG/DL TRIGLYCERIDES (test code = 2232) 1248 MG/DL HDL CHOLESTEROL (test code = 22 MG/DL 2220) CALC LDL CHOL (test code = 2237) (NOTE) MG/DL RISK RATIO LDL/HDL (test code = (NOTE) RATIO 2238) XR CHEST 1 [id number] 15:10:55HISTORY: Cough. TECHNIQUE: Portable AP erect view [...] CONCLUSIONS: No signs of acute cardiopulmonary disease. [facility] - DRUG SCREEN [id number] 15:06:33 Test Item Value Reference Range Interpretation Comments BENZO U (test code = Negative Negative 7469411767) HARRIETT U (test code = Negative Negative 2832004438) AMPHET (test code = Presumptive Positive Negative A 5040214195) THC (test code = Negative Negative 6047804818) METHADONE (test code = Negative Negative 4818864739) Meth U (test code = Presumptive Positive Negative A 3951507408) OPIATES (test code = Negative Negative 3247844556) Cocaine Metabolite (test Negative Negative code = 5926472942) PROPOXY (test code = Negative Negative 0768036920) Tric U (test code = Negative Negative 5755918089) PCP (test code = Negative Negative 2845158525) OXYCOD (test code = Negative Negative 9089174204) LOUIE (test code = LOUIE) Urine Drug [...] testing). Lab Interpretation (test Abnormal code = 01611-7) [facility] [id number] 14:41:43 Test Item Value Reference Range Interpretation Comments TSH (test code = See_Comment [Automated message] 9515368284) The system [employer] generated this result transmitted ref erence range: 0.45 - 4 .70 mIU/L. The refe rence range was not u sed to interpret this result as normal/abnor mal. Lab Interpretation (test Normal code = 31682-9) [facility] CenterMAGN[facility]IUM2021-03-30 14:13:20 Test Item Value Reference Range Interpretation Comments MAGNESIUM (test code = 9947952030) 1.7 mg/dL 1.7-2.4 Lab Interpretation (test code = Normal 54129-8) [facility] CenterCOVID[facility] (ID NOW RAPID TESTING)2020-08-21 14:13:20 Test Item Value Reference Range Interpretation Comments SARS-CoV-2 Rapid ID NOW Not Detected Not Detected (test code = 92946-8) LOUIE (test code = LOUIE) ID NOW COVID-19 Assay is an isothermal nucleic acid amplification test intended for the qualitative detection of nucleic acid from SARS-CoV-2 viral RNA in nasopharyngeal (LEATHER LACER) specimens. It is used under Emergency Use [...] indicated. Lab Interpretation Normal (test code = 51258-7) [facility] Metabolic Panel (NA, K, CL, CO2, GLUCOSE, BUN, CREATININE, CA)2020-08-21 14:13:15 Test Item Value Reference Range Interpretation Comments NA (test code = 138 mmol/L 135-145 8498312086) K (test code = 3.8 mmol/L 3.5-5.0 3360087632) CL (test code = 108 mmol/L 98-108 1562121892) CO2 TOTAL (test code = 23 mmol/L 23-31 7063929292) AGAP (test code = 2-16 2244094434) BUN (test code = 14 mg/dL 7-23 5185243469) GLUCOSE (test code = 123 mg/dL 70-110 H 4265261442) CREATININE (test code = 0.83 mg/dL 0.60-1.25 0738604726) CALCIUM (test code = 8.7 mg/dL 8.6-10.6 8204047435) eGFR Calculation mL/min/1.73m2 (Non-) (test code = 6133528538) eGFR Calculation mL/min/1.73m2 () (test code = 7509190224) LOUIE (test code = LOUIE) Association of [...] tests). Lab Interpretation Abnormal (test code = 62789-8) [facility] CenterHep[facility] Function [facility] (ALB, T.PRO, BILI T, BU/BC, ALT, AST, ALK PHOS)2020-08-21 14:13:15 Test Item Value Reference Range Interpretation Comments TOTAL BILI (test code = 5699504768) 0.5 mg/dL 0.1-1.1 BILI UNCON (test code = 1760083853) 0.3 mg/dL 0.1-1.1 BILI CONJ (test code = 7266300030) 0.0 mg/dL 0.0-0.3 T PROTEIN (test code = 7883109423) 7.1 g/dL 6.3-8.2 ALBUMIN (test code = 8462689599) 4.2 g/dL 3.5-5.0 ALK PHOS (test code = 2228257917) 93 U/L 34-122 ALTv (test code = 1742-6) 21 U/L 5-50 AST(SGOT) (test code = 3141610505) 25 U/L 13-40 Lab Interpretation (test code = Normal 63646-9) [facility] CenterCREATINE [id number] 14:13:14 Test Item Value Reference Range Interpretation Comments CK (test code = 8052523657) 74 U/L 33-194 Lab Interpretation (test code = Normal 22918-4) [facility] CenterURINALYSIS2021-03-30 14:12:24 Test Item Value Reference Range Interpretation Comments APPEARANCE (test code = Hazy Clear A 1498714686) COLOR (test code = Yellow Yellow 1632468317) PH (test code = 4.8-8.0 5328278373) SP GRAVITY (test code = 1.003-1.030 2269840432) GLU U QUAL (test code = Normal Normal 2727974497) BLOOD (test code = 1+ Negative A 8691420593) KETONES (test code = Negative Negative 0437894472) PROTEIN (test code = 30 mg/dL Negative A 2887-8) UROBILIN (test code = 2.0 mg/dL Normal A 5670000305) BILIRUBIN (test code = Negative Negative 3211894855) NITRITE (test code = Negative Negative 2793954552) LEUK DEANGELO (test code = 25/uL Negative A 2345123127) RBC/HPF (test code = See_Comment H [Autom ated message] 2776122636) The system [employer] generated this result transmit bahman reference range : 0 - 3 HPF. The refe rence range was not u sed to interpret th is result as normal/abnormal . WBC/HPF (test code = See_Comment [Autom ated message] 0097396943) The system [employer] generated this result transmit bahman reference range : 0 - 5 HPF. The refe rence range was not u sed to interpret th is result as normal/abnormal . BACTERIA (test code = Few Negative A 7441857311) MUCOUS (test code = Slight Negative LPF A 8388817713) AMORPHOUS (test code = Few Rare HPF A 7963381524) CA OXALATE (test code = See_Comment [Au tomated message] 4886096941) The system [employer] generated this result transmit bahman reference range : <=1 HPF. The refere nce range was not u sed to interpret th is result as normal/abnormal . YEAST BUD (test code = <1 See_Comment [Aut omated message] 2636089846) The system [employer] generated this result transmit bahman reference range : <=1 HPF. The refere nce range was not u sed to interpret th is result as normal/abnormal . Lab Interpretation (test Abnormal code = 35265-1) [facility] with [id number] 13:52:37 Test Item Value Reference Range Interpretation Comments WBC (test code = See_Comment H [Automated 5090-2) message] The sy stem which generated this result transmitted reference range : 4.20 - 10.70 10*3/?L. The reference range was not used to interpret this result as normal/abnormal . RBC (test code = See_Comment H [Automated 839-8) message] The sy stem which generated this [...] RDW-SD (test code = 40.7 fL 38.5-51.6 84384-4) RDW-CV (test code = 13.2 % 12.1-15.4 788-0) PLT (test code = See_Comment [Automated 777-3) message] The sy stem which generated this result transmitted reference range : 150 - 328 10*3/ ?L. The reference r marge was not used to interpret this result as normal/abnormal . MPV (test code = 10.1 fL 9.8-13.0 45605-1) NRBC/100 WBC (test See_Comment [Automat ed code = 4554654934) message] The system which generated this result transmitted reference range : 0.0 - 10.0 /100 WBCs. The refer ence range was not u sed to interpret th is result as normal/abnormal . NRBC x10^3 (test code <0.01 See_Comment [Auto mated = 1921613857) message] The s ystem which generated this result transmitted reference range : 10*3/?L. The reference range was not used to interpret this result as normal/abnormal . GRAN MAT (NEUT) % 63.6 % (test code = 770-8) IMM GRAN % (test code 0.40 % = 1619068593) LYMPH % (test code = 30.0 % 736-9) MONO % (test code = 5.2 % 5905-5) EOS % (test code = 0.4 % 713-8) BASO % (test code = 0.4 % 706-2) GRAN MAT x10^3(ANC) 7.15 10*3/uL 1.99-6.95 H (test code = 9018864212) IMM GRAN x10^3 (test 0.05 10*3/uL 0.00-0.06 code = 0735656506) LYMPH x10^3 (test code 3.38 10*3/uL 1.09-3.23 H = 731-0) MONO x10^3 (test code 0.59 10*3/uL 0.36-1.02 = 742-7) EOS x10^3 (test code = 0.04 10*3/uL 0.06-0.53 L 711-2) BASO x10^3 (test code 0.05 10*3/uL 0.01-0.09 = 704-7) Lab Interpretation Abnormal (test code = 09142-8) [facility] CenterTROPONIN [id number] 04:53:00 Test Item Value Reference Range Interpretation Comments TROPONIN I (test 0.001 ng/mL See_Comment [Automated code = 5887262854) message] The system which generated this result [...] ? Lab Interpretation Normal (test code = 40372-8) [facility] CenterXR CHEST 1 [id number] 04:43:03 No acute intrathoracic abnormality. Preliminary Report [...] reviewed this study and agree with theabove report.[facility] CenterTROP[facility]IN I 2020-02-17 02:14:00 Test Item Value Reference Range Interpretation Comments TROPONIN I (test 0.001 ng/mL See_Comment [Automated code = 6509655169) message] The system which generated this result [...] ? Lab Interpretation Normal (test code = 06388-4) [facility] CenterCOMP. METABOLIC PANEL (99680)2020-02-17 02:03:00 Test Item Value Reference Range Interpretation Comments NA (test code = 139 mmol/L 135-145 1496089904) K (test code = 3.9 mmol/L 3.5-5 4858628139) CL (test code = 105 mmol/L 98-108 4869240811) CO2 TOTAL (test code = 25 mmol/L 23-31 3289418378) AGAP (test code = 2-16 9060360411) BUN (test code = 19 mg/dL 7-23 9807082153) GLUCOSE (test code = 115 mg/dL 70-110 H 6971519365) CREATININE (test code = 1.06 mg/dL 0.6-1.25 3090906733) TOTAL BILI (test code = 0.4 mg/dL 0.1-1.0 8472305641) CALCIUM (test code = 9.3 mg/dL 8.6-10.6 9003955699) T PROTEIN (test code = 7.5 g/dL 6.3-8.2 7879622853) ALBUMIN (test code = 4.1 g/dL 3.5-5 1975165269) ALK PHOS (test code = 88 U/L 34-122 0447961521) ALTv (test code = 20 U/L 5-50 1742-6) AST(SGOT) (test code = 28 U/L 13-40 5190535812) eGFR Calculation mL/min/1.73m2 (Non-) (test code = 4265206377) eGFR Calculation mL/min/1.73m2 () (test code = 0451282918) LOUIE (test code = LOUIE) Association of [...] tests). Lab Interpretation Abnormal (test code = 64510-1) [facility] CenterLIPASE, [id number] 02:03:00 Test Item Value Reference Range Interpretation Comments LIPASE (test code = 2126330731) 85 U/L 0-220 Lab Interpretation (test code = Normal 48063-4) [facility] CenteraPTT2020-09-25 01:50:00 Test Item Value Reference Range Interpretation Comments APTT Patient (test See_Comment [Automat ed code = 3173-2) message] The system which generated this result transmitted reference range : 23 - 38 Seconds . The reference range was not used to interpr et this result as normal/abnormal . LOUIE (test code = LOUIE) The [facility] patient population mean normal value for aPTT is 30 seconds. Lab Interpretation Normal (test code = 32272-9) [facility] CenterPROTHROMBIN TIME / [id number] 01:48:00 Test Item Value Reference Range Interpretation [...] tions. Lab Interpretation (test Abnormal code = 70304-1) [facility] WITH [id number] 01:36:00 Test Item Value Reference Range Interpretation [...] RDW-SD (test code = 42.9 fL 38.5-51.6 47940-3) RDW-CV (test code = 13.8 % 12.1-15.4 788-0) PLT (test code = See_Comment [Automated 777-3) message] The sy stem which generated this result transmitted reference range : 150 - 328 10*3/ ?L. The reference r marge was not used to interpret this result as normal/abnormal . MPV (test code = 11.3 fL 9.8-13 69994-2) NRBC/100 WBC (test See_Comment [Automat ed code = 9809878805) message] The system which generated this result transmitted reference range : 0.0 - 10.0 /100 WBCs. The refer ence range was not u sed to interpret th is result as normal/abnormal . NRBC x10^3 (test code <0.01 See_Comment [Auto mated = 3330683951) message] The s ystem which generated this result transmitted reference range : 10*3/?L. The reference range was not used to interpret this result as normal/abnormal . GRAN MAT (NEUT) % 62.6 % (test code = 540-8) IMM GRAN % (test code 0.40 % = 7599388954) LYMPH % (test code = 31.0 % 736-9) MONO % (test code = 5.2 % 5905-5) EOS % (test code = 0.4 % 713-8) BASO % (test code = 0.4 % 706-2) GRAN MAT x10^3(ANC) 7.04 10*3/uL 1.99-6.95 H (test code = 8973961883) IMM GRAN x10^3 (test 0.04 10*3/uL 0-0.06 code = 9809056125) LYMPH x10^3 (test code 3.49 10*3/uL 1.09-3.23 H = 731-0) MONO x10^3 (test code 0.59 10*3/uL 0.36-1.02 = 742-7) EOS x10^3 (test code = 0.04 10*3/uL 0.06-0.53 L 711-2) BASO x10^3 (test code 0.05 10*3/uL 0.01-0.09 = 704-7) Lab Interpretation Abnormal (test code = 71703-3) [facility] CenterADC,CLC OR [facility] ONLY - INFLUENZA A & B DIRECT [id number] 23:48:00 Test Item Value Reference Range Interpretation Comments Influenza A (test code = 76093-9) Negative Negative Influenza B (test code = 62625-6) Negative Negative Lab Interpretation (test code = Normal 67138-3) [facility] CenterRAPID STREP SCREEN FOR GROUP [id number] 23:32:00 Test Item Value Reference Range Interpretation Comments Streptococcus pyogenes (group A) Negative Negative antigen (test code = 54589-4) Lab Interpretation (test code = Normal 82826-9) [facility]"
[2022-11-23 18:28] LABS: Absolute Lymphocytes (CBC) 2.8 K/uL (0.7-4.9); Hematocrit 46.6 % (39.6-49.0); Lymphocytes % 31.7 % (15.3-44.8); MCV 84.8 fL (80-100); MPV 8.3 fL (7.6-11.3); RBC Red Blood Cell Count 5.49 M/uL (4.33-5.43)
[2022-11-23 19:00] LABS: Potassium 3.8 mEq/L (3.5-5.1)
--- NOTE | 2022-11-23 19:08 | RAD REPORT ---
EXAM DESCRIPTION: Jack Single View11/23/2022 6:53 pm CLINICAL HISTORY: Chest pain COMPARISON: 2021 FINDINGS: The lungs appear clear of acute infiltrate. The heart is normal size IMPRESSION: No acute abnormalities displayed
--- NOTE | 2022-11-23 19:26 | ER ---
Nurse's Notes [facility] Name: Raza Causey Age: 37 yrs Sex: Male : 1985 Arrival Date: 11/23/2022 Time: 17:46 Bed 14 Private MD: Diagnosis: Acute upper respiratory infection, unspecified Presentation: 11/23 17:59 Chief complaint: Patient states: generalized body aches for 3 days, worse in the back, ko1 not getting any better. Coronavirus screen: At this time, the client does not indicate any symptoms associated with coronavirus-19. Ebola Screen: No symptoms or risks identified at this time. Initial Sepsis Screen: Does the patient meet any 2 criteria? No. Patient's initial sepsis screen is negative. Does the patient have a suspected source of infection? No. Patient's initial sepsis screen is negative. Risk Assessment: Do you want to hurt yourself or someone else? Patient reports no desire to harm self or others. Onset of symptoms is unknown. 17:59 Method Of Arrival: Ambulatory ko1 17:59 Acuity: DEBO 3 ko1 Triage Assessment: 18:01 General: Appears in no apparent distress. uncomfortable, Behavior is calm, cooperative, ko1 appropriate for age. Pain: Complains of pain in back. Historical: - Allergies: 18:01 No Known Allergies; ko1 - Home Meds: 18:01 atorvastatin oral [Active]; lisinopril 20 mg Oral tab 1 tab once daily [Active]; ko1 Metformin Oral [Active]; - Immunization history:: Adult Immunizations unknown. - Social history:: Smoking status: Patient denies any tobacco usage or history of. Screenin:24 [facility] ED Fall Risk Assessment (Adult) History of falling in the last 3 months, mb9 including since admission No falls in past 3 months (0 pts) Confusion or Disorientation No (0 pts) Intoxicated or Sedated No (0 pts) Impaired Gait No (0 pts) Mobility Assist Device Used No (0 pt) Altered Elimination No (0 pt) Score/Fall Risk Level 0 - 2 = Low Risk Oriented to surroundings, Maintained a safe environment, Educated pt \T\ family on fall prevention, incl call for assistance when getting out of bed. Abuse screen: Denies threats or abuse. Nutritional screening: No deficits noted. Tuberculosis screening: No symptoms or risk factors identified. Assessment: 18:24 Pain: Complains of pain in chest Pain does not radiate. Neuro: Chandra mb9 Agitation-Sedation Scale (RASS): 0 - Alert and Calm Level of Consciousness is awake, alert, obeys commands, Oriented to person, place, time, situation, Appropriate for age. Cardiovascular: Heart tones S1 S2 present Patient's skin is warm and dry. Rhythm is regular. Respiratory: Reports cough that is non-productive, Breath sounds are clear bilaterally. GI: Abdomen is round non-distended, Bowel sounds present X 4 quads. Abd is soft and non tender X 4 quads. : No signs and/or symptoms were reported regarding the genitourinary system. Derm: Skin is pink, warm \T\ dry. Musculoskeletal: Range of motion: intact in all extremities. 19:34 Reassessment: No changes from previously documented assessment. Patient and/or family mb9 updated on plan of care and expected duration. Pain level reassessed. Patient is alert, oriented x 3, equal unlabored respirations, skin warm/dry/pink. Vital Signs: 17:59 BP 149 / 94; Pulse 68; Resp 18; Temp 98.4(O); Pulse Ox 100% on R/A; Weight 88.9 kg; ko1 Height 5 ft. 9 in. ; 19:34 BP 102 / 64; Pulse 70; Resp 16; Pulse Ox 98% on R/A; mb9 17:59 Body Mass Index 28.94 (88.90 kg, 175.26 cm) ko1 ED Course: 17:49 Patient arrived in ED. rg4 17:49 Nanette Mccray FNP-C is [facility]. kb 17:49 Karthik Lakhani MD is Attending Physician. kb 18:01 Triage completed. ko1 18:01 Arm band placed on right wrist. Patient notified of wait time. ko1 18:04 Gloria Deleon RN is Primary Nurse. mb9 18:15 EKG done, by ED staff, reviewed by Nanette SERRANO. Inserted saline lock: 20 mb9 gauge in right forearm, using aseptic technique. 18:23 Placed in gown. Bed in low position. Call light in reach. Side rails up X 1. Client mb9 placed on continuous cardiac and pulse oximetry monitoring. NIBP monitoring applied. color television console monitor on. 18:23 SARS-COV-2 RT PCR Sent. mb9 18:23 Flu Sent. mb9 18:23 Basic Metabolic Panel Sent. mb9 18:23 CBC with Diff Sent. mb9 18:23 Troponin HS Sent. mb9 18:55 XRAY Chest (1 view) In Process Unspecified. EDMS 19:34 No provider procedures requiring assistance completed. IV discontinued, intact, mb9 bleeding controlled, No redness/swelling at site. Pressure dressing applied. Administered Medications: No medications were administered Medication: 19:35 VIS not applicable for this client. mb9 Outcome: 19:25 Discharge ordered by . kb 19:34 Discharged to home ambulatory. mb9 19:34 Condition: stable 19:34 Discharge instructions given to patient, Instructed on discharge instructions, follow up and referral plans. Demonstrated understanding of instructions, follow-up care. 19:35 Patient left the ED. mb9 Signatures: Dispatcher [employer] EDIL Nanette Mccray, ZACH DRISCOLL-Carrie Lawler rg4 Stephanie Morin RN RN ko1 Gloria Deleon RN RN mb9 Corrections: (The following items were deleted from the chart) 18:03 18:01 Home Meds: gemfibrozil 600 mg Oral tab 1 tab 2 times per day; margret ko1
--- NOTE | 2022-11-23 19:26 | EDPHYS ---
Physician Documentation [facility] Name: Raza Causey Age: 37 yrs Sex: Male : 1985 Arrival Date: 11/23/2022 Time: 17:46 Bed 14 Private MD: ED Physician Karthik Lakhani HPI: 11/23 19:25 This 37 yrs old Male presents to ER via Ambulatory with complaints of kb Palpitations, Body Aches. 19:29 The patient or guardian reports difficulty breathing, flu symptoms, arthralgias, kb myalgias. Onset: The symptoms/episode began/occurred 3 day(s) ago. Severity of symptoms: At their worst the symptoms were mild, moderate, in the emergency department the symptoms are unchanged. Modifying factors: The symptoms are alleviated by nothing, the symptoms are aggravated by nothing. Associated signs and symptoms: Pertinent positives: chest pain, Pertinent negatives: diarrhea, ear ache, fever, nausea, rhinorrhea, sore throat, vomiting. The patient has not experienced similar symptoms in the past. The patient has not recently seen a physician. Historical: - Allergies: 18:01 No Known Allergies; ko1 - Home Meds: 18:01 atorvastatin oral [Active]; lisinopril 20 mg Oral tab 1 tab once daily [Active]; ko1 Metformin Oral [Active]; - Immunization history:: Adult Immunizations unknown. - Social history:: Smoking status: Patient denies any tobacco usage or history of. ROS: 19:28 Abdomen/GI: Negative for abdominal pain, nausea, vomiting, diarrhea, and constipation. kb 19:28 Constitutional: Positive for body aches, malaise. 19:28 Respiratory: Positive for shortness of breath. 19:28 All other systems are negative. Exam: 19:26 Constitutional: This is a well developed, well nourished patient who is awake, alert, kb and in no acute distress. Head/Face: Normocephalic, atraumatic. ENT: Moist Mucous membranes Cardiovascular: Regular rate and rhythm with a normal S1 and S2. No gallops, murmurs, or rubs. No pulse deficits. Respiratory: Respirations even and unlabored. No increased work of breathing. Talking in full sentences Abdomen/GI: Soft, non-tender. No distention Skin: Warm, dry with normal turgor. Normal color. MS/ Extremity: Pulses equal, no cyanosis. Neurovascular intact. Full, normal range of motion. Neuro: Awake and alert, GCS 15, oriented to person, place, time, and situation. Moves all extremities. Normal gait. 19:26 ECG was reviewed by the Attending Physician. Vital Signs: 17:59 BP 149 / 94; Pulse 68; Resp 18; Temp 98.4(O); Pulse Ox 100% on R/A; Weight 88.9 kg; ko1 Height 5 ft. 9 in. ; 19:34 BP 102 / 64; Pulse 70; Resp 16; Pulse Ox 98% on R/A; mb9 17:59 Body Mass Index 28.94 (88.90 kg, 175.26 cm) ko1 MDM: 17:50 Patient medically screened. kb 19:26 Differential Diagnosis: Bronchitis Influenza Upper Respiratory Infection Pneumonia kb Other flu, covid. Data reviewed: vital signs, nurses notes. Counseling: I had a detailed discussion with the patient and/or guardian regarding: the historical points, exam findings, and any diagnostic results supporting the discharge/admit diagnosis, lab results, radiology results, the need for outpatient follow up, a family practitioner, to return to the emergency department if symptoms worsen or persist or if there are any questions or concerns that arise at home. 11/23 18:00 Order name: Basic Metabolic Panel; Complete Time: 19:19 kb 11/23 18:00 Order name: CBC with Diff; Complete Time: 18:48 kb 11/23 18:00 Order name: Troponin HS; Complete Time: 19:19 kb 11/23 18:00 Order name: Flu; Complete Time: 19:19 kb 11/23 18:00 Order name: SARS-COV-2 RT PCR; Complete Time: 19:19 kb 11/23 18:00 Order name: XRAY Chest (1 view); Complete Time: 19:19 kb 11/23 18:00 Order name: EKG; Complete Time: 18:01 kb 11/23 18:00 Order name: Cardiac monitoring; Complete Time: 18:04 kb 11/23 18:00 Order name: EKG - Nurse/Tech; Complete Time: 18:23 kb 11/23 18:00 Order name: IV Saline Lock; Complete Time: 18:23 kb 11/23 18:00 Order name: Labs collected and sent; Complete Time: 18:23 kb 07/02 18:00 Order name: O2 Per Protocol; Complete Time: 18:04 kb 11/23 18:00 Order name: O2 Sat Monitoring; Complete Time: 18:04 kb EC:26 Rate is 63 beats/min. Rhythm is regular. QRS [place] is Normal. UT interval is normal at kb 156 msec. QRS interval is normal at 96 msec. QT interval is normal at 390 msec. Administered Medications: No medications were administered Disposition: 11/24 13:07 Co-signature as Attending Physician, Karthik Lakhani MD I agree with the assessment and kdr plan of care. Disposition Summary: 11/23/22 19:25 Discharge Ordered Location: Home kb Condition: Stable kb Diagnosis - Acute upper respiratory infection, unspecified kb Followup: kb - With: Emergency Department - When: As needed - Reason: Worsening of condition Followup: kb - With: Private Physician - When: 2 - 3 days - Reason: Recheck today's complaints, Continuance of care, Re-evaluation by your physician Discharge Instructions: - Discharge Summary Sheet kb - Upper Respiratory Infection, Adult, [id number] kb - Viral Respiratory Infection, [id number] kb Forms: - Medication Reconciliation Form kb - Thank You Letter kb - Antibiotic Education kb - Prescription Opioid Use kb - [email or web address] kb Signatures: Dispatcher [employer] EDMS Nanette Mccray, ZACH DRISCOLL-Karthik Garg MD MD kdr Stephanie Morin, RN RN ko1 Corrections: (The following items were deleted from the chart) 11/23 18:03 18:01 Home Meds: gemfibrozil 600 mg Oral tab 1 tab 2 times per day; ko1 ko1
[2022-11-23 19:53] VITALS: TEMP 98.4
[2022-11-23 19:55] VITALS: BP 102/64; O2SAT 98
--- NOTE | 2022-11-24 19:31 | EKG ---
Test Date: 2022-11-23 Test Time: 18:13:16 [employer] Supervisor: MB MEASUREMENT RESULTS: Intervals: Rate: 63 MN: 156 QRSD: 96 QT: 382 QTc: 390 [place]: P: 44 MN: 156 QRS: 50 T: 47 INTERPRETIVE STATEMENTS: Normal sinus rhythm Normal ECG Compared to ECG 12/29/2021 21:26:02 No significant changes Electronically Signed On 11-24-22 19:28:57 CDT by Jose Juan Thao
== END 2022-11-23 19:35 | disposition home or self-care (01) ==
LOC: ER 17:46
DX: J06.9 Acute upper respiratory infection, unspecified (principal); Z20.822 Contact with and (suspected) exposure to COVID-19
CPT/HCPCS: 36415; 71045; 80048; 84484; 85025; 87635; 87804; 93005; 99284

== ENCOUNTER 2024-01-22 19:25 | Emergency (ER) | payer BC, SELFPAY ==
--- OUTSIDE RECORDS SUMMARY | 2024-01-22 19:30 | XMS REPORT | Continuity of Care Document ---
Author Name Unknown Address [address] [facility] [address] [place] [address] [facility] thconnect Address [address] [facility]. [address] [place] [address] Care Team Providers Care Acquisition Manager Name Role Phone Ct [facility] Primary Care Physician Erickson Sol MD Attending Clinician ERICKSON SOL Attending Clinician Unavailable Doctor Unassigned, Twilight Attending Clinician U Ziggy Allen Attending Clinician [phone] Siobhan Covarrubias Attending Clinician Payers Payer Name Policy Type Policy Number Effective Date Expirati on Date Source [facility] [id number] 2019 00:00:00 Problems Condition Name Condition Details Condition Category Status Onset Date Resolution Date Last Treatment Date Treating Clinician Comments Source No known active problems No known active problems Disease [facility] Allergies, Adverse Reactions, Alerts Allergy Name Allergy Type Status Severity Reaction(s) Onset Date Inactive Date Treating Clinician Comments Source NO KNOWN ALLERGIE S Drug Class Active [facility] Social History Social Habit Start Date Stop Date Quantity Comments Source Exposure to SARS-CoV-2 (event) Not sure [facility] Sex Assigned At 1985 00:00:00 1985 00:00:00 [facility] Smoking Status Start Date Stop Date Source Unknown if ever smoked [facility] Medications Ordered Medication Name Filled Medication Name Start Date Stop Date Current Medication? Ordering Clinician Indication Dosage Frequency Signature (SIG) Comments Components Source metformin 500 mg tablet 09-17 00:00: 00 Yes 1mg Jose Mcbride lisinopril 20 mg tablet 09-17 00:00: 00 Yes 1mg Jose Mcbride fenofibrate 160 mg tablet 09-17 00:00: 00 Yes 1mg Jose Mcbride lisinopril 10 mg tablet 07-30 00:00: 00 Yes 1mg Jose Mcbride fenofibrate 160 mg tablet 07-30 00:00: 00 Yes 1mg Jose Mcbride fenofibrate 120 mg tablet 07-30 00:00: 00 Yes 1mg Jose Vensa Mcbride TAKE 1 TABLET BY MOUTH AT BEDTIME 06-17 00:00: 00 Yes 40 Jose Vesna Mcbride TAKE 1 TABLET BY MOUTH TWICE DAILY WITH FOOD. 06-17 00:00: 00 Yes 500 Jose Mcbride TAKE 1 TABLET DAILY. 06-16 00:00: 00 Yes 20 Jose Vesna Mcbride TAKE 1 TABLET BY MOUTH DAILY 06-12 00:00: 00 09-17 00:00 :00 No 20 Jose Vesna Mcbride TAKE 1 TABLET TWICE DAILY UNTIL GONE. 2022-05 00:00: 00 09-17 00:00 :00 No 500 Jose Vesna Mcbride INHALE 2 PUFFS EVERY 3-4 HOURS PRN WHEEZING, COUGH, SHORTNESS OF BREATH 2022-05 00:00: 00 09-17 00:00 :00 No [id number] Jose Vesna Mcbride TAKE 1 TABLET DAILY. 2022-05 00:00: 00 09-17 00:00 :00 No 20 Jose Vesna Mcbride TAKE 1 TABLET BY MOUTH AT BEDTIME 2022-05 00:00: 00 09-17 00:00 :00 No 40 Jose F Reed TAKE 1 TABLET BY MOUTH AT BEDTIME 2022-05 00:00: 00 09-17 00:00 :00 No 40 Jose F Reed TAKE 1 TABLET BY MOUTH TWICE DAILY WITH FOOD. 7-08 00:00: 00 09-17 00:00 :00 No 500 Jose F Reed TAKE 1 TABLET DAILY. 7-08 00:00: 00 09-17 00:00 :00 No 20 Jose F Reed TAKE ONE TABLET TWICE A DAY NEEDED 7- 00:00: 00 09-17 00:00 :00 No 10 Jose F Reed TAKE 1 TABLET BY MOUTH AT BEDTIME 11-17 00:00: 00 09-17 00:00 :00 No 40 Jose F Reed TAKE 1 TABLET BY MOUTH TWICE DAILY WITH FOOD. 11-17 00:00: 00 09-17 00:00 :00 No 500 Jose F Reed TAKE 1 TABLET BY MOUTH TWICE DAILY 0 3-16 00:00: 00 Yes Jose Vesna Mcbride TAKE 1 TABLET TWICE DAILY WITH FOOD. 2-21 00:00: 00 09-17 00:00 :00 No 500 Jose F Reed TAKE 1 TABLET DAILY. 2-14 00:00: 00 09-17 00:00 :00 No 20 Jose F Reed TAKE 1 TABLET TWICE DAILY WITH FOOD. 2021-05 2- 00:00: 00 09-17 00:00 :00 No Jose F Reed Dose Unknown 2021-05 2- 00:00: 00 09-17 00:00 :00 No Jose F Reed TAKE 1 TABLET BY MOUTH EVERY 12 HOURS FOR 10 DAYS 2021-05 2-13 00:00: 00 09-17 00:00 :00 No Jose F Reed Dose Unknown 2021-05 2-13 00:00: 00 09-17 00:00 :00 No Jose F Reed TAKE 1 TABLET DAILY. 2021-05 1-16 00:00: 00 09-17 00:00 :00 No 20unit Jose F Reed TAKE ONE (1) TABLET(S) BY MOUTH EVERY TWELVE HOURS WITH MORNING AND EVENING MEAL. 8-08 00:00: 00 09-17 00:00 :00 No Jose F Reed Dose Unknown 09-04 00:00: 00 Yes Jose Mcbride Dose Unknown 09-04 00:00: 00 Yes Jose Mcbride Dose Unknown 09-04 00:00: 00 Yes Jose Mcbride Dose Unknown 08-12 00:00: 00 Yes Jose Mcbride Dose Unknown 08-12 00:00: 00 Yes Jose Mcbride Dose Unknown 1- 00:00: 00 Yes Jose Mcbride Dose Unknown 02-18 00:00: 00 Yes Jose Mcbride Dose Unknown 02-16 00:00: 00 Yes Jose Mcbride Dose Unknown 02-16 00:00: 00 Yes Jose Mcbride lisinopril 20 mg tablet 11-13 00:00: 00 Yes 1mg Jose Mcbride citalopram 10 mg tablet 11-13 00:00: 00 Yes 1mg Jose Mcbride lisinopril 20 mg tablet 10-15 00:00: 00 Yes 1mg Jose Mcbride hydroxyzine HCl 25 mg tablet 10-15 00:00: 00 Yes 12mg Jose Mcbride NaCl 0.9% (NS) bolus infusion 1,000 mL 08-21 15:45: 00 08-21 15:25 :00 No 1000mL at 999 mL/hr, 1,000 mL, IV Piggyback, ONCE, 1 dose, Thu08/21/20 at 1045, STAT [facility] ketorolac (TORADOL) injection 30 mg 02-16 05:15: 00 02-16 04:03 :00 No 30mg 30 mg, Slow IV Push, ONCE, 1 dose, Thu02/17/20 at 0015, JONAS
Fa culty member approving Restricted medication : Ziggy SAN [facility] ibuprofen 600 mg tablet 02-16 00:00: 00 Yes [id number] 600mg Take 1 tablet by mouth every 6 (six) hours as needed for Pain (scale 4-6). [facility] ibuprofen (IBU) tablet 800 mg 06-12 23:45: 00 06-12 22:54 :00 No 800mg 800 mg, Oral, ONCE, 1 dose, 06/12/19 at 1745, JONAS [facility] amoxicillin 875 mg tablet 06-12 00:00: 00 06-23 05:59 :00 No [id number] 875mg Take 1 tablet by mouth 2 (two) times daily for 10 days. [facility] oseltamivir 75 mg capsule 06-12 00:00: 00 06-18 05:59 :00 No [id number] 75mg Take 1 capsule by mouth 2 (two) times daily for 5 days. [facility] albuterol 2.5 mg /3 mL (0.083 %) nebulizer solution 2018-05 00:00: 00 Yes [id number] 2.5mg Inhale 3 mL every 4 (four) hours as needed for Wheezing or Shortness of Breath. [facility] benzonatate 200 mg capsule 2017-05 00:00: 00 Yes 200mg Take 1 capsule by mouth 3 (three) times daily as needed for Cough. [facility] proMETHazin e 25 mg tablet 2017-05 00:00: 00 Yes 25mg Take 1 tablet by mouth every 6 (six) hours as needed for Nausea and Vomiting (N/V). [facility] traMADOL (ULTRAM) 50 mg tablet 2017-05 00:00: 00 Yes 50mg Take 1 tablet by mouth every 6 (six) hours as needed for Pain (scale 4-6). [facility] LISINOPRIL ORAL 01-28 20:38: 33 Yes Take by mouth. [facility] traMADOL 50 mg tablet 01-28 00:00: 00 Yes 50mg Take 1 tablet by mouth every 8 (eight) hours as needed for Pain (scale 4-6). [facility] Vital Signs Vital Name Observation Time Observation Value Comments S osiris Systolic blood pressure 2020-08-21 15:00:00 139 mm[Hg] [facility] Diastolic blood pressure 2020-08-21 15:00:00 103 mm[Hg] [facility] Heart rate 2020-08-21 15:00:00 77 /min [facility] Respiratory rate 2020-08-21 15:00:00 16 /min [facility] Oxygen saturation in Arterial blood by Pulse oximetry 2020-08-21 15:00:00 96 /min [facility] Body temperature 2020-08-21 12:54:00 36.89 Gini [facility] Body weight 2020-08-21 12:54:00 104.327 kg [facility] BMI 2020-08-21 12:54:00 33.97 kg/m2 [facility] Systolic blood pressure 2020-08-21 15:00:00 139 mm[Hg] [facility] Diastolic blood pressure 2020-08-21 15:00:00 103 mm[Hg] [facility] Heart rate 2020-08-21 15:00:00 77 /min [facility] Respiratory rate 2020-08-21 15:00:00 16 /min [facility] Oxygen saturation in Arterial blood by Pulse oximetry 2020-08-21 15:00:00 96 /min [facility] Body temperature 2020-08-21 12:54:00 36.89 [facility] Body weight 2020-08-21 12:54:00 104.327 kg [facility] BMI 2020-08-21 12:54:00 33.97 kg/m2 [facility] Systolic blood pressure 2020-02-17 05:00:00 124 mm[Hg] [facility] Diastolic blood pressure 2020-02-17 05:00:00 77 mm[Hg] [facility] Heart rate 2020-02-17 05:00:00 65 /min [facility] Respiratory rate 2020-02-17 05:00:00 16 /min [facility] Oxygen saturation in Arterial blood by Pulse oximetry 2020-02-17 05:00:00 97 /min [facility] Body temperature 2020-02-17 01:13:00 36.78 Gini [facility] Body weight 2020-02-17 01:13:00 107.049 kg [facility] BMI 2020-02-17 01:13:00 34.85 kg/m2 [facility] Systolic blood pressure 2020-02-17 05:00:00 124 mm[Hg] [facility] Diastolic blood pressure 2020-02-17 05:00:00 77 mm[Hg] [facility] Heart rate 2020-02-17 05:00:00 65 /min [facility] Respiratory rate 2020-02-17 05:00:00 16 /min [facility] Oxygen saturation in Arterial blood by Pulse oximetry 2020-02-17 05:00:00 97 /min [facility] Body temperature 2020-02-17 01:13:00 36.78 Gini [facility] Body weight 2020-02-17 01:13:00 107.049 kg [facility] BMI 2020-02-17 01:13:00 34.85 kg/m2 [facility] Body temperature 2019-06-13 00:13:36 37.22 Gini [facility] Systolic blood pressure 2019-06-12 22:12:00 155 mm[Hg] [facility] Diastolic blood pressure 2019-06-12 22:12:00 111 mm[Hg] [facility] Heart rate 2019-06-12 22:12:00 111 /min [facility] Respiratory rate 2019-06-12 22:12:00 18 /min [facility] Body height 2019-06-12 22:12:00 175.3 cm [facility] Body weight 2019-06-12 22:12:00 102.513 kg [facility] BMI 2019-06-12 22:12:00 33.37 kg/m2 [facility] Oxygen saturation in Arterial blood by Pulse oximetry 2019-06-12 22:12:00 99 /min [facility] Body temperature 2019-06-13 00:13:36 37.22 Gini [facility] Systolic blood pressure 2019-06-12 22:12:00 155 mm[Hg] [facility] Diastolic blood pressure 2019-06-12 22:12:00 111 mm[Hg] [facility] Heart rate 2019-06-12 22:12:00 111 /min [facility] Res[facility] rate 2019-06-12 22:12:00 18 /min [facility] Body height 2019-06-12 22:12:00 175.3 cm [facility] Body weight 2019-06-12 22:12:00 102.513 kg [facility] BMI 2019-06-12 22:12:00 33.37 kg/m2 [facility] Oxygen saturation in Arterial blood by Pulse oximetry 2019-06-12 22:12:00 99 /min [facility] BP Systolic 2023-09-18 17:00:00 143 mm[Hg] Step hen F Reed BP Diastolic 2023-09-18 17:00:00 97 mm[Hg] Silvano phen F Reed Weight Measured 2023-09-18 17:00:00 213.60 pounds Jose Mcbride Height Measured 2023-09-18 17:00:00 67.72 inches Jose Vesna Mcbride Body Temperature 2023-09-18 17:00:00 98.20 degrees Jose Vesna Mcbride Heart Rate 2023-09-18 17:00:00 65.00 /min Ava en F Reed Respiratory Rate 2023-09-18 17:00:00 Josepedro Mcbride Height Measured 2023-07-31 16:11:00 67.72 inches Jose Vesna Mcbride Body Temperature 2023-07-31 16:11:00 98.40 degrees Jose Vesna Mcbride Heart Rate 2023-07-31 16:11:00 72.00 /min Ava en F Reed Respiratory Rate 2023-07-31 16:11:00 17.00 /min Jose F Reed BP Systolic 2023-07-31 16:11:00 150 mm[Hg] Step hen F Reed BP Diastolic 2023-07-31 16:11:00 92 mm[Hg] Silvano phen F Reed Weight Measured 2023-07-31 16:11:00 216.00 pounds Jose Vesna Mcbride BP Systolic 2023-06-16 17:00:00 157 mm[Hg] Step hen F Reed BP Diastolic 2023-06-16 17:00:00 102 mm[Hg] Silvano phen F Reed Weight Measured 2023-06-16 17:00:00 218.40 pounds Jose F Reed Height Measured 2023-06-16 17:00:00 67.72 inches Jose F Reed Body Temperature 2023-06-16 17:00:00 98.20 degrees Jose F Reed Heart Rate 2023-06-16 17:00:00 76.00 /min Ava en F Reed Respiratory Rate 2023-06-16 17:00:00 19.00 /min Jose F Reed BP Systolic 2023-03-14 11:26:00 148 mm[Hg] Step hen F Reed BP Diastolic 2023-03-14 11:26:00 91 mm[Hg] Silvano phen F Reed Weight Measured 2023-03-14 11:26:00 202.40 pounds Jose F Reed Height Measured 2023-03-14 11:26:00 67.72 inches Jose F Reed Body Temperature 2023-03-14 11:26:00 98.40 degrees Jose F Reed Heart Rate 2023-03-14 11:26:00 73.00 /min Ava en F Reed Respiratory Rate 2023-03-14 11:26:00 Jose F Reed BP Systolic 2022-11-29 13:56:00 125 mm[Hg] Step hen F Reed BP Diastolic 2022-11-29 13:56:00 83 mm[Hg] Silvano phen F Reed Weight Measured 2022-11-29 13:56:00 196.20 pounds Jose F Reed Height Measured 2022-11-29 13:56:00 67.72 inches Jose F Reed Body Temperature 2022-11-29 13:56:00 98.10 degrees Jose F Reed Heart Rate 2022-11-29 13:56:00 67.00 /min Ava en F Reed Respiratory Rate 2022-11-29 13:56:00 16.00 /min Jose F Reed BP Systolic 2022-07-08 16:56:00 131 mm[Hg] Step hen F Reed BP Diastolic 2022-07-08 16:56:00 88 mm[Hg] Silvano phen F Reed Weight Measured 2022-07-08 16:56:00 200.00 pounds Jose F Reed Height Measured 2022-07-08 16:56:00 67.72 inches Jose F Reed Body Temperature 2022-07-08 16:56:00 98.60 degrees Jose F Reed Heart Rate 2022-07-08 16:56:00 80.00 /min Ava en F Reed Respiratory Rate 2022-07-08 16:56:00 18.00 /min Jose F Reed BP Systolic 2022-04-04 17:16:00 132 mm[Hg] Step hen F Reed BP Diastolic 2022-04-04 17:16:00 94 mm[Hg] Silvano phen F Reed Weight Measured 2022-04-04 17:16:00 205.00 pounds Jose F Reed Height Measured 2022-04-04 17:16:00 67.72 inches Jose F Reed Body Temperature 2022-04-04 17:16:00 98.20 degrees Jose F Reed Heart Rate 2022-04-04 17:16:00 77.00 /min Ava en F Reed Respiratory Rate 2022-04-04 17:16:00 18.00 /min Jose F Reed BP Systolic 2022-01-29 19:02:00 Step hen F Reed BP Diastolic 2022-01-29 19:02:00 Silvano phen F Reed Weight Measured 2022-01-29 19:02:00 220.00 pounds Jose F Reed Height Measured 2022-01-29 19:02:00 67.72 inches Jose F Reed Body Temperature 2022-01-29 19:02:00 Joes F Reed Heart Rate 2022-01-29 19:02:00 Ava en F Reed Respiratory Rate 2022-01-29 19:02:00 Jose F Reed BP Systolic 2022-01-06 16:15:00 129 mm[Hg] Step hen F Reed BP Diastolic 2022-01-06 16:15:00 78 mm[Hg] Silvano phen F Reed Weight Measured 2022-01-06 16:15:00 221.20 pounds Jose F Reed Height Measured 2022-01-06 16:15:00 67.72 inches Jose F Reed Body Temperature 2022-01-06 16:15:00 98.40 degrees Jose F Reed Heart Rate 2022-01-06 16:15:00 59.00 /min Ava en F Reed Respiratory Rate 2022-01-06 16:15:00 18.00 /min Jose Mcbride BP Systolic 2021-09-04 17:23:00 132 mm[Hg] Fredis Mcbride BP Diastolic 2021-09-04 17:23:00 82 mm[Hg] Silvano Mcbride Weight Measured 2021-09-04 17:23:00 229.80 pounds Jose Mcbride Height Measured 2021-09-04 17:23:00 67.72 inches Jose Mcbride Body Temperature 2021-09-04 17:23:00 98.20 degrees Jose Mcbride Heart Rate 2021-09-04 17:23:00 72.00 /min Ava en Vesna Mcbride Respiratory Rate 2021-09-04 17:23:00 17.00 /min Jose Mcbride Procedures Procedure Date / Time Performed Performing Clinician Source XR CHEST 1 VW 2020-08-21 15:08:40 Erickson Sol [facility] CREATINE KINASE 2020-08-21 13:31:00 [facility] 2020-08-21 13:31:00 [facility] THYROID STIMULATING HORMONE 2020-08-21 13:31:00 [facility] FUNCTION PANEL (25929) (ALB,T.PRO,BILI T,BU/BC,ALT,AST,ALK PHOS) 2020-08-21 13:31:00 Erickson Sol [facility] BASIC METABOLIC PANEL (NA, K, CL, CO2, GLUCOSE, BUN, CREATININE, CA) 2020-08-21 13:31:00 Erickson Sol [facility] CBC WITH DIFF 2020-08-21 13:31:00 Erickson Sol [facility] URINALYSIS 2020-08-21 13:31:00 Erickson Sol [facility] ADC / LCC - DRUG SCREEN TRIAGE 2020-08-21 13:31:00 Erickson Sol [facility] COVID-19 (ID NOW RAPID TESTING) 2020-08-21 13:31:00 Erickson Sol [facility] NOTICE OF PRIVACY PRACTICES 2020-08-21 12:46:36 Doctor Unassigned, Twilight [facility] CONSENT/REFUSAL FOR DIAGNOSIS AND TREATMENT 2020-08-21 12:46:21 Doctor Unassigned, Twilight [facility] TROPONIN I 2020-02-17 03:49:00 Ziggy [facility] XR CHEST 1 VW 2020-02-17 02:30:42 Erickson Sol [facility] LIPASE 2020-02-17 01:21:00 [facility] Sol [facility] TROPONIN I 2020-02-17 01:21:00 [facility] Sol [facility] COMP. METABOLIC PANEL (10278) 2020-02-17 01:21:00 Erickson Sol [facility] CBC WITH DIFF 2020-02-17 01:21:00 Erickson Sol [facility] PROTHROMBIN TIME / INR 2020-02-17 01:21:00 Aidan Sol [facility] ACTIVATED PARTIAL THRMPLAS AMY 2020-02-17 01:21:00 Erickson Sol [facility] EKG-12 LEAD 2020-02-17 01:18:35 [facility] Sol [facility] NOTICE OF PRIVACY PRACTICES 2020-02-17 01:08:49 Doctor Unassigned, Twilight [facility] CONSENT/REFUSAL FOR DIAGNOSIS AND TREATMENT 2020-02-17 01:08:34 Doctor Unassigned, Twilight [facility] RAPID STREP SCREEN FOR GROUP A 2019-06-12 22:38:00 Siobhan Garza [facility] ADC,CLC OR LCC ONLY - INFLUENZA A & B DIRECT ANTIGEN 2019-06-12 22:38:00 Siobhan Garza [facility] CONSENT/REFUSAL FOR DIAGNOSIS AND TREATMENT 2019-06-12 22:06:34 Doctor Unassigned, Twilight [facility] Encounters Start Date/Time End Date/Time Encounter Type Admission Type Attending Clinicians Care Facility Care Department Encounter ID Source 2023-10-02 15:02:00 2023-10-02 15:02:00 Outpatient SFA [id number] Jose Mcbride 2023-09-18 16:59:08 2023-09-18 16:59:08 Outpatient SFA SFA [id number] Jose Mcbride 2023-09-18 00:00:00 2023-09-18 00:00:00 Outpatient Visit SFA [id number] Jose Mcbride 2023-08-01 09:13:04 2023-08-01 09:13:04 Outpatient SFA [id number] [id number] Jose Mcbride 2023-07-31 16:05:03 2023-07-31 16:05:03 Outpatient SFA SFA [id number] Jose Mcbride 2023-06-16 16:47:34 2023-06-16 16:47:34 Outpatient SFA [id number] [id number] Jose Mcbride 2023-03-20 08:12:25 2023-03-20 08:12:25 Outpatient SFA [id number] [id number] Jose Mcbride 2023-03-14 11:22:44 2023-03-14 11:22:44 Outpatient SFA [id number] [id number] Jose Mcbride 2023-03-11 17:06:31 2023-03-11 17:06:31 Outpatient SFA [id number] [id number] Jose Mcbride 2022-11-29 13:34:42 2022-11-29 13:34:42 Outpatient SFA [id number] [id number] Jose Mcbride 2022-07-11 08:00:18 2022-07-11 08:00:18 Outpatient SFA [id number] [id number] Jose Mcbride 2022-07-08 16:50:35 2022-07-08 16:50:35 Outpatient SFA [id number] [id number] Jose Mcbride 2022-04-07 08:15:31 2022-04-07 08:15:31 Outpatient SFA [id number] [id number] Jose Mcbride 2022-04-04 17:00:04 2022-04-04 17:00:04 Outpatient SFA [id number] [id number] Jose Mcbride 2020-08-21 07:58:00 2020-08-21 10:27:00 Emergency Erickson Sol [facility] [id number] [facility] 2020-08-21 07:58:00 2020-08-21 10:27:00 Emergency Erickson Sol [facility] [id number] [id number] 2020-08-21 07:48:00 2020-08-21 07:48:00 Emergency X ERICKSON SOL [facility] ERT [id number] [facility] 2020-08-21 00:00:00 2020-08-21 00:00:00 Orders Only Doctor Unassigned, Twilight [facility] [id number] [facility] 2020-08-21 00:00:00 2020-08-21 00:00:00 Orders Only Doctor Unassigned, Twilight [facility] [id number] 2020-02-16 21:41:00 2020-02-17 00:50:00 Emergency Ziggy [facility] [id number] [facility] 2020-02-16 21:41:00 2020-02-17 00:50:00 Emergency Ziggy [facility] [id number] 2020-02-16 20:06:00 2020-02-16 20:06:00 Emergency X [facility] ERT [id number] [facility] 2019-06-12 16:15:07 2019-06-12 18:19:00 Emergency Siobhan Garza [facility] [id number] [facility] 2019-06-12 16:15:07 2019-06-12 18:19:00 Emergency Siobhan Garza [facility] [id number] Results Test Description Test Time Test Comments Results Result Co mments Source LIPID [id number] 00:00:00* Test Item Value Reference Range Interpretation Comme nts CHOLESTEROL (test code = 2210) 153 MG/DL TRIGLYCERIDES (test code = 2232) 163 MG/DL HDL CHOLESTEROL (test code = 2220) 32 MG/DL CALC LDL CHOL (test code = 2237) 95 MG/DL RISK RATIO LDL/HDL (test cod e = 2238) 2.97 RATIO Jose McbrideHEMOGLOBIN [id number] 03:48:13* Test Item Value Reference Range Interpretation Comme nts HEMOGLOBIN A1c (test code = 51754) 6.0 % 4.2-5.6 H [employer] GUIDELINES FOR HGB A1C: PREDIABETES/INCREASED RISK . . . . . . . 5.7-6.4% DIAGNOSIS OF DIABETES . . . . . . . . . >=6.5% WITH CONFIRMATION OR APPROPRIATE SYMPTOMS NOTE: ASSAY MAY BE AFFECTED BY HEMOGLOBINOPATHIES (SICKLE CELL ANEMIA, S-C DISEASE, OTHERS) OR ARTIFICIALLY LOWERED BY DECREASED RED CELL SURVIVAL (HEMOLYTIC ANEMIAS, BLOOD LOSS, ETC.). CONSIDER ALTERNATE TESTING OR LABORATORY CONSULTATION. HEMOGLOBIN [id number] 00:00:00* Test Item Value Reference Range Interpretation Comme nts HEMOGLOBIN A1c (test code = 46903) 6.0 % Jose McbrideLIPID [id number] 03:51:09* Test Item Value Reference Range Interpretation Comme nts CHOLESTEROL (test code = 2210) 174 MG/DL <200 TRIGLYCERIDES (test code = 2232) 174 MG/DL <150 H HDL CHOLESTEROL (test code = 2220) 29 MG/DL >39 L CALC LDL CHOL (test code = 2237) 116 MG/DL <100 H NOTE: CALCULATED LDL IS BASED ON NAHEED-RUANO METHOD WHICHINCLUDES ADJUSTABLE TRIGLYCERIDE:VLDL CHOLESTEROL RATIO.THIS FACTOR VARIES BY MEASURED TRIGLYCERIDE AND NON-HDLCHOLESTEROL CONCENTRATIONS WITH INCREASED CALCULATED LDL SEENIN HIGHER TRIGLYCERIDE OR LOWER NON-HDL SPECIMENS. FOR MOREINFORMATION, SEE CLIENT ANNOUNCEMENT AT [email or web address] RISK RATIO LDL/HDL (test code = 2237) 4.00 RATIO <3.55 H COMPREHENSIVE METABOLIC [id number] 03:51:09* Test Item Value Reference Range Interpretation Comme nts GLUCOSE (test code = 2216) 110 MG/DL 70-99 H BUN (test code = 2207) 16 MG/DL 6-20 CREATININE (test code = 2213) 0.86 MG/DL 0.80-1.40 eGFR (2020 CKD-EPI) (test code = 56540) 113 ML/MIN/1.73 >60 CALC BUN/CREAT (test code = 2234) 19 RATIO 6-28 SODIUM (test code = 2230) 137 MEQ/L 133-146 POTASSIUM (test code = 2228) 4.4 MEQ/L 3.5-5.4 CHLORIDE (test code = 5) 102 MEQ/L 95-107 CARBON DIOXIDE (test code = 2205) 26 MEQ/L 19-31 CALCIUM (test code = 220) 9.2 MG/DL 8.5-10.5 PROTEIN, TOTAL (test code = 2228) 6.6 G/DL 6.1-8.3 ALBUMIN (test code = 2200) 4.4 G/DL 3.5-5.2 CALC GLOBULIN (test code = 2240) 2.2 G/DL 1.9-3.7 CALC A/G RATIO (test code = 223) 2.0 RATIO 1.0-2.6 BILIRUBIN, TOTAL (test code = 2206) 0.6 MG/DL <=1.2 ALKALINE PHOSPHATASE (test code = 2203) 64 U/L 40-117 AST (test code = 2218) 13 U/L 9-50 ALT (test code = 2219) 17 U/L 5-50 UNLESS OTHERWISE INDICATED, ALL TESTING PERFORMED AT [facility] [address] [place] [id number] BARREL HEADER: JACQUIE WILHELM M.D. EVANGELINAIA NUMBER [id number] [facility] [place]. [id number] HEMOGLOBIN [id number] 03:40:45* Test Item Value Reference Range Interpretation Comme nts HEMOGLOBIN A1c (test code = 14010) 5.6 % 4.2-5.6 HEMOGLOBIN [id number] 00:00:00* Test Item Value Reference Range Interpretation Comme nts HEMOGLOBIN A1c (test code = 48633) 5.6 % Jose Malagon AustinLIPID [id number] 00:00:00* Test Item Value Reference Range Interpretation Comme nts CHOLESTEROL (test code = 2210) 174 MG/DL TRIGLYCERIDES (test code = 2232) 174 MG/DL HDL CHOLESTEROL (test code = 2220) 29 MG/DL CALC LDL CHOL (test code = 2237) 116 MG/DL RISK RATIO LDL/HDL (test cod e = 2238) 4.00 RATIO Jose McbrideCOMPREHENSIVE METABOLIC [id number] 00:00:00* Test Item Value Reference Range Interpretation Comme nts GLUCOSE (test code = 2217) 110 MG/DL BUN (test code = 2208) 16 MG/DL CREATININE (test code = 2214) 0.86 MG/DL eGFR (2020 CKD-EPI) (test code = 74627) 113 ML/MIN/1.73 CALC BUN/CREAT (test code = 2235) 19 RATIO SODIUM (test code = 2231) 137 MEQ/L POTASSIUM (test code = 2228) 4.4 MEQ/L CHLORIDE (test code = 2215) 102 MEQ/L CARBON DIOXIDE (test code = 2206) 26 MEQ/L CALCIUM (test code = 2209) 9.2 MG/DL PROTEIN, TOTAL (test code = 2229) 6.6 G/DL ALBUMIN (test code = 2201) 4.4 G/DL CALC GLOBULIN (test code = 2240) 2.2 G/DL CALC A/G RATIO (test code = 2234) 2.0 RATIO BILIRUBIN, TOTAL (test code = 2207) 0.6 MG/DL ALKALINE PHOSPHATASE (test code = 2204) 64 U/L AST (test code = 2218) 13 U/L ALT (test code = 2219) 17 U/L Jose McbrideLIPID [id number] 01:53:14* Test Item Value Reference Range Interpretation Comme nts CHOLESTEROL (test code = 2210) 176 MG/DL <200 TRIGLYCERIDES (test code = 2232) 116 MG/DL <150 HDL CHOLESTEROL (test code = 2220) 33 MG/DL >39 L CALC LDL CHOL (test code = 2237) 121 MG/DL <100 H NOTE: CALCULATED LDL IS BASED ON NAHEED-RUANO METHOD WHICHINCLUDES ADJUSTABLE TRIGLYCERIDE:VLDL CHOLESTEROL RATIO.THIS FACTOR VARIES BY MEASURED TRIGLYCERIDE AND NON-HDLCHOLESTEROL CONCENTRATIONS WITH INCREASED CALCULATED LDL SEENIN HIGHER TRIGLYCERIDE OR LOWER NON-HDL SPECIMENS. FOR MOREINFORMATION, SEE CLIENT ANNOUNCEMENT AT [email or web address] RISK RATIO LDL/HDL (test code = 2238) 3.67 RATIO <3.55 H [place] has i mportant pathology staff changes effective 07/23/2022. New pathology staff will provide uninterrupted, excellent patient care and clinical consultation. See URL: [email or web address]. UNLESS OTHERWISE INDICATED, ALL TESTING PERFORMED AT [facility] [address] [place] [address] CLIA: [id number], CAP: [id number] LIPID [id number] 00:00:00* Test Item Value Reference Range Interpretation Comme nts CHOLESTEROL (test code = 2210) 176 MG/DL TRIGLYCERIDES (test code = 2232) 116 MG/DL HDL CHOLESTEROL (test code = 2220) 33 MG/DL CALC LDL CHOL (test code = 2237) 121 MG/DL RISK RATIO LDL/HDL (test cod e = 2238) 3.67 RATIO Jose Vesna McbrideHEMOGLOBIN [id number] 00:00:00* Test Item Value Reference Range Interpretation Comme nts HEMOGLOBIN A1c (test code = 16684) 5.9 % Jose McbrideCOMPREHENSIVE METABOLIC [id number] 00:00:00* Test Item Value Reference Range Interpretation Comme nts GLUCOSE (test code = 2217) 93 MG/DL BUN (test code = 2208) 19 MG/DL CREATININE (test code = 2214) 0.91 MG/DL eGFR (2020 CKD-EPI) (test code = 87871) 111 ML/MIN/1.73 CALC BUN/CREAT (test code = 2235) 21 RATIO SODIUM (test code = 2231) 141 MEQ/L POTASSIUM (test code = 2228) 4.3 MEQ/L CHLORIDE (test code = 2215) 104 MEQ/L CARBON DIOXIDE (test code = 2206) 24 MEQ/L CALCIUM (test code = 2209) 9.8 MG/DL PROTEIN, TOTAL (test code = 2229) 7.2 G/DL ALBUMIN (test code = 2201) 4.1 G/DL CALC GLOBULIN (test code = 2240) 3.1 G/DL CALC A/G RATIO (test code = 2234) 1.3 RATIO BILIRUBIN, TOTAL (test code = 2207) 0.3 MG/DL ALKALINE PHOSPHATASE (test code = 2204) 83 U/L AST (test code = 2218) 16 U/L ALT (test code = 2219) 16 U/L Jose Malagon AustinLIPID [id number] 00:00:00* Test Item Value Reference Range Interpretation Comme nts CHOLESTEROL (test code = 2210) 211 MG/DL TRIGLYCERIDES (test code = 2232) 142 MG/DL HDL CHOLESTEROL (test code = 2220) 33 MG/DL CALC LDL CHOL (test code = 2237) 151 MG/DL RISK RATIO LDL/HDL (test cod e = 2238) 4.58 RATIO Jose Malagon AustinLIPID [id number] 04:16:00* Test Item Value Reference Range Interpretation Comme nts CHOLESTEROL (test code = 2210) 257 MG/DL <200 H TRIGLYCERIDES (test code = 2232) 229 MG/DL <150 H HDL CHOLESTEROL (test code = 2220) 30 MG/DL >39 L CALC LDL CHOL (test code = 2237) 185 MG/DL <100 H NOTE: CALCULATED LDL IS BASED ON NAHEED-RUANO METHOD WHICHINCLUDES ADJUSTABLE TRIGLYCERIDE:VLDL CHOLESTEROL RATIO.THIS FACTOR VARIES BY MEASURED TRIGLYCERIDE AND NON-HDLCHOLESTEROL CONCENTRATIONS WITH INCREASED CALCULATED LDL SEENIN HIGHER TRIGLYCERIDE OR LOWER NON-HDL SPECIMENS. FOR MOREINFORMATION, SEE CLIENT ANNOUNCEMENT AT [email or web address] RISK RATIO LDL/HDL (test code = 2238) 6.17 RATIO <3.55 H TSH, THIRD [id number] 03:58:52* Test Item Value Reference Range Interpretation Comme nts TSH, THIRD GENERATION (test code = 2821) 0.715 UIU/ML 0.400-4.100 UNLESS OTHERWISE INDICATED, ALL [facility]MED [facility] [address] [place] [id number] BARREL HEADER: ELA CAMPBELL M.D. CLIA NUMBER [id number] [facility] [place]. [id number] LIPID [id number] 00:00:00* Test Item Value Reference Range Interpretation Comme nts CHOLESTEROL (test code = 2210) 257 MG/DL TRIGLYCERIDES (test code = 2232) 229 MG/DL HDL CHOLESTEROL (test code = 2220) 30 MG/DL CALC LDL CHOL (test code = 2237) 185 MG/DL RISK RATIO LDL/HDL (test cod e = 2238) 6.17 RATIO Jose Malagon [id number] 00:00:00* Test Item Value Reference Range Interpretation Comme nts TSH, THIRD GENERATION (test code = 2821) 0.715 UIU/ML Jose McbrideLIPID [id number] 00:00:00* Test Item Value Reference Range Interpretation Comme nts CHOLESTEROL (test code = 2210) 143 MG/DL TRIGLYCERIDES (test code = 2232) 122 MG/DL HDL CHOLESTEROL (test code = 2220) 29 MG/DL CALC LDL CHOL (test code = 2237) 92 MG/DL RISK RATIO LDL/HDL (test cod e = 2238) 3.17 RATIO Jose McbrideCOMPREHENSIVE METABOLIC [id number] 00:00:00* Test Item Value Reference Range Interpretation Comme nts GLUCOSE (test code = 2217) 122 MG/DL BUN (test code = 2208) 15 MG/DL CREATININE (test code = 2214) 0.84 MG/DL eGFR AMER. (test cod e = 35129) 130 ML/MIN/1.73 eGFR NON- AMER. (test code = 26674) 112 ML/MIN/1.73 CALC BUN/CREAT (test code = 2235) 18 RATIO SODIUM (test code = 2231) 137 MEQ/L POTASSIUM (test code = 2228) 4.4 MEQ/L CHLORIDE (test code = 2215) 102 MEQ/L CARBON DIOXIDE (test code = 2206) 23 MEQ/L CALCIUM (test code = 2209) 9.0 MG/DL PROTEIN, TOTAL (test code = 2229) 7.0 G/DL ALBUMIN (test code = 2201) 4.6 G/DL CALC GLOBULIN (test code = 2240) 2.4 G/DL CALC A/G RATIO (test code = 2234) 1.9 RATIO BILIRUBIN, TOTAL (test code = 2207) 0.3 MG/DL ALKALINE PHOSPHATASE (test code = 2204) 102 U/L AST (test code = 2218) 18 U/L ALT (test code = 2219) 10 U/L Jose McbrideLIPID [id number] 00:00:00* Test Item Value Reference Range Interpretation Comme nts CHOLESTEROL (test code = 2210) 306 MG/DL TRIGLYCERIDES (test code = 2232) 1458 MG/DL HDL CHOLESTEROL (test code = 2220) 18 MG/DL CALC LDL CHOL (test code = 2237) (NOTE) MG/DL RISK RATIO LDL/HDL (test cod e = 2238) (NOTE) RATIO Jose McbrideCOMPREHENSIVE METABOLIC [id number] 00:00:00* Test Item Value Reference Range Interpretation Comme nts GLUCOSE (test code = 2217) 92 MG/DL BUN (test code = 2208) 14 MG/DL CREATININE (test code = 2214) 0.83 MG/DL eGFR AMER. (test cod e = 65136) 130 ML/MIN/1.73 eGFR NON- AMER. (test code = 71656) 112 ML/MIN/1.73 CALC BUN/CREAT (test code = 2235) 17 RATIO SODIUM (test code = 2231) 139 MEQ/L POTASSIUM (test code = 2228) 4.7 MEQ/L CHLORIDE (test code = 2215) 102 MEQ/L CARBON DIOXIDE (test code = 2206) 25 MEQ/L CALCIUM (test code = 2209) 9.5 MG/DL PROTEIN, TOTAL (test code = 2229) 7.3 G/DL ALBUMIN (test code = 2201) 4.2 G/DL CALC GLOBULIN (test code = 2240) 3.1 G/DL CALC A/G RATIO (test code = 2234) 1.4 RATIO BILIRUBIN, TOTAL (test code = 2207) <0.2 MG/DL ALKALINE PHOSPHATASE (test code = 2204) 98 U/L AST (test code = 2218) 36 U/L ALT (test code = 2219) 28 U/L Jose McbrideLIPID [id number] 00:00:00* Test Item Value Reference Range Interpretation Comme nts CHOLESTEROL (test code = 2210) 261 MG/DL TRIGLYCERIDES (test code = 2232) 1248 MG/DL HDL CHOLESTEROL (test code = 2220) 22 MG/DL CALC LDL CHOL (test code = 2237) (NOTE) MG/DL RISK RATIO LDL/HDL (test cod e = 2238) (NOTE) RATIO Jose McbrideXR CHEST 1 [id number] 15:10:55HISTORY: Cough. TECHNIQUE: Portable AP erect view of the chest is obtained. Comparison madewith 02/16/2020 study. FINDINGS: No acute pneumonia. No pneumothorax or pleural effusion orpulmonary congestion detected. Cardiac size is within normal limits. CONCLUSIONS: No signs of acute cardiopulmonary disease.[facility], Radiant Results Inft User - 08/21/2020 10:12 AM CDTHISTORY: Cough.TECHNIQUE: Portable APerect view of the chest is obtained. Comparison madewith 02/16/2020 study.FINDINGS: No acute pneumonia. No pneumothorax or pleural effusion orpulmonary congestion detected. Cardiac size is within normal limits. CONCLUSIONS: No signs of acute cardiopulmonary disease.[facility] / [facility] - DRUG SCREEN [id number] 15:06:33* Test Item Value Reference Range Interpretation Comme nts BENZO U (test code = 6364575124) Negative Negative HARRIETT U (test code = 9373151840) Negative Negative AMPHET (test code = 6951795977) Presumptive Positive Negative A THC (test code = 9581427152) Negative Negative METHADONE (test code = 1674260024) Negative Negative Meth U (test code = 5408244974) Presumptive Positive Negative A OPIATES (test code = 0667452144) Negative Negative Cocaine Metabolite (test code = 7476247512) Negative Negative PROPOXY (test code = 5115259675) Negative Negative Tric U (test code = 1109220123) Negative Negative PCP (test code = 3408513968) Negative Negative OXYCOD (test code = 0183965670) Negative Negative LOUIE (test code = LOUIE) Urine Drug [...] employment testing, legal testing). Lab Interpretation (test code = 83601-1) [facility] [id number] 14:41:43 * Test Item Value Reference Range Interpretation Comme nts TSH (test code = 6794446940) See_Comment [Automated messa ge] The system which generated this result transmitted reference range: 0.45 - 4.70 mIU/L. The reference range was not used to interpret this result as normal/abnormal. Lab Interpretation (test code = 69946-9) [facility]UM2021-03-30 14:13:20* Test Item Value Reference Range Interpretation Comme nts MAGNESIUM (test code = 8465885328) 1.7 mg/dL 1.7-2.4 Lab Interpretation (test cod e = 47366-2) [facility] (ID NOW RAPID TESTING)2020-08-21 14:13:20* Test Item Value Reference Range Interpretation Comme nts SARS-CoV-2 Rapid ID NOW (test code = 46776-9) Not Detected Not Detected LOUIE (test code = LOUIE) ID NOW COVID-19 As say is an isothermal nucleic acid amplification test intended for the qualitative detection of nucleic acid from SARS-CoV-2 viral RNA in nasopharyngeal (QUALITY CONTROL CLERK) specimens. It is used under Emergency Use [...] patient testing if clinically indicated. Lab Interpretation (test code = 26997-8) Normal [facility] Metabolic Panel (NA, K, CL, CO2, GLUCOSE, BUN, CREATININE, CA)2020-08-21 14:13:15* Test Item Value Reference Range Interpretation Comme nts NA (test code = 2892618087) 138 mmol/L 135-145 K (test code = 4608810138) 3.8 mmol/L 3.5-5.0 CL (test code = 7792398299) 108 mmol/L 98-108 CO2 TOTAL (test code = 1656905614) 23 mmol/L 23-31 AGAP (test code = 7464737143) 2-16 BUN (test code = 2298519069) 14 mg/dL 7-23 GLUCOSE (test code = 5639517156) 123 mg/dL 70-110 H CREATININE (test code = 3843591498) 0.83 mg/dL 0.60-1.25 CALCIUM (test code = 2673657882) 8.7 mg/dL 8.6-10.6 eGFR Calculation (Non-) (test code = 4541456130) mL/min/1.73m2 eGFR Calculation () (test code = 7235592718) mL/min/1.73m2 LOUIE (test code = LOUIE) Association of [...] or abnormalities in imaging tests). Lab Interpretation (test code = 38168-0) [facility] (ALB, T.PRO, BILI T, BU/BC, ALT, AST, ALK PHOS)2020-08-21 14:13:15* Test Item Value Reference Range Interpretation Comme nts TOTAL BILI (test code = 9560865359) 0.5 mg/dL 0.1-1.1 BILI UNCON (test code = 7003089546) 0.3 mg/dL 0.1-1.1 BILI CONJ (test code = 0401688402) 0.0 mg/dL 0.0-0.3 T PROTEIN (test code = 6126805815) 7.1 g/dL 6.3-8.2 ALBUMIN (test code = 5444812853) 4.2 g/dL 3.5-5.0 ALK PHOS (test code = 0980250609) 93 U/L 34-122 ALTv (test code = 1742-6) 21 U/L 5-50 AST(SGOT) (test code = 3247414138) 25 U/L 13-40 Lab Interpretation (test cod e = 38656-4) [facility] HospitalCREATINE [id number] 14:13:14* Test Item Value Reference Range Interpretation Comme nts CK (test code = 2722400264) 74 U/L 33-194 Lab Interpretation (test cod e = 07650-2) [facility]UR[facility]YSIS2021-03-30 14:12:24* Test Item Value Reference Range Interpretation Comme nts APPEARANCE (test code = 9699947232) Hazy Clear A COLOR (test code = 0118856312) Yellow Yellow PH (test code = 1859172999) 4.8-8.0 SP GRAVITY (test code = 7966977045) 1.003-1.030 GLU U QUAL (test code = 2196800591) Normal Normal BLOOD (test code = 3319814744) 1+ Negative A KETONES (test code = 5631310372) Negative Negative PROTEIN (test code = 2887-8) 30 mg/dL Negative A UROBILIN (test code = 1397889320) 2.0 mg/dL Normal A BILIRUBIN (test code = 6287433731) Negative Negative NITRITE (test code = 1106188964) Negative Negative LEUK DEANGELO (test code = 3915710271) 25/uL Negative A RBC/HPF (test code = 6837790293) See_Comment H [Automated messa ge] The system which generated this result transmitted reference range: 0 - 3 HPF. The reference range was not used to interpret this result as normal/abnormal. WBC/HPF (test code = 5457494517) See_Comment [Automated [employer]] The system which generated this result transmitted reference range: 0 - 5 HPF. The reference range was not used to interpret this result as normal/abnormal. BACTERIA (test code = 1398749482) Few Negative A MUCOUS (test code = 3734606409) Slight Negative LPF A AMORPHOUS (test code = 7735447624) Few Rare HPF A CA OXALATE (test code = 8675513120) See_Comment [Automated messa ge] The system which generated this result transmitted reference range: <=1 HPF. The reference range was not used to interpret this result as normal/abnormal. YEAST BUD (test code = 8570552866) <1 See_Comment [Automated [employer]] The system which generated this result transmitted reference range: <=1 HPF. The reference range was not used to interpret this result as normal/abnormal. Lab Interpretation (test code = 45085-4) [facility]normal [facility] HospitalCBC with [id number] 13:52:37* Test Item Value Reference Range Interpretation Comme nts WBC (test code = 6690-2) See_Comment H [Automated messa ge] The system which generated this result transmitted reference range: 4.20 - 10.70 10*3/?L. The reference range was not used to interpret this result as normal/abnormal. RBC (test code = 789-8) See_Comment H [Automated messa ge] The system which generated this result transmitted reference range: 4.26 - 5.52 10*6/?L. The reference range was not used to interpret this result as normal/abnormal. HGB (test code = 718-7) 17.0 g/dL 12.2-16.4 H HCT (test code = 4544-3) 49.5 % 38.4-49.3 H MCV (test code = 787-2) 84.0 fL 81.7-95.6 MCH (test code = 785-6) 28.9 pg 26.1-32.7 MCHC (test code = 786-4) 34.3 g/dL 31.2-35.0 RDW-SD (test code = 66096-4) 40.7 fL 38.5-51.6 RDW-CV (test code = 788-0) 13.2 % 12.1-15.4 PLT (test code = 777-3) See_Comment [Automated messa ge] The system which generated this result transmitted reference range: 150 - 328 10*3/?L. The reference range was not used to interpret this result as normal/abnormal. MPV (test code = 51632-5) 10.1 fL 9.8-13.0 NRBC/100 WBC (test code = 1946409586) See_Comment [Automated General Blood ssage] The system which generated this result transmitted reference range: 0.0 - 10.0 /100 WBCs. The reference range was not used to interpret this result as normal/abnormal. NRBC x10^3 (test code = 8398048443) <0.01 See_Comment [Automated messa ge] The system which generated this result transmitted reference range: 10*3/?L. The reference range was not used to interpret this result as normal/abnormal. GRAN MAT (NEUT) % (test code = 770-8) 63.6 % IMM GRAN % (test code = 3970925236) 0.40 % LYMPH % (test code = 736-9) 30.0 % MONO % (test code = 5905-5) 5.2 % EOS % (test code = 713-8) 0.4 % BASO % (test code = 706-2) 0.4 % GRAN MAT x10^3(ANC) (test code = 3409519108) 7.15 10*3/uL 1.99-6.95 H IMM GRAN x10^3 (test code = 9839450605) 0.05 10*3/uL 0.00-0.06 LYMPH x10^3 (test code = 731-0) 3.38 10*3/uL 1.09-3.23 H MONO x10^3 (test code = 742-7) 0.59 10*3/uL 0.36-1.02 EOS x10^3 (test code = 711-2) 0.04 10*3/uL 0.06-0.53 L BASO x10^3 (test code = 704-7) 0.05 10*3/uL 0.01-0.09 Lab Interpretation (test code = 15440-3) Abnormal [facility] [id number] 04:53:00* Test Item Value Reference Range Interpretation Comme nts TROPONIN I (test code = 1753794382) 0.001 ng/mL See_Comment [Automated message] The system which generated this result transmitted reference range: <=0.034. The reference range was not used to interpret this result as normal/abnormal. LOUIE (test code = LOUIE) Equal or Less than 0.034 ng/ml---Normal ?Note: Cardiac troponin begins to [...] patient's use of biotin. ? Lab Interpretation (test code = 66639-9) [facility] [id number] 04:43:03No acute intrathoracic abnormality. Preliminary Report Dictated by Resident: Rome Mendoza MD., have reviewed this study and agree with theabove report.PROCEDURE: XR CHEST 1 VW CLINICAL INDICATION: cp COMPARISON: Chest x-ray dated 05/13/2018. FINDINGS:The lungs are clear. No pleural effusion or pneumothorax is seen. The heartis normal in size. No acute bony abnormality. [facility], Radiant Results Inft User - 02/16/2020 11:44 PM CDTPROCEDURE: XR CHEST 1VWCLINICAL INDICATION: cp COMPARISON: Chest x-ray dated 05/13/2018.FINDINGS:The lungs are clear. Nopleural effusion or pneumothorax is seen. The heartis normal in size.No acute bony abnormality.IMPRESSIONNo acute intrathoracic abnormality.Preliminary Report Dictated by Resident: Yuridia Westfall, Rome Soria MD., have reviewed this study and agree with theabove report.[facility]TRDAYA I 2020-02-17 02:14:00* Test Item Value Reference Range Interpretation Comme nts TROPONIN I (test code = 3830156444) 0.001 ng/mL See_Comment [Automated message] The system which generated this result transmitted reference range: <=0.034. The reference range was not used to interpret this result as normal/abnormal. LOUIE (test code = LOUIE) Equal or Less than 0.034 ng/ml---Normal ?Note: Cardiac troponin begins to [...] patient's use of biotin. ? Lab Interpretation (test code = 12392-8) Normal [facility]. METABOLIC PANEL (62803)2020-02-17 02:03:00* Test Item Value Reference Range Interpretation Comme nts NA (test code = 7680136383) 139 mmol/L 135-145 K (test code = 2442638748) 3.9 mmol/L 3.5-5 CL (test code = 1752810083) 105 mmol/L 98-108 CO2 TOTAL (test code = 8466033266) 25 mmol/L 23-31 AGAP (test code = 7203569070) 2-16 BUN (test code = 7621013382) 19 mg/dL 7-23 GLUCOSE (test code = 8701551990) 115 mg/dL 70-110 H CREATININE (test code = 1822263203) 1.06 mg/dL 0.6-1.25 TOTAL BILI (test code = 6695519660) 0.4 mg/dL 0.1-1.1 CALCIUM (test code = 1591280402) 9.3 mg/dL 8.6-10.6 T PROTEIN (test code = 2268040198) 7.5 g/dL 6.3-8.2 ALBUMIN (test code = 9121626325) 4.1 g/dL 3.5-5 ALK PHOS (test code = 1628664834) 88 U/L 34-122 ALTv (test code = 1742-6) 20 U/L 5-50 AST(SGOT) (test code = 2036887124) 28 U/L 13-40 eGFR Calculation (Non-) (test code = 4510459507) mL/min/1.73m2 eGFR Calculation () (test code = 9966404354) mL/min/1.73m2 LOUIE (test code = LOUIE) Association of [...] or abnormalities in imaging tests). Lab Interpretation (test code = 83881-7) [facility]normal [facility] HospitalLIPASE, [id number] 02:03:00* Test Item Value Reference Range Interpretation Comme [facility] LIPASE (test code = 0664502587) 85 U/L 0-220 Lab Interpretation (test cod e = 47627-3) Normal [facility] HospitalaPTT2020-09-25 01:50:00* Test Item Value Reference Range Interpretation Comme nts APTT Patient (test code = 3173-2) See_Comment [Automated message] The system which generated this result transmitted reference range: 23 - 38 Seconds. The reference range was not used to interpret this result as normal/abnormal. LOUIE (test code = LOUIE) The [facility] patient population mean normal value for aPTT is 30 seconds. Lab Interpretation (test code = 40062-8) Normal [facility] HospitalPROTHROMBIN TIME / [id number] 01:48:00* Test Item Value Reference Range Interpretation Comme nts PROTIME PATIENT (test code = 5964-2) See_Comment H [Automated messa ge] The system which generated this result transmitted reference range: 12.0 - 14.7 Seconds. The reference range was not used to interpret this result as normal/abnormal. INR (test code = 6301-6) Normal INR <1.1; Warfarin Therapeutic range 2.0 to 3.0 or 2.5 to 3.5, depending upon the indications. Lab Interpretation (test code = 49433-7) [facility] HospitalCBC WITH [id number] 01:36:00* Test Item Value Reference Range Interpretation Comme nts WBC (test code = 6690-2) See_Comment H [Automated messa ge] The system which generated this result transmitted reference range: 4.20 - 10.70 10*3/?L. The reference range was not used to interpret this result as normal/abnormal. RBC (test code = 789-8) See_Comment [Automated messa ge] The system which generated this result transmitted reference range: 4.26 - 5.52 10*6/?L. The reference range was not used to interpret this result as normal/abnormal. HGB (test code = 718-7) 16.1 g/dL 12.2-16.4 HCT (test code = 4544-3) 46.5 % 38.4-49.3 MCV (test code = 787-2) 85.5 fL 81.7-95.6 MCH (test code = 785-6) 29.6 pg 26.1-32.7 MCHC (test code = 786-4) 34.6 g/dL 31.2-35 RDW-SD (test code = 52863-3) 42.9 fL 38.5-51.6 RDW-CV (test code = 788-0) 13.8 % 12.1-15.4 PLT (test code = 777-3) See_Comment [Automated messa ge] The system which generated this result transmitted reference range: 150 - 328 10*3/?L. The reference range was not used to interpret this result as normal/abnormal. MPV (test code = 74340-3) 11.3 fL 9.8-13 NRBC/100 WBC (test code = 9852625714) See_Comment [Automated General Blood ssage] The system which generated this result transmitted reference range: 0.0 - 10.0 /100 WBCs. The reference range was not used to interpret this result as normal/abnormal. NRBC x10^3 (test code = 1189966764) <0.01 See_Comment [Automated messa ge] The system which generated this result transmitted reference range: 10*3/?L. The reference range was not used to interpret this result as normal/abnormal. GRAN MAT (NEUT) % (test code = 770-8) 62.6 % IMM GRAN % (test code = 0064068450) 0.40 % LYMPH % (test code = 736-9) 31.0 % MONO % (test code = 5905-5) 5.2 % EOS % (test code = 713-8) 0.4 % BASO % (test code = 706-2) 0.4 % GRAN MAT x10^3(ANC) (test code = 3701332866) 7.04 10*3/uL 1.99-6.95 H IMM GRAN x10^3 (test code = [id number]) 0.04 10*3/uL 0-0.06 LYMPH x10^3 (test code = 731-0) 3.49 10*3/uL 1.09-3.23 H MONO x10^3 (test code = 742-7) 0.59 10*3/uL 0.36-1.02 EOS x10^3 (test code = 711-2) 0.04 10*3/uL 0.06-0.53 L BASO x10^3 (test code = 704-7) 0.05 10*3/uL 0.01-0.09 Lab Interpretation (test code = 28606-5) [facility] A & B DIRECT [id number] 23:48:00* Test Item Value Reference Range Interpretation Comme nts Influenza A (test code = 57746-0) Negative Negative Influenza B (test code = 36665-0) Negative Negative Lab Interpretation (test cod e = 40052-9) [facility] [id number] 23:32:00* Test Item Value Reference Range Interpretation Comme nts Streptococcus pyogenes (grou p A) antigen (test code = 72309-0) Negative Negative Lab Interpretation (test cod e = 08744-5) Normal [facility] Notes Date/Time Note Provider Source Jose Adamson [facility]"
[2024-01-22 20:34] LABS: SARS-CoV-2 Antigen CONTROL BLUE LINE VIS/BG OK; SARS-CoV-2 Antigen Rapid Res Negative (Negative)
--- NOTE | 2024-01-22 20:43 | RAD REPORT ---
EXAM DESCRIPTION: RAD - Chest Single View - 01/22/2024 8:33 pm CLINICAL HISTORY: CHEST PAIN Chest pain. COMPARISON: <Comparisons> FINDINGS: Portable technique limits examination quality. Interstitial markings mildly prominent which could indicate a viral infection. No focal consolidation typical of pneumonia seen. The heart is normal in size. No displaced fractures.
[2024-01-22 22:07] LABS: Absolute Basophils 0.1 K/uL (0-0.5); Absolute Lymphocytes (CBC) 2.5 K/uL (0.7-4.9); Absolute Monocytes 1.2 K/uL (0.1-1.3); Absolute Neutrophil 6.7 K/uL (1.8-8.0); Basophils % 0.6 % (0-1.3); Eosinophils % 0.3 % (0-4.4); Hematocrit 42.4 % (39.6-49.0); Lymphocytes % 23.9 % (15.3-44.8); MCH 28.4 pg (27.0-35.0); MCHC 33.1 g/dL (32.0-36.0); MCV 85.8 fL (80-100); MPV 8.4 fL (7.6-11.3); Monocytes % 11.1 % (3.3-12.3); Neutrophils % 64.1 % (41.7-73.7); Platelets 215 thou/uL (152-406); RBC Red Blood Cell Count 4.95 M/uL (4.33-5.43)
[2024-01-22 22:27] LABS: Albumin 3.5 g/dL (3.4-5.0); Albumin/Globulin Ratio 0.9 (1.1-1.8); Anion Gap 8.6 mEq/L (5.0-15.0); Bilirubin Direct 0.2 mg/dL (0-0.2); Bilirubin Indirect, Calculated 0.4 mg/dL (0.2-0.8); Bilirubin Total 0.6 mg/dL (0.2-1.0); Globulin 3.9 g/dL (2.3-3.5); Magnesium 1.9 mg/dL (1.6-2.4); Potassium 3.6 mEq/L (3.5-5.1); Protein, Total 7.4 g/dL (6.4-8.2); Troponin High Sensitivity 6.3 pg/mL (<58.9)
[2024-01-22 22:39] LABS: PT Prothrombin Time 14.8 SECONDS (9.4-12.5); Protime INR 1.33
[2024-01-22] MEDS ORDERED: IBUPROFEN 400 MG TAB ONE (22:50)
--- NOTE | 2024-01-22 22:51 | EDPHYS ---
Physician Documentation [facility] Name: Raza Causey Age: 38 yrs Sex: Male : 1985 Arrival Date: 01/22/2024 Time: 19:25 Bed 15 Private MD: ED Physician Royce Dudley HPI: 01/21 19:50 This 38 yrs old Male presents to ER via Ambulatory with complaints of Chest cp Pain, Shortness Of Breath. 19:50 The patient or guardian reports chest pain that is located primarily in the anterior cp chest wall. 19:50 Onset: this morning. Associated signs and symptoms: Pertinent positives: cough, cp shortness of breath, sore throat, Pertinent negatives: abdominal pain, vomiting, diarrhea, fever. 19:50 The chest pain is described as tightness. cp 19:50 Duration: The patient or guardian reports a single episode, that is still ongoing, and cp unchanged. 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 - Infectious Disease History:: Denies. - Social history:: Smoking status: Patient/guardian denies using tobacco, Stopped _ months ago 10. ROS: 19:55 Constitutional: Positive for body aches, Negative for fever, poor PO intake, cp 19:55 Eyes: Negative for injury, pain, redness, and discharge, cp 19:55 ENT: Negative for drainage from ear(s), ear pain, sore throat, difficulty swallowing, difficulty handling secretions, 19:55 Cardiovascular: Positive for chest pain, Negative for edema, palpitations, 19:55 Respiratory: Positive for cough, with no reported sputum, shortness of breath, Negative for wheezing, 19:55 Abdomen/GI: Negative for abdominal pain, vomiting, diarrhea, constipation, 19:55 Back: Negative for pain at rest, pain with movement, 19:55 Neuro: Negative for altered mental status, dizziness, headache, weakness, 19:55 All other systems are negative, Exam: 19:45 ECG was reviewed by the Attending Physician. cp 20:00 Constitutional: The patient appears in no acute distress, alert, awake, cp non-diaphoretic, non-toxic, well developed, well nourished, uncomfortable, 20:00 Head/Face: Normocephalic, atraumatic. cp 20:00 Eyes: Periorbital structures: appear normal, Conjunctiva: normal, no exudate, no injection, Sclera: no appreciated abnormality, Lids and lashes: appear normal, bilaterally, 20:00 ENT: External ear(s): are unremarkable, Ear canal(s): are normal, clear, TM's: dullness, bilaterally, Nose: is normal, Mouth: Lips: moist, Oral mucosa: moist, Posterior pharynx: Airway: no evidence of obstruction, patent, Tonsils: no enlargement, no exudate, erythema, that is mild, exudate, is not appreciated, 20:00 Neck: ROM/movement: is normal, is supple, without pain, no range of motions limitations, no meningismus, 20:00 Chest/axilla: Inspection: normal, 20:00 Cardiovascular: Rate: normal, Rhythm: regular, Edema: is not appreciated, JVD: is not appreciated, 20:00 Respiratory: the patient does not display signs of respiratory distress, Respirations: normal, no use of accessory muscles, no retractions, labored breathing, is not present, Breath sounds: are clear throughout, no decreased breath sounds, no stridor, no wheezing, 20:00 Abdomen/GI: Inspection: abdomen appears normal, Bowel sounds: active, all quadrants, Palpation: abdomen is soft and non-tender, in all quadrants, 20:00 Back: pain, is absent, ROM is normal, 20:00 Neuro: Orientation: to person, place \T\ time. Mentation: is normal, Cerebellar function: is grossly normal, Motor: moves all fours, strength is normal, Sensation: is normal, Vital Signs: 19:41 BP 169 / 117; Pulse 74; Resp 19; Temp 98.9(O); Pulse Ox 98% on R/A; Weight 99.79 kg; tm6 Height 5 ft. 9 in. ; Pain 6/10; 21:41 BP 118 / 85; Pulse 69; Resp 18; Pulse Ox 100% ; cp4 22:30 BP 117 / 79; Pulse 72; Resp 18; Pulse Ox 99% ; cp4 23:17 BP 108 / 72; Pulse 74; Resp 18; Temp 98.9; Pulse Ox 99% ; cp4 19:41 Body Mass Index 32.49 (99.79 kg, 175.26 cm) tm6 19:41 Pain Scale: Adult tm6 MDM: 19:45 Patient medically screened. cp 22:50 Data reviewed: vital signs, nurses notes, lab test result(s), EKG, radiologic studies, cp plain films, and as a result, I will discharge patient. 22:50 Differential diagnosis: acute myocardial infarction, acute pericarditis, chest wall cp pain, pancreatitis, pericarditis, pleurisy, pneumonia, pneumothorax, pulmonary embolus, pneumonia. I considered the following discharge prescriptions or medication management in the emergency department Medications were administered in the Emergency Department. See MAR. Care significantly affected by the following chronic conditions: Diabetes, Hypertension. Counseling: I had a detailed discussion with the patient and/or guardian regarding the historical points, exam findings, and any diagnostic results supporting the discharge/admit diagnosis, lab results, radiology results, to return to the emergency department if symptoms worsen or persist or if there are any questions or concerns that arise at home. 01/21 19:46 Order name: Basic Metabolic Panel; Complete Time: 22:45 01/21 22:46 Interpretation: Normal except: GLUC 112; BUN 20. 01/21 19:46 Order name: CBC with Diff; Complete Time: 22:45 01/21 22:46 Interpretation: Reviewed. 01/21 19:46 Order name: LFT's; Complete Time: 22:45 01/21 22:46 Interpretation: Normal except: GLOB 3.9; A/G 0.9. 01/21 19:46 Order name: Magnesium; Complete Time: 22:45 cp 01/21 19:46 Order name: NT PRO-BNP; Complete Time: 22:45 01/21 19:46 Order name: PT-INR; Complete Time: 22:45 01/21 22:46 Interpretation: Abnormal: PT 14.8. 01/21 19:46 Order name: Troponin HS; Complete Time: 22:45 01/21 22:47 Interpretation: Reviewed. 01/21 19:46 Order name: Strep cp 01/21 19:46 Order name: Influenza Screen (a \T\ B); Complete Time: 22:45 01/21 19:46 Order name: SARS RAPID; Complete Time: 22:45 cp 01/21 20:37 Order name: Throat Culture EDMS 01/21 19:46 Order name: XRAY Chest (1 view); Complete Time: 22:45 cp 01/21 19:46 Order name: EKG; Complete Time: 19:47 cp 01/21 19:46 Order name: Cardiac monitoring; Complete Time: 22:04 cp 01/21 19:46 Order name: EKG - Nurse/Tech; Complete Time: 22:04 cp 01/21 19:46 Order name: IV Saline Lock; Complete Time: 22:04 cp 01/21 19:46 Order name: Labs collected and sent; Complete Time: 22:04 cp 01/21 19:46 Order name: O2 Per Protocol; Complete Time: 22:04 cp 01/21 19:46 Order name: O2 Sat Monitoring; Complete Time: 22:04 cp EC:45 Rate is 81 beats/min. Rhythm is regular. MD interval is normal. QRS interval is normal. cp QT interval is normal. T waves are Inverted. Interpreted by me. Reviewed by me. Administered Medications: 22:53 Drug: Ibuprofen PO 800 mg PO once Route: PO; cp4 23:16 Follow up: Response: No adverse reaction cp4 Disposition: 21:39 I was immediately available on-site in the Emergency Department for consultation in the ms3 care of the patient. Disposition Summary: 01/22/24 22:51 Discharge Ordered Notes: Location: Home cp Problem: new cp Symptoms: have improved cp Condition: Stable cp Diagnosis - Cough cp - Chest pain, unspecified cp - Acute pharyngitis, unspecified cp Followup: cp - With: Private Physician - When: 2 - 3 days - Reason: Worsening of condition Discharge Instructions: - Discharge Summary Sheet cp - Nonspecific Chest Pain, Adult cp - Pharyngitis cp - Sore Throat cp - Cough, Adult cp Forms: - Medication Reconciliation Form cp - Antibiotic Education cp - Prescription Opioid Use cp - Patient Portal Instructions cp - Leadership Thank You Letter cp Prescriptions: - Bromfed DM 2-30-10 mg/5 mL Oral syrup - administer 10 milliliter ORAL route 3-4 times daily as needed for cold cp symptoms; 240 milliliter; Refills: 0, Product Selection Permitted - albuterol sulfate 90 mcg/actuation Inhalation HFA Aerosol Inhaler - inhale 1 puff INHALATION route every 4 to 6 hours as needed for bronchospasm; cp administer via ventilator; 1 unit; Refills: 0, Product Selection Permitted - Ibuprofen 800 mg Oral Tablet - take 1 tablet ORAL route every 8 hours As needed take with food; 30 tablet; cp Refills: 0, Product Selection Permitted - Zithromax Z-Zach 250 mg Oral Tablet - take 1 tablet ORAL route as directed for 5 days Day 1 - take two (2) tablets cp one time. Day 2, 3, 4 , 5 take one (1) tablet once daily.; 6 tablet; Refills: 0, Product Selection Permitted Addendum: 01/27/2024 10:39 I was immediately available on-site in the Emergency Department for consultation in the m s3 care of the patient. Signatures: Dispatcher [employer] EDMS [place] Gonzalez PA PA cp Sims, Marcus, DO DO ms3 Sharon Bear cp4 Nhung Schwartz, RN RN tm6 Corrections: (The following items were deleted from the chart) 01/21 19:47 19:47 BASIC METABOLIC PANEL+C.LAB.BRZ ordered. EDMS EDMS 19:47 19:47 CBC+H.LAB.BRZ ordered. EDMS EDMS 19:47 19:47 HEPATIC FUNCTION+C.LAB.BRZ ordered. EDMS EDMS 19:47 19:47 MAGNESIUM+C.LAB.BRZ ordered. EDMS EDMS 19:47 19:47 PROBNP+C.LAB.BRZ ordered. EDMS EDMS 19:47 19:47 PROTIME (+INR)+COAG.LAB.BRZ ordered. EDMS EDMS 19:47 19:47 Troponin High Sensitivity+C.LAB.BRZ ordered. EDMS EDMS 19:47 19:47 Group A Streptococcus Rapid Sc+BA.LAB.BRZ ordered. EDMS EDMS 19:47 19:47 Influenza Screen (A \T\ B)+BA.LAB.BRZ ordered. EDMS EDMS 19:47 19:47 SARS-COV-2 Antigen Rapid+I.LAB.BRZ ordered. EDMS EDMS
--- NOTE | 2024-01-22 22:51 | ER ---
Nurse's Notes [facility] Name: Raza Causey Age: 38 yrs Sex: Male : 1985 Arrival Date: 01/22/2024 Time: 19:25 Bed 15 Private MD: Diagnosis: Cough;Chest pain, unspecified;Acute pharyngitis, unspecified Presentation: 01/21 19:40 Chief complaint: Patient states: chest pain and shortness of breath starting this tm6 morning. Also complaining of cough and sore throat. Ebola Screen: Patient negative for fever greater than or equal to 101.5 degrees Fahrenheit, and additional compatible Ebola Virus Disease symptoms Patient denies exposure to infectious person. Patient denies travel to an Ebola-affected area in the 21 days before illness onset. No symptoms or risks identified at this time. Initial Sepsis Screen: Does the patient meet any 2 criteria? No. Patient's initial sepsis screen is negative. Does the patient have a suspected source of infection? No. Patient's initial sepsis screen is negative. Risk Assessment: Do you want to hurt yourself or someone else? Patient reports no desire to harm self or others. Onset of symptoms was January 22, 2024. 19:40 Method Of Arrival: Ambulatory tm6 19:40 Acuity: DEBO 3 tm6 19:43 Coronavirus screen: Vaccine status: Patient reports being unvaccinated. tm6 Triage Assessment: 19:43 General: Appears in no apparent distress. Behavior is calm, cooperative. Pain: tm6 Complains of pain in chest Pain does not radiate. Pain currently is 6 out of 10 on a pain scale. Quality of pain is described as tight Pain began 1 day ago. EENT: Reports sore throat. Neuro: Level of Consciousness is awake, alert, obeys commands, Oriented to person, place, time, situation. Cardiovascular: Reports chest pain, Patient's skin is warm and dry. Rhythm is sinus rhythm. Respiratory: Reports shortness of breath cough that is pain with cough Airway is patent Respiratory effort is even, unlabored, Respiratory pattern is regular, symmetrical. GI: No signs and/or symptoms were reported involving the gastrointestinal system. Abdomen is round non-distended. : No signs and/or symptoms were reported regarding the genitourinary system. Derm: No signs and/or symptoms reported regarding the dermatologic system. Musculoskeletal: No signs and/or symptoms reported regarding the musculoskeletal system. 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 - Infectious Disease History:: Denies. - Social history:: Smoking status: Patient/guardian denies using tobacco, Stopped _ months ago 10. Screenin:04 [facility] ED Fall Risk Assessment (Adult) History of falling in the last 3 months, tm6 including since admission No falls in past 3 months (0 pts) Confusion or Disorientation No (0 pts) Intoxicated or Sedated No (0 pts) Impaired Gait No (0 pts) Mobility Assist Device Used No (0 pt) Altered Elimination No (0 pt) Score/Fall Risk Level 0 - 2 = Low Risk Oriented to surroundings, Maintained a safe environment, Assessed \T\ reinforced patient's understanding of fall precautions, Hourly rounding (assess needs \T\ fall precautionary measures) done. Abuse screen: Denies threats or abuse. Nutritional screening: No deficits noted. Tuberculosis screening: No symptoms or risk factors identified. Assessment: 22:04 General: Appears in no apparent distress. uncomfortable, Behavior is calm, cooperative, tm6 appropriate for age. Pain: Complains of pain in chest. 22:04 Pain: Complains of pain in chest Pain currently is 6 out of 10 on a pain scale. Neuro: tm6 Level of Consciousness is awake, alert, obeys commands, Oriented to person, place, time, situation. Cardiovascular: Reports chest pain, Rhythm is sinus rhythm. Respiratory: Airway is patent Respiratory effort is even, unlabored. GI: No signs and/or symptoms were reported involving the gastrointestinal system. : No signs and/or symptoms were reported regarding the genitourinary system. EENT: No signs and/or symptoms were reported regarding the EENT system. Derm: No signs and/or symptoms reported regarding the dermatologic system. Musculoskeletal: No signs and/or symptoms reported regarding the musculoskeletal system. 22:04 Pain: Pain does not radiate. cp4 22:04 Pain: Quality of pain is described as aching. cp4 Vital Signs: 19:41 BP 169 / 117; Pulse 74; Resp 19; Temp 98.9(O); Pulse Ox 98% on R/A; Weight 99.79 kg; tm6 Height 5 ft. 9 in. ; Pain 6/10; 21:41 BP 118 / 85; Pulse 69; Resp 18; Pulse Ox 100% ; cp4 22:30 BP 117 / 79; Pulse 72; Resp 18; Pulse Ox 99% ; cp4 23:17 BP 108 / 72; Pulse 74; Resp 18; Temp 98.9; Pulse Ox 99% ; cp4 19:41 Body Mass Index 32.49 (99.79 kg, 175.26 cm) tm6 19:41 Pain Scale: Adult tm6 ED Course: 19:28 Patient arrived in ED. ra3 19:28 [place] Gonzalez PA is PHCP. cp 19:29 Royce Dudley DO is Attending Physician. cp 19:40 EKG completed in triage. Results shown to MD. tm6 19:41 Triage completed. tm6 19:43 Arm band placed on right wrist. tm6 19:52 SARS RAPID Sent. tm6 19:52 Influenza Screen (a \T\ B) Sent. tm6 19:52 Strep Sent. tm6 20:35 XRAY Chest (1 view) In Process Unspecified. EDMS 21:26 Sharon Bear is Primary Nurse. cp4 22:04 Bed in low position. Call light in reach. Side rails up X 1. Client placed on tm6 continuous cardiac and pulse oximetry monitoring. NIBP monitoring applied. surveillance system monitor on. Pulse ox on. NIBP on. 22:04 Provided Education on: pharyngitis and chest pain.. cp4 22:04 No provider procedures requiring assistance completed. Inserted saline lock: 20 gauge tm6 in right antecubital area, using aseptic technique. Blood collected. Flushed with 10 mL NS. Patient maintains SpO2 saturation greater than 95% on room air. 22:04 intact, bleeding controlled, No redness/swelling at site. Pressure dressing applied. cp4 Administered Medications: 22:53 Drug: Ibuprofen PO 800 mg PO once Route: PO; cp4 23:16 Follow up: Response: No adverse reaction cp4 Medication: 22:04 VIS not applicable for this client. tm6 Outcome: 22:04 Discharged to home ambulatory, cp4 22:04 Condition: stable 22:04 Discharge instructions given to patient, Instructed on discharge instructions, follow up and referral plans. medication usage, Demonstrated understanding of instructions, follow-up care, medications, Prescriptions given X 4, 22:51 Discharge ordered by . cp 23:19 Patient left the ED. cp4 Signatures: Dispatcher [employer] EDMS South Gonzalez PA PA cp Potter, Christina cp4 Nhung Schwartz RN RN tm6 Daly Rangel 3
[2024-01-22 23:27] VITALS: TEMP 98.9
[2024-01-22 23:29] VITALS: O2SAT 99
[2024-01-22 23:31] VITALS: BP 108/72
--- NOTE | 2024-01-23 13:59 | EKG ---
Test Date: 2024-01-22 Test Time: 19:38:04 Energy Efficiency Engineer: DAGOBERTO MEASUREMENT RESULTS: Intervals: Rate: 81 WA: 146 QRSD: 88 QT: 348 QTc: 404 [place]: P: 63 WA: 146 QRS: 62 T: 36 INTERPRETIVE STATEMENTS: Normal sinus rhythm Normal ECG Compared to ECG 05/28/2023 20:35:19 No significant changes Electronically Signed On 01-23-24 13:57:47 CDT by Júnior Goode
== END 2024-01-22 23:19 | disposition home or self-care (01) ==
LOC: ER 19:25
DX: R07.89 Other chest pain (principal); R05.9 Cough, unspecified; J02.9 Acute pharyngitis, unspecified; Z11.52 Encounter for screening for COVID-19; I10 Essential (primary) hypertension; Z87.891 Personal history of nicotine dependence
CPT/HCPCS: 36415; 71045; 80048; 80076; 83735; 83880; 84484; 85025; 85610; 87070; 87081; 87804; 87811; 93005; 99285

== ENCOUNTER 2024-08-03 21:21 | Emergency (ER) | payer BC ==
--- OUTSIDE RECORDS SUMMARY | 2024-08-03 21:26 | XMS REPORT | Continuity of Care Document ---
Author Name Unknown Address [address] [facility] [place] [address] [facility] [place] Address [address] [facility] [place] [address] Care Team Providers Care Satellite Technician Name Role Phone Ct [facility] Primary Care Physician [phone] JOAQUIM WORTHINGTON Attending Clinician Unavailable LAB90 Attending Clinician Unavailable Erickson Sol MD Attending Clinician ERICKSON SOL Attending Clinician Unavailable Doctor Unassigned, [place] Attending Clinician U navailable Ziggy Alva Attending Clinician [phone] Siobhan Covarrbuias Attending Clinician [phone] Payers Payer Name Policy Type Policy Number Effective Date Expirati on Date Source [facility] 2 [id number] 2024 00:00:00 [facility] [id number] 2019 00:00:00 Problems Condition Name Condition Details Condition Category Status Onset Date Resolution Date Last Treatment Date Treating Clinician Comments Source Well adult exam Well adult exam Disease Active 2023-05 00:00: 00 Raegan Scott - Ariea l Gastroesop hageal reflux disease without esophagiti s Gastroesop hageal reflux disease without esophagiti s Disease Active 2023-05 00:00: 00 Raegan Scott - Externa l Neck mass Neck mass Disease Active 2023-05 00:00: 00 Raegan Scott - Externa l Mass of left upper extremity Mass of left upper extremity Disease Active 2023-05 00:00: 00 Raegan Scott - Externa l No known active problems No known active problems Disease [facility] HTN (hypertens ion) HTN (hypertens ion) Disease Active Raegan Sejamieold - Externa l 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 2 with diabetic mixed hyperlipid emia (multi HCC) Disease Active Raegan Amadoold - Externa l Obesity Obesity Disease Active Raegan Amadoold - Externa l NAIN (obstructi ve sleep apnea) NAIN (obstructi ve sleep apnea) Disease Active Raegan Amadoold - Externa l Anxiety Anxiety Disease Active Raegan Amadoold - Externa l Allergies, Adverse Reactions, Alerts Allergy Name Allergy Type Status Severity Reaction(s) Onset Date Inactive Date Treating Clinician Comments Source Atorvast atin Propensi ty to adverse reaction s to drug Active Myalgia 2023-05 00:00: 00 Raegan Scott - Externa hattie NO KNOWN ALLERGIE S Drug Class Active [facility] Social History Social Habit Start Date Stop Date Quantity Comments Source Exposure to SARS-CoV-2 (event) Not sure [facility] Sexual orientation Ziggy Scott - External History of Occupation Raegan Scott - External History of tobacco use Cigarette Smoker Raegan augustine - External Alcoholic beverage intake 2024-06-03 00:00:00 2024-06-03 00:00:00 Current drinker of alcohol (finding) Raegan Scott - External History of Social function 2024-04-13 00:00:00 2024-04-13 00:00:00 Raegan Scott - External Education 2024-04-13 00:00:00 2024-04-13 00:00:00 10 Raegan Scott - External Alcohol Comment 2024-04-13 00:00:00 2024-04-13 00:00:00 rarely Raegan Seybold - External Cigarettes smoked current (pack per day) - Reported 2024-04-13 00:00:00 2024-04-13 00:00:00 Raegan Adamsonjamiefawn - External Cigarette pack-years 2024-04-13 00:00:00 2024-04-13 00:00:00 Raegan Adamsonlakeshia - External Tobacco use and exposure 2024-04-13 00:00:00 2024-04-13 00:00:00 Smokeless tobacco non-user Raegan Adamsonjamiefawn - External Sex 2024-02-25 08:25:56 2024-02-25 08:25:56 Male (finding) Raegan Adamsonlakeshia - External Sex assigned at 1985 00:00:00 1985 00:00:00 Raegan Adamsonjamiefawn - External Smoking Status Start Date Stop Date Source Ex-smoker 2024-04-13 00:00:00 2024-04-13 00:00:00 Ziggy sprague Sejamiefawn - External Unknown if ever smoked [facility] Medications Ordered Medication Name Filled Medication Name Start Date Stop Date Current Medication? Ordering Clinician Indication Dosage Frequency Signature (SIG) Comments Components Source [place]-3 Fatty Acids (Fish Oil) 1200 MG oral Capsule 06-03 11:18: 38 Yes 1{capsu le} Q.5D Take 1 capsule by mouth 2 times daily. Raegan kuhn busPIRone HCl 5 MG oral Tablet 06-03 00:00: 00 Yes [id number] 5mg Q.5D Take 1 tablet (5 mg total) by mouth 2 times daily as needed (anxiety). Raegan kuhn Mupirocin (BACTROBAN) 2 % apply externally Ointment 06-03 00:00: 00 Yes [id number] 1{appli cation} Q.5D Apply 1 Applicatio n topically 2 times daily. Raegan kuhn Ketoconazol e 2 % apply externally Cream 06-03 00:00: 00 Yes [id number] 1{appli cation} Q.5D Apply 1 Applicatio n topically 2 times daily. Raegan kuhn Triamcinolo ne Acetonide 0.1 % apply externally Cream 06-03 00:00: 00 Yes [id number] 1{appli cation} Q.5D Apply 1 Applicatio n topically 2 times daily. Raegan kuhn Lisinopril 20 MG oral Tablet 2023-05 00:00: 00 Yes [id number] 20mg QD Take 1 tablet (20 mg total) by mouth daily. Raegan kuhn LISINOPRIL- HCTZ 20-12.5 MG oral Tablet 2023-05 11:00: 36 04-13 00:00 :00 No 1{tbl} QD Take 1 tablet by mouth daily. Raegan kuhn Metformin HCl 500 MG oral Tablet 2023-05 11:00: 36 04-13 00:00 :00 No 500mg QD Take 1 tablet (500 mg total) by mouth daily (with breakfast) . Raegan kuhn Ezetimibe 10 MG oral Tablet 2023-05 10:46: 48 04-13 00:00 :00 No 10mg QD Take 1 tablet (10 mg total) by mouth daily. Raegan kuhn Pantoprazol e Sodium 40 MG oral Tablet Delayed Response 2023-05 00:00: 00 Yes [id number] 40mg QD Take 1 tablet (40 mg total) by mouth daily. Raegan kuhn Fenofibrate 160 MG oral Tablet 2023-05 00:00: 00 Yes [id number] 3 160mg QD Take 1 tablet (160 mg total) by mouth daily. Raegan kuhn LISINOPRIL- HCTZ 20-12.5 MG oral Tablet 2023-05 00:00: 00 Yes [id number] 1{tbl} QD Take 1 tablet by mouth daily. Raegan kuhn Metformin HCl 500 MG oral Tablet 2023-05 00:00: 00 Yes [id number] 3 500mg QD Take 1 tablet (500 mg total) by mouth daily (with breakfast) . Raegan kuhn [place]-3 Fatty Acids (Fish Oil) 1000 MG oral Capsule 2023-05 00:00: 00 06-03 00:00 :00 No [id number] 3 1000mg Q.5D Take 1 capsule (1,000 mg total) by mouth 2 times daily. Raegan kuhn Bupropion HCL XL 150 MG OR TB24 2023-05 00:00: 00 06-03 00:00 :00 No [id number] 150mg QD Take 1 tablet (150 mg total) by mouth daily. Raegan kuhn Fenofibrate 160 MG oral Tablet 2023-05 00:00: 00 04-13 00:00 :00 No 160mg QD Take 1 tablet (160 mg total) by mouth daily. Raegan kuhn Albuterol HFA 108 (90 Base) MCG/ACT IN AERS 01-22 00:00: 00 Yes 1{puff} Q4H Inhale 1 puff into the lungs every 4 hours as needed. Raegan kuhn Pseudoeph-B romphen-DM 30-2-10 MG/5ML oral Syrup 01-22 00:00: 00 04-13 00:00 :00 No 10mL Q.25D Take 10 mL by mouth 4 times daily as needed. Raegan kuhn metformin 500 mg tablet 09-17 00:00: 00 [...] 07-30 00:00: 00 Yes 1mg Jose Mcbride TAKE 1 TABLET BY MOUTH AT BEDTIME 06-17 00:00: 00 Yes 40 Jose Mcbride TAKE 1 TABLET BY MOUTH TWICE DAILY WITH FOOD. 06-17 00:00: 00 Yes 500 Jose Vesna Mcbride TAKE 1 TABLET DAILY. 1-23 00:00: 00 Yes 20 Jose F Reed TAKE 1 TABLET BY MOUTH DAILY 1-19 00:00: 00 09-17 00:00 :00 No 20 Jose F Reed TAKE 1 TABLET TWICE DAILY UNTIL GONE. 2022-05 0-21 00:00: 00 09-17 00:00 :00 No 500 Jose Vesna Mcbride INHALE 2 PUFFS EVERY 3-4 HOURS PRN WHEEZING, COUGH, SHORTNESS OF BREATH 2022-05 0- 00:00: 00 09-17 00:00 :00 No [id number] Jose Vesna Mcbride TAKE 1 TABLET DAILY. 2022-05 0 00:00: 00 09-17 00:00 :00 No 20 Jose F Reed TAKE 1 TABLET BY MOUTH AT BEDTIME 2022-05 0 00:00: 00 09-17 00:00 :00 No 40 Jose F Reed TAKE 1 TABLET BY MOUTH AT BEDTIME 2022-05 018 00:00: 00 09-17 00:00 :00 No 40 Jose F Reed TAKE 1 TABLET BY MOUTH TWICE DAILY WITH FOOD. 11-29 00:00: 00 09-17 00:00 :00 No 500 Jose F Reed TAKE 1 TABLET DAILY. 7-08 00:00: 00 09-17 00:00 :00 No 20 Jose F Reed TAKE ONE TABLET TWICE A DAY NEEDED 708 00:00: 00 09-17 00:00 :00 No 10 Jose F Reed TAKE 1 TABLET BY MOUTH AT BEDTIME 11-17 00:00: 00 09-17 00:00 :00 No 40 Jose F Reed TAKE 1 TABLET BY MOUTH TWICE DAILY WITH FOOD. 11-17 00:00: 00 09-17 00:00 :00 No 500 Jose F Reed TAKE 1 TABLET BY MOUTH TWICE DAILY 3-16 00:00: 00 Yes Jose Mcbride TAKE 1 TABLET TWICE DAILY WITH FOOD. 2-21 00:00: 00 09-17 00:00 :00 No 500 Jose F Reed TAKE 1 TABLET DAILY. 2-14 00:00: 00 09-17 00:00 :00 No 20 Jose F Reed TAKE 1 TABLET TWICE DAILY WITH FOOD. 2021-05 2-13 00:00: 00 09-17 00:00 :00 [...] 00 09-17 00:00 :00 No 20unit Jose Vesna Mcbride TAKE ONE (1) TABLET(S) BY MOUTH EVERY TWELVE HOURS WITH MORNING AND EVENING MEAL. 8-08 00:00: 00 09-17 00:00 :00 No Jose F Reed Dose Unknown 0 4-13 00:00: 00 Yes Jose F Reed Dose Unknown 0 4-13 00:00: 00 Yes Jose F Reed Dose Unknown 0 4-13 00:00: 00 Yes Jose F Reed Dose Unknown 0 3-21 00:00: 00 Yes Jose F Reed Dose Unknown 0 3-21 00:00: 00 Yes Jose F Reed Dose Unknown 0 1-03 00:00: 00 Yes Jose F Reed Dose Unknown 0 9-27 00:00: 00 Yes Jose F Reed Dose Unknown 0 9-25 00:00: 00 Yes Jose F Reed Dose Unknown 0 9-25 00:00: 00 Yes Jose F Reed lisinopril 20 mg tablet 2020-0 6-22 00:00: 00 Yes 1mg Jose F Reed citalopram 10 mg tablet 2020-0 6-22 00:00: 00 Yes 1mg Jose F Reed lisinopril 20 mg tablet 2020-0 5-24 00:00: 00 Yes 1mg Jose F Reed hydroxyzine HCl 25 mg tablet 24 00:00: 00 Yes 12mg Jose Mcbride NaCl 0.9% (NS) bolus infusion 1,000 mL 08-21 15:45: 00 08-21 15:25 :00 No 1000mL at 999 mL/hr, 1,000 mL, IV Piggyback, ONCE, 1 dose, 08/21/20 at 1045, STAT [facility] ketorolac (TORADOL) injection 30 mg 02-16 05:15: 00 02-16 04:03 :00 No 30mg 30 mg, Slow IV Push, ONCE, 1 dose, 02/17/20 at 0015, JONAS
Fa culty member approving Restricted medication : Ziggy SAN [facility] ibuprofen 600 mg tablet 02-16 00:00: 00 Yes [id number] 600mg Take 1 tablet by mouth every 6 (six) hours as needed for Pain (scale 4-6). [facility] ibuprofen (IBU) tablet 800 mg 06-12 23:45: 00 06-12 22:54 :00 No 800mg 800 mg, Oral, ONCE, 1 dose, [place] 06/12/19 at 1745, JONAS [facility] amoxicillin 875 mg tablet 06-12 00:00: 00 06-23 05:59 :00 No [id number] 875mg Take 1 tablet by mouth 2 (two) times daily for 10 days. [facility] oseltamivir 75 mg capsule 06-12 00:00: 00 06-18 05:59 :00 No [id number] 75mg Take 1 capsule by mouth 2 (two) times daily for 5 days. [facility] albuterol 2.5 mg /3 mL (0.083 %) nebulizer solution 2018-05 00:00: 00 Yes [id number] 2.5mg Inhale 3 mL every 4 (four) hours as needed for Wheezing or Shortness of Breath. [facility] benzonatate 200 mg capsule 2017-05 00:00: 00 Yes 200mg Take 1 capsule by mouth 3 (three) times daily as needed for Cough. [facility] proMETHazin e 25 mg tablet 2017-05 00:00: 00 Yes 25mg Take 1 tablet by mouth every 6 (six) hours as needed for Nausea and Vomiting (N/V). [facility] traMADOL (ULTRAM) 50 mg tablet 2017-05 00:00: 00 Yes 50mg Take 1 tablet by mouth every 6 (six) hours as needed for Pain (scale 4-6). [facility] LISINOPRIL ORAL 01-28 20:38: 33 Yes Take by mouth. [facility] traMADOL 50 mg tablet 01-28 00:00: 00 Yes 50mg Take 1 tablet by mouth every 8 (eight) hours as needed for Pain (scale 4-6). [facility] Vital Signs Vital Name Observation Time Observation Value Comments S ource Systolic blood pressure 2024-06-03 16:59:00 130 mm[Hg] Raegan ybo ld - External Diastolic blood pressure 2024-06-03 16:59:00 86 mm[Hg] Raegan ybo ld - External Heart rate 2024-06-03 16:59:00 62 /min Charley Scott - External Body temperature 2024-06-03 16:59:00 36.5 Gini Raegan Amadoold - External Respiratory rate 2024-06-03 16:59:00 17 /min Raegan Scott - External Body height 2024-06-03 16:59:00 175.3 cm Nyasia Amadoold - External Body weight 2024-06-03 16:59:00 100.245 kg Nyasia baker Seybold - External BMI 2024-06-03 16:59:00 32.64 kg/m2 Nyasia Scott - External Oxygen saturation in Arterial blood by Pulse oximetry 2024-06-03 16:59:00 97 /min Raegan Amadoo ld - External Systolic blood pressure 2024-04-13 16:20:00 110 mm[Hg] Raegan Adamsonybo ld - External Diastolic blood pressure 2024-04-13 16:20:00 80 mm[Hg] Raegan Seybo ld - External Heart rate 2024-04-13 16:20:00 70 /min Charley chua Seybold - External Body temperature 2024-04-13 16:20:00 36.28 Gini Raegan Adamsonybold - External Respiratory rate 2024-04-13 16:20:00 18 /min Raegan Adamsonybold - External Body height 2024-04-13 16:20:00 175.3 cm Nyasia baker Seybold - External Body weight 2024-04-13 16:20:00 101.152 kg Nyasia baker Seybold - External BMI 2024-04-13 16:20:00 32.93 kg/m2 Nyasia baker Seybold - External Oxygen saturation in Arterial blood by Pulse oximetry 2024-04-13 16:20:00 97 /min Raegan Alba ld - External Systolic blood pressure 2020-08-21 15:00:00 139 mm[Hg] [facility] Diastolic blood pressure 2020-08-21 15:00:00 103 mm[Hg] [facility] Heart rate 2020-08-21 15:00:00 77 /min [facility] Respiratory rate 2020-08-21 15:00:00 16 /min [facility] Oxygen saturation in Arterial blood by Pulse oximetry 2020-08-21 15:00:00 96 /min [facility] Body temperature 2020-08-21 12:54:00 36.89 Gini [facility] Body weight 2020-08-21 12:54:00 104.327 kg [facility] BMI 2020-08-21 12:54:00 33.97 kg/m2 [facility] Systolic blood pressure 2020-08-21 15:00:00 139 mm[Hg] [facility] Diastolic blood pressure 2020-08-21 15:00:00 103 mm[Hg] [facility] Heart rate 2020-08-21 15:00:00 77 /min [facility] Respiratory rate 2020-08-21 15:00:00 16 /min [facility] Oxygen saturation in Arterial blood by Pulse oximetry 2020-08-21 15:00:00 96 /min [facility] Body temperature 2020-08-21 12:54:00 36.89 Gini [facility] Body weight 2020-08-21 12:54:00 104.327 kg [facility] BMI 2020-08-21 12:54:00 33.97 kg/m2 [facility] Systolic blood pressure 2020-02-17 05:00:00 124 mm[Hg] [facility] Diastolic blood pressure 2020-02-17 05:00:00 77 mm[Hg] [facility] Heart rate 2020-02-17 05:00:00 65 /min [facility] Respiratory rate 2020-02-17 05:00:00 16 /min [facility] Oxygen saturation in Arterial blood by Pulse oximetry 2020-02-17 05:00:00 97 /min [facility] Body temperature 2020-02-17 01:13:00 36.78 Gini [facility] Body weight 2020-02-17 01:13:00 107.049 kg [facility] BMI 2020-02-17 01:13:00 34.85 kg/m2 [facility] Systolic blood pressure 2020-02-17 05:00:00 124 mm[Hg] [facility] Diastolic blood pressure 2020-02-17 05:00:00 77 mm[Hg] [facility] Heart rate 2020-02-17 05:00:00 65 /min [facility] Respiratory rate 2020-02-17 05:00:00 16 /min [facility] Oxygen saturation in Arterial blood by Pulse oximetry 2020-02-17 05:00:00 97 /min [facility] Body temperature 2020-02-17 01:13:00 36.78 Gini [facility] Body weight 2020-02-17 01:13:00 107.049 kg [facility] BMI 2020-02-17 01:13:00 34.85 kg/m2 [facility] Body temperature 2019-06-13 00:13:36 37.22 Gini [facility] Systolic blood pressure 2019-06-12 22:12:00 155 mm[Hg] [facility] Diastolic blood pressure 2019-06-12 22:12:00 111 mm[Hg] [facility] Heart rate 2019-06-12 22:12:00 111 /[facility] 2019-06-12 22:12:00 18 /min [facility] Body height 2019-06-12 22:12:00 175.3 cm [facility] Body weight 2019-06-12 22:12:00 102.513 kg [facility] BMI 2019-06-12 22:12:00 33.37 kg/m2 [facility] Oxygen saturation in Arterial blood by Pulse oximetry 2019-06-12 22:12:00 99 /min [facility] Body temperature 2019-06-13 00:13:36 37.22 Gini [facility] Systolic blood pressure 2019-06-12 22:12:00 155 mm[Hg] [facility] Diastolic blood pressure 2019-06-12 22:12:00 111 mm[Hg] [facility] Heart rate 2019-06-12 22:12:00 111 /min Unive [facility] Respiratory rate 2019-06-12 22:12:00 18 /min [facility] Body height 2019-06-12 22:12:00 175.3 cm [facility] Body weight 2019-06-12 22:12:00 102.513 kg [facility] BMI 2019-06-12 22:12:00 33.37 kg/m2 [facility] Oxygen saturation in Arterial blood by Pulse oximetry 2019-06-12 22:12:00 99 /min [facility] BP Systolic 2023-09-18 17:00:00 143 mm[Hg] Step hen Vesna Mcbride BP Diastolic 2023-09-18 17:00:00 97 mm[Hg] Silvano phen F Reed Weight Measured 2023-09-18 17:00:00 213.60 pounds Jose F Reed Height Measured 2023-09-18 17:00:00 67.72 inches Jose F Reed Body Temperature 2023-09-18 17:00:00 98.20 degrees Jose F Reed Heart Rate 2023-09-18 17:00:00 65.00 /min Ava en F Reed Respiratory Rate 2023-09-18 17:00:00 Jose F Reed BP Systolic 2023-07-31 16:11:00 150 mm[Hg] Step hen F Reed BP Diastolic 2023-07-31 16:11:00 92 mm[Hg] Silvano phen F Reed Weight Measured 2023-07-31 16:11:00 216.00 pounds Jose F Reed Height Measured 2023-07-31 16:11:00 67.72 inches Jose F Reed Body Temperature 2023-07-31 16:11:00 98.40 degrees Jose F Reed Heart Rate 2023-07-31 16:11:00 72.00 /min Ava en F Reed Respiratory Rate 2023-07-31 16:11:00 17.00 /min Jose F Reed BP Systolic 2023-06-16 17:00:00 157 mm[Hg] Step [...] Jose F Reed Body Temperature 2022-01-29 19:02:00 Jose F Reed Heart Rate 2022-01-29 19:02:00 Ava [...] Respiratory Rate 2022-01-06 16:15:00 18.00 /min Jose F Reed BP Systolic 2021-09-04 17:23:00 132 mm[Hg] Step hen F Reed BP Diastolic 2021-09-04 17:23:00 82 mm[Hg] Silvano phen F Reed Weight Measured 2021-09-04 17:23:00 229.80 pounds Jose F Reed Height Measured 2021-09-04 17:23:00 67.72 inches Jose F Reed Body Temperature 2021-09-04 17:23:00 98.20 degrees Jose F Reed Heart Rate 2021-09-04 17:23:00 72.00 /min Ava en F Reed Respiratory Rate 2021-09-04 17:23:00 17.00 /min Jose F Reed Procedures Procedure Date / Time Performed Performing Clinician Source XR CHEST 1 VW 2020-08-21 15:08:40 Erickson Sol [facility] CREATINE KINASE 2020-08-21 13:31:00 [facility] 2020-08-21 13:31:00 [facility] THYROID STIMULATING HORMONE 2020-08-21 13:31:00 Erickson Sol [facility] HEPATIC FUNCTION PANEL ([id number]) (ALB,T.PRO,BILI T,BU/BC,ALT,AST,ALK PHOS) 2020-08-21 13:31:00 Erickson Sol [facility] BASIC METABOLIC PANEL (NA, K, CL, CO2, GLUCOSE, BUN, CREATININE, CA) 2020-08-21 13:31:00 Erickson Sol [facility] CBC WITH DIFF 2020-08-21 13:31:00 Erickson Sol [facility] URINALYSIS 2020-08-21 13:31:00 [facility] ADC / LCC - DRUG SCREEN TRIAGE 2020-08-21 13:31:00 Erickson Sol [facility] COVID-19 (ID NOW RAPID TESTING) 2020-08-21 13:31:00 Erickson Sol [facility] NOTICE OF PRIVACY PRACTICES 2020-08-21 12:46:36 Doctor Unassigned, [place] [facility] CONSENT/REFUSAL FOR DIAGNOSIS AND TREATMENT 2020-08-21 12:46:21 Doctor Unassigned, [place] [facility] TROPONIN I 2020-02-17 03:49:00 Ziggy [facility] XR CHEST 1 VW 2020-02-17 02:30:42 Erickson Sol [facility] LIPASE 2020-02-17 01:21:00 [facility] TROPONIN I 2020-02-17 01:21:00 [facility] COMP. METABOLIC PANEL ([id number]) 2020-02-17 01:21:00 Erickson Sol [facility] CBC WITH DIFF 2020-02-17 01:21:00 Erickson Sol [facility] PROTHROMBIN TIME / INR 2020-02-17 01:21:00 Aidan Sol [facility] ACTIVATED PARTIAL THRMPLAS AMY 2020-02-17 01:21:00 Erickson Sol [facility] EKG-12 LEAD 2020-02-17 01:18:35 [facility] NOTICE OF PRIVACY PRACTICES 2020-02-17 01:08:49 Doctor Unassigned, [place] [facility] CONSENT/REFUSAL FOR DIAGNOSIS AND TREATMENT 2020-02-17 01:08:34 Doctor Unassigned, [place] [facility] RAPID STREP SCREEN FOR GROUP A 2019-06-12 22:38:00 Siobhan Garza [facility] ADC,CLC OR LCC ONLY - INFLUENZA A & B DIRECT ANTIGEN 2019-06-12 22:38:00 Siobhan Garza [facility] CONSENT/REFUSAL FOR DIAGNOSIS AND TREATMENT 2019-06-12 22:06:34 Doctor Unassigned, [place] [facility] Encounters Start Date/Time End Date/Time Encounter Type Admission Type Attending [facility] Care Department Encounter ID Source 2024-09-30 09:30:00 2024-09-30 09:30:00 Outpatient PREZASJOAQUIM [id number] [facility]egan [facility] 2024-06-23 00:00:00 2024-06-23 00:00:00 [facility] [id number] [facility] 2024-06-13 00:00:00 2024-06-13 00:00:00 [facility] [id number] [facility] 2024-06-13 00:00:00 2024-06-13 00:00:00 Outpatient PREZAS, JOAQUIM FOSTER [id number] [facility] 2024-06-10 08:40:00 2024-06-10 08:40:00 Outpatient LAB90 RAEGAN FOSTER [id number] [facility] 2024-06-03 11:00:00 2024-06-03 11:00:00 Outpatient PREZASJOAQUIM [id number] [facility]egan [facility] 2024-04-15 00:00:00 2024-04-15 00:00:00 Outpatient PREZASJOAQUIM [id number] [facility] 2024-04-14 00:00:00 2024-04-14 00:00:00 Outpatient PREZASJOAQUIM [id number] [facility]egan [facility] 2024-04-13 10:15:00 2024-04-13 10:15:00 Outpatient PREZASJOAQUIM [id number] [facility] 2024-03-15 17:15:08 2024-03-15 17:15:08 Outpatient SFA SFA [id number] Jose Mcbride 2024-03-12 08:52:53 2024-03-12 08:52:53 Outpatient SFA SFA [id number] Jose Mcbride 2024-03-09 17:19:22 2024-03-09 17:19:22 Outpatient SFA SFA [id number] Jose Mcbride 2023-10-02 15:02:00 2023-10-02 15:02:00 Outpatient SFA SFA [id number] Jose Mcbride 2023-09-18 16:59:08 2023-09-18 16:59:08 Outpatient SFA SFA [id number] Jose Mcbride 2023-09-18 00:00:00 2023-09-18 00:00:00 Outpatient Visit SFA [id number] Jose Mcbride 2023-08-01 09:13:04 2023-08-01 09:13:04 Outpatient SFA SFA [id number] Jose Mcbride 2023-07-31 16:05:03 2023-07-31 16:05:03 Outpatient SFA SFA [id number] Jose Mcbride 2023-06-16 16:47:34 2023-06-16 16:47:34 Outpatient SFA SFA [id number] Jose Mcbride 2023-03-20 08:12:25 2023-03-20 08:12:25 Outpatient SFA SFA [id number] Jose Mcbride 2023-03-14 11:22:44 2023-03-14 11:22:44 Outpatient SFA SFA [id number] Jose Mcbride 2023-03-11 17:06:31 2023-03-11 17:06:31 Outpatient SFA SFA [id number] Jose Mcbride 2022-11-29 13:34:42 2022-11-29 13:34:42 Outpatient SFA SFA [id number] Jose Mcbride 2022-07-11 08:00:18 2022-07-11 08:00:18 Outpatient [facility] [id number] Jose Mcbride 2022-07-08 16:50:35 2022-07-08 16:50:35 Outpatient [facility] [id number] Jose Mcbride 2022-04-07 08:15:31 2022-04-07 08:15:31 Outpatient [facility] [id number] Jose Mcbride 2022-04-04 17:00:04 2022-04-04 17:00:04 Outpatient [facility] [id number] Jose Malagon Reed 2020-08-21 07:58:00 2020-08-21 10:27:00 Emergency [facility] [id number] 2020-08-21 07:58:00 2020-08-21 10:27:00 Emergency [facility] [id number] [facility] 2020-08-21 07:48:00 2020-08-21 07:48:00 Emergency X [facility] ERT [id number] [facility] 2020-08-21 00:00:00 2020-08-21 00:00:00 Orders Only Doctor Unassigned, [place] [facility] 1.2840.114 350.1.13.10 4.2.7.2.686 [id number] 009 [id number] 2020-08-21 00:00:00 2020-08-21 00:00:00 Orders Only Doctor Unassigned, [place] [facility] 1.2.840.114 350.1.13.10 4.2.7.2.686 [id number] 009 [id number] [facility] 2020-02-16 21:41:00 2020-02-17 00:50:00 Emergency Osmar, K [facility] 1.2.840.114 350.1.13.10 4.2.7.2.686 [id number] 084 [id number] 2020-02-16 21:41:00 2020-02-17 00:50:00 Emergency [facility] 1.2.840.114 350.1.13.10 4.2.7.2.686 [id number] 084 [id number] [facility] 2020-02-16 20:06:00 2020-02-16 20:06:00 Emergency X [facility] ERT [id number] [facility] 2019-06-12 16:15:07 2019-06-12 18:19:00 Emergency Siobhan [facility] 1.2.840.114 350.1.13.10 4.2.7.2.686 [id number] 084 [id number] 2019-06-12 16:15:07 2019-06-12 18:19:00 Emergency Siobhan Gar[facility] 1.2.840.114 350.1.13.10 4.2.7.2.686 [id number] 084 [id number] [facility] Results Test Description Test Time Test Comments Results Result Co mments Source COMPREHENSIVE METABOLIC [id number] 21:56:54* Test Item Value Reference Range Interpretation Comme nts GLUCOSE (test code = 2217) 131 MG/DL 70-99 H BUN (test code = 2208) 14 MG/DL 6-20 CREATININE (test code = 2214) 0.92 MG/DL 0.80-1.40 eGFR (2020 CKD-EPI) (test code = 11764) 108 ML/MIN/1.73 >60 CALC BUN/CREAT (test code = 2235) 15 RATIO 6-28 SODIUM (test code = 2231) 137 MEQ/L 133-146 POTASSIUM (test code = 2228) 4.4 MEQ/L 3.5-5.4 CHLORIDE (test code = 2215) 104 MEQ/L 95-107 CARBON DIOXIDE (test code = 2205) 21 MEQ/L 19-31 CALCIUM (test code = 2208) 8.8 MG/DL 8.5-10.5 PROTEIN, TOTAL (test code = 2228) 6.7 G/DL 6.1-8.3 ALBUMIN (test code = 2200) 4.4 G/DL 3.5-5.2 CALC GLOBULIN (test code = 0) 2.3 G/DL 1.9-3.7 CALC A/G RATIO (test code = 2233) 1.9 RATIO 1.0-2.6 BILIRUBIN, TOTAL (test code = 2206) 0.4 MG/DL <=1.2 ALKALINE PHOSPHATASE (test code = 2203) 57 U/L 40-117 AST (test code = 2217) 18 U/L 9-50 ALT (test code = 2218) 23 U/L 5-50 LIPID [id number] 21:56:54* Test Item Value Reference Range Interpretation Comme nts CHOLESTEROL (test code = 2209) 211 MG/DL <200 H TRIGLYCERIDES (test code = 2231) 234 MG/DL <150 H HDL CHOLESTEROL (test code = 2219) 30 MG/DL >39 L CALC LDL CHOL (test code = 2236) 143 MG/DL <100 H NOTE: CALCULATED LDL IS BASED ON NAHEED-RUANO METHOD WHICHINCLUDES ADJUSTABLE TRIGLYCERIDE:VLDL CHOLESTEROL RATIO.THIS FACTOR VARIES BY MEASURED TRIGLYCERIDE AND NON-HDLCHOLESTEROL CONCENTRATIONS WITH INCREASED CALCULATED LDL SEENIN HIGHER TRIGLYCERIDE OR LOWER NON-HDL SPECIMENS. FOR MOREINFORMATION, SEE CLIENT ANNOUNCEMENT AT [email or web address] RISK RATIO LDL/HDL (test code = 2237) 4.77 RATIO <3.55 H HEMOGLOBIN [id number] 02:50:37* Test Item Value Reference Range Interpretation Comme nts HEMOGLOBIN A1c (test code = 31610) 6.3 % 4.2-5.6 H [employer] GUIDELINES FOR HGB A1C: [...] ETC.). CONSIDER ALTERNATE TESTING OR LABORATORY CONSULTATION. LIPID [id number] 01:43:07* Test Item Value Reference Range Interpretation Comme nts CHOLESTEROL (test code = 2210) 153 MG/DL <200 TRIGLYCERIDES (test code = 2232) 163 MG/DL <150 H HDL CHOLESTEROL (test code = 2220) 32 MG/DL >39 L CALC LDL CHOL (test code = 2237) 95 MG/DL <100 NOTE: CALCULATED LDL IS BASED ON NAHEED-RUANO METHOD WHICHINCLUDES ADJUSTABLE TRIGLYCERIDE:VLDL CHOLESTEROL RATIO.THIS FACTOR VARIES BY MEASURED TRIGLYCERIDE AND NON-HDLCHOLESTEROL CONCENTRATIONS WITH INCREASED CALCULATED LDL SEENIN HIGHER TRIGLYCERIDE OR LOWER NON-HDL SPECIMENS. FOR MOREINFORMATION, SEE CLIENT ANNOUNCEMENT AT [email or web address] /CalcLDL-C RISK RATIO LDL/HDL (test code = 2238) 2.97 RATIO <3.55 UNLESS OTHERW ISE INDICATED, ALL TESTING PERFORMED AT [facility] [address] [place] [address] COMMERCIAL ART INSTRUCTOR: JACQUIE WILHELM M.D. CLIA NUMBER [id number] [facility] [place]. [id number] LIPID [id number] 00:00:00* Test Item Value Reference Range Interpretation Comme nts CHOLESTEROL (test code = 2210) 153 MG/DL TRIGLYCERIDES (test code = 2232) 163 MG/DL HDL CHOLESTEROL (test code = 2220) 32 MG/DL CALC LDL CHOL (test code = 2237) 95 MG/DL RISK RATIO LDL/HDL (test cod e = 2238) 2.97 RATIO Jose Malagon AustinHEMOGLOBIN [id number] 03:48:13* Test Item Value Reference Range Interpretation Comme nts HEMOGLOBIN A1c (test code = 67108) 6.0 % 4.2-5.6 H [employer] GUIDELINES FOR HGB A1C: [...] CONSIDER ALTERNATE TESTING OR LABORATORY CONSULTATION. HEMOGLOBIN [id number] 00:00:00* Test Item Value Reference Range Interpretation Comme nts HEMOGLOBIN A1c (test code = 80347) 6.0 % Jose Malagon AustinLIPID [id number] 03:51:09* Test Item Value Reference Range Interpretation [...] SPECIMENS. FOR MOREINFORMATION, SEE CLIENT ANNOUNCEMENT AT [email or web address]://[email or web address] /CalcLDL-C RISK RATIO LDL/HDL (test code = 223) 4.00 RATIO <3.55 H COMPREHENSIVE METABOLIC [id number] 03:51:09* Test Item Value Reference Range Interpretation Comme nts GLUCOSE (test code = 2217) 110 MG/DL 70-99 H BUN (test code = 2207) 16 MG/DL 6-20 CREATININE (test code = 2214) 0.86 MG/DL 0.80-1.40 eGFR (2020 CKD-EPI) (test code = 79047) 113 ML/MIN/1.73 >60 CALC BUN/CREAT (test code = 2235) 19 RATIO 6-28 SODIUM (test code = 223) 137 MEQ/L 133-146 POTASSIUM (test code = 2228) 4.4 MEQ/L 3.5-5.4 CHLORIDE (test code = 2215) 102 MEQ/L 95-107 CARBON DIOXIDE (test code = 2206) 26 MEQ/L 19-31 CALCIUM (test code = 2209) 9.2 MG/DL 8.5-10.5 PROTEIN, TOTAL (test code = 2228) 6.6 G/DL 6.1-8.3 ALBUMIN (test code = 2200) 4.4 G/DL 3.5-5.2 CALC GLOBULIN (test code = 224) 2.2 G/DL 1.9-3.7 CALC A/G RATIO (test code = 2234) 2.0 RATIO 1.0-2.6 BILIRUBIN, TOTAL (test code = 2207) 0.6 MG/DL <=1.2 ALKALINE PHOSPHATASE (test code = 2204) 64 U/L 40-117 AST (test code = 2218) 13 U/L 9-50 ALT (test code = 2219) 17 U/L 5-50 UNLESS OTHERWISE INDICATED, ALL TESTING PERFORMED AT [facility] [address] [place] [address] COMMERCIAL ART INSTRUCTOR: JACQUIE WILHELM M.D. CLIA NUMBER [id number] [facility] [place]. [id number] HEMOGLOBIN [id number] 03:40:45* Test Item Value Reference Range Interpretation Comme nts HEMOGLOBIN A1c (test code = 94148) 5.6 % 4.2-5.6 HEMOGLOBIN [id number] 00:00:00* Test Item Value Reference Range Interpretation Comme nts HEMOGLOBIN A1c (test code = 73880) 5.6 % Jose Malagon OronocoLIPID [id number] 00:00:00* Test Item Value Reference Range Interpretation Comme nts CHOLESTEROL (test code = 2210) 174 MG/DL TRIGLYCERIDES (test code = 2232) 174 MG/DL HDL CHOLESTEROL (test code = 2220) 29 MG/DL CALC LDL CHOL (test code = 2237) 116 MG/DL RISK RATIO LDL/HDL (test cod e = 2238) 4.00 RATIO Jose McbrideCOMPREHENSIVE METABOLIC [id number] 00:00:00* Test Item Value Reference Range Interpretation Comme nts GLUCOSE (test code = 2217) 110 MG/DL BUN (test code = 2208) 16 MG/DL CREATININE (test code = 2214) 0.86 MG/DL eGFR (2020 CKD-EPI) (test code = 84333) 113 ML/MIN/1.73 CALC BUN/CREAT (test code = [...] code = 2219) 17 U/L Jose McbrideLIPID [id number] 01:53:14* Test Item Value Reference Range Interpretation [...] SPECIMENS. FOR MOREINFORMATION, SEE CLIENT ANNOUNCEMENT AT [email or web address]://[email or web address] /CalcLDL-C RISK RATIO LDL/HDL (test code = 2238) 3.67 RATIO <3.55 H [facility] has i mportant pathology staff changes effective 07/23/2022. New pathology staff will provide uninterrupted, excellent patient care and clinical consultation. See URL: [email or web address]. UNLESS OTHERWISE INDICATED, ALL TESTING PERFORMED AT [facility] [address] [place] [address] CLIA: [id number], CAP: [id number] LIPID [id number] 00:00:00* Test Item Value Reference Range Interpretation Comme nts CHOLESTEROL (test code = 2210) 176 MG/DL TRIGLYCERIDES (test code = 2232) 116 MG/DL HDL CHOLESTEROL (test code = 2220) 33 MG/DL CALC LDL CHOL (test code = 2237) 121 MG/DL RISK RATIO LDL/HDL (test cod e = 2238) 3.67 RATIO Jose McbrideHEMOGLOBIN [id number] 00:00:00* Test Item Value Reference Range Interpretation Comme nts HEMOGLOBIN A1c (test code = 91587) 5.9 % Jose McbrideCOMPREHENSIVE METABOLIC [id number] 00:00:00* Test Item Value Reference Range Interpretation Comme nts GLUCOSE (test code = 2217) 93 MG/DL BUN (test code = 2208) 19 MG/DL CREATININE (test code = 2214) 0.91 MG/DL eGFR (2020 CKD-EPI) (test code = 61335) 111 ML/MIN/1.73 CALC BUN/CREAT (test code = [...] (test code = 2219) 16 U/L Jose McbrideLIPID [id number] 00:00:00* Test Item Value Reference Range Interpretation Comme nts CHOLESTEROL (test code = 2210) 211 MG/DL TRIGLYCERIDES (test code = 2232) 142 MG/DL HDL CHOLESTEROL (test code = 2220) 33 MG/DL CALC LDL CHOL (test code = 2237) 151 MG/DL RISK RATIO LDL/HDL (test cod e = 2238) 4.58 RATIO Jose Malagon AustinLIPID [id number] 04:16:00* Test Item Value Reference Range Interpretation [...] SPECIMENS. FOR MOREINFORMATION, SEE CLIENT ANNOUNCEMENT AT http://[email or web address] /CalcLDL-C RISK RATIO LDL/HDL (test code = 2238) 6.17 RATIO <3.55 H TSH, THIRD [id number] 03:58:52* Test Item Value Reference Range Interpretation Comme nts TSH, THIRD GENERATION (test code = 2821) 0.715 UIU/ML 0.400-4.100 UNLESS OTHERWISE INDICATED, ALL TESTING PERFORMED [facility] [address] [place] [address] COMMERCIAL ART INSTRUCTOR: ELA CAMPBELL M.D. CLIA NUMBER [id number] [facility] [place]. [id number] LIPID [id number] 00:00:00* Test Item Value Reference Range Interpretation Comme nts CHOLESTEROL (test code = 2210) 257 MG/DL TRIGLYCERIDES (test code = 2232) 229 MG/DL HDL CHOLESTEROL (test code = 2220) 30 MG/DL CALC LDL CHOL (test code = 2237) 185 MG/DL RISK RATIO LDL/HDL (test cod e = 2238) 6.17 RATIO Jose Malagon [id number] 00:00:00* Test Item Value Reference Range Interpretation Comme nts TSH, THIRD GENERATION (test code = 2821) 0.715 UIU/ML Jose Malagon AustinLIPID [id number] 00:00:00* Test Item Value Reference Range Interpretation Comme nts CHOLESTEROL (test code = 2210) 143 MG/DL TRIGLYCERIDES (test code = 2232) 122 MG/DL HDL CHOLESTEROL (test code = 2220) 29 MG/DL CALC LDL CHOL (test code = 2237) 92 MG/DL RISK RATIO LDL/HDL (test cod e = 2238) 3.17 RATIO oJse McbrideCOMPREHENSIVE METABOLIC [id number] 00:00:00* Test Item Value Reference Range Interpretation Comme nts GLUCOSE (test code = 2217) 122 MG/DL BUN (test code = 2208) 15 MG/DL CREATININE (test code = 2214) 0.84 MG/DL eGFR AMER. (test cod e = 67247) 130 ML/MIN/1.73 eGFR NON- AMER. (test code = 04347) 112 ML/MIN/1.73 CALC BUN/CREAT (test code = [...] code = 2219) 10 U/L Jose McbrideLIPID [id number] 00:00:00* Test Item Value Reference Range Interpretation Comme nts CHOLESTEROL (test code = 2210) 306 MG/DL TRIGLYCERIDES (test code = 2232) 1458 MG/DL HDL CHOLESTEROL (test code = 2220) 18 MG/DL CALC LDL CHOL (test code = 2237) (NOTE) MG/DL RISK RATIO LDL/HDL (test cod e = 2238) (NOTE) RATIO Jose McbrideCOMPREHENSIVE METABOLIC [id number] 00:00:00* Test Item Value Reference Range Interpretation Comme nts GLUCOSE (test code = 2217) 92 MG/DL BUN (test code = 2208) 14 MG/DL CREATININE (test code = 2214) 0.83 MG/DL eGFR AMER. (test cod e = 19988) 130 ML/MIN/1.73 eGFR NON- AMER. (test code = 89652) 112 ML/MIN/1.73 CALC BUN/CREAT (test code = [...] code = 2219) 28 U/L Jose McbrideLIPID [id number] 00:00:00* Test Item Value Reference Range Interpretation Comme nts CHOLESTEROL (test code = 2210) 261 MG/DL TRIGLYCERIDES (test code = 2232) 1248 MG/DL HDL CHOLESTEROL (test code = 2220) 22 MG/DL CALC LDL CHOL (test code = 2237) (NOTE) MG/DL RISK RATIO LDL/HDL (test cod e = 2238) (NOTE) RATIO Jose McbrideXR CHEST 1 [id number] 15:10:55HISTORY: Cough. TECHNIQUE: Portable AP erect view [...] limits. CONCLUSIONS: No signs of acute cardiopulmonary disease.[facility] / [facility] - DRUG SCREEN [id number] 15:06:33* Test Item Value Reference Range Interpretation Comme nts BENZO U (test code = 0885143877) Negative Negative HARRIETT U (test code = 1649146522) Negative Negative AMPHET (test code = 5064724270) Presumptive Positive Negative A THC (test code = 1105588074) Negative Negative METHADONE (test code = 7735118491) Negative Negative Meth U (test code = 9600513214) Presumptive Positive Negative A OPIATES (test code = 3968757252) Negative Negative Cocaine Metabolite (test code = 8720393017) Negative Negative PROPOXY (test code = 6201350067) Negative Negative Tric U (test code = 4589896866) Negative Negative PCP (test code = 9664663414) Negative Negative OXYCOD (test code = 6850495776) Negative Negative LOUIE (test code = LOUIE) [...] legal testing). Lab Interpretation (test code = 65239-4) [facility]normal [facility] [id number] 14:41:43 * Test Item Value Reference Range Interpretation Comme nts TSH (test code = 8360743058) See_Comment [Automated messa ge] The system which generated this result transmitted reference range: 0.45 - 4.70 mIU/L. The reference range was not used to interpret this result as normal/abnormal. Lab Interpretation (test code = 42313-2) Normal [facility]st[facility]NESIUM2021-03-30 14:13:20* Test Item Value Reference Range Interpretation Comme nts MAGNESIUM (test code = 3698401892) 1.7 mg/dL 1.7-2.4 Lab Interpretation (test cod e = 00161-2) Normal [facility]OVID[facility] (ID NOW RAPID TESTING)2020-08-21 14:13:20* Test Item Value Reference Range Interpretation Comme nts SARS-CoV-2 Rapid ID NOW (test code = 13521-7) Not Detected Not Detected LOUIE (test code = LOUIE) ID NOW COVID-19 As say is an isothermal nucleic acid amplification test intended for the qualitative detection of nucleic acid from SARS-CoV-2 viral RNA in nasopharyngeal (INVESTIGATION MANAGER) specimens. It is used under Emergency Use [...] clinically indicated. Lab Interpretation (test code = 44822-5) Normal [facility] Met[facility] (NA, K, CL, CO2, GLUCOSE, BUN, CREATININE, CA)2020-08-21 14:13:15* Test Item Value Reference Range Interpretation Comme nts NA (test code = 7903863952) 138 mmol/L 135-145 K (test code = 0913005358) 3.8 mmol/L 3.5-5.0 CL (test code = 9305801452) 108 mmol/L 98-108 CO2 TOTAL (test code = 0177166265) 23 mmol/L 23-31 AGAP (test code = 4471213106) 2-16 BUN (test code = 4003986432) 14 mg/dL 7-23 GLUCOSE (test code = 1727925351) 123 mg/dL 70-110 H CREATININE (test code = 6330000536) 0.83 mg/dL 0.60-1.25 CALCIUM (test code = 5173517279) 8.7 mg/dL 8.6-10.6 eGFR Calculation (Non-) (test code = 5982321840) mL/min/1.73m2 eGFR Calculation () (test code = 9856253237) mL/min/1.73m2 LOUIE (test code = LOUIE) Association [...] imaging tests). Lab Interpretation (test code = 91988-9) Abnormal [facility]st[facility] Function Panel (ALB, T.PRO, BILI T, BU/BC, ALT, AST, ALK PHOS)2020-08-21 14:13:15* Test Item Value Reference Range Interpretation Comme nts TOTAL BILI (test code = 7559443415) 0.5 mg/dL 0.1-1.1 BILI UNCON (test code = 0522961431) 0.3 mg/dL 0.1-1.1 BILI CONJ (test code = 3943634643) 0.0 mg/dL 0.0-0.3 T PROTEIN (test code = 8627908252) 7.1 g/dL 6.3-8.2 ALBUMIN (test code = 0891571243) 4.2 g/dL 3.5-5.0 ALK PHOS (test code = 2114753365) 93 U/L 34-122 ALTv (test code = 1742-6) 21 U/L 5-50 AST(SGOT) (test code = 7600552750) 25 U/L 13-40 Lab Interpretation (test cod e = 19911-2) Normal [facility]stCREATINE [id number] 14:13:14* Test Item Value Reference Range Interpretation Comme nts CK (test code = 2675418610) 74 U/L 33-194 Lab Interpretation (test cod e = 65055-0) Normal [facility]stURINALYSIS2021-03-30 14:12:24* Test Item Value Reference Range Interpretation Comme nts APPEARANCE (test code = 4333527233) Hazy Clear A COLOR (test code = 1469471436) Yellow Yellow PH (test code = 0095599398) 4.8-8.0 SP GRAVITY (test code = 4688015366) 1.003-1.030 GLU U QUAL (test code = 4446909498) Normal Normal BLOOD (test code = 0928336176) 1+ Negative A KETONES (test code = 0256486306) Negative Negative PROTEIN (test code = 2887-8) 30 mg/dL Negative A UROBILIN (test code = 5474088426) 2.0 mg/dL Normal A BILIRUBIN (test code = 5198201204) Negative Negative NITRITE (test code = 6168587919) Negative Negative LEUK DEANGELO (test code = 3340281448) 25/uL Negative A RBC/HPF (test code = 5921106895) See_Comment H [Automated messa ge] The system which generated this result transmitted reference range: 0 - 3 HPF. The reference range was not used to interpret this result as normal/abnormal. WBC/HPF (test code = 8430924962) See_Comment [Automated messa ge] The system which generated this result transmitted reference range: 0 - 5 HPF. The reference range was not used to interpret this result as normal/abnormal. BACTERIA (test code = 2464515629) Few Negative A MUCOUS (test code = 7942720305) Slight Negative LPF A AMORPHOUS (test code = 4888782073) Few Rare HPF A CA OXALATE (test code = 4246273744) See_Comment [Automated messa ge] The system which generated this result transmitted reference range: <=1 HPF. The reference range was not used to interpret this result as normal/abnormal. YEAST BUD (test code = 3699554448) <1 See_Comment [Automated messa ge] The system which generated this result transmitted reference range: <=1 HPF. The reference range was not used to interpret this result as normal/abnormal. Lab Interpretation (test code = 35732-7) Abnormal [facility] with [id number] 13:52:37* Test Item Value Reference Range Interpretation [...] 34.3 g/dL 31.2-35.0 RDW-SD (test code = 89227-6) 40.7 fL 38.5-51.6 RDW-CV (test code = 788-0) 13.2 % 12.1-15.4 PLT (test code = 777-3) See_Comment [Automated messa ge] The system which generated this result transmitted reference range: 150 - 328 10*3/?L. The reference range was not used to interpret this result as normal/abnormal. MPV (test code = 53722-1) 10.1 fL 9.8-13.0 NRBC/100 WBC (test code = 1148552401) See_Comment [Automated me ssage] The system which generated this result transmitted reference range: 0.0 - 10.0 /100 WBCs. The reference range was not used to interpret this result as normal/abnormal. NRBC x10^3 (test code = 1641071010) <0.01 See_Comment [Automated messa ge] The system which generated this result transmitted reference range: 10*3/?L. The reference range was not used to interpret this result as normal/abnormal. GRAN MAT (NEUT) % (test code = 770-8) 63.6 % IMM GRAN % (test code = 6923917284) 0.40 % LYMPH % (test code = 736-9) 30.0 % MONO % (test code = 5905-5) 5.2 % EOS % (test code = 713-8) 0.4 % BASO % (test code = 706-2) 0.4 % GRAN MAT x10^3(ANC) (test code = 3505440152) 7.15 10*3/uL 1.99-6.95 H IMM GRAN x10^3 (test code = 5994840187) 0.05 10*3/uL 0.00-0.06 LYMPH x10^3 (test code = 731-0) 3.38 10*3/uL 1.09-3.23 H MONO x10^3 (test code = 742-7) 0.59 10*3/uL 0.36-1.02 EOS x10^3 (test code = 711-2) 0.04 10*3/uL 0.06-0.53 L BASO x10^3 (test code = 704-7) 0.05 10*3/uL 0.01-0.09 Lab Interpretation (test code = 22013-1) Abnormal [facility] [id number] 04:53:00* Test Item Value Reference Range Interpretation Comme nts TROPONIN I (test code = 7712799223) 0.001 ng/mL See_Comment [Automated message] The system [...] biotin. ? Lab Interpretation (test code = 21166-0) Normal [facility] Hill[facility]stXR CHEST 1 [id number] 04:43:03No acute intrathoracic abnormality. Preliminary Report Dictated [...] reviewed this study and agree with theabove report.[facility]stTROPONIN I 2020-02-17 02:14:00* Test Item Value Reference Range Interpretation Comme nts TROPONIN I (test code = 0088952176) 0.001 ng/mL See_Comment [Automated message] The system [...] biotin. ? Lab Interpretation (test code = 19715-9) Normal [facility]. METABOLIC PANEL (70190)2020-02-17 02:03:00* Test Item Value Reference Range Interpretation Comme nts NA (test code = 7537580504) 139 mmol/L 135-145 K (test code = 7254779484) 3.9 mmol/L 3.5-5 CL (test code = 1852332626) 105 mmol/L 98-108 CO2 TOTAL (test code = 4454072453) 25 mmol/L 23-31 AGAP (test code = 9414099636) 2-16 BUN (test code = 1430420952) 19 mg/dL 7-23 GLUCOSE (test code = 6795737298) 115 mg/dL 70-110 H CREATININE (test code = 5250410096) 1.06 mg/dL 0.6-1.25 TOTAL BILI (test code = 2015392284) 0.4 mg/dL 0.1-1.1 CALCIUM (test code = 3355573523) 9.3 mg/dL 8.6-10.6 T PROTEIN (test code = 8536293294) 7.5 g/dL 6.3-8.2 ALBUMIN (test code = 5749388298) 4.1 g/dL 3.5-5 ALK PHOS (test code = 0503329686) 88 U/L 34-122 ALTv (test code = 1742-6) 20 U/L 5-50 AST(SGOT) (test code = 0337018258) 28 U/L 13-40 eGFR Calculation (Non-) (test code = 2343585251) mL/min/1.73m2 eGFR Calculation () (test code = 9117726727) mL/min/1.73m2 LOUIE (test code = LOUIE) Association [...] imaging tests). Lab Interpretation (test code = 98627-2) Abnormal [facility]stLIPASE, [id number] 02:03:00* Test Item Value Reference Range Interpretation Comme [facility] LIPASE (test code = 5018935307) 85 U/L 0-220 Lab Interpretation (test cod e = 50561-8) Normal [facility] HillcrestaPTT2020-09-25 01:50:00* Test Item Value Reference Range Interpretation Comme [facility] APTT Patient (test code = 3173-2) See_Comment [Automated message] The system which generated this result transmitted reference range: 23 - 38 Seconds. The reference range was not used to interpret this result as normal/abnormal. LOUIE (test code = LOUIE) The [facility] patient population mean normal value for aPTT is 30 seconds. Lab Interpretation (test code = 43148-2) Normal [facility] HillcrestPROTHROMBIN TIME / [id number] 01:48:00* Test Item Value Reference Range Interpretation Comme [facility] PROTIME PATIENT (test code = 5964-2) See_Comment H [Automated [employer]] The system which generated this result transmitted reference range: 12.0 - 14.7 Seconds. The reference range was not used to interpret this result as normal/abnormal. INR (test code = 6301-6) Normal INR <1.1; Warfarin Therapeutic range 2.0 to 3.0 or 2.5 to 3.5, depending upon the indications. Lab Interpretation (test code = 44567-0) [facility]normal [facility] [id number] 01:36:00* Test Item Value Reference Range Interpretation Comme [facility] WBC (test code = 6690-2) See_Comment H [Automated [employer]] The system which generated this result transmitted reference range: 4.20 - 10.70 10*3/?L. The reference range was not used to interpret this result as normal/abnormal. RBC (test code = 789-8) See_Comment [Automated [employer]] The system which generated this result [...] 34.6 g/dL 31.2-35 RDW-SD (test code = 73869-6) 42.9 fL 38.5-51.6 RDW-CV (test code = 788-0) 13.8 % 12.1-15.4 PLT (test code = 777-3) See_Comment [Automated [employer]] The system which generated this result transmitted reference range: 150 - 328 10*3/?L. The reference range was not used to interpret this result as normal/abnormal. MPV (test code = 38232-4) 11.3 fL 9.8-13 NRBC/100 WBC (test code = 1387494870) See_Comment [[email or web address] [email or web address] ssage] The system which generated this result transmitted reference range: 0.0 - 10.0 /100 WBCs. The reference range was not used to interpret this result as normal/abnormal. NRBC x10^3 (test code = 4759869400) <0.01 See_Comment [Automated [employer]] The system which generated this result transmitted reference range: 10*3/?L. The reference range was not used to interpret this result as normal/abnormal. GRAN MAT (NEUT) % (test code = 770-8) 62.6 % IMM GRAN % (test code = 5238583141) 0.40 % LYMPH % (test code = 736-9) 31.0 % MONO % (test code = 5905-5) 5.2 % EOS % (test code = 713-8) 0.4 % BASO % (test code = 706-2) 0.4 % GRAN MAT x10^3(ANC) (test code = 3264756908) 7.04 10*3/uL 1.99-6.95 H IMM GRAN x10^3 (test code = 2017410480) 0.04 10*3/uL 0-0.06 LYMPH x10^3 (test code = 731-0) 3.49 10*3/uL 1.09-3.23 H MONO x10^3 (test code = 742-7) 0.59 10*3/uL 0.36-1.02 EOS x10^3 (test code = 711-2) 0.04 10*3/uL 0.06-0.53 L BASO x10^3 (test code = 704-7) 0.05 10*3/uL 0.01-0.09 Lab Interpretation (test code = 81819-7) [facility] - INFLUENZA A & B DIRECT [id number] 23:48:00* Test Item Value Reference Range Interpretation Comme nts Influenza A (test code = 46183-2) Negative Negative Influenza B (test code = 46739-3) Negative Negative Lab Interpretation (test cod e = 66075-7) Normal [facility] S[facility] FOR GROUP [id number] 23:32:00* Test Item Value Reference Range Interpretation Comme nts Streptococcus pyogenes (grou p A) antigen (test code = 36248-6) Negative Negative Lab Interpretation (test cod e = 77468-8) Normal [facility] Notes Date/Time Note Provider Source Jose Adamson [facility]"
--- NOTE | 2024-08-03 21:49 | EDPHYS ---
Physician Documentation [facility] Name: Raza Causey Age: 39 yrs Sex: Male : 1985 Arrival Date: 08/03/2024 Time: 21:21 Bed IW3 Private MD: ED Physician Austyn Cervantes HPI: 08/03 21:46 This 39 yrs old Male presents to ER via Unassigned with complaints of Foot kb Pain, REDNESS, SWELLING OF FOOT. 21:46 Pt is a 39 year old male who presents for redness and swelling to top of left foot. kb States he has had some small sores to top of foot that his dr gave him antibiotic and antifungal cream for. States the sores have increased in size and today he noticed some redness and swelling to one of them. . 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 - Infectious Disease History:: Denies. - Social history:: Smoking status: Patient denies any tobacco usage or history of. ROS: 21:47 Constitutional: As per HPI kb Exam: 21:47 Constitutional: This is a well developed, well nourished patient who is awake, alert, kb and in no acute distress. Head/Face: Normocephalic, atraumatic. ENT: Moist Mucous membranes Cardiovascular: Regular rate Respiratory: Respirations even and unlabored. No increased work of breathing. Talking in full sentences MS/ Extremity: Pulses equal, no cyanosis. Neurovascular intact. Full, normal range of motion. Neuro: Awake and alert, GCS 15, oriented to person, place, time, and situation. 21:47 Skin: small, superficial sores to top of foot, one with surrounding mild erythema and swelling. Vital Signs: 21:54 BP 140 / 104; Pulse 70; Resp 16; Temp 98; Pulse Ox 97% on R/A; Weight 102.06 kg; Height al5 5 ft. 9 in. ; 21:54 Body Mass Index 33.23 (102.06 kg, 175.26 cm) al5 MDM: 21:32 Medical Screening Exam initiated kb 21:47 Differential diagnosis: cellulitis, wound infection, abscess. Data reviewed: vital kb signs, nurses notes. Care significantly affected by the following chronic conditions: Diabetes. Counseling: I had a detailed discussion with the patient and/or guardian regarding the historical points, exam findings, and any diagnostic results supporting the discharge/admit diagnosis, the need for outpatient follow up, a family practitioner, to return to the emergency department if symptoms worsen or persist or if there are any questions or concerns that arise at home. Administered Medications: 22:01 Drug: Trimethoprim-Sulfamethoxazole PO (160 mg-800 mg (DS) 1 tablet PO once Route: PO; al5 22:01 Follow up: Response: No adverse reaction; Medication administered at discharge. al5 22:01 Drug: Cephalexin PO 500 mg PO once Route: PO; al5 22:01 Follow up: Response: No adverse reaction; Medication administered at discharge. al5 Disposition: 08/04 06:43 Co-signature as Attending Physician, Austyn Cervantes MD I agree with the assessment sp4 and plan of care. I reviewed the patient's care provided by the Advanced Practice Provider and agree with the diagnosis and treatment plan. Disposition Summary: 08/03/24 21:49 Discharge Ordered Notes: Location: Home kb Condition: Stable kb Diagnosis - Local infection of the skin and subcutaneous tissue, unspecified kb Followup: kb - With: Emergency Department - When: As needed - Reason: Worsening of condition Followup: kb - With: Private Physician - When: 2 - 3 days - Reason: Recheck today's complaints, Continuance of care, Re-evaluation by your physician Discharge Instructions: - Discharge Summary Sheet kb - Wound Infection, [id number] kb Forms: - Medication Reconciliation Form kb - Antibiotic Education kb - Prescription Opioid Use kb - Patient Portal Instructions kb - Leadership Thank You Letter kb Prescriptions: - Cephalexin 500 mg Oral Capsule - take 1 capsule ORAL route every 8 hours for 10 days; 30 capsule; Refills: 0, kb Product Selection Permitted - Bactrim DS 800-160 mg Oral Tablet - take 1 tablet ORAL route every 12 hours for 10 days; 20 tablet; Refills: 0, kb Product Selection Permitted Signatures: Nanette Mccray, Austyn Teran MD MD sp4 Langhorst, Jenelle, RN RN al5
[2024-08-03] MEDS ORDERED: CEPHALEXIN 250 MG CAP ONE (21:59)
[2024-08-03] MEDS ORDERED: SMZ./TMP. 800/160 MG TABLET ONE (22:00)
--- NOTE | 2024-08-03 22:26 | ER ---
Nurse's Notes [facility] Name: Raza Causey Age: 39 yrs Sex: Male : 1985 Arrival Date: 08/03/2024 Time: 21:21 Bed IW3 Private MD: Diagnosis: Local infection of the skin and subcutaneous tissue, unspecified Presentation: 08/03 21:54 Chief complaint: Patient states: has a redness to top of L foot that has been an al5 ongoing issue for about a year, started to get big about 2 weeks ago. was prescribed antifungal with no relief. Coronavirus screen: At this time, the client does not indicate any symptoms associated with coronavirus-19. Ebola Screen: No symptoms or risks identified at this time. Initial Sepsis Screen: Does the patient meet any 2 criteria? No. Patient's initial sepsis screen is negative. Does the patient have a suspected source of infection? No. Patient's initial sepsis screen is negative. Risk Assessment: Do you want to hurt yourself or someone else? Patient reports no desire to harm self or others. Onset of symptoms was July 21, 2024. 21:54 Method Of Arrival: Ambulatory al5 21:54 Acuity: DEBO 4 al5 Triage Assessment: 21:56 General: Appears in no apparent distress. comfortable, Behavior is calm, cooperative. al5 Pain: Complains of pain in dorsum of left foot. EENT: No signs and/or symptoms were reported regarding the EENT system. Neuro: Level of Consciousness is awake, alert, obeys commands, Oriented to person, place, time, situation. Cardiovascular: Capillary refill < 3 seconds Patient's skin is warm and dry. Respiratory: Airway is patent Respiratory effort is even, unlabored, Respiratory pattern is regular, symmetrical. GI: No signs and/or symptoms were reported involving the gastrointestinal system. : No signs and/or symptoms were reported regarding the genitourinary system. Derm: Skin is intact, redness to top part of foot. states there is pus like drainage that comes out of it. Musculoskeletal: No signs and/or symptoms reported regarding the musculoskeletal system. 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 - Infectious Disease History:: Denies. - Social history:: Smoking status: Patient denies any tobacco usage or history of. Screenin:02 [facility] ED Fall Risk Assessment (Adult) History of falling in the last 3 months, al5 including since admission No falls in past 3 months (0 pts) Confusion or Disorientation No (0 pts) Intoxicated or Sedated No (0 pts) Impaired Gait No (0 pts) Mobility Assist Device Used No (0 pt) Altered Elimination No (0 pt) Score/Fall Risk Level 0 - 2 = Low Risk Oriented to surroundings, Maintained a safe environment, Hourly rounding (assess needs \T\ fall precautionary measures) done. Abuse screen: Denies threats or abuse. Denies injuries from another. Nutritional screening: No deficits noted. Tuberculosis screening: No symptoms or risk factors identified. Assessment: 22:01 Reassessment: see triage assessment. al5 Vital Signs: 21:54 BP 140 / 104; Pulse 70; Resp 16; Temp 98; Pulse Ox 97% on R/A; Weight 102.06 kg; Height al5 5 ft. 9 in. ; 21:54 Body Mass Index 33.23 (102.06 kg, 175.26 cm) al5 ED Course: 21:23 Patient arrived in ED. jj6 21:30 Nanette Mccray FNP-C is [facility]. kb 21:30 Austyn Cervantes MD is Attending Physician. kb 21:56 Triage completed. al5 21:57 Arm band placed on right wrist. Patient placed in waiting room, in view of staff al5 members, on pulse oximetry. 22:02 Patient has correct armband on for positive identification. Provided Education on: al5 discharge follow up. 22:03 No provider procedures requiring assistance completed. Patient did not have IV access al5 during this emergency room visit. 22:24 Jenelle Eisenberg, KEI is Primary Nurse. al5 Administered Medications: 22:01 Drug: Trimethoprim-Sulfamethoxazole PO (160 mg-800 mg (DS) 1 tablet PO once Route: PO; al5 22:01 Follow up: Response: No adverse reaction; Medication administered at discharge. al5 22:01 Drug: Cephalexin PO 500 mg PO once Route: PO; al5 22:01 Follow up: Response: No adverse reaction; Medication administered at discharge. al5 Medication: 22:02 VIS not applicable for this client. al5 Outcome: 21:49 Discharge ordered by . pal 22:04 Discharged to home ambulatory, al5 22:04 Condition: good 22:04 Discharge instructions given to patient, Instructed on discharge instructions, follow up and referral plans. medication usage, Demonstrated understanding of instructions, follow-up care, medications, Prescriptions given X 2, 22:24 Patient left the ED. al5 Signatures: Nanette Mccray, FUEL TECHNICIAN-C FUEL TECHNICIAN-Nhi Chou jj6 Jenelle Eisenberg, RN RN al5
[2024-08-03 22:32] VITALS: BP 140/104; TEMP 98; O2SAT 97
== END 2024-08-03 22:24 | disposition home or self-care (01) ==
LOC: ER 21:21
DX: L08.9 Local infection of the skin and subcutaneous tissue, unspecified (principal)
CPT/HCPCS: 99283

== ENCOUNTER 2025-01-12 21:31 | Emergency (ER) | payer BC ==
--- OUTSIDE RECORDS SUMMARY | 2025-01-12 21:36 | XMS REPORT | Continuity of Care Document ---
Author Name Unknown Address [address] [facility] [place] [address] [facility] [address] [facility] [place] [address] Care Team Providers Care Forensic Psychiatrist Name Role Phone [facility] Primary Care Physician JOAQUIM WORTHINGTON Attending Clinician Unavailable LAB90 Attending Clinician Unavailable Erickson Sol MD Attending Clinician [phone] ERICKSON SOL Attending Clinician Unavailable Doctor Unassigned, [place] Attending Clinician U navailable Ziggy Alva Attending Clinician [phone] Siobhan Covarrubias Attending Clinician Payers Payer Name Policy Type Policy Number Effective Date Expirati on Date Source [facility] 2 [id number] 2024 00:00:00 [facility] [id number] 2019 00:00:00 Problems Condition Name Condition Details [...] mass Disease Active 2023-05 00:00: 00 Raegan Amadoold - Externa l Mass of left upper extremity Mass of left upper extremity Disease Active 2023-05 00:00: 00 Raegan Scott - Externa l HTN (hypertens ion) HTN (hypertens ion) Disease Active Raegan Seybold - Externa l 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 2 with diabetic mixed hyperlipid emia (multi HCC) Disease Active Raegan Seybold - Externa l Obesity Obesity Disease Active Raegan Seybold - Externa l NAIN (obstructi ve sleep apnea) NAIN (obstructi ve sleep apnea) Disease Active Raegan Seybold - Externa l Anxiety Anxiety Disease Active Raegan Seybold - Externa l No known active problems No known active problems Disease [facility] Allergies, Adverse Reactions, Alerts Allergy Name Allergy Type Status Severity Reaction(s) Onset Date Inactive Date Treating Clinician Comments Source Atorvast atin Propensi ty to adverse reaction s to drug Active Myalgia 2023-05 00:00: 00 Raegan Scott - Externa l NO KNOWN ALLERGIE S Drug Class Active [facility] Social History Social Habit Start Date Stop Date Quantity Comments Source Sexual orientation Ziggy darcie Scott - External History of Occupation Raegan Scott - External History of tobacco use Cigarette Smoker Raegan augustine - External Exposure to SARS-CoV-2 (event) Not sure [facility] Alcoholic beverage intake 2024-10-14 00:00:00 2024-10-14 00:00:00 Current drinker of alcohol (finding) Raegan Scott - External History of Social function 2024-04-13 00:00:00 2024-04-13 00:00:00 Raegan Scott - External Education 2024-04-13 00:00:00 2024-04-13 00:00:00 10 Raegan Scott - External Alcohol Comment 2024-04-13 00:00:00 2024-04-13 00:00:00 rarely Raegan Scott - External Cigarettes smoked current (pack per day) - Reported 2024-04-13 00:00:00 2024-04-13 00:00:00 Raegan Adamsonjamiefawn - External Cigarette pack-years 2024-04-13 00:00:00 2024-04-13 00:00:00 Raegan Aneudyfawn - External Tobacco use and exposure 2024-04-13 00:00:00 2024-04-13 00:00:00 Smokeless tobacco non-user Raegan Scott - External Sex 2024-02-25 08:25:56 2024-02-25 08:25:56 Male (finding) Raegan Scott - External Sex assigned at 1985 00:00:00 1985 00:00:00 Raegan Scott - External Smoking Status Start Date Stop Date Source Ex-smoker 2024-04-13 00:00:00 2024-04-13 00:00:00 Ziggy sprague Sejamiefawn - External Unknown if ever smoked [facility] Medications Ordered Medication Name Filled Medication Name Start Date Stop Date Current Medication? Ordering Clinician Indication Dosage Frequency Signature (SIG) Comments Components Source [place]-3 Fatty Acids (Fish Oil) 1200 MG oral Capsule 10-14 14:08: 12 Yes 1{capsu le} Q.5D Take 1 capsule by mouth in the morning and 1 capsule in the evening. Raegan kuhn Esomeprazol e Magnesium (NexIUM) 40 MG oral Delayed Release Capsule 10-14 00:00: 00 Yes [id number] 40mg QD Take 1 capsule (40 mg total) by mouth daily as needed (GERD). Raegan kuhn Propranolol HCl 10 MG oral Tablet 10-14 00:00: 00 Yes [id number] 10mg QD Take 1 tablet (10 mg total) by mouth daily as needed (anxiety). Raegan kuhn Doxycycline Hyclate 100 MG oral Tablet 10-14 00:00: 00 Yes [id number] 100mg Q.5D Take 1 tablet (100 mg total) by mouth 2 times daily. Raegan kuhn Ketoconazol e 2 % apply externally Cream 10-14 00:00: 00 Yes [id number] 1{appli cation} Q.5D Apply 1 Applicatio n topically 2 times daily. Raegan kuhn Metformin HCl 500 MG oral Tablet 10-14 00:00: 00 Yes [id number] 3 500mg QD Take 1 tablet (500 mg total) by mouth daily (with breakfast) . Raegan kuhn Fenofibrate 160 MG oral Tablet 10-03 00:00: 00 Yes [id number] 3 160mg QD Take 1 tablet (160 mg total) by mouth daily. Raegan kuhn Lisinopril 20 MG oral Tablet 10-03 00:00: 00 Yes [id number] 20mg QD Take 1 tablet (20 mg total) by mouth daily. Raegan kuhn Rosuvastati n Calcium 5 MG oral Tablet 06-13 00:00: 00 Yes [id number] 3 5mg QD Take 1 tablet (5 mg total) by mouth nightly. Raegan kuhn [place]-3 Fatty Acids (Fish Oil) 1200 MG oral Capsule 06-03 11:18: 38 Yes 1{capsu le} Q.5D Take 1 capsule by mouth 2 times daily. Raegan kuhn Triamcinolo ne Acetonide 0.1 % apply externally Cream 06-03 00:00: 00 Yes [id number] 1{appli cation} Q.5D Apply 1 Applicatio n topically 2 times daily. Raegan kuhn busPIRone HCl 5 MG oral Tablet 06-03 00:00: 00 10-14 00:00 :00 No [id number] 5mg Q.5D Take 1 tablet (5 mg total) by mouth 2 times daily as needed (anxiety). Raegan kuhn Mupirocin (BACTROBAN) 2 % apply externally Ointment 06-03 00:00: 00 10-14 00:00 :00 No [id number] 1{appli cation} Q.5D Apply 1 Applicatio n topically 2 times daily. Raegan kuhn Ketoconazol e 2 % apply externally Cream 06-03 00:00: 00 10-14 00:00 :00 No [id number] 1{appli cation} Q.5D Apply 1 Applicatio n topically 2 times daily. Raegan kuhn Lisinopril 20 MG oral Tablet 2023-05 00:00: 00 Yes [id number] 20mg QD Take 1 tablet (20 mg [...] MG oral Tablet 2023-05 00:00: 00 Yes [id number] 3 160mg QD Take 1 tablet (160 mg total) by mouth daily. Raegan kuhn LISINOPRIL- HCTZ 20-12.5 MG oral Tablet 2023-05 00:00: 00 Yes [id number] 1{tbl} QD Take 1 tablet by mouth daily. Raegan kuhn Pantoprazol e Sodium 40 MG oral Tablet Delayed Response 2023-05 00:00: 00 10-14 00:00 :00 No [id number] 40mg QD Take 1 tablet (40 mg total) by mouth daily. Raegan kuhn Metformin HCl 500 MG oral Tablet 2023-05 00:00: 00 10-14 00:00 :00 No [id number] 3 500mg QD Take 1 tablet (500 mg total) by mouth daily (with breakfast) . Raegan kuhn [place]-3 Fatty Acids (Fish Oil) 1000 MG oral Capsule 2023-05 00:00: 00 06-03 00:00 :00 No [id number] 3 1000mg Q.5D Take 1 capsule (1,000 mg total) by mouth 2 times daily. Raegan kuhn Bupropion HCL XL 150 MG OR TB24 2023-05 00:00: 00 06-03 00:00 :00 No [id number] 150mg QD Take 1 tablet (150 mg [...] tablet 09-17 00:00: 00 Yes 1mg Jose F Reed fenofibrate 160 mg tablet 09-17 00:00: 00 Yes 1mg Jose F Reed lisinopril 10 mg tablet 07-30 00:00: 00 Yes 1mg Jose F Reed fenofibrate 160 mg tablet 07-30 00:00: 00 Yes 1mg Jose F Reed fenofibrate 120 mg tablet - 00:00: 00 Yes 1mg Jose F Reed TAKE 1 TABLET BY MOUTH AT BEDTIME 2024-0 1-24 00:00: 00 Yes 40 Jose Mcbride TAKE 1 TABLET BY MOUTH TWICE DAILY WITH FOOD. 24 00:00: 00 Yes 500 Jose Mcbride TAKE 1 TABLET DAILY. 06-16 00:00: 00 Yes 20 Jose F Reed TAKE 1 TABLET BY MOUTH DAILY 1-19 00:00: 00 09-17 00:00 :00 No 20 Jose Vesna Mcbride TAKE 1 TABLET TWICE DAILY UNTIL GONE. 2022-05 0 00:00: 00 09-17 00:00 :00 No 500 Jose Vesna Mcbride INHALE 2 PUFFS EVERY 3-4 HOURS PRN WHEEZING, COUGH, SHORTNESS OF BREATH 2022-05 00:00: 00 09-17 00:00 :00 No [id number] Jose Mcbride TAKE 1 TABLET DAILY. 2022-05 00:00: [...] 00 09-17 00:00 :00 No 500 Jose Mcbride TAKE 1 TABLET DAILY. 11-29 00:00: 00 09-17 00:00 :00 No 20 Jose F Reed TAKE ONE TABLET TWICE A DAY NEEDED 11-29 00:00: 00 09-17 00:00 :00 No 10 Jose F Reed TAKE 1 TABLET BY MOUTH AT BEDTIME 11-17 00:00: 00 09-17 00:00 :00 No 40 Jose F Reed TAKE 1 TABLET BY MOUTH TWICE DAILY WITH FOOD. 11-17 00:00: 00 09-17 00:00 :00 No 500 Jose Vesna Mcbride TAKE 1 TABLET BY MOUTH TWICE DAILY 3-16 00:00: 00 Yes Jose Vesna Mcbride TAKE 1 TABLET TWICE DAILY WITH FOOD. 2-21 00:00: 00 09-17 00:00 :00 No 500 Jose Vesna Mcbride TAKE 1 TABLET DAILY. 2-14 00:00: 00 09-17 00:00 :00 No 20 Jose F Reed TAKE 1 TABLET TWICE DAILY WITH FOOD. 2021-05 2-13 00:00: 00 09-17 00:00 :00 No Jose F Reed Dose Unknown 2021-05 2-13 00:00: 00 09-17 00:00 :00 No Jose F Reed TAKE 1 TABLET BY MOUTH EVERY 12 HOURS FOR 10 DAYS 2021-05 2- 00:00: 00 09-17 00:00 :00 No Jose F Reed Dose Unknown 2021-05 2- 00:00: 00 09-17 00:00 :00 No Jose F Reed TAKE 1 TABLET DAILY. 2021-05 1-16 00:00: 00 09-17 00:00 :00 No 20unit Jose Mbcride TAKE ONE (1) TABLET(S) BY MOUTH EVERY TWELVE HOURS WITH MORNING AND EVENING MEAL. 8-08 00:00: 00 09-17 00:00 :00 No Jose F Reed Dose Unknown 0 4-13 00:00: 00 Yes Jose F Reed Dose Unknown 0 4-13 00:00: 00 Yes Jose F Reed Dose Unknown 4-13 00:00: 00 Yes Jose F Reed [...] Jose F Reed lisinopril 20 mg tablet 0 6-22 00:00: 00 Yes 1mg Jose F Reed citalopram 10 mg tablet 11-13 00:00: 00 Yes 1mg Jose Mcbride lisinopril 20 mg tablet 10-15 00:00: 00 Yes 1mg Jose Mcbride hydroxyzine HCl 25 mg tablet 10-15 00:00: 00 Yes 12mg Jose Mcbride NaCl 0.9% (NS) bolus infusion 1,000 mL 08-21 15:45: 00 08-21 15:25 :00 No 1000mL at 999 mL/hr, 1,000 mL, IV Piggyback, ONCE, 1 dose, Tu08/21/20 at 1045, STAT [facility] ketorolac (TORADOL) injection 30 mg 02-16 05:15: 00 02-16 04:03 :00 No 30mg 30 mg, Slow IV Push, ONCE, 1 dose, 02/17/20 at 0015, JONAS
Fa culty member approving Restricted medication : Ziggy [facility] ibuprofen 600 mg tablet 02-16 00:00: 00 Yes [id number] 600mg Take 1 tablet by mouth every 6 (six) hours as needed for Pain (scale 4-6). [facility] ibuprofen (IBU) tablet 800 mg 06-12 23:45: 00 06-12 22:54 :00 No 800mg 800 mg, Oral, ONCE, 1 dose, 06/12/19 at 1745, JONAS [facility] amoxicillin 875 mg tablet 06-12 00:00: 00 06-23 05:59 :00 No [id number] 875mg Take 1 tablet by mouth 2 (two) times daily for 10 days. [facility] oseltamivir 75 mg capsule 06-12 00:00: 00 06-18 05:59 :00 No [id number] 75mg Take 1 capsule by mouth 2 (two) times daily for 5 days. [facility] albuterol 2.5 mg /3 mL (0.083 %) nebulizer solution 2018-05 00:00: 00 Yes [id number] 2.5mg Inhale 3 mL every 4 (four) hours as needed for Wheezing or Shortness of Breath. [facility] benzonatate 200 mg capsule 2017-05 220 00:00: 00 Yes 200mg Take 1 capsule by mouth 3 (three) times daily as needed for Cough. [facility] proMETHazin e 25 mg tablet 2017-05 00:00: 00 Yes 25mg Take 1 tablet by mouth every 6 (six) hours as needed for Nausea and Vomiting (N/V). [facility] traMADOL (ULTRAM) 50 mg tablet 2017-05 00:00: 00 Yes 50mg Take 1 tablet by mouth every 6 (six) hours as needed for Pain (scale 4-6). [facility] LISINOPRIL ORAL 01-28 20:38: 33 Yes Take by mouth. [facility] traMADOL 50 mg tablet 01-28 00:00: 00 Yes 50mg Take 1 tablet by mouth every 8 (eight) hours as needed for Pain (scale 4-6). [facility] Vital Signs Vital Name Observation Time Observation Value Comments S ource Systolic blood pressure 2024-10-14 19:03:00 128 mm[Hg] Raegan Alba ld - External Diastolic blood pressure 2024-10-14 19:03:00 84 mm[Hg] Raegan wu - External Heart rate 2024-10-14 19:03:00 90 /min Charley Scott - External Body temperature 2024-10-14 19:03:00 36.89 Gini Raegan Scott - External Respiratory rate 2024-10-14 19:03:00 18 /min Raegan Scott - External Body height 2024-10-14 19:03:00 175.3 cm Nyasia baker Seybfawn - External Body weight 2024-10-14 19:03:00 101.515 kg Nyasiacami baker Seybfawn - External BMI 2024-10-14 19:03:00 33.05 kg/m2 Nyasia Scott - External Oxygen saturation in Arterial blood by Pulse oximetry 2024-10-14 19:03:00 97 /min Raegan wu - External Systolic blood pressure 2024-06-03 16:59:00 130 mm[Hg] Raegan Seybo ld - External Diastolic blood pressure 2024-06-03 16:59:00 86 mm[Hg] Raegan Seybo ld - External Heart rate 2024-06-03 16:59:00 62 /min Kelse y Seybold - External Body temperature 2024-06-03 16:59:00 36.5 Gini Raegan Seybold - External Respiratory rate 2024-06-03 16:59:00 17 /min Raegan Seybold - External Body height 2024-06-03 16:59:00 175.3 cm Nyasia ey Seybold - External Body weight 2024-06-03 16:59:00 100.245 kg Nyasia ey Seybold - External BMI 2024-06-03 16:59:00 32.64 kg/m2 Nyasia ey Seybold - External Oxygen saturation in Arterial blood by Pulse oximetry 2024-06-03 16:59:00 97 /min Raegan Seybo ld - External Systolic blood pressure 2024-04-13 16:20:00 110 mm[Hg] Raegan Seybo ld - External Diastolic blood pressure 2024-04-13 16:20:00 80 mm[Hg] Raegan Seybo ld - External Heart rate 2024-04-13 16:20:00 70 /min Kelse y Seybold - External Body temperature 2024-04-13 16:20:00 36.28 Gini Raegan Seybold - External Respiratory rate 2024-04-13 16:20:00 18 /min Raegan Seybold - External Body height 2024-04-13 16:20:00 175.3 cm Nyasia ey Seybold - External Body weight 2024-04-13 16:20:00 101.152 kg Nyasia ey Seybold - External BMI 2024-04-13 16:20:00 32.93 kg/m2 Nyasia ey Seybold - External Oxygen saturation in Arterial blood by Pulse oximetry 2024-04-13 16:20:00 97 /min Raegan Seybo ld - External Systolic blood pressure 2020-08-21 15:00:00 139 mm[Hg] [facility] Diastolic blood pressure 2020-08-21 15:00:00 103 mm[Hg] [facility] Heart rate 2020-08-21 15:00:00 77 /min [facility] Respiratory rate 2020-08-21 15:00:00 16 /min [facility] Oxygen saturation in Arterial blood by Pulse oximetry 2020-08-21 15:00:00 96 /min [facility] Body temperature 2020-08-21 12:54:00 36.89 Gini [facility] Body weight 2020-08-21 12:54:00 104.327 kg [facility] BMI 2020-08-21 12:54:00 33.97 kg/m2 [facility] Systolic blood pressure 2020-08-21 15:00:00 139 mm[Hg] [facility] Diastolic blood pressure 2020-08-21 15:00:00 103 mm[Hg] [facility] Heart rate 2020-08-21 15:00:00 77 /min [facility] 2020-08-21 15:00:00 16 /min [facility] Oxygen saturation in Arterial blood by Pulse oximetry 2020-08-21 15:00:00 96 /min [facility] Body temperature 2020-08-21 12:54:00 36.89 Gini [facility] Body weight 2020-08-21 12:54:00 104.327 kg [facility] BMI 2020-08-21 12:54:00 33.97 kg/m2 [facility] Systolic blood pressure 2020-02-17 05:00:00 124 mm[Hg] [facility] Diastolic blood pressure 2020-02-17 05:00:00 77 mm[Hg] [facility] Heart rate 2020-02-17 05:00:00 65 /min [facility] Respiratory rate 2020-02-17 05:00:00 16 /min [facility] Oxygen saturation in Arterial blood by Pulse oximetry 2020-02-17 05:00:00 97 /min [facility] Body temperature 2020-02-17 01:13:00 36.78 Gini [facility] Body weight 2020-02-17 01:13:00 107.049 kg [facility] BMI 2020-02-17 01:13:00 34.85 kg/m2 [facility] Systolic blood pressure 2020-02-17 05:00:00 124 mm[Hg] [facility] Diastolic blood pressure 2020-02-17 05:00:00 77 mm[Hg] [facility] Heart rate 2020-02-17 05:00:00 65 /min [facility] Respiratory rate 2020-02-17 05:00:00 16 /min [facility] Oxygen saturation in Arterial blood by Pulse oximetry 2020-02-17 05:00:00 97 /min [facility] Body temperature 2020-02-17 01:13:00 36.78 Gini [facility] Body weight 2020-02-17 01:13:00 107.049 kg [facility] BMI 2020-02-17 01:13:00 34.85 kg/m2 [facility] Body temperature 2019-06-13 00:13:36 37.22 Gini [facility] Systolic blood pressure 2019-06-12 22:12:00 155 mm[Hg] [facility] Diastolic blood pressure 2019-06-12 22:12:00 111 mm[Hg] [facility] Heart rate 2019-06-12 22:12:00 111 /min [facility] Respiratory rate 2019-06-12 22:12:00 18 /min [facility] Body height 2019-06-12 22:12:00 175.3 cm [facility] Body weight 2019-06-12 22:12:00 102.513 kg [facility] BMI 2019-06-12 22:12:00 33.37 kg/m2 [facility] Oxygen saturation in Arterial blood by Pulse oximetry 2019-06-12 22:12:00 99 /min [facility] Body temperature 2019-06-13 00:13:36 37.22 Gini [facility] Systolic blood pressure 2019-06-12 22:12:00 155 mm[Hg] [facility] Diastolic blood pressure 2019-06-12 22:12:00 111 mm[Hg] [facility] Heart rate 2019-06-12 22:12:00 111 /min [facility] Res[facility] rate 2019-06-12 22:12:00 18 /min [facility] Body height 2019-06-12 22:12:00 175.3 cm [facility] Body weight 2019-06-12 22:12:00 102.513 kg [facility] BMI 2019-06-12 22:12:00 33.37 kg/m2 [facility] Oxygen saturation in Arterial blood by Pulse oximetry 2019-06-12 22:12:00 99 /min [place] [facility] BP Systolic 2023-09-18 17:00:00 143 mm[Hg] [...] Reed BP Systolic 2021-09-04 17:23:00 132 mm[Hg] Fredis [...] CHEST 1 VW 2020-08-21 15:08:40 Erickson Sol [facility] CREATINE KINASE 2020-08-21 13:31:00 [facility] 2020-08-21 13:31:00 [facility] THYROID STIMULATING HORMONE 2020-08-21 13:31:00 Ebenezer [facility] HEPATIC FUNCTION PANEL (72013) (ALB,T.PRO,BILI T,BU/BC,ALT,AST,ALK PHOS) 2020-08-21 13:31:00 Erickson Sol [facility] BASIC METABOLIC PANEL (NA, K, CL, CO2, GLUCOSE, BUN, CREATININE, CA) 2020-08-21 13:31:00 Ebenezer [facility] CBC WITH DIFF 2020-08-21 13:31:00 Erickson Sol [facility] URINALYSIS 2020-08-21 13:31:00 Erickson Sol [facility] ADC / LCC - DRUG SCREEN TRIAGE 2020-08-21 13:31:00 Ebenezer [facility] COVID-19 (ID NOW RAPID TESTING) 2020-08-21 13:31:00 Erickson Sol [facility] NOTICE OF PRIVACY PRACTICES 2020-08-21 12:46:36 Doctor Unassigned, [place] [facility] CONSENT/REFUSAL FOR DIAGNOSIS AND TREATMENT 2020-08-21 12:46:21 Doctor Unassigned, [place] [facility] TROPONIN I 2020-02-17 03:49:00 Ziggy [facility] XR CHEST 1 VW 2020-02-17 02:30:42 Erickson Sol [facility] LIPASE 2020-02-17 01:21:00 [facility] TROPONIN I 2020-02-17 01:21:00 [facility] COMP. METABOLIC PANEL (05910) 2020-02-17 01:21:00 Erickson Sol [facility] CBC WITH DIFF 2020-02-17 01:21:00 Erickson Sol [facility] PROTHROMBIN TIME / INR 2020-02-17 01:21:00 Aidan Sol [facility] ACTIVATED PARTIAL THRMPLAS AMY 2020-02-17 01:21:00 Erickson Sol [facility] EKG-12 LEAD 2020-02-17 01:18:35 [facility] NOTICE OF PRIVACY PRACTICES 2020-02-17 01:08:49 Doctor Unassigned, [place] [facility] CONSENT/REFUSAL FOR DIAGNOSIS AND TREATMENT 2020-02-17 01:08:34 Doctor Unassigned, [place] [facility] RAPID STREP SCREEN FOR GROUP A 2019-06-12 22:38:00 Siobhan Garza [facility] ADC,CLC OR LCC ONLY - INFLUENZA A & B DIRECT ANTIGEN 2019-06-12 22:38:00 Siobhan Garza [facility] CONSENT/REFUSAL FOR DIAGNOSIS AND TREATMENT 2019-06-12 22:06:34 Doctor Unassigned, [place] [facility] Encounters Start Date/Time End Date/Time Encounter Type Admission Type Attending [facility] Care Facility Care Department Encounter ID Source 2024-11-21 00:00:00 2024-11-21 00:00:00 Outpatient JOAQUIM WORTHINGTON [id number] Raegan Scott 2024-10-14 14:00:00 2024-10-14 14:00:00 Outpatient JOAQUIM WORTHINGTON [id number] Raegan Scott 2024-10-02 00:00:00 2024-10-02 00:00:00 Outpatient PREZAS, JOAQUIM FOSTER [id number] [facility] 2024-09-30 09:30:00 2024-09-30 09:30:00 Outpatient PREZAS, JOAQUIM FOSTER [id number] [facility] 2024-09-12 00:00:00 2024-09-12 00:00:00 Outpatient PREZAS, JOAQUIM FOSTER [id number] [facility] 2024-06-23 00:00:00 2024-06-23 00:00:00 Outpatient PREZAS, JOAQUIM FOSTER [id number] [facility] 2024-06-13 00:00:00 2024-06-13 00:00:00 Outpatient PREZAS, JOAQUIM FOSTER [id number] [facility] 2024-06-13 00:00:00 2024-06-13 00:00:00 Outpatient PREZAS, JOAQUIM FOSTER [id number] [facility] 2024-06-10 08:40:00 2024-06-10 08:40:00 Outpatient LABKaylan [facility]OST[facility] [id number] [facility] 2024-06-03 11:00:00 2024-06-03 11:00:00 Outpatient PREZAS, JOAQUIM FOSTER [id number] [facility] 2024-04-15 00:00:00 2024-04-15 00:00:00 Outpatient PREZAS, JOAQUIM FOSTER [id number] [facility] 2024-04-14 00:00:00 2024-04-14 00:00:00 Outpatient PREZAS, JOAQUIM FOSTER [id number] [facility] 2024-04-13 10:15:00 2024-04-13 10:15:00 Outpatient PREZAS, JOAQUIM FOSTER [id number] [facility] 2024-03-15 17:15:08 2024-03-15 17:15:08 Outpatient SFA [facility] [id number] Jose Mcbride 2024-03-12 08:52:53 2024-03-12 08:52:53 Outpatient SFA SFA [id number] Jose Mcbride 2024-03-09 17:19:22 2024-03-09 17:19:22 Outpatient SFA SFA [id number] Jose Mcbride 2023-10-02 15:02:00 2023-10-02 15:02:00 Outpatient SFA SFA [id number] Jose Mcbride 2023-09-18 16:59:08 2023-09-18 16:59:08 Outpatient SFA SFA [id number] Jose Mcbride 2023-09-18 00:00:00 2023-09-18 00:00:00 Outpatient Visit SFA [id number] Jose Mcbride 2023-08-01 09:13:04 2023-08-01 09:13:04 Outpatient SFA SFA [id number] Jose Mcbride 2023-07-31 16:05:03 2023-07-31 16:05:03 Outpatient SFA SFA [id number] Jose Mcbride 2023-06-16 16:47:34 2023-06-16 16:47:34 Outpatient SFA SFA [id number] Jose Mcbride 2023-03-20 08:12:25 2023-03-20 08:12:25 Outpatient SFA SFA [id number] Jose Mcbride 2023-03-14 11:22:44 2023-03-14 11:22:44 Outpatient SFA SFA [id number] Jose Mcbride 2023-03-11 17:06:31 2023-03-11 17:06:31 Outpatient SFA SFA [id number] Jose Mcbride 2022-11-29 13:34:42 2022-11-29 13:34:42 Outpatient SFA SFA [id number] Jose Mcbride 2022-07-11 08:00:18 2022-07-11 08:00:18 Outpatient SFA SFA [id number] Jose Mcbride 2022-07-08 16:50:35 2022-07-08 16:50:35 Outpatient SFA SFA [id number] Jose Mcbride 2022-04-07 08:15:31 2022-04-07 08:15:31 Outpatient [facility] [id number] Jose Mcbride 2022-04-04 17:00:04 2022-04-04 17:00:04 Outpatient [facility] [id number] Jose Mcbride 2020-08-21 07:58:00 2020-08-21 10:27:00 Emergency Ebenezer [facility] [id number] [facility] 2020-08-21 07:58:00 2020-08-21 10:27:00 [facility] [id number] 2020-08-21 07:48:00 2020-08-21 07:48:00 Emergency [facility] [id number] [facility] [facility] 2020-08-21 00:00:00 2020-08-21 00:00:00 Orders Only Doctor Unassigned, [place] [facility] 1.2.840.114 350.1.13.10 4.2.7.2.686 [id number] 009 [id number] [facility] 2020-08-21 00:00:00 2020-08-21 00:00:00 Orders Only Doctor Unassigned, [place] [facility] 1.2.840.114 350.1.13.10 4.2.7.2.686 [id number] 009 [id number] 2020-02-16 21:41:00 2020-02-17 00:50:00 Emergency [facility]gy [facility] 1.2.840.114 350.1.13.10 4.2.7.2.686 [id number] 084 [id number] [facility] 2020-02-16 21:41:00 2020-02-17 00:50:00 Emergency Ziggy [facility] 1.2.840.114 350.1.13.10 4.2.7.2.686 [id number] 084 [id number] 2020-02-16 20:06:00 2020-02-16 20:06:00 Emergency X [facility] ERT [id number] [facility] 2019-06-12 16:15:07 2019-06-12 18:19:00 Emergency Siobhan Gar[facility] 1.2.840.114 350.1.13.10 4.2.7.2.686 [id number] 084 [id number] [facility] 2019-06-12 16:15:07 2019-06-12 18:19:00 Emergency Siobhan Garza [facility] 1.2.840.114 350.1.13.10 4.2.7.2.686 [id number] 084 [id number] Results Test Description Test Time Test Comments Results Result Co mments Source COMPREHENSIVE METABOLIC [id number] 21:56:54* Test Item Value Reference Range Interpretation Comme nts GLUCOSE (test code = 2217) 131 MG/DL 70-99 H BUN (test code = 2208) 14 MG/DL 6-20 CREATININE (test code = 2214) 0.92 MG/DL 0.80-1.40 eGFR (2020 CKD-EPI) (test code = 52183) 108 ML/MIN/1.73 >60 CALC BUN/CREAT (test code = 2235) 15 RATIO 6-28 SODIUM (test code = 2231) 137 MEQ/L 133-146 POTASSIUM (test code = 2228) 4.4 MEQ/L 3.5-5.4 CHLORIDE (test code = 2215) 104 MEQ/L 95-107 CARBON DIOXIDE (test code = 2206) 21 MEQ/L 19-31 CALCIUM (test code = 2209) 8.8 MG/DL 8.5-10.5 PROTEIN, TOTAL (test code = 2229) 6.7 G/DL 6.1-8.3 ALBUMIN (test code = 2201) 4.4 G/DL 3.5-5.2 CALC GLOBULIN (test code = 2240) 2.3 G/DL 1.9-3.7 CALC A/G RATIO (test code = 2233) 1.9 RATIO 1.0-2.6 BILIRUBIN, TOTAL (test code = 7) 0.4 MG/DL <=1.2 ALKALINE PHOSPHATASE (test code = 2203) 57 U/L 40-117 AST (test code = 8) 18 U/L 9-50 ALT (test code = 2219) 23 U/L 5-50 LIPID [id number] 21:56:54* Test Item Value Reference Range Interpretation Comme nts CHOLESTEROL (test code = 2210) 211 MG/DL <200 H TRIGLYCERIDES (test code = 2232) 234 MG/DL <150 H HDL CHOLESTEROL (test code = 2220) 30 MG/DL >39 L CALC LDL CHOL (test code = 2236) 143 MG/DL <100 H NOTE: CALCULATED LDL IS BASED ON NAHEED-RUANO METHOD WHICHINCLUDES ADJUSTABLE TRIGLYCERIDE:VLDL CHOLESTEROL RATIO.THIS FACTOR VARIES BY MEASURED TRIGLYCERIDE AND NON-HDLCHOLESTEROL CONCENTRATIONS WITH INCREASED CALCULATED LDL SEENIN HIGHER TRIGLYCERIDE OR LOWER NON-HDL SPECIMENS. FOR MOREINFORMATION, SEE CLIENT ANNOUNCEMENT AT [email or web address] /CalcLDL-C RISK RATIO LDL/HDL (test code = 2238) 4.77 RATIO <3.55 H HEMOGLOBIN [id number] 02:50:37* Test Item Value Reference Range Interpretation Comme nts HEMOGLOBIN A1c (test code = 93699) 6.3 % 4.2-5.6 H [employer] GUIDELINES FOR HGB A1C: [...] CONSIDER ALTERNATE TESTING OR LABORATORY CONSULTATION. LIPID [id number] 01:43:07* Test Item Value Reference Range Interpretation [...] SPECIMENS. FOR MOREINFORMATION, SEE CLIENT ANNOUNCEMENT AT [email or web address]://[email or web address] /CalcLDL-C RISK RATIO LDL/HDL (test code = 2238) 2.97 RATIO <3.55 UNLESS OTHERW ISE INDICATED, ALL TESTING PERFORMED AT [email or web address] [address] [place] [address] SOCIAL MEDIA JOB TITLES: JACQUIE WILHELM M.D. CLIA NUMBER [id number] [facility] [place]. [id number] LIPID [id number] 00:00:00* Test Item Value Reference Range Interpretation Comme nts CHOLESTEROL (test code = 2210) 153 MG/DL TRIGLYCERIDES (test code = 2232) 163 MG/DL HDL CHOLESTEROL (test code = 2220) 32 MG/DL CALC LDL CHOL (test code = 2237) 95 MG/DL RISK RATIO LDL/HDL (test cod e = 2238) 2.97 RATIO Jose McbrideHEMOGLOBIN [id number] 03:48:13* Test Item Value Reference Range Interpretation Comme nts HEMOGLOBIN A1c (test code = 26118) 6.0 % 4.2-5.6 H [employer] GUIDELINES FOR HGB A1C: [...] CONSIDER ALTERNATE TESTING OR LABORATORY CONSULTATION. HEMOGLOBIN [id number] 00:00:00* Test Item Value Reference Range Interpretation Comme nts HEMOGLOBIN A1c (test code = 35999) 6.0 % Jose McbrideLIPID [id number] 03:51:09* Test Item Value Reference Range Interpretation [...] SPECIMENS. FOR MOREINFORMATION, SEE CLIENT ANNOUNCEMENT AT [email or web address]://[email or web address] /CalcLDL-C RISK RATIO LDL/HDL (test code = 2238) 4.00 RATIO <3.55 H COMPREHENSIVE METABOLIC [id number] 03:51:09* Test Item Value Reference Range Interpretation Comme nts GLUCOSE (test code = 2217) 110 MG/DL 70-99 H BUN (test code = 2207) 16 MG/DL 6-20 CREATININE (test code = 221) 0.86 MG/DL 0.80-1.40 eGFR (2020 CKD-EPI) (test code = 84557) 113 ML/MIN/1.73 >60 CALC BUN/CREAT (test code = 2235) 19 RATIO 6-28 SODIUM (test code = 223) 137 MEQ/L 133-146 POTASSIUM (test code = 2228) 4.4 MEQ/L 3.5-5.4 CHLORIDE (test code = 2215) 102 MEQ/L 95-107 CARBON DIOXIDE (test code = 2206) 26 MEQ/L 19-31 CALCIUM (test code = 2209) 9.2 MG/DL 8.5-10.5 PROTEIN, TOTAL (test code = 222) 6.6 G/DL 6.1-8.3 ALBUMIN (test code = 2201) 4.4 G/DL 3.5-5.2 CALC GLOBULIN (test code [...] TESTING PERFORMED AT [facility] [address] [place] [address] SOCIAL MEDIA JOB TITLES: JACQUIE WILHELM M.D. CLIA NUMBER [id number] [facility] [place]. [id number] HEMOGLOBIN [id number] 03:40:45* Test Item Value Reference Range Interpretation Comme nts HEMOGLOBIN A1c (test code = 80041) 5.6 % 4.2-5.6 HEMOGLOBIN [id number] 00:00:00* Test Item Value Reference Range Interpretation Comme nts HEMOGLOBIN A1c (test code = 61638) 5.6 % Jose McbrideLIPID [id number] 00:00:00* Test Item Value Reference Range Interpretation Comme nts CHOLESTEROL (test code = 2210) 174 MG/DL TRIGLYCERIDES (test code = 2232) 174 MG/DL HDL CHOLESTEROL (test code = 2220) 29 MG/DL CALC LDL CHOL (test code = 2237) 116 MG/DL RISK RATIO LDL/HDL (test cod e = 2238) 4.00 RATIO Jose McbrideCOMPREHENSIVE METABOLIC [id number] 00:00:00* Test Item Value Reference Range Interpretation Comme nts GLUCOSE (test code = 2217) 110 MG/DL BUN (test code = 2208) 16 MG/DL CREATININE (test code = 2214) 0.86 MG/DL eGFR (2020 CKD-EPI) (test code = 87000) 113 ML/MIN/1.73 CALC BUN/CREAT (test code = [...] code = 2219) 17 U/L Jose McbrideLIPID [id number] 01:53:14* Test Item Value Reference Range Interpretation [...] SPECIMENS. FOR MOREINFORMATION, SEE CLIENT ANNOUNCEMENT AT [email or web address]://[email or web address] /CalcLDL-C RISK RATIO LDL/HDL (test code = 2238) 3.67 RATIO <3.55 H [facility] has i mportant pathology staff changes effective 07/23/2022. New pathology staff will provide uninterrupted, excellent patient care and clinical consultation. See URL: [email or web address]. UNLESS OTHERWISE INDICATED, ALL TESTING PERFORMED AT [facility] [address] [place] [address] CLIA: [id number], CAP: [id number] LIPID [id number] 00:00:00* Test Item Value Reference Range Interpretation Comme nts CHOLESTEROL (test code = 2210) 176 MG/DL TRIGLYCERIDES (test code = 2232) 116 MG/DL HDL CHOLESTEROL (test code = 2220) 33 MG/DL CALC LDL CHOL (test code = 2237) 121 MG/DL RISK RATIO LDL/HDL (test cod e = 2238) 3.67 RATIO Jose McbrideHEMOGLOBIN [id number] 00:00:00* Test Item Value Reference Range Interpretation Comme nts HEMOGLOBIN A1c (test code = 38156) 5.9 % Jose McbrideCOMPREHENSIVE METABOLIC [id number] 00:00:00* Test Item Value Reference Range Interpretation Comme nts GLUCOSE (test code = 2217) 93 MG/DL BUN (test code = 2208) 19 MG/DL CREATININE (test code = 2214) 0.91 MG/DL eGFR (2020 CKD-EPI) (test code = 27176) 111 ML/MIN/1.73 CALC BUN/CREAT (test code = [...] code = 2219) 16 U/L Jose Malagon StreetInvestorLIPID [id number] 00:00:00* Test Item Value Reference Range Interpretation Comme nts CHOLESTEROL (test code = 2210) 211 MG/DL TRIGLYCERIDES (test code = 2232) 142 MG/DL HDL CHOLESTEROL (test code = 2220) 33 MG/DL CALC LDL CHOL (test code = 2237) 151 MG/DL RISK RATIO LDL/HDL (test cod e = 2238) 4.58 RATIO Jose Malagon AustinLIPID [id number] 04:16:00* Test Item Value Reference Range Interpretation [...] SPECIMENS. FOR MOREINFORMATION, SEE CLIENT ANNOUNCEMENT AT [email or web address] /CalcLDL-C RISK RATIO LDL/HDL (test code = 2238) 6.17 RATIO <3.55 H TSH, THIRD [id number] 03:58:52* Test Item Value Reference Range Interpretation Comme nts TSH, THIRD GENERATION (test code = 2821) 0.715 UIU/ML 0.400-4.100 UNLESS OTHERWISE INDICATED, ALL TESTING PERFORMED [email or web address] [address] [place] [address] SOCIAL MEDIA JOB TITLES: ELA CAMPBELL M.D. CLIA NUMBER [id number] [facility] [place]. [id number] LIPID [id number] 00:00:00* Test Item Value Reference Range Interpretation Comme nts CHOLESTEROL (test code = 2210) 257 MG/DL TRIGLYCERIDES (test code = 2232) 229 MG/DL HDL CHOLESTEROL (test code = 2220) 30 MG/DL CALC LDL CHOL (test code = 2237) 185 MG/DL RISK RATIO LDL/HDL (test cod e = 2238) 6.17 RATIO Jose Malagon [id number] 00:00:00* Test Item Value Reference Range Interpretation Comme nts TSH, THIRD GENERATION (test code = 2821) 0.715 UIU/ML Jose Malagon AustinLIPID [id number] 00:00:00* Test Item Value Reference Range Interpretation Comme nts CHOLESTEROL (test code = 2210) 143 MG/DL TRIGLYCERIDES (test code = 2232) 122 MG/DL HDL CHOLESTEROL (test code = 2220) 29 MG/DL CALC LDL CHOL (test code = 2237) 92 MG/DL RISK RATIO LDL/HDL (test cod e = 2238) 3.17 RATIO Jose McbrideCOMPREHENSIVE METABOLIC [id number] 00:00:00* Test Item Value Reference Range Interpretation Comme nts GLUCOSE (test code = 2217) 122 MG/DL BUN (test code = 2208) 15 MG/DL CREATININE (test code = 2214) 0.84 MG/DL eGFR AMER. (test cod e = 16389) 130 ML/MIN/1.73 eGFR NON- AMER. (test code = 09598) 112 ML/MIN/1.73 CALC BUN/CREAT (test code = [...] (test code = 2219) 10 U/L Jose Malagon ReedLIPID [id number] 00:00:00* Test Item Value Reference Range Interpretation Comme nts CHOLESTEROL (test code = 2210) 306 MG/DL TRIGLYCERIDES (test code = 2232) 1458 MG/DL HDL CHOLESTEROL (test code = 2220) 18 MG/DL CALC LDL CHOL (test code = 2237) (NOTE) MG/DL RISK RATIO LDL/HDL (test cod e = 2238) (NOTE) RATIO Jose McbrideCOMPREHENSIVE METABOLIC [id number] 00:00:00* Test Item Value Reference Range Interpretation Comme nts GLUCOSE (test code = 2217) 92 MG/DL BUN (test code = 2208) 14 MG/DL CREATININE (test code = 2214) 0.83 MG/DL eGFR AMER. (test cod e = 84284) 130 ML/MIN/1.73 eGFR NON- AMER. (test code = 33027) 112 ML/MIN/1.73 CALC BUN/CREAT (test code = [...] code = 2219) 28 U/L Jose McbrideLIPID [id number] 00:00:00* Test Item Value Reference Range Interpretation Comme nts CHOLESTEROL (test code = 2210) 261 MG/DL TRIGLYCERIDES (test code = 2232) 1248 MG/DL HDL CHOLESTEROL (test code = 2220) 22 MG/DL CALC LDL CHOL (test code = 2237) (NOTE) MG/DL RISK RATIO LDL/HDL (test cod e = 2238) (NOTE) RATIO Jose McbrideXR CHEST 1 [id number] 15:10:55HISTORY: Cough. TECHNIQUE: Portable AP erect view [...] limits. CONCLUSIONS: No signs of acute cardiopulmonary disease.[facility] / [facility] - DRUG SCREEN [id number] 15:06:33* Test Item Value Reference Range Interpretation Comme nts BENZO U (test code = 7686660670) Negative Negative HARRIETT U (test code = 0578266467) Negative Negative AMPHET (test code = 1860522871) Presumptive Positive Negative A THC (test code = 8041101112) Negative Negative METHADONE (test code = 6183059832) Negative Negative Meth U (test code = 4874546584) Presumptive Positive Negative A OPIATES (test code = 1605635910) Negative Negative Cocaine Metabolite (test code = 3916479325) Negative Negative PROPOXY (test code = 2842673650) Negative Negative Tric U (test code = 1092266270) Negative Negative PCP (test code = 8268745171) Negative Negative OXYCOD (test code = 8742085149) Negative Negative LOUIE (test code = LOUIE) [...] legal testing). Lab Interpretation (test code = 63579-0) Abnormal [facility] STIMULATING [id number] 14:41:43 * Test Item Value Reference Range Interpretation Comme nts TSH (test code = 9903388452) See_Comment [Automated messa ge] The system which generated this result transmitted reference range: 0.45 - 4.70 mIU/L. The reference range was not used to interpret this result as normal/abnormal. Lab Interpretation (test code = 81188-2) Normal [facility]ownMAGNESIUM2021-03-30 14:13:20* Test Item Value Reference Range Interpretation Comme nts MAGNESIUM (test code = 0936555309) 1.7 mg/dL 1.7-2.4 Lab Interpretation (test cod e = 44503-9) Normal [facility]ownCOVID-[facility] (ID NOW RAPID TESTING)2020-08-21 14:13:20* Test Item Value Reference Range Interpretation Comme nts SARS-CoV-2 Rapid ID NOW (test code = 94120-3) Not Detected Not Detected LOUIE (test code = LOUIE) ID NOW COVID-19 As say is an isothermal nucleic acid amplification test intended for the qualitative detection of nucleic acid from SARS-CoV-2 viral RNA in nasopharyngeal (CORPORATE RECRUITER) specimens. It is used under Emergency Use [...] clinically indicated. Lab Interpretation (test code = 32311-4) Normal [facility] [place] Metabolic Panel (NA, K, CL, CO2, GLUCOSE, BUN, CREATININE, CA)2020-08-21 14:13:15* Test Item Value Reference Range Interpretation Comme nts NA (test code = 2000963784) 138 mmol/L 135-145 K (test code = 9738102183) 3.8 mmol/L 3.5-5.0 CL (test code = 9699912395) 108 mmol/L 98-108 CO2 TOTAL (test code = 6720358069) 23 mmol/L 23-31 AGAP (test code = 6126283956) 2-16 BUN (test code = 2855400177) 14 mg/dL 7-23 GLUCOSE (test code = 0636213748) 123 mg/dL 70-110 H CREATININE (test code = 1511190383) 0.83 mg/dL 0.60-1.25 CALCIUM (test code = 1999068216) 8.7 mg/dL 8.6-10.6 eGFR Calculation (Non-) (test code = 6416538599) mL/min/1.73m2 eGFR Calculation () (test code = 7231459176) mL/min/1.73m2 LOUIE (test code = LOUIE) Association [...] imaging tests). Lab Interpretation (test code = 62040-6) Abnormal [facility]ownHepatic Function Panel (ALB, T.PRO, BILI T, BU/BC, ALT, AST, ALK PHOS)2020-08-21 14:13:15* Test Item Value Reference Range Interpretation Comme nts TOTAL BILI (test code = 8627010620) 0.5 mg/dL 0.1-1.1 BILI UNCON (test code = 4292511336) 0.3 mg/dL 0.1-1.1 BILI CONJ (test code = 5322733433) 0.0 mg/dL 0.0-0.3 T PROTEIN (test code = 4152714601) 7.1 g/dL 6.3-8.2 ALBUMIN (test code = 7107396231) 4.2 g/dL 3.5-5.0 ALK PHOS (test code = 3531745538) 93 U/L 34-122 ALTv (test code = 1742-6) 21 U/L 5-50 AST(SGOT) (test code = 4710182877) 25 U/L 13-40 Lab Interpretation (test cod e = 52800-5) Normal [facility]ownCREATINE [id number] 14:13:14* Test Item Value Reference Range Interpretation Comme nts CK (test code = 6853981600) 74 U/L 33-194 Lab Interpretation (test cod e = 84334-8) Normal [facility]ownURINALYSIS2021-03-30 14:12:24* Test Item Value Reference Range Interpretation Comme nts APPEARANCE (test code = 2771457646) Hazy Clear A COLOR (test code = 1307026632) Yellow Yellow PH (test code = 8568384827) 4.8-8.0 SP GRAVITY (test code = 2348886472) 1.003-1.030 GLU U QUAL (test code = 7850384757) Normal Normal BLOOD (test code = 1007113623) 1+ Negative A KETONES (test code = 7647743840) Negative Negative PROTEIN (test code = 2887-8) 30 mg/dL Negative A UROBILIN (test code = 2727762032) 2.0 mg/dL Normal A BILIRUBIN (test code = 9894321077) Negative Negative NITRITE (test code = 5442996768) Negative Negative LEUK DEANGELO (test code = 2520925425) 25/uL Negative A RBC/HPF (test code = 0348296791) See_Comment H [Automated Jobpartnersa ge] The system which generated this result transmitted reference range: 0 - 3 HPF. The reference range was not used to interpret this result as normal/abnormal. WBC/HPF (test code = 6429858577) See_Comment [Automated [employer]a ge] The system which generated this result transmitted reference range: 0 - 5 HPF. The reference range was not used to interpret this result as normal/abnormal. BACTERIA (test code = 2861864990) Few Negative A MUCOUS (test code = 3050170371) Slight Negative LPF A AMORPHOUS (test code = 6778551427) Few Rare HPF A CA OXALATE (test code = 9995724666) See_Comment [Automated Jobpartnersa ge] The system which generated this result transmitted reference range: <=1 HPF. The reference range was not used to interpret this result as normal/abnormal. YEAST BUD (test code = 3229863740) <1 See_Comment [Automated Job[employer]nersa ge] The system which generated this result transmitted reference range: <=1 HPF. The reference range was not used to interpret this result as normal/abnormal. Lab Interpretation (test code = 86414-8) Abnormal [facility] with [id number] 13:52:37* Test Item Value Reference Range Interpretation [...] 34.3 g/dL 31.2-35.0 RDW-SD (test code = 93576-8) 40.7 fL 38.5-51.6 RDW-CV (test code = 788-0) 13.2 % 12.1-15.4 PLT (test code = 777-3) See_Comment [Automated messa ge] The system which generated this result transmitted reference range: 150 - 328 10*3/?L. The reference range was not used to interpret this result as normal/abnormal. MPV (test code = 95151-5) 10.1 fL 9.8-13.0 NRBC/100 WBC (test code = 7229910239) See_Comment [Automated me ssage] The system which generated this result transmitted reference range: 0.0 - 10.0 /100 WBCs. The reference range was not used to interpret this result as normal/abnormal. NRBC x10^3 (test code = 9124048459) <0.01 See_Comment [Automated messa ge] The system which generated this result transmitted reference range: 10*3/?L. The reference range was not used to interpret this result as normal/abnormal. GRAN MAT (NEUT) % (test code = 770-8) 63.6 % IMM GRAN % (test code = 3335413929) 0.40 % LYMPH % (test code = 736-9) 30.0 % MONO % (test code = 5905-5) 5.2 % EOS % (test code = 713-8) 0.4 % BASO % (test code = 706-2) 0.4 % GRAN MAT x10^3(ANC) (test code = 0611638454) 7.15 10*3/uL 1.99-6.95 H IMM GRAN x10^3 (test code = 6843040509) 0.05 10*3/uL 0.00-0.06 LYMPH x10^3 (test code = 731-0) 3.38 10*3/uL 1.09-3.23 H MONO x10^3 (test code = 742-7) 0.59 10*3/uL 0.36-1.02 EOS x10^3 (test code = 711-2) 0.04 10*3/uL 0.06-0.53 L BASO x10^3 (test code = 704-7) 0.05 10*3/uL 0.01-0.09 Lab Interpretation (test code = 12590-9) Abnormal [facility] [id number] 04:53:00* Test Item Value Reference Range Interpretation Comme nts TROPONIN I (test code = 8936395004) 0.001 ng/mL See_Comment [Automated message] The system [...] biotin. ? Lab Interpretation (test code = 13975-4) Normal [facility]ownXR CHEST 1 [id number] 04:43:03No acute intrathoracic abnormality. Preliminary Report Dictated [...] report.[facility] UptownTROPONIFroylan I 2020-02-17 02:14:00* Test Item Value Reference Range Interpretation Comme nts TROPONIN I (test code = 9351630255) 0.001 ng/mL See_Comment [Automated message] The system [...] biotin. ? Lab Interpretation (test code = 17912-2) Normal [facility] UptownCOMP. METABOLIC PANEL (39392)2020-02-17 02:03:00* Test Item Value Reference Range Interpretation Comme nts NA (test code = 6318929205) 139 mmol/L 135-145 K (test code = 3897724664) 3.9 mmol/L 3.5-5 CL (test code = 7266765314) 105 mmol/L 98-108 CO2 TOTAL (test code = 7969142621) 25 mmol/L 23-31 AGAP (test code = 4960292666) 2-16 BUN (test code = 6845172817) 19 mg/dL 7-23 GLUCOSE (test code = 7480360197) 115 mg/dL 70-110 H CREATININE (test code = 5066054791) 1.06 mg/dL 0.6-1.25 TOTAL BILI (test code = 9564618599) 0.4 mg/dL 0.1-1.1 CALCIUM (test code = 5297229514) 9.3 mg/dL 8.6-10.6 T PROTEIN (test code = 2869886678) 7.5 g/dL 6.3-8.2 ALBUMIN (test code = 6242020233) 4.1 g/dL 3.5-5 ALK PHOS (test code = 8030579164) 88 U/L 34-122 ALTv (test code = 1742-6) 20 U/L 5-50 AST(SGOT) (test code = 9796079544) 28 U/L 13-40 eGFR Calculation (Non-) (test code = 6195186528) mL/min/1.73m2 eGFR Calculation () (test code = 8543447487) mL/min/1.73m2 LOUIE (test code = LOUIE) Association [...] imaging tests). Lab Interpretation (test code = 70199-8) Abnormal [facility] UptownLIPASE, [id number] 02:03:00* Test Item Value Reference Range Interpretation Comme nts LIPASE (test code = 7443086628) 85 U/L 0-220 Lab Interpretation (test cod e = 99387-3) Normal [facility] UptownaPTT2020-09-25 01:50:00* Test Item Value Reference Range Interpretation Comme [facility] APTT Patient (test code = 3173-2) See_Comment [Automated message] The system which generated this result transmitted reference range: 23 - 38 Seconds. The reference range was not used to interpret this result as normal/abnormal. LOUIE (test code = LOUIE) The [facility] patient population mean normal value for aPTT is 30 seconds. Lab Interpretation (test code = 57217-9) Normal [facility] UptownPROTHROMBIN TIME / [id number] 01:48:00* Test Item Value Reference Range Interpretation Comme [facility] PROTIME PATIENT (test code = 5964-2) See_Comment H [Automated [employer]] The system which generated this result transmitted reference range: 12.0 - 14.7 Seconds. The reference range was not used to interpret this result as normal/abnormal. INR (test code = 6301-6) Normal INR <1.1; Warfarin Therapeutic range 2.0 to 3.0 or 2.5 to 3.5, depending upon the indications. Lab Interpretation (test code = 53632-8) Abnormal [facility] UptownCBC WITH [id number] 01:36:00* Test Item Value Reference Range Interpretation Comme [facility] WBC (test code = 6690-2) See_Comment H [Automated [employer]] The system which generated this result transmitted reference range: 4.20 - 10.70 10*3/?L. The reference range was not used to interpret this result as normal/abnormal. RBC (test code = 789-8) See_Comment [Automated [employer]] The system which generated this result transmitted [...] 34.6 g/dL 31.2-35 RDW-SD (test code = 05642-3) 42.9 fL 38.5-51.6 RDW-CV (test code = 788-0) 13.8 % 12.1-15.4 PLT (test code = 777-3) See_Comment [Automated messa ge] The system which generated this result transmitted reference range: 150 - 328 10*3/?L. The reference range was not used to interpret this result as normal/abnormal. MPV (test code = 92655-1) 11.3 fL 9.8-13 NRBC/100 WBC (test code = 1769026314) See_Comment [Automated [employer] ssage] The system which generated this result transmitted reference range: 0.0 - 10.0 /100 WBCs. The reference range was not used to interpret this result as normal/abnormal. NRBC x10^3 (test code = 6266593566) <0.01 See_Comment [Automated [employer]] The system which generated this result transmitted reference range: 10*3/?L. The reference range was not used to interpret this result as normal/abnormal. GRAN MAT (NEUT) % (test code = 770-8) 62.6 % IMM GRAN % (test code = 2712841684) 0.40 % LYMPH % (test code = 736-9) 31.0 % MONO % (test code = 5905-5) 5.2 % EOS % (test code = 713-8) 0.4 % BASO % (test code = 706-2) 0.4 % GRAN MAT x10^3(ANC) (test code = 1900409361) 7.04 10*3/uL 1.99-6.95 H IMM GRAN x10^3 (test code = 6277266976) 0.04 10*3/uL 0-0.06 LYMPH x10^3 (test code = 731-0) 3.49 10*3/uL 1.09-3.23 H MONO x10^3 (test code = 742-7) 0.59 10*3/uL 0.36-1.02 EOS x10^3 (test code = 711-2) 0.04 10*3/uL 0.06-0.53 L BASO x10^3 (test code = 704-7) 0.05 10*3/uL 0.01-0.09 Lab Interpretation (test code = 64818-6) [facility] - INFLUENZA A & B DIRECT [id number] 23:48:00* Test Item Value Reference Range Interpretation Comme nts Influenza A (test code = 35597-0) Negative Negative Influenza B (test code = 98673-6) Negative Negative Lab Interpretation (test cod e = 56193-3) [facility] [id number] 23:32:00* Test Item Value Reference Range Interpretation Comme nts Streptococcus pyogenes (grou p A) antigen (test code = 89452-7) Negative Negative Lab Interpretation (test cod e = 84751-6) Normal [facility] Notes Date/Time Note Provider Source Jose Adamson [facility]"
[2025-01-12] MEDS ORDERED: KETOROLAC 30 MG/ML INJ ONE (22:19)
--- NOTE | 2025-01-12 22:35 | EDPHYS ---
Physician Documentation [facility] Name: Raza Causey Age: 39 yrs Sex: Male : 1985 Arrival Date: 01/12/2025 Time: 21:31 Bed 19 Private MD: ED Physician Austyn Cervantes HPI: 01/12 22:15 This 39 yrs old Male presents to ER via Ambulatory with complaints of Neck cp pain, Shoulder Pain. 22:15 The patient or guardian complains of pain, that is acute, tenderness, stiffness. cp 22:15 The symptoms are located posterior neck. Onset: The symptoms/episode began/occurred cp 01/03/2025. Context: The neck injury/problem resulted from from unknown cause. Associated signs and symptoms: Pertinent negatives: fever, numbness, weakness. Severity of symptoms: in the emergency department the symptoms are unchanged, despite home interventions. 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 - Infectious Disease History:: Denies. - Social history:: Smoking status: Patient/guardian denies using tobacco, the patient reports quitting approximately 2 years ago. ROS: 22:20 Neck: Positive for pain with movement, pain at rest, stiffness, tenderness, of the base cp of the skull and posterior neck, Negative for injury or acute deformity, bony tenderness, 22:20 Cardiovascular: Negative for chest pain, edema, palpitations, cp 22:20 Respiratory: Negative for cough, shortness of breath, wheezing, 22:20 Abdomen/GI: Negative for abdominal pain, vomiting, diarrhea, constipation, 22:20 Back: Positive for pain at rest, pain with movement, of the left trapezius and right trapezius, Negative for injury or acute deformity, 22:20 Skin: Negative for cellulitis, rash, 22:20 Neuro: Positive for headache, of the posterior aspect of head, Negative for altered mental status, dizziness, weakness, 22:20 All other systems are negative, Exam: 22:25 Constitutional: The patient appears in no acute distress, alert, awake, cp non-diaphoretic, non-toxic, well developed, well nourished, uncomfortable, 22:25 Head/face: Noted is tenderness, that is mild, of the left base of the skull and right cp base of the skull, 22:25 Eyes: Periorbital structures: appear normal, Conjunctiva: normal, no exudate, no cp injection, Sclera: no appreciated abnormality, Lids and lashes: appear normal, bilaterally, 22:25 ENT: External ear(s): are unremarkable, Nose: is normal, Mouth: Lips: moist, Oral mucosa: moist, Posterior pharynx: Airway: no evidence of obstruction, patent, 22:25 Neck: ROM/movement: pain, with rotation to the left, with rotation to the right, limited range of motion, is not appreciated, 22:25 Chest/axilla: Inspection: normal, Palpation: is normal, no crepitus, no tenderness, 22:25 Cardiovascular: Rate: normal, Rhythm: regular, 22:25 Respiratory: the patient does not display signs of respiratory distress, Respirations: normal, no use of accessory muscles, no retractions, labored breathing, is not present, Breath sounds: are clear throughout, no decreased breath sounds, no stridor, no wheezing, 22:25 Abdomen/GI: Exam negative for discomfort, distension, guarding, Inspection: abdomen appears normal, 22:25 Back: pain, that is moderate, of the posterior cervical area, left trapezius and right trapezius, vertebral tenderness, is not appreciated, 22:25 Skin: cellulitis, is not appreciated, no rash present. 22:25 Neuro: Orientation: to person, place \T\ time. Mentation: is normal, Motor: moves all fours, strength is normal, Sensation: no obvious gross deficits, Vital Signs: 21:42 BP 146 / 92; Pulse 83; Resp 19; Temp 98.5; Pulse Ox 98% ; Weight 104.33 kg; Height 5 me1 ft. 9 in. ; Pain 7/10; 22:10 BP 126 / 88 Supine; Pulse 88; Resp 19; Pulse Ox 100% on R/A; Weight 104.33 kg; Height 5 tb4 ft. 9 in. ; Pain 7/10; 23:00 BP 137 / 86; Pulse 78; Resp 20; Temp 98.1(O); Pulse Ox 99% on R/A; Pain 4/10; tb4 23:52 BP 138 / 67; Pulse 80; Resp 20; Pulse Ox 98% on R/A; Pain 4/10; tb4 22:10 Body Mass Index 33.96 (104.33 kg, 175.26 cm) tb4 21:42 Pain Scale: Adult me1 22:10 Pain Scale: Adult tb4 23:00 Pain Scale: Adult tb4 23:52 Pain Scale: Adult tb4 MDM: 22:34 Medical Screening Exam initiated cp 22:34 Data reviewed: vital signs, nurses notes, and as a result, I will discharge patient. cp 22:34 Differential diagnosis: Cervical Disc Herniation Cervical Discogenic Pain Cervical cp Raiculopathy Cervical Spondylosis cervical strain, Spinal Cord Compression torticollis. I considered the following discharge prescriptions or medication management in the emergency department Medications were administered in the Emergency Department. See MAR. Counseling: I had a detailed discussion with the patient and/or guardian regarding the historical points, exam findings, and any diagnostic results supporting the discharge/admit diagnosis, to return to the emergency department if symptoms worsen or persist or if there are any questions or concerns that arise at home. Response to treatment: the patient's symptoms have mildly improved after treatment, and as a result, I will discharge patient. Administered Medications: 22:26 Drug: Ketorolac IM 30 mg IM once Route: IM; Site: left deltoid; tb4 23:32 Follow up: Response: No adverse reaction; Pain is decreased tb4 22:26 Drug: Dexamethasone IM 10 mg IM once Route: IM; Site: right deltoid; tb4 23:32 Follow up: Response: No adverse reaction; Pain is decreased tb4 22:30 CANCELLED (Physician Discretion): [id number] mg PO once cp Disposition: 01/13 07:31 Co-signature as Attending Physician, Austyn Cervantes MD I agree with the assessment sp4 and plan of care. I reviewed the patient's care provided by the Advanced Practice Provider and agree with the diagnosis and treatment plan. 23:52 Chart complete. cp Disposition Summary: 01/12/25 22:34 Discharge Ordered Notes: Location: Home cp Problem: new cp Symptoms: have improved cp Condition: Stable cp Diagnosis - Cervicalgia cp - Dorsalgia, unspecified cp Followup: cp - With: Private Physician - When: 2 - 3 days - Reason: Worsening of condition Discharge Instructions: - Discharge Summary Sheet cp - Acute Back Pain, Adult cp - Musculoskeletal Pain cp - Heat Therapy cp - Neck Exercises cp - Back Exercises cp Forms: - Medication Reconciliation Form cp - Antibiotic Education cp - Prescription Opioid Use cp - Patient Portal Instructions cp - Leadership Thank You Letter cp Prescriptions: - Diclofenac Sodium 75 mg Oral Tablet Sustained Release - take 1 tablet ORAL route 2 times per day; 30 tablet; Refills: 0, Product cp Selection Permitted - Medrol (Zach) 4 mg Oral Tablets, Dose Pack - take 1 tablet ORAL route as directed - follow package instructions; 1 packet; cp Refills: 0, Product Selection Permitted - methocarbamol 750 mg Oral tablet - take 1 tablet ORAL route 3 times per day; 30 tablet; Refills: 0, Product cp Selection Permitted Signatures: [place] Gonzalez PA-C PA-C cp Austyn Cervantes MD MD sp4 Cindy Carrasco RN RN me1 Ruby Blackburn RN RN tb4 Corrections: (The following items were deleted from the chart) 01/12 22:30 22:11 Methocarbamol PO 1000 mg PO once ordered. cp cp
--- NOTE | 2025-01-12 22:35 | ER ---
Nurse's Notes [facility] Name: Raza Causey Age: 39 yrs Sex: Male : 1985 Arrival Date: 01/12/2025 Time: 21:31 Bed 19 Private MD: Diagnosis: Cervicalgia;Dorsalgia, unspecified Presentation: 01/12 21:42 Chief complaint: Patient states: c/o neck pain and bilateral shoulder pain to trapezius me1 muscles that started on 01/03/25 and has worsened. Pain is 7/10 at this time and patient feels like the tightness/pain is starting to radiate down his back. Coronavirus screen: Vaccine status: Patient reports being unvaccinated. Ebola Screen: No symptoms or risks identified at this time. Initial Sepsis Screen: Does the patient meet any 2 criteria? No. Patient's initial sepsis screen is negative. Does the patient have a suspected source of infection? No. Patient's initial sepsis screen is negative. Risk Assessment: Do you want to hurt yourself or someone else? Patient reports no desire to harm self or others. Onset of symptoms was January 03, 2025. 21:42 Method Of Arrival: Ambulatory ny1 21:42 Acuity: DEBO 4 me1 Triage Assessment: 21:44 General: Appears uncomfortable, well groomed, well developed, well nourished, Behavior me1 is calm, cooperative, appropriate for age. Pain: Complains of pain in back of neck Pain radiates to left posterior upper chest wall and right posterior upper chest wall Pain currently is 7 out of 10 on a pain scale. Quality of pain is described as tightness with intermittent sharp jolts. EENT: No signs and/or symptoms were reported regarding the EENT system. Neuro: Level of Consciousness is awake, alert, obeys commands, Oriented to person, place, time, situation, Appropriate for age. Cardiovascular: Patient's skin is warm and dry. Respiratory: Airway is patent Respiratory effort is even, unlabored, Respiratory pattern is regular, symmetrical. GI: No signs and/or symptoms were reported involving the gastrointestinal system. : No signs and/or symptoms were reported regarding the genitourinary system. Derm: Skin is intact, is healthy with good turgor, Skin is normal. Musculoskeletal: Reports pain in back of neck, left posterior upper chest wall and right posterior upper chest wall. 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 - Infectious Disease History:: Denies. - Social history:: Smoking status: Patient/guardian denies using tobacco, the patient reports quitting approximately 2 years ago. Screenin:10 [facility] ED Fall Risk Assessment (Adult) History of falling in the last 3 months, tb4 including since admission No falls in past 3 months (0 pts) Confusion or Disorientation No (0 pts) Intoxicated or Sedated No (0 pts) Impaired Gait No (0 pts) Mobility Assist Device Used No (0 pt) Altered Elimination No (0 pt) Score/Fall Risk Level 0 - 2 = Low Risk Oriented to surroundings, Maintained a safe environment. Abuse screen: Denies threats or abuse. Denies injuries from another. Nutritional screening: No deficits noted. Tuberculosis screening: No symptoms or risk factors identified. Assessment: 22:10 Reassessment: See triage note. General: Appears uncomfortable, Behavior is calm, tb4 cooperative. Pain: Complains of pain in base of the skull Pain radiates to posterior cervical area, left trapezius, right trapezius, left scapular area, right scapular area and thoracic area Pain currently is 7 out of 10 on a pain scale. Quality of pain is described as aching, squeezing, Pain began gradually, over one week Is intermittent, Alleviated by nothing. Neuro: Level of Consciousness is awake, alert, obeys commands, Oriented to person, place, time, situation, Clinical Athletic Instructor are equal bilaterally Moves all extremities. Full function Gait is steady, Speech is normal, Facial symmetry appears normal. Respiratory: Airway is patent Respiratory effort is even, unlabored, Respiratory pattern is regular, symmetrical. GI: No signs and/or symptoms were reported involving the gastrointestinal system. : No signs and/or symptoms were reported regarding the genitourinary system. EENT: No signs and/or symptoms were reported regarding the EENT system. Derm: No signs and/or symptoms reported regarding the dermatologic system. Skin is intact, is healthy with good turgor, Skin is dry. Musculoskeletal: Circulation, motion, and sensation intact. Range of motion: intact in neck when turning side to side Reports pain in posterior cervical area, left trapezius, right trapezius, left scapular area and right scapular area since over one week. Pain is 7 out of 10 on a pain scale. 23:01 Reassessment: Patient is alert, oriented x 3, equal unlabored respirations, skin tb4 warm/dry/pink. Patient states feeling better. Patient states symptoms have improved. neck and shoulders not as stiff as before. General: Appears comfortable. Pain: Pain currently is 4 out of 10 on a pain scale. Respiratory: Airway is patent Respiratory effort is even, unlabored, Respiratory pattern is regular, symmetrical. Vital Signs: 21:42 BP 146 / 92; Pulse 83; Resp 19; Temp 98.5; Pulse Ox 98% ; Weight 104.33 kg; Height 5 me1 ft. 9 in. ; Pain 7/10; 22:10 BP 126 / 88 Supine; Pulse 88; Resp 19; Pulse Ox 100% on R/A; Weight 104.33 kg; Height 5 tb4 ft. 9 in. ; Pain 7/10; 23:00 BP 137 / 86; Pulse 78; Resp 20; Temp 98.1(O); Pulse Ox 99% on R/A; Pain 4/10; tb4 23:52 BP 138 / 67; Pulse 80; Resp 20; Pulse Ox 98% on R/A; Pain 4/10; tb4 22:10 Body Mass Index 33.96 (104.33 kg, 175.26 cm) tb4 21:42 Pain Scale: Adult me1 22:10 Pain Scale: Adult tb4 23:00 Pain Scale: Adult tb4 23:52 Pain Scale: Adult tb4 ED Course: 21:32 Patient arrived in ED. mr 21:39 [place] Gonzalez PA-C [facility]. cp 21:39 Austyn Cervantes MD is Attending Physician. cp 21:44 Triage completed. me1 21:44 Arm band placed on Patient placed in an exam room. me1 22:10 Patient has correct armband on for positive identification. Bed in low position. Call tb4 light in reach. Side rails up X 1. Client placed on continuous cardiac and pulse oximetry monitoring. NIBP monitoring applied. Pulse ox on. Door closed. Lights dimmed. 23:32 No provider procedures requiring assistance completed. Patient did not have IV access tb4 during this emergency room visit. 23:53 Provided Education on: Take all medication as prescribed. tb4 Administered Medications: 22:26 Drug: Ketorolac IM 30 mg IM once Route: IM; Site: left deltoid; tb4 23:32 Follow up: Response: No adverse reaction; Pain is decreased tb4 22:26 Drug: Dexamethasone IM 10 mg IM once Route: IM; Site: right deltoid; tb4 23:32 Follow up: Response: No adverse reaction; Pain is decreased tb4 22:30 CANCELLED (Physician Discretion): [id number] mg PO once cp Medication: 22:10 VIS not applicable for this client. tb4 Outcome: 22:34 Discharge ordered by . cp 23:53 Discharged to home ambulatory, tb4 23:53 Condition: stable 23:53 Discharge instructions given to patient, Instructed on discharge instructions, follow up and referral plans. no drinking with medication, Demonstrated understanding of instructions, follow-up care, medications, Prescriptions given X 3, 23:54 Patient left the ED. tb4 Signatures: Gloria Ware, Reg Reg Lisa South, PAJenniferC PAJenniferC Cindy Maddox, RN RN me1 Ruby Blackburn, RN RN tb4
[2025-01-13 00:55] VITALS: TEMP 98.1
[2025-01-13 00:56] VITALS: BP 138/67; O2SAT 98
== END 2025-01-12 23:54 | disposition home or self-care (01) ==
LOC: ER 21:31
DX: M54.2 Cervicalgia (principal); M54.9 Dorsalgia, unspecified; R51.9 Headache, unspecified; I10 Essential (primary) hypertension
CPT/HCPCS: 96372; 99284; J1100

== ENCOUNTER 2025-02-10 07:13 | Emergency (ER) | payer BC ==
--- OUTSIDE RECORDS SUMMARY | 2025-02-10 07:20 | XMS REPORT | Continuity of Care Document ---
Author Name Unknown Address [address] [facility] [address] [place] [address] [facility] [place] Address [address] [facility] 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 Name Role Phone Ct Smith Primary Care Physician JOAQUIM WORTHINGTON Attending Clinician Unavailable [id number] Attending Clinician Unavailable Erickson Sol MD Attending Clinician [phone] ERICKSON SOL Attending Clinician Unavailable Doctor Unassigned, [place] Attending Clinician U navailable Ziggy Alva Attending Clinician [phone] Siobhan Covarrubias Attending Clinician [phone] Payers Payer Name Policy Type Policy Number Effective Date Expirati on Date Source [facility] 2 [id number] 2024 00:00:00 [facility] [id number] 2019 00:00:00 Problems Condition Name Condition Details [...] active problems No known active problems Disease [facility] Allergies, Adverse Reactions, Alerts Allergy Name Allergy Type Status Severity Reaction(s) Onset Date Inactive Date Treating Clinician Comments Source Atorvast atin Propensi ty to adverse reaction s to drug Active Myalgia 2023-05 00:00: 00 Raegan Scott - Externa l NO KNOWN ALLERGIE S Drug Class Active [facility] Social History Social Habit Start Date Stop Date Quantity Comments Source Sexual orientation Ziggy darcie Scott - External History of Occupation Raegan Scott - External History of tobacco use Cigarette Smoker Raegan augustine - External Exposure to SARS-CoV-2 (event) Not sure [facility] Alcoholic beverage intake 2024-10-14 00:00:00 2024-10-14 00:00:00 [...] Sejamiefawn - External Unknown if ever smoked [facility] Medications Ordered Medication Name Filled Medication Name Start Date Stop Date Current Medication? Ordering Clinician Indication Dosage Frequency Signature (SIG) Comments Components Source Rumney-3 Fatty Acids (Fish Oil) 1200 MG oral Capsule 10-14 14:08: 12 Yes 1{capsu le} Q.5D Take 1 capsule by mouth in the morning and 1 capsule in the evening. Raegan kuhn Esomeprazol e Magnesium (NexIUM) 40 MG oral Delayed Release Capsule 10-14 00:00: 00 Yes [id number] 40mg QD Take 1 capsule (40 mg total) by mouth daily as needed (GERD). Raegan kuhn Propranolol HCl 10 MG oral Tablet 10-14 00:00: 00 Yes [id number] 10mg QD Take 1 tablet (10 mg total) by mouth daily as needed (anxiety). Raegan kuhn Doxycycline Hyclate 100 MG oral Tablet 10-14 00:00: 00 Yes [id number] 100mg Q.5D Take 1 tablet (100 mg total) by mouth 2 times daily. Raegan kuhn Ketoconazol e 2 % apply externally Cream 10-14 00:00: 00 Yes [id number] 1{appli cation} Q.5D Apply 1 Applicatio n topically 2 times daily. Raegan kuhn Metformin HCl 500 MG oral Tablet 10-14 00:00: 00 Yes [id number] 3 500mg QD Take 1 tablet (500 mg total) by mouth daily (with breakfast) . Raegan kuhn Fenofibrate 160 MG oral Tablet 10-03 00:00: 00 Yes [id number] 3 160mg QD Take 1 tablet (160 mg total) by mouth daily. Raegan kuhn Lisinopril 20 MG oral Tablet 10-03 00:00: 00 Yes [id number] 20mg QD Take 1 tablet (20 mg total) by mouth daily. Raegan kuhn Rosuvastati n Calcium 5 MG oral Tablet 06-13 00:00: 00 Yes [id number] 3 5mg QD Take 1 tablet (5 mg total) by mouth nightly. Raegan kuhn Rumney-3 Fatty Acids (Fish Oil) 1200 MG oral Capsule 06-03 11:18: 38 Yes 1{capsu le} Q.5D Take 1 capsule by mouth 2 times daily. Raegan kuhn Triamcinolo ne Acetonide 0.1 % apply externally Cream 06-03 00:00: 00 Yes [id number] 1{appli cation} Q.5D Apply 1 Applicatio n topically 2 times daily. Raegan kuhn busPIRone HCl 5 MG oral Tablet 06-03 00:00: 00 10-14 00:00 :00 No [id number] 5mg Q.5D Take 1 tablet (5 mg total) by mouth 2 times daily as needed (anxiety). Raegan kuhn Mupirocin (BACTROBAN) 2 % apply externally Ointment 06-03 00:00: 00 10-14 00:00 :00 No [id number] 1{appli cation} Q.5D Apply 1 Applicatio n topically 2 times daily. Raegan kuhn Ketoconazol e 2 % apply externally Cream 06-03 00:00: 00 10-14 00:00 :00 No [id number] 1{appli cation} Q.5D Apply 1 Applicatio n topically 2 times daily. Raegan kuhn Lisinopril 20 MG oral Tablet 2023-05 00:00: 00 Yes [id number] 20mg QD Take 1 tablet (20 mg [...] MG oral Tablet 2023-05 00:00: 00 Yes [id number] 3 160mg QD Take 1 tablet (160 mg total) by mouth daily. Raegan kuhn LISINOPRIL- HCTZ 20-12.5 MG oral Tablet 2023-05 00:00: 00 Yes [id number] 1{tbl} QD Take 1 tablet by mouth daily. Raegan kuhn Pantoprazol e Sodium 40 MG oral Tablet Delayed Response 2023-05 00:00: 00 10-14 00:00 :00 No [id number] 40mg QD Take 1 tablet (40 mg total) by mouth daily. Raegan kuhn Metformin HCl 500 MG oral Tablet 2023-05 00:00: 00 10-14 00:00 :00 No [id number] 3 500mg QD Take 1 tablet (500 mg total) by mouth daily (with breakfast) . Raegan kuhn Rumney-3 Fatty Acids (Fish Oil) 1000 MG oral Capsule 2023-05 00:00: 00 06-03 00:00 :00 No [id number] 3 1000mg Q.5D Take 1 capsule (1,000 mg total) by mouth 2 times daily. Raegan kuhn Bupropion HCL XL 150 MG OR TB24 2023-05 00:00: 00 06-03 00:00 :00 No [id number] 150mg QD Take 1 tablet (150 mg [...] 2022-05 00:00: 00 09-17 00:00 :00 No [id number] Jose Mcbride TAKE 1 TABLET DAILY. 2022-05 [...] 00 09-17 00:00 :00 No [id number] Jose Mcbride TAKE ONE (1) TABLET(S) BY MOUTH [...] ONCE, 1 dose, Tu08/21/20 at 1045, STAT [facility] ketorolac (TORADOL) injection 30 mg 02-16 05:15: 00 02-16 04:03 :00 No 30mg 30 mg, Slow IV Push, ONCE, 1 dose, 02/17/20 at 0015, JONAS
Fa culty member approving Restricted medication : Ziggy [facility] ibuprofen 600 mg tablet 02-16 00:00: 00 Yes [id number] 600mg Take 1 tablet by mouth every 6 (six) hours as needed for Pain (scale 4-6). [facility] ibuprofen (IBU) tablet 800 mg 06-12 23:45: 00 06-12 22:54 :00 No 800mg 800 mg, Oral, ONCE, 1 dose, 06/12/19 at 1745, JONAS [facility] amoxicillin 875 mg tablet 06-12 00:00: 00 06-23 05:59 :00 No [id number] 875mg Take 1 tablet by mouth 2 (two) times daily for 10 days. [facility] oseltamivir 75 mg capsule 06-12 00:00: 00 06-18 05:59 :00 No [id number] 75mg Take 1 capsule by mouth 2 (two) times daily for 5 days. [facility] albuterol 2.5 mg /3 mL (0.083 %) nebulizer solution 2018-05 00:00: 00 Yes [id number] 2.5mg Inhale 3 mL every 4 (four) hours as needed for Wheezing or Shortness of Breath. [facility] benzonatate 200 mg capsule 2017-05 220 00:00: 00 Yes 200mg Take 1 capsule by mouth 3 (three) times daily as needed for Cough. [facility] proMETHazin e 25 mg tablet 2017-05 00:00: 00 Yes 25mg Take 1 tablet by mouth every 6 (six) hours as needed for Nausea and Vomiting (N/V). [facility] traMADOL (ULTRAM) 50 mg tablet 2017-05 00:00: 00 Yes 50mg Take 1 tablet by mouth every 6 (six) hours as needed for Pain (scale 4-6). [facility] LISINOPRIL ORAL 01-28 20:38: 33 Yes Take by mouth. [facility] traMADOL 50 mg tablet 01-28 00:00: 00 Yes 50mg Take 1 tablet by mouth every 8 (eight) hours as needed for Pain (scale 4-6). [facility] Vital Signs Vital Name Observation Time Observation [...] Systolic blood pressure 2020-08-21 15:00:00 139 mm[Hg] [facility] Diastolic blood pressure 2020-08-21 15:00:00 103 mm[Hg] [facility] Heart rate 2020-08-21 15:00:00 77 /min [facility] Respiratory rate 2020-08-21 15:00:00 16 /min [facility] Oxygen saturation in Arterial blood by Pulse oximetry 2020-08-21 15:00:00 96 /min [facility] Body temperature 2020-08-21 12:54:00 36.89 Gini [facility] Body weight 2020-08-21 12:54:00 104.327 kg [facility] BMI 2020-08-21 12:54:00 33.97 kg/m2 [facility] Systolic blood pressure 2020-08-21 15:00:00 139 mm[Hg] [facility] Diastolic blood pressure 2020-08-21 15:00:00 103 mm[Hg] [facility] Heart rate 2020-08-21 15:00:00 77 /min [facility] 2020-08-21 15:00:00 16 /min [facility] Oxygen saturation in Arterial blood by Pulse oximetry 2020-08-21 15:00:00 96 /min [facility] Body temperature 2020-08-21 12:54:00 36.89 Gini [facility] Body weight 2020-08-21 12:54:00 104.327 kg [facility] BMI 2020-08-21 12:54:00 33.97 kg/m2 [facility] Systolic blood pressure 2020-02-17 05:00:00 124 mm[Hg] [facility] Diastolic blood pressure 2020-02-17 05:00:00 77 mm[Hg] [facility] Heart rate 2020-02-17 05:00:00 65 /min [facility] Respiratory rate 2020-02-17 05:00:00 16 /min [facility] Oxygen saturation in Arterial blood by Pulse oximetry 2020-02-17 05:00:00 97 /min [facility] Body temperature 2020-02-17 01:13:00 36.78 Gini [facility] Body weight 2020-02-17 01:13:00 107.049 kg [facility] BMI 2020-02-17 01:13:00 34.85 kg/m2 [facility] Systolic blood pressure 2020-02-17 05:00:00 124 mm[Hg] [facility] Diastolic blood pressure 2020-02-17 05:00:00 77 mm[Hg] [facility] Heart rate 2020-02-17 05:00:00 65 /min [facility] Respiratory rate 2020-02-17 05:00:00 16 /min [facility] Oxygen saturation in Arterial blood by Pulse oximetry 2020-02-17 05:00:00 97 /min [facility] Body temperature 2020-02-17 01:13:00 36.78 Gini [facility] Body weight 2020-02-17 01:13:00 107.049 kg [facility] BMI 2020-02-17 01:13:00 34.85 kg/m2 [facility] Body temperature 2019-06-13 00:13:36 37.22 Gini [facility] Systolic blood pressure 2019-06-12 22:12:00 155 mm[Hg] [facility] Diastolic blood pressure 2019-06-12 22:12:00 111 mm[Hg] [facility] Heart rate 2019-06-12 22:12:00 111 /min [facility] Respiratory rate 2019-06-12 22:12:00 18 /min [facility] Body height 2019-06-12 22:12:00 175.3 cm [facility] Body weight 2019-06-12 22:12:00 102.513 kg [facility] BMI 2019-06-12 22:12:00 33.37 kg/m2 [facility] Oxygen saturation in Arterial blood by Pulse oximetry 2019-06-12 22:12:00 99 /min [facility] Body temperature 2019-06-13 00:13:36 37.22 Gini [facility] Systolic blood pressure 2019-06-12 22:12:00 155 mm[Hg] [facility] Diastolic blood pressure 2019-06-12 22:12:00 111 mm[Hg] [facility] Heart rate 2019-06-12 22:12:00 111 /min [facility] Respiratory rate 2019-06-12 22:12:00 18 /min [facility] Body height 2019-06-12 22:12:00 175.3 cm [facility] Body weight 2019-06-12 22:12:00 102.513 kg [facility] BMI 2019-06-12 22:12:00 33.37 kg/m2 [facility] Oxygen saturation in Arterial blood by Pulse oximetry 2019-06-12 22:12:00 99 /min [place] [facility] BP Systolic 2023-09-18 17:00:00 143 mm[Hg] Step [...] Reed Height Measured 2023-07-31 16:11:00 67.72 inches Jsoe F Reed Body Temperature 2023-07-31 16:11:00 98.40 [...] Mcbride Body Temperature 2021-09-04 17:23:00 98.20 degrees Jsoe Mcbride Heart Rate 2021-09-04 17:23:00 72.00 /min Ava en Vesna Mcbride Respiratory Rate 2021-09-04 17:23:00 17.00 /min Jose Mcbride Procedures Procedure Date / Time Performed Performing Clinician Source XR CHEST 1 VW 2020-08-21 15:08:40 Erickson Sol [facility] CREATINE KINASE 2020-08-21 13:31:00 [facility] 2020-08-21 13:31:00 [facility] THYROID STIMULATING HORMONE 2020-08-21 13:31:00 [facility] HEPATIC FUNCTION PANEL ([id number]) (ALB,T.PRO,BILI T,BU/BC,ALT,AST,ALK PHOS) 2020-08-21 13:31:00 Erickson Sol [facility] BASIC METABOLIC PANEL (NA, K, CL, CO2, GLUCOSE, BUN, CREATININE, CA) 2020-08-21 13:31:00 [facility] CBC WITH DIFF 2020-08-21 13:31:00 Erickson Sol [facility] URINALYSIS 2020-08-21 13:31:00 Erickson Sol [facility] ADC / LCC - DRUG SCREEN TRIAGE 2020-08-21 13:31:00 [facility] COVID-19 (ID NOW RAPID TESTING) 2020-08-21 13:31:00 Erickson Sol [facility] NOTICE OF PRIVACY PRACTICES 2020-08-21 12:46:36 Doctor Unassigned, [place] [facility] CONSENT/REFUSAL FOR DIAGNOSIS AND TREATMENT 2020-08-21 12:46:21 Doctor Unassigned, [place] [facility] TROPONIN I 2020-02-17 03:49:00 Ziggy [facility] XR CHEST 1 VW 2020-02-17 02:30:42 Erickson Sol [facility] LIPASE 2020-02-17 01:21:00 [facility] TROPONIN I 2020-02-17 01:21:00 [facility] COMP. METABOLIC PANEL ([id number]) 2020-02-17 01:21:00 Erickson Sol [facility] CBC WITH DIFF 2020-02-17 01:21:00 Erickson Sol [facility] PROTHROMBIN TIME / INR 2020-02-17 01:21:00 Aidan Sol [facility] ACTIVATED PARTIAL THRMPLAS AMY 2020-02-17 01:21:00 Erickson Sol [facility] EKG-12 LEAD 2020-02-17 01:18:35 [facility] NOTICE OF PRIVACY PRACTICES 2020-02-17 01:08:49 Doctor Unassigned, [place] [facility] CONSENT/REFUSAL FOR DIAGNOSIS AND TREATMENT 2020-02-17 01:08:34 Doctor Unassigned, [place] [facility] RAPID STREP SCREEN FOR GROUP A 2019-06-12 22:38:00 Siobhan Garza [facility] ADC,CLC OR LCC ONLY - INFLUENZA A & B DIRECT ANTIGEN 2019-06-12 22:38:00 Siobhan Garza [facility] CONSENT/REFUSAL FOR DIAGNOSIS AND TREATMENT 2019-06-12 22:06:34 Doctor Unassigned, [place] [facility] Encounters Start Date/Time End Date/Time Encounter Type Admission Type Attending [facility] Care Facility Care Department Encounter ID Source 2024-11-21 00:00:00 2024-11-21 00:00:00 Outpatient JOAQUIM WORTHINGTON [id number] Raegan Scott 2024-10-14 14:00:00 2024-10-14 14:00:00 Outpatient JOAQUIM WORTHINGTON [id number] Raegan Scott 2024-10-02 00:00:00 2024-10-02 00:00:00 Outpatient PREZAS, JOAQUIM FOSTER [id number] [facility] 2024-09-30 09:30:00 2024-09-30 09:30:00 Outpatient PREZAS, JOAQUIM FOSTER [id number] [facility] 2024-09-12 00:00:00 2024-09-12 00:00:00 Outpatient PREZAS, JOAQUIM FOSTER [id number] Raegan [facility] 2024-06-23 00:00:00 2024-06-23 00:00:00 Outpatient PREZAS, JOAQUIM FOSTER [id number] Raegan [facility] 2024-06-13 00:00:00 2024-06-13 00:00:00 Outpatient PREZAS, JOAQUIM FOSTER [id number] Raegan [facility] 2024-06-13 00:00:00 2024-06-13 00:00:00 Outpatient PREZAS, JOAQUIM FOSTER [id number] Raegan [facility] 2024-06-10 08:40:00 2024-06-10 08:40:00 Outpatient LABKaylan [facility]OSTER [id number] [facility] 2024-06-03 11:00:00 2024-06-03 11:00:00 Outpatient PREZAS, JOAQUIM FOSTER [id number] [facility] 2024-04-15 00:00:00 2024-04-15 00:00:00 Outpatient PREZAS, JOAQUIM FOSTER [id number] [facility] 2024-04-14 00:00:00 2024-04-14 00:00:00 Outpatient PREZAS, JOAQUIM FOSTER [id number] Raegan [facility] 2024-04-13 10:15:00 2024-04-13 10:15:00 Outpatient PREZAS, JOAQUIM FOSTER [id number] Raegan [facility] 2024-03-15 17:15:08 2024-03-15 17:15:08 Outpatient SFA [facility] [id number] Jose Mcbride 2024-03-12 08:52:53 2024-03-12 08:52:53 Outpatient SFA SFA [id number] Jose Mcbride 2024-03-09 17:19:22 2024-03-09 17:19:22 Outpatient SFA SFA [id number] Jose Mcbride 2023-10-02 15:02:00 2023-10-02 15:02:00 Outpatient SFA SFA [id number] Jose Mcbride 2023-09-18 16:59:08 2023-09-18 16:59:08 Outpatient SFA SFA [id number] Jose Mcbride 2023-09-18 00:00:00 2023-09-18 00:00:00 Outpatient Visit SFA [id number] Jose Mcbride 2023-08-01 09:13:04 2023-08-01 09:13:04 Outpatient SFA SFA [id number] Jose Mcbride 2023-07-31 16:05:03 2023-07-31 16:05:03 Outpatient SFA SFA [id number] Jose Mcbride 2023-06-16 16:47:34 2023-06-16 16:47:34 Outpatient SFA SFA [id number] Jose Mcbride 2023-03-20 08:12:25 2023-03-20 08:12:25 Outpatient SFA SFA [id number] Jose Mcbride 2023-03-14 11:22:44 2023-03-14 11:22:44 Outpatient SFA SFA [id number] Jose Mcbride 2023-03-11 17:06:31 2023-03-11 17:06:31 Outpatient SFA SFA [id number] Jose Mcbride 2022-11-29 13:34:42 2022-11-29 13:34:42 Outpatient SFA SFA [id number] Jose Mcbride 2022-07-11 08:00:18 2022-07-11 08:00:18 Outpatient SFA SFA [id number] Jose Mcbride 2022-07-08 16:50:35 2022-07-08 16:50:35 Outpatient SFA SFA [id number] Jose Mcbride 2022-04-07 08:15:31 2022-04-07 08:15:31 Outpatient [facility] [id number] Jose Mcbride 2022-04-04 17:00:04 2022-04-04 17:00:04 Outpatient [facility] [id number] Jose Mcbride 2020-08-21 07:58:00 2020-08-21 10:27:00 [id number] 2020-08-21 07:58:00 2020-08-21 10:27:00 Emergency [facility] [id number] [facility] 2020-08-21 07:48:00 2020-08-21 07:48:00 Emergency X [facility] ERT [id number] [facility] 2020-08-21 00:00:00 2020-08-21 00:00:00 Orders Only Doctor Unassigned, [place] [facility] [id number] 2020-08-21 00:00:00 2020-08-21 00:00:00 Orders Only Doctor Unassigned, [place]en [facility] [id number] [facility] 2020-02-16 21:41:00 2020-02-17 00:50:00 Emergency Ziggy [facility] [id number] 2020-02-16 21:41:00 2020-02-17 00:50:00 Emergency Ziggy [facility] [id number] [facility] 2020-02-16 20:06:00 2020-02-16 20:06:00 Emergency X [facility] ERT [id number] [facility] 2019-06-12 16:15:07 2019-06-12 18:19:00 Emergency Siobhan Garza [facility] [id number] 2019-06-12 16:15:07 2019-06-12 18:19:00 Emergency [facility] [id number] [facility] Results Test Description Test Time Test Comments Results Result Co mments Source COMPREHENSIVE METABOLIC [id number] 21:56:54* Test Item Value Reference Range Interpretation Comme nts GLUCOSE (test code = 2217) 131 MG/DL 70-99 H BUN (test code = 2208) 14 MG/DL 6-20 CREATININE (test code = 2214) 0.92 MG/DL 0.80-1.40 eGFR (2020 CKD-EPI) (test code = 21358) 108 ML/MIN/1.73 >60 CALC BUN/CREAT (test code [...] code = 2219) 23 U/L 5-50 LIPID [id number] 21:56:54* Test Item Value Reference Range Interpretation [...] SPECIMENS. FOR MOREINFORMATION, SEE CLIENT ANNOUNCEMENT AT [email or web address] /CalcLDL-C RISK RATIO LDL/HDL (test code = 2238) 4.77 RATIO <3.55 H HEMOGLOBIN [id number] 02:50:37* Test Item Value Reference Range Interpretation Comme nts HEMOGLOBIN A1c (test code = 42007) 6.3 % 4.2-5.6 H [employer] GUIDELINES FOR HGB A1C: [...] CONSIDER ALTERNATE TESTING OR LABORATORY CONSULTATION. LIPID [id number] 01:43:07* Test Item Value Reference Range Interpretation [...] SPECIMENS. FOR MOREINFORMATION, SEE CLIENT ANNOUNCEMENT AT [email or web address] /CalcLDL-C RISK RATIO LDL/HDL (test code = 2238) 2.97 RATIO <3.55 UNLESS OTHERW ISE INDICATED, ALL TESTING PERFORMED AT [facility] [address] [place] [address] OFFICE CHAIR ASSEMBLER: JACQUIE WILHELM M.D. CLIA NUMBER [id number] [facility] [place]. [id number] LIPID [id number] 00:00:00* Test Item Value Reference Range Interpretation Comme nts CHOLESTEROL (test code = 2210) 153 MG/DL TRIGLYCERIDES (test code = 2232) 163 MG/DL HDL CHOLESTEROL (test code = 2220) 32 MG/DL CALC LDL CHOL (test code = 2237) 95 MG/DL RISK RATIO LDL/HDL (test cod e = 2238) 2.97 RATIO Jose McbrideHEMOGLOBIN [id number] 03:48:13* Test Item Value Reference Range Interpretation Comme nts HEMOGLOBIN A1c (test code = 19735) 6.0 % 4.2-5.6 H [employer] GUIDELINES FOR HGB A1C: [...] CONSIDER ALTERNATE TESTING OR LABORATORY CONSULTATION. HEMOGLOBIN [id number] 00:00:00* Test Item Value Reference Range Interpretation Comme nts HEMOGLOBIN A1c (test code = 37285) 6.0 % Jose McbrideCOMPREHENSIVE METABOLIC [id number] 03:51:09* Test Item Value Reference Range Interpretation Comme nts GLUCOSE (test code = 2216) 110 MG/DL 70-99 H BUN (test code = 2207) 16 MG/DL 6-20 CREATININE (test code = 2213) 0.86 MG/DL 0.80-1.40 eGFR (2020 CKD-EPI) (test code = 50491) 113 ML/MIN/1.73 >60 CALC BUN/CREAT (test code = 2234) 19 RATIO 6-28 SODIUM (test code = 223) 137 MEQ/L 133-146 POTASSIUM (test code = 2227) 4.4 MEQ/L 3.5-5.4 CHLORIDE (test code = 2214) 102 MEQ/L 95-107 CARBON DIOXIDE (test code = 2205) 26 MEQ/L 19-31 CALCIUM (test code = 2208) 9.2 MG/DL 8.5-10.5 PROTEIN, TOTAL (test code = 2228) 6.6 G/DL 6.1-8.3 ALBUMIN (test code = 2200) 4.4 G/DL 3.5-5.2 CALC GLOBULIN (test code = 2240) 2.2 G/DL 1.9-3.7 CALC A/G RATIO (test code = 2233) 2.0 RATIO 1.0-2.6 BILIRUBIN, TOTAL (test code = 2206) 0.6 MG/DL <=1.2 ALKALINE PHOSPHATASE (test code = 2203) 64 U/L 40-117 AST (test code = 221) 13 U/L 9-50 ALT (test code = 221) 17 U/L 5-50 UNLESS OTHERWISE INDICATED, ALL TESTING PERFORMED AT [facility] [address] [place] [address] OFFICE CHAIR ASSEMBLER: JACQUIE WILHELM M.D. CLIA NUMBER [id number] [facility] [place]. [id number] LIPID [id number] 03:51:09* Test Item Value Reference Range Interpretation Comme nts CHOLESTEROL (test code = 2210) 174 MG/DL <200 TRIGLYCERIDES (test code = 2232) 174 MG/DL <150 H HDL CHOLESTEROL (test code = 222) 29 MG/DL >39 L CALC LDL CHOL (test code = 223) 116 MG/DL <100 H NOTE: CALCULATED LDL IS BASED ON NAHEED-RUANO METHOD WHICHINCLUDES ADJUSTABLE TRIGLYCERIDE:VLDL CHOLESTEROL RATIO.THIS FACTOR VARIES BY MEASURED TRIGLYCERIDE AND NON-HDLCHOLESTEROL CONCENTRATIONS WITH INCREASED CALCULATED LDL SEENIN HIGHER TRIGLYCERIDE OR LOWER NON-HDL SPECIMENS. FOR MOREINFORMATION, SEE CLIENT ANNOUNCEMENT AT [email or web address] /CalcLDL-C RISK RATIO LDL/HDL (test code = 2238) 4.00 RATIO <3.55 H HEMOGLOBIN [id number] 03:40:45* Test Item Value Reference Range Interpretation Comme nts HEMOGLOBIN A1c (test code = 35828) 5.6 % 4.2-5.6 HEMOGLOBIN [id number] 00:00:00* Test Item Value Reference Range Interpretation Comme nts HEMOGLOBIN A1c (test code = 12366) 5.6 % Jose Malagon AustinLIPID [id number] 00:00:00* Test Item Value Reference Range Interpretation Comme nts CHOLESTEROL (test code = 2210) 174 MG/DL TRIGLYCERIDES (test code = 2232) 174 MG/DL HDL CHOLESTEROL (test code = 2220) 29 MG/DL CALC LDL CHOL (test code = 2237) 116 MG/DL RISK RATIO LDL/HDL (test cod e = 2238) 4.00 RATIO Jose McbrideCOMPREHENSIVE METABOLIC [id number] 00:00:00* Test Item Value Reference Range Interpretation Comme nts GLUCOSE (test code = 2217) 110 MG/DL BUN (test code = 2208) 16 MG/DL CREATININE (test code = 2214) 0.86 MG/DL eGFR (2020 CKD-EPI) (test code = 63006) 113 ML/MIN/1.73 CALC BUN/CREAT (test code = [...] code = 2219) 17 U/L Jose McbrideLIPID [id number] 01:53:14* Test Item Value Reference Range Interpretation [...] SPECIMENS. FOR MOREINFORMATION, SEE CLIENT ANNOUNCEMENT AT [email or web address] /CalcLDL-C RISK RATIO LDL/HDL (test code = 2238) 3.67 RATIO <3.55 H [facility] has i mportant pathology staff changes effective 07/23/2022. New pathology staff will provide uninterrupted, excellent patient care and clinical consultation. See URL: [email or web address]. UNLESS OTHERWISE INDICATED, ALL TESTING PERFORMED AT [facility] [address] [place] [address] CLIA: [id number], CAP: [id number] LIPID [id number] 00:00:00* Test Item Value Reference Range Interpretation Comme nts CHOLESTEROL (test code = 2210) 176 MG/DL TRIGLYCERIDES (test code = 2232) 116 MG/DL HDL CHOLESTEROL (test code = 2220) 33 MG/DL CALC LDL CHOL (test code = 2237) 121 MG/DL RISK RATIO LDL/HDL (test cod e = 2238) 3.67 RATIO Jose McbrideHEMOGLOBIN [id number] 00:00:00* Test Item Value Reference Range Interpretation Comme nts HEMOGLOBIN A1c (test code = 91629) 5.9 % Jose McbrideCOMPREHENSIVE METABOLIC [id number] 00:00:00* Test Item Value Reference Range Interpretation Comme nts GLUCOSE (test code = 2217) 93 MG/DL BUN (test code = 2208) 19 MG/DL CREATININE (test code = 2214) 0.91 MG/DL eGFR (2020 CKD-EPI) (test code = 98048) 111 ML/MIN/1.73 CALC BUN/CREAT (test code = [...] code = 2219) 16 U/L Jose Malagon ShmoopLIPID [id number] 00:00:00* Test Item Value Reference Range Interpretation Comme nts CHOLESTEROL (test code = 2210) 211 MG/DL TRIGLYCERIDES (test code = 2232) 142 MG/DL HDL CHOLESTEROL (test code = 2220) 33 MG/DL CALC LDL CHOL (test code = 2237) 151 MG/DL RISK RATIO LDL/HDL (test cod e = 2238) 4.58 RATIO Jose Malagon AustinLIPID [id number] 04:16:00* Test Item Value Reference Range Interpretation [...] 2238) 6.17 RATIO <3.55 H TSH, THIRD [id number] 03:58:52* Test Item Value Reference Range Interpretation Comme nts TSH, THIRD GENERATION (test code = 2821) 0.715 UIU/ML 0.400-4.100 UNLESS OTHERWISE INDICATED, ALL TESTING PERFORMED [facility] [address] [place] [address] OFFICE CHAIR ASSEMBLER: ELA CAMPBELL M.D. CLIA NUMBER [id number] [facility] [place]. [id number] LIPID [id number] 00:00:00* Test Item Value Reference Range Interpretation Comme nts CHOLESTEROL (test code = 2210) 257 MG/DL TRIGLYCERIDES (test code = 2232) 229 MG/DL HDL CHOLESTEROL (test code = 2220) 30 MG/DL CALC LDL CHOL (test code = 2237) 185 MG/DL RISK RATIO LDL/HDL (test cod e = 2238) 6.17 RATIO Jose [id number] 00:00:00* Test Item Value Reference Range Interpretation Comme nts TSH, THIRD GENERATION (test code = 2821) 0.715 UIU/ML Jose Malagon AustinLIPID [id number] 00:00:00* Test Item Value Reference Range Interpretation Comme nts CHOLESTEROL (test code = 2210) 143 MG/DL TRIGLYCERIDES (test code = 2232) 122 MG/DL HDL CHOLESTEROL (test code = 2220) 29 MG/DL CALC LDL CHOL (test code = 2237) 92 MG/DL RISK RATIO LDL/HDL (test cod e = 2238) 3.17 RATIO Jose McbrideCOMPREHENSIVE METABOLIC [id number] 00:00:00* Test Item Value Reference Range Interpretation Comme nts GLUCOSE (test code = 2217) 122 MG/DL BUN (test code = 2208) 15 MG/DL CREATININE (test code = 2214) 0.84 MG/DL eGFR AMER. (test cod e = 03271) 130 ML/MIN/1.73 eGFR NON- AMER. (test code = 53034) 112 ML/MIN/1.73 CALC BUN/CREAT (test code = [...] code = 2219) 10 U/L Jose McbrideLIPID [id number] 00:00:00* Test Item Value Reference Range Interpretation Comme nts CHOLESTEROL (test code = 2210) 306 MG/DL TRIGLYCERIDES (test code = 2232) 1458 MG/DL HDL CHOLESTEROL (test code = 2220) 18 MG/DL CALC LDL CHOL (test code = 2237) (NOTE) MG/DL RISK RATIO LDL/HDL (test cod e = 2238) (NOTE) RATIO Jose McbrideCOMPREHENSIVE METABOLIC [id number] 00:00:00* Test Item Value Reference Range Interpretation Comme nts GLUCOSE (test code = 2217) 92 MG/DL BUN (test code = 2208) 14 MG/DL CREATININE (test code = 2214) 0.83 MG/DL eGFR AMER. (test cod e = 36366) 130 ML/MIN/1.73 eGFR NON- AMER. (test code = 58667) 112 ML/MIN/1.73 CALC BUN/CREAT (test code = [...] code = 2219) 28 U/L Jose McbrideLIPID [id number] 00:00:00* Test Item Value Reference Range Interpretation Comme nts CHOLESTEROL (test code = 2210) 261 MG/DL TRIGLYCERIDES (test code = 2232) 1248 MG/DL HDL CHOLESTEROL (test code = 2220) 22 MG/DL CALC LDL CHOL (test code = 2237) (NOTE) MG/DL RISK RATIO LDL/HDL (test cod e = 2238) (NOTE) RATIO Jose McbrideXR CHEST 1 [id number] 15:10:55HISTORY: Cough. TECHNIQUE: Portable AP erect view [...] limits. CONCLUSIONS: No signs of acute cardiopulmonary disease.[facility] / [facility] - DRUG SCREEN [id number] 15:06:33* Test Item Value Reference Range Interpretation Comme nts BENZO U (test code = 2388326542) Negative Negative HARRIETT U (test code = 3996927554) Negative Negative AMPHET (test code = 3435557896) Presumptive Positive Negative A THC (test code = 1857431960) Negative Negative METHADONE (test code = 9525154819) Negative Negative Meth U (test code = 5828273526) Presumptive Positive Negative A OPIATES (test code = 6512955470) Negative Negative Cocaine Metabolite (test code = 9897351014) Negative Negative PROPOXY (test code = 5777079344) Negative Negative Tric U (test code = 6386941075) Negative Negative PCP (test code = 7960196985) Negative Negative OXYCOD (test code = 2601615631) Negative Negative LOUIE (test code = LOUIE) [...] legal testing). Lab Interpretation (test code = 37644-0) Abnormal [facility] STIMULATING [id number] 14:41:43 * Test Item Value Reference Range Interpretation Comme nts TSH (test code = 2471013634) See_Comment [Automated messa ge] The system which generated this result transmitted reference range: 0.45 - 4.70 mIU/L. The reference range was not used to interpret this result as normal/abnormal. Lab Interpretation (test code = 54769-7) Normal [facility] ResourcesMAGNESIUM2021-03-30 14:13:20* Test Item Value Reference Range Interpretation Comme nts MAGNESIUM (test code = 5097592176) 1.7 mg/dL 1.7-2.4 Lab Interpretation (test cod e = 96802-4) Normal [facility] ResourcesCOVID-19 (ID NOW RAPID TESTING)2020-08-21 14:13:20* Test Item Value Reference Range Interpretation Comme nts SARS-CoV-2 Rapid ID NOW (test code = 66866-2) Not Detected Not Detected LOUIE (test code = LOUIE) ID NOW COVID-19 As say is an isothermal nucleic acid amplification test intended for the qualitative detection of nucleic acid from SARS-CoV-2 viral RNA in nasopharyngeal ([employer]GER) specimens. It is used under Emergency [...] clinically indicated. Lab Interpretation (test code = 53412-6) Normal [facility] (NA, K, CL, CO2, GLUCOSE, BUN, CREATININE, CA)2020-08-21 14:13:15* Test Item Value Reference Range Interpretation Comme nts NA (test code = 7545354620) 138 mmol/L 135-145 K (test code = 3559029758) 3.8 mmol/L 3.5-5.0 CL (test code = 7586514384) 108 mmol/L 98-108 CO2 TOTAL (test code = 5854882383) 23 mmol/L 23-31 AGAP (test code = 8156856426) 2-16 BUN (test code = 7498672314) 14 mg/dL 7-23 GLUCOSE (test code = 7130930870) 123 mg/dL 70-110 H CREATININE (test code = 7499638270) 0.83 mg/dL 0.60-1.25 CALCIUM (test code = 8180574526) 8.7 mg/dL 8.6-10.6 eGFR Calculation (Non-) (test code = 2281138081) mL/min/1.73m2 eGFR Calculation () (test code = 6958625397) mL/min/1.73m2 LOUIE (test code = LOUIE) Association [...] imaging tests). Lab Interpretation (test code = 37257-7) Abnormal [facility] ResourcesHep[facility] Function Panel (ALB, T.PRO, BILI T, BU/BC, ALT, AST, ALK PHOS)2020-08-21 14:13:15* Test Item Value Reference Range Interpretation Comme nts TOTAL BILI (test code = 1877870493) 0.5 mg/dL 0.1-1.1 BILI UNCON (test code = 3820150705) 0.3 mg/dL 0.1-1.1 BILI CONJ (test code = 3766646094) 0.0 mg/dL 0.0-0.3 T PROTEIN (test code = 1611369742) 7.1 g/dL 6.3-8.2 ALBUMIN (test code = 8641704903) 4.2 g/dL 3.5-5.0 ALK PHOS (test code = 0884343939) 93 U/L 34-122 ALTv (test code = 1742-6) 21 U/L 5-50 AST(SGOT) (test code = 8647673490) 25 U/L 13-40 Lab Interpretation (test cod e = 53200-4) Normal [facility] ResourcesCREATINE [id number] 14:13:14* Test Item Value Reference Range Interpretation Comme nts CK (test code = 4441946356) 74 U/L 33-194 Lab Interpretation (test cod e = 10755-2) Normal [facility] ResourcesURINALYSIS2021-03-30 14:12:24* Test Item Value Reference Range Interpretation Comme nts APPEARANCE (test code = 7520524930) Hazy Clear A COLOR (test code = 3549452098) Yellow Yellow PH (test code = 1920798189) 4.8-8.0 SP GRAVITY (test code = 0440535418) 1.003-1.030 GLU U QUAL (test code = 4739467440) Normal Normal BLOOD (test code = 0104032623) 1+ Negative A KETONES (test code = 4466723291) Negative Negative PROTEIN (test code = 2887-8) 30 mg/dL Negative A UROBILIN (test code = 9853764167) 2.0 mg/dL Normal A BILIRUBIN (test code = 5642845357) Negative Negative NITRITE (test code = 6117991015) Negative Negative LEUK DEANGELO (test code = 9723472694) 25/uL Negative A RBC/HPF (test code = 4255925887) See_Comment H [Automated VisualCVa ge] The system which generated this result transmitted reference range: 0 - 3 HPF. The reference range was not used to interpret this result as normal/abnormal. WBC/HPF (test code = 2224552009) See_Comment [Automated VisualCVa ge] The system which generated this result transmitted reference range: 0 - 5 HPF. The reference range was not used to interpret this result as normal/abnormal. BACTERIA (test code = 4424808971) Few Negative A MUCOUS (test code = 8657533714) Slight Negative LPF A AMORPHOUS (test code = 7931057575) Few Rare HPF A CA OXALATE (test code = 6099910665) See_Comment [Automated VisualCVa ge] The system which generated this result transmitted reference range: <=1 HPF. The reference range was not used to interpret this result as normal/abnormal. YEAST BUD (test code = 9227500465) <1 See_Comment [Automated VisualCVa ge] The system which generated this result transmitted reference range: <=1 HPF. The reference range was not used to interpret this result as normal/abnormal. Lab Interpretation (test code = 66016-4) Abnormal [facility] with [id number] 13:52:37* Test Item Value Reference Range Interpretation [...] 34.3 g/dL 31.2-35.0 RDW-SD (test code = 78483-4) 40.7 fL 38.5-51.6 RDW-CV (test code = 788-0) 13.2 % 12.1-15.4 PLT (test code = 777-3) See_Comment [Automated messa ge] The system which generated this result transmitted reference range: 150 - 328 10*3/?L. The reference range was not used to interpret this result as normal/abnormal. MPV (test code = 46011-3) 10.1 fL 9.8-13.0 NRBC/100 WBC (test code = 9100298389) See_Comment [Automated [employer] ssage] The system which generated this result transmitted reference range: 0.0 - 10.0 /100 WBCs. The reference range was not used to interpret this result as normal/abnormal. NRBC x10^3 (test code = 4798659479) <0.01 See_Comment [Automated messa ge] The system which generated this result transmitted reference range: 10*3/?L. The reference range was not used to interpret this result as normal/abnormal. GRAN MAT (NEUT) % (test code = 770-8) 63.6 % IMM GRAN % (test code = 4909859051) 0.40 % LYMPH % (test code = 736-9) 30.0 % MONO % (test code = 5905-5) 5.2 % EOS % (test code = 713-8) 0.4 % BASO % (test code = 706-2) 0.4 % GRAN MAT x10^3(ANC) (test code = 9811740095) 7.15 10*3/uL 1.99-6.95 H IMM GRAN x10^3 (test code = 2631311109) 0.05 10*3/uL 0.00-0.06 LYMPH x10^3 (test code = 731-0) 3.38 10*3/uL 1.09-3.23 H MONO x10^3 (test code = 742-7) 0.59 10*3/uL 0.36-1.02 EOS x10^3 (test code = 711-2) 0.04 10*3/uL 0.06-0.53 L BASO x10^3 (test code = 704-7) 0.05 10*3/uL 0.01-0.09 Lab Interpretation (test code = 09990-1) Abnormal [facility] [id number] 04:53:00* Test Item Value Reference Range Interpretation Comme nts TROPONIN I (test code = 9151328835) 0.001 ng/mL See_Comment [Automated message] The system [...] biotin. ? Lab Interpretation (test code = 44712-7) Normal [facility] ResourcesXR CHEST 1 [id number] 04:43:03No acute intrathoracic abnormality. Preliminary Report Dictated [...] reviewed this study and agree with theabove report.[facility] ResourcesTROPONIFroylan I 2020-02-17 02:14:00* Test Item Value Reference Range Interpretation Comme nts TROPONIN I (test code = 4138303323) 0.001 ng/mL See_Comment [Automated message] The system [...] biotin. ? Lab Interpretation (test code = 99409-0) Normal [facility] ResourcesCOMP. METABOLIC PANEL (91172)2020-02-17 02:03:00* Test Item Value Reference Range Interpretation Comme nts NA (test code = 8915609427) 139 mmol/L 135-145 K (test code = 6171371439) 3.9 mmol/L 3.5-5 CL (test code = 4873844636) 105 mmol/L 98-108 CO2 TOTAL (test code = 6095365640) 25 mmol/L 23-31 AGAP (test code = 4111613748) 2-16 BUN (test code = 5119451922) 19 mg/dL 7-23 GLUCOSE (test code = 4267820096) 115 mg/dL 70-110 H CREATININE (test code = 2388492997) 1.06 mg/dL 0.6-1.25 TOTAL BILI (test code = 2580210633) 0.4 mg/dL 0.1-1.1 CALCIUM (test code = 9645538357) 9.3 mg/dL 8.6-10.6 T PROTEIN (test code = 7198370241) 7.5 g/dL 6.3-8.2 ALBUMIN (test code = 0174962675) 4.1 g/dL 3.5-5 ALK PHOS (test code = 0908011532) 88 U/L 34-122 ALTv (test code = 1742-6) 20 U/L 5-50 AST(SGOT) (test code = 1828617900) 28 U/L 13-40 eGFR Calculation (Non-) (test code = 0058564566) mL/min/1.73m2 eGFR Calculation () (test code = 4916930852) mL/min/1.73m2 LOUIE (test code = LOUIE) Association [...] imaging tests). Lab Interpretation (test code = 87618-6) Abnormal [facility] ResourcesLIPASE, [id number] 02:03:00* Test Item Value Reference Range Interpretation Comme nts LIPASE (test code = 6925424925) 85 U/L 0-220 Lab Interpretation (test cod e = 72631-8) Normal [facility] ResourcesaPTT2020-09-25 01:50:00* Test Item Value Reference Range Interpretation Comme [facility] APTT Patient (test code = 3173-2) See_Comment [Automated message] The system which generated this result transmitted reference range: 23 - 38 Seconds. The reference range was not used to interpret this result as normal/abnormal. LOUIE (test code = LOUIE) The [facility] patient population mean normal value for aPTT is 30 seconds. Lab Interpretation (test code = 53628-0) Normal [facility] ResourcesPROTHROMBIN TIME / [id number] 01:48:00* Test Item Value Reference Range Interpretation Comme [facility] PROTIME PATIENT (test code = 5964-2) See_Comment H [Automated VisualCVa ge] The system which generated this result transmitted reference range: 12.0 - 14.7 Seconds. The reference range was not used to interpret this result as normal/abnormal. INR (test code = 6301-6) Normal INR <1.1; Warfarin Therapeutic range 2.0 to 3.0 or 2.5 to 3.5, depending upon the indications. Lab Interpretation (test code = 87946-3) Abnormal [facility] ResourcesCBC WITH [id number] 01:36:00* Test Item Value Reference Range Interpretation Comme [facility] WBC (test code = 6690-2) See_Comment H [Automated VisualCVa ge] The system which generated this result transmitted reference range: 4.20 - 10.70 10*3/?L. The reference range was not used to interpret this result as normal/abnormal. RBC (test code = 789-8) See_Comment [Automated VisualCVa ge] The system which generated this result [...] 34.6 g/dL 31.2-35 RDW-SD (test code = 50483-3) 42.9 fL 38.5-51.6 RDW-CV (test code = 788-0) 13.8 % 12.1-15.4 PLT (test code = 777-3) See_Comment [Automated messa ge] The system which generated this result transmitted reference range: 150 - 328 10*3/?L. The reference range was not used to interpret this result as normal/abnormal. MPV (test code = 14776-4) 11.3 fL 9.8-13 NRBC/100 WBC (test code = 3955179617) See_Comment [Automated [employer] ssage] The system which generated this result transmitted reference range: 0.0 - 10.0 /100 WBCs. The reference range was not used to interpret this result as normal/abnormal. NRBC x10^3 (test code = 2199268233) <0.01 See_Comment [Automated messa ge] The system which generated this result transmitted reference range: 10*3/?L. The reference range was not used to interpret this result as normal/abnormal. GRAN MAT (NEUT) % (test code = 770-8) 62.6 % IMM GRAN % (test code = 3746918333) 0.40 % LYMPH % (test code = 736-9) 31.0 % MONO % (test code = 5905-5) 5.2 % EOS % (test code = 713-8) 0.4 % BASO % (test code = 706-2) 0.4 % GRAN MAT x10^3(ANC) (test code = 1979440839) 7.04 10*3/uL 1.99-6.95 H IMM GRAN x10^3 (test code = 1710049694) 0.04 10*3/uL 0-0.06 LYMPH x10^3 (test code = 731-0) 3.49 10*3/uL 1.09-3.23 H MONO x10^3 (test code = 742-7) 0.59 10*3/uL 0.36-1.02 EOS x10^3 (test code = 711-2) 0.04 10*3/uL 0.06-0.53 L BASO x10^3 (test code = 704-7) 0.05 10*3/uL 0.01-0.09 Lab Interpretation (test code = 76861-5) Abnormal [facility] ResourcesADC,CLC OR LCC ONLY - INFLUENZA A & B DIRECT [id number] 23:48:00* Test Item Value Reference Range Interpretation Comme nts Influenza A (test code = 90620-8) Negative Negative Influenza B (test code = 98590-2) Negative Negative Lab Interpretation (test cod e = 32428-0) Normal [facility] ResourcesRAPID STREP SCREEN FOR GROUP [id number] 23:32:00* Test Item Value Reference Range Interpretation Comme nts Streptococcus pyogenes (grou p A) antigen (test code = 95046-0) Negative Negative Lab Interpretation (test cod e = 75744-8) Normal [facility] Notes Date/Time Note Provider Source Jose Adamson [facility]"
[2025-02-10 08:12] LABS: Influenza A Ag Negative
[2025-02-10 08:13] LABS: Influenza B Ag Negative; SARS-CoV-2 Antigen Rapid Res Negative (Negative)
--- NOTE | 2025-02-10 08:18 | RAD REPORT ---
EXAMINATION: TWO VIEW CHEST XR CLINICAL INDICATION: Male, 39 years old. [facility] MAIN COUGH Bed Name: 4 TECHNIQUE: 2 view radiographs of the chest were performed. COMPARISON: 01/22/2024 FINDINGS: The lungs are well inflated and clear. No pneumothorax or sizable effusion. The heart is normal in si ze. Mediastinal contours are unremarkable. IMPRESSION: No acute or significant abnormalities.
--- NOTE | 2025-02-10 08:36 | ER ---
Nurse's Notes [facility] Name: Raza Causey Age: 39 yrs Sex: Male : 1985 Arrival Date: 02/10/2025 Time: 07:13 Bed 4 Private MD: Diagnosis: Acute upper respiratory infection, unspecified Presentation: 02/10 07:28 Chief complaint: Patient states: c/o sore throat and productive cough that started 3 nh2 days ago. Coronavirus screen: cough unrelated to allergies, fatigue, sore throat. Ebola Screen: Patient denies travel to an Ebola-affected area in the 21 days before illness onset. No symptoms or risks identified at this time. Initial Sepsis Screen: Does the patient meet any 2 criteria? No. Patient's initial sepsis screen is negative. Does the patient have a suspected source of infection? No. Patient's initial sepsis screen is negative. Risk Assessment: Do you want to hurt yourself or someone else? Patient reports no desire to harm self or others. Onset of symptoms was February 07, 2025. 07:28 Method Of Arrival: Ambulatory nh2 07:28 Acuity: DEBO 4 nh2 Triage Assessment: 07:30 General: Appears in no apparent distress. Behavior is calm, cooperative, appropriate nh2 for age. Pain: Complains of pain in throat Pain radiates to chest Pain currently is 0 out of 10 on a pain scale. at worst was 4 out of 10 on a pain scale. Quality of pain is described as aching, Pain began 2-3 days ago. Is intermittent, Aggravated by coughing. EENT: No signs and/or symptoms were reported regarding the EENT system. Neuro: Level of Consciousness is awake, alert, obeys commands, Oriented to person, place, time, situation, Appropriate for age Denies weakness. Cardiovascular: Denies chest pain, Patient's skin is warm and dry. Respiratory: Reports cough that is productive, Airway is patent Trachea midline Respiratory effort is even, unlabored, Respiratory pattern is regular, symmetrical. GI: Abdomen is round non-distended, Patient currently denies nausea, vomiting. : No signs and/or symptoms were reported regarding the genitourinary system. Denies burning with urination. Derm: Skin is pink, warm \T\ dry. Skin temperature is warm. Musculoskeletal: Range of motion: intact in all extremities. 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 - Infectious Disease History:: Denies. - Social history:: Smoking status: Patient denies any tobacco usage or history of. Screenin:[facility] ED Fall Risk Assessment (Adult) History of falling in the last 3 months, nh2 including since admission No falls in past 3 months (0 pts) Confusion or Disorientation No (0 pts) Intoxicated or Sedated No (0 pts) Impaired Gait No (0 pts) Mobility Assist Device Used No (0 pt) Altered Elimination No (0 pt) Score/Fall Risk Level 0 - 2 = Low Risk Oriented to surroundings, Maintained a safe environment, Educated pt \T\ family on fall prevention, incl call for assistance when getting out of bed, Assessed \T\ reinforced patient's understanding of fall precautions. Abuse screen: Denies threats or abuse. Denies injuries from another. Nutritional screening: No deficits noted. Tuberculosis screening: No symptoms or risk factors identified. Assessment: 07:32 Reassessment: see triage. nh2 07:45 Reassessment: pt transported to x-ray via wheelchair. nh2 Vital Signs: 07:28 BP 136 / 95; Pulse 71; Resp 18; Temp 98.2(O); Pulse Ox 99% on R/A; Weight 102.06 kg nh2 (R); Height 5 ft. 9 in. ; 08:04 BP 126 / 93; Pulse 68; Resp 18; Pulse Ox 98% on R/A; nh2 08:43 BP 120 / 81; Pulse 69; Resp 18; Pulse Ox 100% on R/A; nh2 07:28 Body Mass Index 33.23 (102.06 kg, 175.26 cm) nh2 ED Course: 07:16 Patient arrived in ED. im 07:18 Royce Dudley DO is Attending Physician. ms3 07:21 Arm band placed on Patient placed in an exam room, on a stretcher. ll1 07:26 Yunoir Fonseca Jr, RN is Primary Nurse. nh2 07:30 Triage completed. nh2 07:38 Patient has correct armband on for positive identification. Bed in low position. Call nh2 light in reach. Side rails up X 1. Provided Education on: using call light for assistance. 07:40 COVID swab sent to lab. Flu and/or RSV swab sent to lab. nh2 07:58 Chest Pa And Lat (2 Views) XRAY In Process Unspecified. EDMS 08:04 COVID-19 Ag + Flu A+B Ag Sent. nh2 08:35 Tam Arguelles DO is Referral Physician. ms3 08:48 No provider procedures requiring assistance completed. Patient did not have IV access nh2 during this emergency room visit. Administered Medications: No medications were administered Medication: 07:45 VIS not applicable for this client. nh2 Outcome: 08:35 Discharge ordered by MD. ms3 08:48 Discharged to home ambulatory, nh2 08:48 Condition: good 08:48 Discharge instructions given to patient, Instructed on discharge instructions, follow up and referral plans. medication usage, Demonstrated understanding of instructions, follow-up care, medications, Prescriptions given X 2, 08:48 Patient left the ED. nh2 Signatures: Dispatcher [employer] EDMS Zelalem Garcia, RN RN ll1 Royce Dudley DO DO ms3 Karli Adan Jr, Noel, RN RN nh2 Corrections: (The following items were deleted from the chart) 08:07 07:28 Acuity: DEBO 4 nh2 nh2
--- NOTE | 2025-02-10 08:36 | EDPHYS ---
Physician Documentation [facility] Name: Raza Causey Age: 39 yrs Sex: Male : 1985 Arrival Date: 02/10/2025 Time: 07:13 Bed 4 Private MD: ED Physician Royce Dudley HPI: 02/10 07:32 This 39 yrs old Male presents to ER via Ambulatory with complaints of Flu ms3 Symptoms. 07:32 39-year-old male with past medical history of ADD/ADHD, anxiety, diabetes, ms3 hypertension, migraines presents to the emergency department for, rhinorrhea, cough, congestion, sore throat, eye pressure that became worse yesterday. Patient denies fevers or chills. Patient denies sick contacts. Patient states his discomfort is a 4/10.. 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 - Infectious Disease History:: Denies. - Social history:: Smoking status: Patient denies any tobacco usage or history of. ROS: 07:34 Abdomen/GI: Negative for abdominal pain, nausea, vomiting, diarrhea, and constipation, ms3 Skin: Negative for injury, rash, and discoloration, Neuro: Negative for headache, weakness, numbness, tingling. 07:34 Constitutional: Positive for body aches, 07:34 Respiratory: Positive for cough, Negative for Exam: 07:34 Constitutional: This is a well developed, well nourished patient who is awake, alert, ms3 and in no acute distress. Cardiovascular: Regular rate and rhythm with a normal S1 and S2. No gallops, murmurs, or rubs. Normal PMI, no JVD. No pulse deficits. Respiratory: Lungs have equal breath sounds bilaterally, clear to auscultation and percussion. No rales, rhonchi or wheezes noted. No increased work of breathing, no retractions or nasal flaring. Abdomen/GI: Soft, non-tender, with normal bowel sounds. No distension or tympany. No guarding or rebound. No evidence of tenderness throughout. Skin: Warm, dry with normal turgor. Normal color with no rashes, no lesions, and no evidence of cellulitis. MS/ Extremity: Pulses equal, no cyanosis. Neurovascular intact. Full, normal range of motion. 07:34 ENT: External ear(s): are unremarkable, Nose: Posterior pharynx: Tonsils: are normal in appearance, no enlargement, no erythema, no exudate, no ulcerations, Uvula: normal, swelling, is not appreciated, erythema, that is mild, exudate, is not appreciated, peritonsillar mass, is not appreciated, pooling of secretions, is not appreciated, Vital Signs: 07:28 BP 136 / 95; Pulse 71; Resp 18; Temp 98.2(O); Pulse Ox 99% on R/A; Weight 102.06 kg nh2 (R); Height 5 ft. 9 in. ; 08:04 BP 126 / 93; Pulse 68; Resp 18; Pulse Ox 98% on R/A; nh2 08:43 BP 120 / 81; Pulse 69; Resp 18; Pulse Ox 100% on R/A; nh2 07:28 Body Mass Index 33.23 (102.06 kg, 175.26 cm) nh2 MDM: 07:24 Medical Screening Exam initiated ms3 07:34 Differential diagnosis: flu, URI, COVID vs PNA. ms3 08:36 Data reviewed: vital signs, nurses notes, and as a result, I will discharge patient. ms3 Independent interpretation of the following test(s) in the Emergency Department X-Ray: My interpretation is CXR image reviewed by me does not reveal pneumonia. Counseling: I had a detailed discussion with the patient and/or guardian regarding the historical points, exam findings, and any diagnostic results supporting the discharge/admit diagnosis, lab results, radiology results, the need for outpatient follow up, to return to the emergency department if symptoms worsen or persist or if there are any questions or concerns that arise at home. Special discussion: I discussed with the patient/guardian in detail that at this point there is no indication for admission to the hospital. It is understood, however, that if the symptoms persist or worsen the patient needs to return immediately for re-evaluation. ED course: Discussed negative flu, COVID, chest x-ray with patient. Throat pain likely secondary to postnasal drip. Patient without exudates, enlarged tonsils, erythema of the tonsils. Patient to follow-up with primary care physician in 2 to 3 days. Patient understands and agrees with plan. All questions were answered. Return precautions were discussed include worsening symptoms, or any other concerns. 02/10 07:19 Order name: COVID-19 Ag + Flu A+B Ag; Complete Time: 08:29 ms3 02/10 07:31 Order name: Chest Pa And Lat (2 Views) XRAY; Complete Time: 08:29 ms3 Administered Medications: No medications were administered Disposition Summary: 02/10/25 08:35 Discharge Ordered Notes: Location: Home ms3 Condition: Stable ms3 Diagnosis - Acute upper respiratory infection, unspecified ms3 Followup: ms3 - With: Tam Arguelles DO - When: 2 - 3 days - Reason: Recheck today's complaints Discharge Instructions: - Discharge Summary Sheet ms3 - Upper Respiratory Infection, Adult ms3 Forms: - Medication Reconciliation Form ms3 - Antibiotic Education ms3 - Prescription Opioid Use ms3 - Patient Portal Instructions ms3 - Leadership Thank You Letter ms3 Prescriptions: - Claritin 10 mg Oral Tablet - take 1 tablet ORAL route once daily As needed; 30 tablet; Refills: 0, Product ms3 Selection Permitted - benzonatate 200 mg Oral capsule - take 1 capsule ORAL route 3 times per day as needed; 30 capsule; Refills: 0, ms3 Product Selection Permitted Signatures: Dispatcher [employer] Royce Friedman DO DO ms3 Yunior Fonseca Jr, RN RN nh2 Corrections: (The following items were deleted from the chart) 07: 07:19 COVID-19 Ag + Flu A+B [id number] ordered. EDMS EDMS
[2025-02-10 08:56] VITALS: TEMP 98.2
[2025-02-10 08:59] VITALS: BP 120/81; O2SAT 100
== END 2025-02-10 08:48 | disposition home or self-care (01) ==
LOC: ER 07:13
DX: J06.9 Acute upper respiratory infection, unspecified (principal); Z11.52 Encounter for screening for COVID-19
CPT/HCPCS: 36415; 71046; 87428; 99283

== ENCOUNTER 2025-03-04 15:07 | Emergency (ER) | payer BC ==
--- OUTSIDE RECORDS SUMMARY | 2025-03-04 15:13 | XMS REPORT | Continuity of Care Document ---
Author Name Unknown Address [address] [facility] [place] [address] [facility] [place] Address [address] 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 Role Phone Ct Smith Primary Care Physician OJAQUIM WORTHINGTON Attending Clinician Unavailable [id number] Attending Clinician Unavailable Erickson Sol MD Attending Clinician [phone] ERICKSON SOL Attending Clinician Unavailable Doctor Unassigned, [place] Attending Clinician U navailable Ziggy Alva Attending Clinician [phone] Siobhan Covarrubias Attending Clinician Payers Payer Name Policy Type Policy Number Effective Date Expirati on Date Source [facility] 2 [id number] 2024 00:00:00 [facility] [id number] 2019 00:00:00 Problems Condition Name Condition Details [...] Externa l NAIN (obstructi ve sleep apnea) NANI (obstructi ve sleep apnea) Disease Active Raegan Seybold - Externa l Anxiety Anxiety Disease Active Raegan Seybold - Externa l No known active problems No known active problems Disease [facility] Allergies, Adverse Reactions, Alerts Allergy Name Allergy Type Status Severity Reaction(s) Onset Date Inactive Date Treating Clinician Comments Source Atorvast atin Propensi ty to adverse reaction s to drug Active Myalgia 2023-05 00:00: 00 Raegan Scott - Externa l NO KNOWN ALLERGIE S Drug Class Active [facility] Social History Social Habit Start Date Stop Date Quantity Comments Source Sexual orientation Ziggy darcie Scott - External History of Occupation Raegan Scott - External History of tobacco use Cigarette Smoker Raegan augustine - External Exposure to SARS-CoV-2 (event) Not sure [facility] Alcoholic beverage intake 2024-10-14 00:00:00 2024-10-14 [...] Sejamiefawn - External Unknown if ever smoked [facility] Medications Ordered Medication Name Filled Medication Name Start Date Stop Date Current Medication? Ordering Clinician Indication Dosage Frequency Signature (SIG) Comments Components Source [place]-3 Fatty Acids (Fish Oil) 1200 MG oral Capsule 10-14 14:08: 12 Yes 1{capsu le} Q.5D Take 1 capsule by mouth in the morning and 1 capsule in the evening. Raegan kuhn Esomeprazol e Magnesium (NexIUM) 40 MG oral Delayed Release Capsule 10-14 00:00: 00 Yes [id number] 40mg QD Take 1 capsule (40 mg total) by mouth daily as needed (GERD). Raegan kuhn Propranolol HCl 10 MG oral Tablet 10-14 00:00: 00 Yes [id number] 10mg QD Take 1 tablet (10 mg total) by mouth daily as needed (anxiety). Raegan kuhn Doxycycline Hyclate 100 MG oral Tablet 10-14 00:00: 00 Yes [id number] 100mg Q.5D Take 1 tablet (100 mg total) by mouth 2 times daily. Raegan kuhn Ketoconazol e 2 % apply externally Cream 10-14 00:00: 00 Yes [id number] 1{appli cation} Q.5D Apply 1 Applicatio n topically 2 times daily. Raegan kuhn Metformin HCl 500 MG oral Tablet 10-14 00:00: 00 Yes [id number] 3 500mg QD Take 1 tablet (500 mg total) by mouth daily (with breakfast) . Raegan kuhn Fenofibrate 160 MG oral Tablet 10-03 00:00: 00 Yes [id number] 3 160mg QD Take 1 tablet (160 mg total) by mouth daily. Raegan kuhn Lisinopril 20 MG oral Tablet 10-03 00:00: 00 Yes [id number] 20mg QD Take 1 tablet (20 mg total) by mouth daily. Raegan kuhn Rosuvastati n Calcium 5 MG oral Tablet 06-13 00:00: 00 Yes [id number] 3 5mg QD Take 1 tablet (5 mg total) by mouth nightly. Raegan kuhn [place]-3 Fatty Acids (Fish Oil) 1200 MG oral Capsule 06-03 11:18: 38 Yes 1{capsu le} Q.5D Take 1 capsule by mouth 2 times daily. Raegan kuhn Triamcinolo ne Acetonide 0.1 % apply externally Cream 06-03 00:00: 00 Yes [id number] 1{appli cation} Q.5D Apply 1 Applicatio n topically 2 times daily. Raegan kuhn busPIRone HCl 5 MG oral Tablet 06-03 00:00: 00 10-14 00:00 :00 No [id number] 5mg Q.5D Take 1 tablet (5 mg total) by mouth 2 times daily as needed (anxiety). Raegan kuhn Mupirocin (BACTROBAN) 2 % apply externally Ointment 06-03 00:00: 00 10-14 00:00 :00 No [id number] 1{appli cation} Q.5D Apply 1 Applicatio n topically 2 times daily. Raegan kuhn Ketoconazol e 2 % apply externally Cream 06-03 00:00: 00 10-14 00:00 :00 No [id number] 1{appli cation} Q.5D Apply 1 Applicatio n topically 2 times daily. Raegan kuhn Lisinopril 20 MG oral Tablet 2023-05 00:00: 00 Yes [id number] 20mg QD Take 1 tablet (20 mg [...] MG oral Tablet 2023-05 00:00: 00 Yes [id number] 3 160mg QD Take 1 tablet (160 mg total) by mouth daily. Raegan kuhn LISINOPRIL- HCTZ 20-12.5 MG oral Tablet 2023-05 00:00: 00 Yes [id number] 1{tbl} QD Take 1 tablet by mouth daily. Raegan kuhn Pantoprazol e Sodium 40 MG oral Tablet Delayed Response 2023-05 00:00: 00 10-14 00:00 :00 No [id number] 40mg QD Take 1 tablet (40 mg total) by mouth daily. Raegan kuhn Metformin HCl 500 MG oral Tablet 2023-05 00:00: 00 10-14 00:00 :00 No [id number] 3 500mg QD Take 1 tablet (500 mg total) by mouth daily (with breakfast) . Raegan kuhn [place]-3 Fatty Acids (Fish Oil) 1000 MG oral Capsule 2023-05 00:00: 00 06-03 00:00 :00 No [id number] 3 1000mg Q.5D Take 1 capsule (1,000 mg total) by mouth 2 times daily. Raegan kuhn Bupropion HCL XL 150 MG OR TB24 2023-05 00:00: 00 06-03 00:00 :00 No [id number] 150mg QD Take 1 tablet (150 mg [...] 2022-05 00:00: 00 09-17 00:00 :00 [place] [id number] Jose Mcbride TAKE 1 TABLET DAILY. 2022-05 [...] ONCE, 1 dose, Tu08/21/20 at 1045, STAT [facility] ketorolac (TORADOL) injection 30 mg 02-16 05:15: 00 02-16 04:03 :00 No 30mg 30 mg, Slow IV Push, ONCE, 1 dose, 02/17/20 at 0015, JONAS
Fa culty member approving Restricted medication : Ziggy SAN [facility] ibuprofen 600 mg tablet 02-16 00:00: 00 Yes [id number] 600mg Take 1 tablet by mouth every 6 (six) hours as needed for Pain (scale 4-6). [facility] ibuprofen (IBU) tablet 800 mg 06-12 23:45: 00 06-12 22:54 :00 No 800mg 800 mg, Oral, ONCE, 1 dose, 06/12/19 at 1745, JONAS [facility] amoxicillin 875 mg tablet 06-12 00:00: 00 06-23 05:59 :00 No [id number] 875mg Take 1 tablet by mouth 2 (two) times daily for 10 days. [facility] oseltamivir 75 mg capsule 06-12 00:00: 00 06-18 05:59 :00 No [id number] 75mg Take 1 capsule by mouth 2 (two) times daily for 5 days. [facility] albuterol 2.5 mg /3 mL (0.083 %) nebulizer solution 2018-05 00:00: 00 Yes [id number] 2.5mg Inhale 3 mL every 4 (four) hours as needed for Wheezing or Shortness of Breath. [facility] benzonatate 200 mg capsule 2017-05 220 00:00: 00 Yes 200mg Take 1 capsule by mouth 3 (three) times daily as needed for Cough. [facility] proMETHazin e 25 mg tablet 2017-05 00:00: 00 Yes 25mg Take 1 tablet by mouth every 6 (six) hours as needed for Nausea and Vomiting (N/V). [facility] traMADOL (ULTRAM) 50 mg tablet 2017-05 00:00: 00 Yes 50mg Take 1 tablet by mouth every 6 (six) hours as needed for Pain (scale 4-6). [facility] LISINOPRIL ORAL 01-28 20:38: 33 Yes Take by mouth. [facility] traMADOL 50 mg tablet 01-28 00:00: 00 Yes 50mg Take 1 tablet by mouth every 8 (eight) hours as needed for Pain (scale 4-6). [facility] Vital Signs Vital Name Observation Time Observation [...] Systolic blood pressure 2020-08-21 15:00:00 139 mm[Hg] [facility] Diastolic blood pressure 2020-08-21 15:00:00 103 mm[Hg] [facility] Heart rate 2020-08-21 15:00:00 77 /min [facility] Respiratory rate 2020-08-21 15:00:00 16 /min [facility] Oxygen saturation in Arterial blood by Pulse oximetry 2020-08-21 15:00:00 96 /min [facility] Body temperature 2020-08-21 12:54:00 36.89 Gini [facility] Body weight 2020-08-21 12:54:00 104.327 kg [facility] BMI 2020-08-21 12:54:00 33.97 kg/m2 [facility] Systolic blood pressure 2020-08-21 15:00:00 139 mm[Hg] [facility] Diastolic blood pressure 2020-08-21 15:00:00 103 mm[Hg] [facility] Heart rate 2020-08-21 15:00:00 77 /min [facility] 2020-08-21 15:00:00 16 /min [facility] Oxygen saturation in Arterial blood by Pulse oximetry 2020-08-21 15:00:00 96 /min [facility] Body temperature 2020-08-21 12:54:00 36.89 Gini [facility] Body weight 2020-08-21 12:54:00 104.327 kg [facility] BMI 2020-08-21 12:54:00 33.97 kg/m2 [facility] Systolic blood pressure 2020-02-17 05:00:00 124 mm[Hg] [facility] Diastolic blood pressure 2020-02-17 05:00:00 77 mm[Hg] [facility] Heart rate 2020-02-17 05:00:00 65 /min [facility] Respiratory rate 2020-02-17 05:00:00 16 /min [facility] Oxygen saturation in Arterial blood by Pulse oximetry 2020-02-17 05:00:00 97 /min [facility] Body temperature 2020-02-17 01:13:00 36.78 Gini [facility] Body weight 2020-02-17 01:13:00 107.049 kg [facility] BMI 2020-02-17 01:13:00 34.85 kg/m2 [facility] Systolic blood pressure 2020-02-17 05:00:00 124 mm[Hg] [facility] Diastolic blood pressure 2020-02-17 05:00:00 77 mm[Hg] [facility] Heart rate 2020-02-17 05:00:00 65 /min [facility] Respiratory rate 2020-02-17 05:00:00 16 /min [facility] Oxygen saturation in Arterial blood by Pulse oximetry 2020-02-17 05:00:00 97 /min [facility] Body temperature 2020-02-17 01:13:00 36.78 Gini [facility] Body weight 2020-02-17 01:13:00 107.049 kg [facility] BMI 2020-02-17 01:13:00 34.85 kg/m2 [facility] Body temperature 2019-06-13 00:13:36 37.22 Gini [facility] Systolic blood pressure 2019-06-12 22:12:00 155 mm[Hg] [facility] Diastolic blood pressure 2019-06-12 22:12:00 111 mm[Hg] [facility] Heart rate 2019-06-12 22:12:00 111 /min [facility] Respiratory rate 2019-06-12 22:12:00 18 /min [facility] Body height 2019-06-12 22:12:00 175.3 cm [facility] Body weight 2019-06-12 22:12:00 102.513 kg [facility] BMI 2019-06-12 22:12:00 33.37 kg/m2 [facility] Oxygen saturation in Arterial blood by Pulse oximetry 2019-06-12 22:12:00 99 /min [facility] Body temperature 2019-06-13 00:13:36 37.22 Gini [facility] Systolic blood pressure 2019-06-12 22:12:00 155 mm[Hg] [facility] Diastolic blood pressure 2019-06-12 22:12:00 111 mm[Hg] [facility] Heart rate 2019-06-12 22:12:00 111 /min [facility] Respiratory rate 2019-06-12 22:12:00 18 /min [facility] Body height 2019-06-12 22:12:00 175.3 cm [facility] Body weight 2019-06-12 22:12:00 102.513 kg [facility] BMI 2019-06-12 22:12:00 33.37 kg/m2 [facility] Oxygen saturation in Arterial blood by Pulse oximetry 2019-06-12 22:12:00 99 /min [facility] Heart Rate 2023-09-18 17:00:00 65.00 /min Ava en F Reed Respiratory Rate 2023-09-18 17:00:00 Jose F Reed BP Systolic 2023-09-18 17:00:00 143 mm[Hg] Step hen F Reed BP Diastolic 2023-09-18 17:00:00 97 mm[Hg] Silvano phen F Reed Weight Measured 2023-09-18 17:00:00 213.60 pounds Jose F Reed Height Measured 2023-09-18 17:00:00 67.72 inches Jose F Reed Body Temperature 2023-09-18 17:00:00 98.20 degrees Jose F Reed BP Systolic 2023-07-31 16:11:00 [...] Rate 2022-07-08 16:56:00 18.00 /min Jose F Rede BP Systolic 2022-04-04 17:16:00 132 mm[Hg] Step [...] CHEST 1 VW 2020-08-21 15:08:40 Erickson Sol [facility] CREATINE KINASE 2020-08-21 13:31:00 [facility]NES[facility] 2020-08-21 13:31:00 [facility]on [facility] THYROID STIMULATING HORMONE 2020-08-21 13:31:[address] [facility] HEPATIC FUNCTION PANEL ([id number]) (ALB,T.PRO,BILI T,BU/BC,ALT,AST,ALK PHOS) 2020-08-21 13:31:00 Erickson Sol [facility] BASIC METABOLIC PANEL (NA, K, CL, CO2, GLUCOSE, BUN, CREATININE, CA) 2020-08-21 13:31:[address] [facility] CBC WITH DIFF 2020-08-21 13:31:00 Erickson Sol [facility] URINALYSIS 2020-08-21 13:31:00 Erickson Sol [facility] ADC / LCC - DRUG SCREEN TRIAGE 2020-08-21 13:31:[address] [facility] COVID-19 (ID NOW RAPID TESTING) 2020-08-21 13:31:00 Erickson Sol [facility] NOTICE OF PRIVACY PRACTICES 2020-08-21 12:46:36 Doctor Unassigned, [place] [facility] CONSENT/REFUSAL FOR DIAGNOSIS AND TREATMENT 2020-08-21 12:46:21 Doctor Unassigned, [place] [facility] TROPONIN I 2020-02-17 03:49:00 Ziggy [facility] XR CHEST 1 VW 2020-02-17 02:30:42 Erickson Sol [facility] LIPASE 2020-02-17 01:21:00 [facility] TROPONIN I 2020-02-17 01:21:00 [facility]kson Sol [facility] COMP. METABOLIC PANEL ([id number]) 2020-02-17 01:21:00 Erickson Sol [facility] CBC WITH DIFF 2020-02-17 01:21:00 Erickson Sol [facility] PROTHROMBIN TIME / INR 2020-02-17 01:21:00 Aidan Sol [facility] ACTIVATED PARTIAL THRMPLAS AMY 2020-02-17 01:21:00 Erickson Sol [facility] EKG-12 LEAD 2020-02-17 01:18:35 [facility]on Sol [facility] NOTICE OF PRIVACY PRACTICES 2020-02-17 01:08:49 Doctor Unassigned, [place] [facility] CONSENT/REFUSAL FOR DIAGNOSIS AND TREATMENT 2020-02-17 01:08:34 Doctor Unassigned, [place] [facility] RAPID STREP SCREEN FOR GROUP A 2019-06-12 22:38:00 Siobhan Garza [facility] ADC,CLC OR LCC ONLY - INFLUENZA A & B DIRECT ANTIGEN 2019-06-12 22:38:00 Siobhan Garza [facility] CONSENT/REFUSAL FOR DIAGNOSIS AND TREATMENT 2019-06-12 22:06:34 Doctor Unassigned, [place] [facility] Encounters Start Date/Time End Date/Time Encounter Type Admission Type Attending [facility] Care Facility Care Department Encounter ID Source 2024-11-21 00:00:00 2024-11-21 00:00:00 Outpatient JOAQUIM WORTHINGTON [id number] Raegan Scott 2024-10-14 14:00:00 2024-10-14 14:00:00 Outpatient JOAQUIM WORTHINGTON [id number] Raegan Scott 2024-10-02 00:00:00 2024-10-02 00:00:00 Outpatient PREZAS, JOAQUIM FOSTER [id number] [facility] 2024-09-30 09:30:00 2024-09-30 09:30:00 Outpatient PREZAS, JOAQUIM FOSTER [id number] [facility] 2024-09-12 00:00:00 2024-09-12 00:00:00 Outpatient PREZAS, JOAQUIM FOSTER [id number] [facility] 2024-06-23 00:00:00 2024-06-23 00:00:00 Outpatient PREZAS, JOAQUIM FOSTER [id number] Ra[facility] 2024-06-13 00:00:00 2024-06-13 00:00:00 Outpatient PREZAS, JOAQUIM FOSTER [id number] Ra[facility] 2024-06-13 00:00:00 2024-06-13 00:00:00 Outpatient PREZAS, JOAQUIM FOSTER [id number] [facility] 2024-06-10 08:40:00 2024-06-10 08:40:00 Outpatient LABKaylan [facility] [id number] [facility] 2024-06-03 11:00:00 2024-06-03 11:00:00 Outpatient PREZAS, JOAQUIM FOSTER [id number] [facility] 2024-04-15 00:00:00 2024-04-15 00:00:00 Outpatient PREZAS, JOAQUIM FOSTER [id number] [facility] 2024-04-14 00:00:00 2024-04-14 00:00:00 Outpatient PREZAS, JOAQUIM FOSTER [id number] Ra[facility] 2024-04-13 10:15:00 2024-04-13 10:15:00 Outpatient PREZAS, JOAQUIM FOSTER [id number] [facility] 2024-03-15 17:15:08 2024-03-15 17:15:08 Outpatient SFA [facility] [id number] Jose Mcbride 2024-03-12 08:52:53 2024-03-12 08:52:53 Outpatient SFA [facility] [id number] Jose Mcbride 2024-03-09 17:19:22 2024-03-09 17:19:22 Outpatient SFA [facility]FA [id number] Jose Mcbride 2023-10-02 15:02:00 2023-10-02 15:02:00 Outpatient SFA SFA [id number] Jose Mcbride 2023-09-18 16:59:08 2023-09-18 16:59:08 Outpatient SFA SFA [id number] Jose Mcbride 2023-09-18 00:00:00 2023-09-18 00:00:00 Outpatient Visit SFA [id number] Jose Mcbride 2023-08-01 09:13:04 2023-08-01 09:13:04 Outpatient SFA SFA [id number] Jose Mcbride 2023-07-31 16:05:03 2023-07-31 16:05:03 Outpatient SFA SFA [id number] Jose Mcbride 2023-06-16 16:47:34 2023-06-16 16:47:34 Outpatient SFA SFA [id number] Jose Mcbride 2023-03-20 08:12:25 2023-03-20 08:12:25 Outpatient SFA SFA [id number] Jose Mcrbide 2023-03-14 11:22:44 2023-03-14 11:22:44 Outpatient SFA SFA [id number] Jose Mcbride 2023-03-11 17:06:31 2023-03-11 17:06:31 Outpatient SFA SFA [id number] Jose Mcbride 2022-11-29 13:34:42 2022-11-29 13:34:42 Outpatient SFA SFA [id number] Jose Mcbride 2022-07-11 08:00:18 2022-07-11 08:00:18 Outpatient SFA SFA [id number] Jose Mcbride 2022-07-08 16:50:35 2022-07-08 16:50:35 Outpatient SFA SFA [id number] Jose Mcbride 2022-04-07 08:15:31 2022-04-07 08:15:31 Outpatient [facility] [id number] Jose Mcbride 2022-04-04 17:00:04 2022-04-04 17:00:04 Outpatient [facility] [id number] Jose Mcbride 2020-08-21 07:58:00 2020-08-21 10:27:00 Emergency Ebenezer [facility] [id number] [facility] 2020-08-21 07:58:00 2020-08-21 10:27:00 [facility] [id number] 2020-08-21 07:48:00 2020-08-21 07:48:00 Emergency X EBENEZER [facility] [id number] [facility] 2020-08-21 00:00:00 2020-08-21 00:00:00 Orders Only Doctor Unassigned, [place] [facility] [id number] [facility] 2020-08-21 00:00:00 2020-08-21 00:00:00 Orders Only Doctor Unassigned, [place] [facility] [id number] 2020-02-16 21:41:00 2020-02-17 00:50:00 Emergency Ziggy [facility] [id number] [facility] 2020-02-16 21:41:00 2020-02-17 00:50:00 Emergency Ziggy [facility] [id number] 2020-02-16 20:06:00 2020-02-16 20:06:00 Emergency X [facility] E[facility] [id number] [facility] 2019-06-12 16:15:07 2019-06-12 18:19:00 Emergency Siobhan Garza [facility] [id number] [facility] 2019-06-12 16:15:07 2019-06-12 18:19:00 Emergency Siobhan Garza [facility] [id number] Results Test Description Test Time Test Comments Results Result Co mments Source COMPREHENSIVE METABOLIC [id number] 21:56:54* Test Item Value Reference Range Interpretation Comme nts GLUCOSE (test code = 2217) 131 MG/DL 70-99 H BUN (test code = 2208) 14 MG/DL 6-20 CREATININE (test code = 2214) 0.92 MG/DL 0.80-1.40 eGFR (2020 CKD-EPI) (test code = 31667) 108 ML/MIN/1.73 >60 CALC BUN/CREAT (test code [...] code = 2219) 23 U/L 5-50 LIPID [id number] 21:56:54* Test Item Value Reference Range Interpretation [...] SPECIMENS. FOR MOREINFORMATION, SEE CLIENT ANNOUNCEMENT AT [email or web address] /CalcLDL-C RISK RATIO LDL/HDL (test code = 2238) 4.77 RATIO <3.55 H HEMOGLOBIN [id number] 02:50:37* Test Item Value Reference Range Interpretation Comme nts HEMOGLOBIN A1c (test code = 08560) 6.3 % 4.2-5.6 H [employer] GUIDELINES FOR HGB A1C: [...] CONSIDER ALTERNATE TESTING OR LABORATORY CONSULTATION. LIPID [id number] 01:43:07* Test Item Value Reference Range Interpretation [...] SPECIMENS. FOR MOREINFORMATION, SEE CLIENT ANNOUNCEMENT AT [email or web address] /CalcLDL-C RISK RATIO LDL/HDL (test code = 2238) 2.97 RATIO <3.55 UNLESS OTHERW ISE INDICATED, ALL TESTING PERFORMED AT [facility] [address] [place] [address] BOX STAPLER: JACQUIE WILHELM M.D. CLIA NUMBER [id number] [facility] [place] [id number] LIPID [id number] 00:00:00* Test Item Value Reference Range Interpretation Comme nts CHOLESTEROL (test code = 2210) 153 MG/DL TRIGLYCERIDES (test code = 2232) 163 MG/DL HDL CHOLESTEROL (test code = 2220) 32 MG/DL CALC LDL CHOL (test code = 2237) 95 MG/DL RISK RATIO LDL/HDL (test cod e = 2238) 2.97 RATIO Jose McbrideHEMOGLOBIN [id number] 03:48:13* Test Item Value Reference Range Interpretation Comme nts HEMOGLOBIN A1c (test code = 73640) 6.0 % 4.2-5.6 H [employer] GUIDELINES FOR HGB A1C: [...] CONSIDER ALTERNATE TESTING OR LABORATORY CONSULTATION. HEMOGLOBIN [id number] 00:00:00* Test Item Value Reference Range Interpretation Comme nts HEMOGLOBIN A1c (test code = 00992) 6.0 % Jose McbrideLIPID [id number] 03:51:09* Test Item Value Reference Range Interpretation [...] SPECIMENS. FOR MOREINFORMATION, SEE CLIENT ANNOUNCEMENT AT http://[email or web address] /CalcLDL-C RISK RATIO LDL/HDL (test code = 2238) 4.00 RATIO <3.55 H COMPREHENSIVE METABOLIC [id number] 03:51:09* Test Item Value Reference Range Interpretation Comme nts GLUCOSE (test code = 2217) 110 MG/DL 70-99 H BUN (test code = 2207) 16 MG/DL 6-20 CREATININE (test code = 221) 0.86 MG/DL 0.80-1.40 eGFR (2020 CKD-EPI) (test code = 46399) 113 ML/MIN/1.73 >60 CALC BUN/CREAT (test code [...] [facility] [address] [place] [address] BOX STAPLER: JACQUIE WILHELM M.D. CLIA NUMBER [id number] [facility] [place]. [id number] HEMOGLOBIN [id number] 03:40:45* Test Item Value Reference Range Interpretation Comme nts HEMOGLOBIN A1c (test code = 79479) 5.6 % 4.2-5.6 HEMOGLOBIN [id number] 00:00:00* Test Item Value Reference Range Interpretation Comme nts HEMOGLOBIN A1c (test code = 83547) 5.6 % Jose McbrideLIPID [id number] 00:00:00* Test Item Value Reference Range Interpretation Comme nts CHOLESTEROL (test code = 2210) 174 MG/DL TRIGLYCERIDES (test code = 2232) 174 MG/DL HDL CHOLESTEROL (test code = 2220) 29 MG/DL CALC LDL CHOL (test code = 2237) 116 MG/DL RISK RATIO LDL/HDL (test cod e = 2238) 4.00 RATIO Jose McbrideCOMPREHENSIVE METABOLIC [id number] 00:00:00* Test Item Value Reference Range Interpretation Comme nts GLUCOSE (test code = 2217) 110 MG/DL BUN (test code = 2208) 16 MG/DL CREATININE (test code = 2214) 0.86 MG/DL eGFR (2020 CKD-EPI) (test code = 61049) 113 ML/MIN/1.73 CALC BUN/CREAT (test code = [...] code = 2219) 17 U/L Jose McbrideLIPID [id number] 01:53:14* Test Item Value Reference Range Interpretation [...] SPECIMENS. FOR MOREINFORMATION, SEE CLIENT ANNOUNCEMENT AT [email or web address] /CalcLDL-C RISK RATIO LDL/HDL (test code = 2238) 3.67 RATIO <3.55 H [facility] has i mportant pathology staff changes effective 07/23/2022. New pathology staff will provide uninterrupted, excellent patient care and clinical consultation. See URL: [email or web address]. UNLESS OTHERWISE INDICATED, ALL TESTING PERFORMED AT [facility] [address] [place] [address] CLIA: [id number], CAP: [id number] LIPID [id number] 00:00:00* Test Item Value Reference Range Interpretation Comme nts CHOLESTEROL (test code = 2210) 176 MG/DL TRIGLYCERIDES (test code = 2232) 116 MG/DL HDL CHOLESTEROL (test code = 2220) 33 MG/DL CALC LDL CHOL (test code = 2237) 121 MG/DL RISK RATIO LDL/HDL (test cod e = 2238) 3.67 RATIO Jose McbrideHEMOGLOBIN [id number] 00:00:00* Test Item Value Reference Range Interpretation Comme nts HEMOGLOBIN A1c (test code = 91991) 5.9 % Jose McbrideCOMPREHENSIVE METABOLIC [id number] 00:00:00* Test Item Value Reference Range Interpretation Comme nts GLUCOSE (test code = 2217) 93 MG/DL BUN (test code = 2208) 19 MG/DL CREATININE (test code = 2214) 0.91 MG/DL eGFR (2020 CKD-EPI) (test code = 16071) 111 ML/MIN/1.73 CALC BUN/CREAT (test code = [...] code = 2219) 16 U/L Jose Malagon ZeptorLIPID [id number] 00:00:00* Test Item Value Reference Range Interpretation Comme nts CHOLESTEROL (test code = 2210) 211 MG/DL TRIGLYCERIDES (test code = 2232) 142 MG/DL HDL CHOLESTEROL (test code = 2220) 33 MG/DL CALC LDL CHOL (test code = 2237) 151 MG/DL RISK RATIO LDL/HDL (test cod e = 2238) 4.58 RATIO Jose Malagon AustinLIPID [id number] 04:16:00* Test Item Value Reference Range Interpretation [...] SPECIMENS. FOR MOREINFORMATION, SEE CLIENT ANNOUNCEMENT AT [email or web address] RISK RATIO LDL/HDL (test code = 2238) 6.17 RATIO <3.55 H TSH, THIRD [id number] 03:58:52* Test Item Value Reference Range Interpretation Comme nts TSH, THIRD GENERATION (test code = 2821) 0.715 UIU/ML 0.400-4.100 UNLESS OTHERWISE INDICATED, ALL [facility] [address] [place] [address] B[address]AP[address]ER: ELA CAMPBELL M.D. CLIA NUMBER [id number] [facility] [place] [id number] LIPID [id number] 00:00:00* Test Item Value Reference Range Interpretation Comme nts CHOLESTEROL (test code = 2210) 257 MG/DL TRIGLYCERIDES (test code = 2232) 229 MG/DL HDL CHOLESTEROL (test code = 2220) 30 MG/DL CALC LDL CHOL (test code = 2237) 185 MG/DL RISK RATIO LDL/HDL (test cod e = 2238) 6.17 RATIO Jose Malagon [id number] 00:00:00* Test Item Value Reference Range Interpretation Comme nts TSH, THIRD GENERATION (test code = 2821) 0.715 UIU/ML Jose Malagon AustinLIPID [id number] 00:00:00* Test Item Value Reference Range Interpretation Comme nts CHOLESTEROL (test code = 2210) 143 MG/DL TRIGLYCERIDES (test code = 2232) 122 MG/DL HDL CHOLESTEROL (test code = 2220) 29 MG/DL CALC LDL CHOL (test code = 2237) 92 MG/DL RISK RATIO LDL/HDL (test cod e = 2238) 3.17 RATIO Jose McbrideCOMPREHENSIVE METABOLIC [id number] 00:00:00* Test Item Value Reference Range Interpretation Comme nts GLUCOSE (test code = 2217) 122 MG/DL BUN (test code = 2208) 15 MG/DL CREATININE (test code = 2214) 0.84 MG/DL eGFR AMER. (test cod e = 69633) 130 ML/MIN/1.73 eGFR NON- AMER. (test code = 04947) 112 ML/MIN/1.73 CALC BUN/CREAT (test code = [...] = 2219) 10 U/L Jose Malagon ReedLIPID [id number] 00:00:00* Test Item Value Reference Range Interpretation Comme nts CHOLESTEROL (test code = 2210) 306 MG/DL TRIGLYCERIDES (test code = 2232) 1458 MG/DL HDL CHOLESTEROL (test code = 2220) 18 MG/DL CALC LDL CHOL (test code = 2237) (NOTE) MG/DL RISK RATIO LDL/HDL (test cod e = 2238) (NOTE) RATIO Jose McbrideCOMPREHENSIVE METABOLIC [id number] 00:00:00* Test Item Value Reference Range Interpretation Comme nts GLUCOSE (test code = 2217) 92 MG/DL BUN (test code = 2208) 14 MG/DL CREATININE (test code = 2214) 0.83 MG/DL eGFR AMER. (test cod e = 53803) 130 ML/MIN/1.73 eGFR NON- AMER. (test code = 97142) 112 ML/MIN/1.73 CALC BUN/CREAT (test code = [...] code = 2219) 28 U/L Jose McbrideLIPID [id number] 00:00:00* Test Item Value Reference Range Interpretation Comme nts CHOLESTEROL (test code = 2210) 261 MG/DL TRIGLYCERIDES (test code = 2232) 1248 MG/DL HDL CHOLESTEROL (test code = 2220) 22 MG/DL CALC LDL CHOL (test code = 2237) (NOTE) MG/DL RISK RATIO LDL/HDL (test cod e = 2238) (NOTE) RATIO Jose McbrideXR CHEST 1 [id number] 15:10:55HISTORY: Cough. TECHNIQUE: Portable AP erect view [...] limits. CONCLUSIONS: No signs of acute cardiopulmonary disease.[facility] / [facility] - DRUG SCREEN [id number] 15:06:33* Test Item Value Reference Range Interpretation Comme nts BENZO U (test code = 4849936616) Negative Negative HARRIETT U (test code = 6451075845) Negative Negative AMPHET (test code = 7489694975) Presumptive Positive Negative A THC (test code = 0566698630) Negative Negative METHADONE (test code = 9215387579) Negative Negative Meth U (test code = 4444253633) Presumptive Positive Negative A OPIATES (test code = 5156998765) Negative Negative Cocaine Metabolite (test code = 1080217659) Negative Negative PROPOXY (test code = 3922743373) Negative Negative Tric U (test code = 0526805305) Negative Negative PCP (test code = 8632384395) Negative Negative OXYCOD (test code = 7572358474) Negative Negative LOUIE (test code = LOUIE) [...] legal testing). Lab Interpretation (test code = 41766-0) [facility]normal [facility] CenterTHY[facility]ID STIMULATING [id number] 14:41:43 * Test Item Value Reference Range Interpretation Comme nts TSH (test code = 6927299625) See_Comment [Automated messa ge] The system which generated this result transmitted reference range: 0.45 - 4.70 mIU/L. The reference range was not used to interpret this result as normal/abnormal. Lab Interpretation (test code = 78409-5) Normal [facility] CenterMAGNESIUM2021-03-30 14:13:20* Test Item Value Reference Range Interpretation Comme nts MAGNESIUM (test code = 8679522256) 1.7 mg/dL 1.7-2.4 Lab Interpretation (test cod e = 28862-1) Normal [facility] CenterCOVID[facility] (ID NOW RAPID TESTING)2020-08-21 14:13:20* Test Item Value Reference Range Interpretation Comme nts SARS-CoV-2 Rapid ID NOW (test code = 11105-2) Not Detected Not Detected LOUIE (test code = LOUIE) ID NOW COVID-19 As say is an isothermal nucleic acid amplification test intended for the qualitative detection of nucleic acid from SARS-CoV-2 viral RNA in nasopharyngeal ([facility]) specimens. It is used under Emergency Use [...] clinically indicated. Lab Interpretation (test code = 84820-7) Normal [facility]Ba[facility] (NA, K, CL, CO2, GLUCOSE, BUN, CREATININE, CA)2020-08-21 14:13:15* Test Item Value Reference Range Interpretation Comme nts NA (test code = 8941710353) 138 mmol/L 135-145 K (test code = 9964055948) 3.8 mmol/L 3.5-5.0 CL (test code = 2059132982) 108 mmol/L 98-108 CO2 TOTAL (test code = 0346091748) 23 mmol/L 23-31 AGAP (test code = 9618904466) 2-16 BUN (test code = 2476445050) 14 mg/dL 7-23 GLUCOSE (test code = 5770837328) 123 mg/dL 70-110 H CREATININE (test code = 3014510367) 0.83 mg/dL 0.60-1.25 CALCIUM (test code = 9337802040) 8.7 mg/dL 8.6-10.6 eGFR Calculation (Non-) (test code = 1497502676) mL/min/1.73m2 eGFR Calculation () (test code = 0177290960) mL/min/1.73m2 LOUIE (test code = LOUIE) Association [...] imaging tests). Lab Interpretation (test code = 22483-6) Abnormal [facility] CenterHep[facility] Function Panel (ALB, T.PRO, BILI T, BU/BC, ALT, AST, ALK PHOS)2020-08-21 14:13:15* Test Item Value Reference Range Interpretation Comme nts TOTAL BILI (test code = 5959989261) 0.5 mg/dL 0.1-1.1 BILI UNCON (test code = 5342206368) 0.3 mg/dL 0.1-1.1 BILI CONJ (test code = 1767946358) 0.0 mg/dL 0.0-0.3 T PROTEIN (test code = 3889334112) 7.1 g/dL 6.3-8.2 ALBUMIN (test code = 8829581844) 4.2 g/dL 3.5-5.0 ALK PHOS (test code = 6440197447) 93 U/L 34-122 ALTv (test code = 1742-6) 21 U/L 5-50 AST(SGOT) (test code = 2549103851) 25 U/L 13-40 Lab Interpretation (test cod e = 52970-6) Normal [facility] CenterCREATINE [id number] 14:13:14* Test Item Value Reference Range Interpretation Comme nts CK (test code = 6684547116) 74 U/L 33-194 Lab Interpretation (test cod e = 24669-4) Normal [facility] CenterURINALYSIS2021-03-30 14:12:24* Test Item Value Reference Range Interpretation Comme nts APPEARANCE (test code = 7352519985) Hazy Clear A COLOR (test code = 8395652034) Yellow Yellow PH (test code = 1696335339) 4.8-8.0 SP GRAVITY (test code = 1446442835) 1.003-1.030 GLU U QUAL (test code = 1703709144) Normal Normal BLOOD (test code = 6677920531) 1+ Negative A KETONES (test code = 7197392517) Negative Negative PROTEIN (test code = 2887-8) 30 mg/dL Negative A UROBILIN (test code = 2845864285) 2.0 mg/dL Normal A BILIRUBIN (test code = 6436844902) Negative Negative NITRITE (test code = 3601063289) Negative Negative LEUK DEANGELO (test code = 0484945963) 25/uL Negative A RBC/HPF (test code = 2498574704) See_Comment H [Automated Figmenta ge] The system which generated this result transmitted reference range: 0 - 3 HPF. The reference range was not used to interpret this result as normal/abnormal. WBC/HPF (test code = 4123030928) See_Comment [Automated Figmenta ge] The system which generated this result transmitted reference range: 0 - 5 HPF. The reference range was not used to interpret this result as normal/abnormal. BACTERIA (test code = 0264951679) Few Negative A MUCOUS (test code = 0884087247) Slight Negative LPF A AMORPHOUS (test code = 2681319268) Few Rare HPF A CA OXALATE (test code = 3994581573) See_Comment [Automated Figmenta ge] The system which generated this result transmitted reference range: <=1 HPF. The reference range was not used to interpret this result as normal/abnormal. YEAST BUD (test code = 7949713108) <1 See_Comment [Automated Figmenta ge] The system which generated this result transmitted reference range: <=1 HPF. The reference range was not used to interpret this result as normal/abnormal. Lab Interpretation (test code = 79326-3) Abnormal [facility] with [id number] 13:52:37* Test Item Value Reference Range Interpretation [...] 34.3 g/dL 31.2-35.0 RDW-SD (test code = 60444-1) 40.7 fL 38.5-51.6 RDW-CV (test code = 788-0) 13.2 % 12.1-15.4 PLT (test code = 777-3) See_Comment [Automated messa ge] The system which generated this result transmitted reference range: 150 - 328 10*3/?L. The reference range was not used to interpret this result as normal/abnormal. MPV (test code = 59518-4) 10.1 fL 9.8-13.0 NRBC/100 WBC (test code = 0119716811) See_Comment [Automated me ssage] The system which generated this result transmitted reference range: 0.0 - 10.0 /100 WBCs. The reference range was not used to interpret this result as normal/abnormal. NRBC x10^3 (test code = 4718842553) <0.01 See_Comment [Automated messa ge] The system which generated this result transmitted reference range: 10*3/?L. The reference range was not used to interpret this result as normal/abnormal. GRAN MAT (NEUT) % (test code = 770-8) 63.6 % IMM GRAN % (test code = 4458756506) 0.40 % LYMPH % (test code = 736-9) 30.0 % MONO % (test code = 5905-5) 5.2 % EOS % (test code = 713-8) 0.4 % BASO % (test code = 706-2) 0.4 % GRAN MAT x10^3(ANC) (test code = 7159864885) 7.15 10*3/uL 1.99-6.95 H IMM GRAN x10^3 (test code = 1587221433) 0.05 10*3/uL 0.00-0.06 LYMPH x10^3 (test code = 731-0) 3.38 10*3/uL 1.09-3.23 H MONO x10^3 (test code = 742-7) 0.59 10*3/uL 0.36-1.02 EOS x10^3 (test code = 711-2) 0.04 10*3/uL 0.06-0.53 L BASO x10^3 (test code = 704-7) 0.05 10*3/uL 0.01-0.09 Lab Interpretation (test code = 56151-0) Abnormal [facility] [id number] 04:53:00* Test Item Value Reference Range Interpretation Comme nts TROPONIN I (test code = 2723158713) 0.001 ng/mL See_Comment [Automated message] The system [...] biotin. ? Lab Interpretation (test code = 75105-9) Normal [facility] CenterXR CHEST 1 [id number] 04:43:03No acute intrathoracic abnormality. Preliminary Report Dictated [...] reviewed this study and agree with theabove report.[facility] CenterTROPONIFroylan I 2020-02-17 02:14:00* Test Item Value Reference Range Interpretation Comme nts TROPONIN I (test code = 1618862377) 0.001 ng/mL See_Comment [Automated message] The system [...] biotin. ? Lab Interpretation (test code = 71937-2) Normal [facility] CenterCOMP. METABOLIC PANEL (45178)2020-02-17 02:03:00* Test Item Value Reference Range Interpretation Comme nts NA (test code = 4177922114) 139 mmol/L 135-145 K (test code = 7746995917) 3.9 mmol/L 3.5-5 CL (test code = 6889216620) 105 mmol/L 98-108 CO2 TOTAL (test code = 2682013512) 25 mmol/L 23-31 AGAP (test code = 5472537484) 2-16 BUN (test code = 2251449102) 19 mg/dL 7-23 GLUCOSE (test code = 0863974658) 115 mg/dL 70-110 H CREATININE (test code = 6149842148) 1.06 mg/dL 0.6-1.25 TOTAL BILI (test code = 6375286184) 0.4 mg/dL 0.1-1.1 CALCIUM (test code = 8844225079) 9.3 mg/dL 8.6-10.6 T PROTEIN (test code = 3285600682) 7.5 g/dL 6.3-8.2 ALBUMIN (test code = 3967758410) 4.1 g/dL 3.5-5 ALK PHOS (test code = 5696923318) 88 U/L 34-122 ALTv (test code = 1742-6) 20 U/L 5-50 AST(SGOT) (test code = 4553241365) 28 U/L 13-40 eGFR Calculation (Non-) (test code = 1855935386) mL/min/1.73m2 eGFR Calculation () (test code = 1622131457) mL/min/1.73m2 LOUIE (test code = LOUIE) Association [...] imaging tests). Lab Interpretation (test code = 11348-5) Abnormal [facility] CenterLIPASE, [id number] 02:03:00* Test Item Value Reference Range Interpretation Comme nts LIPASE (test code = 4488954527) 85 U/L 0-220 Lab Interpretation (test cod e = 17727-0) Normal [facility] CenteraPTT2020-09-25 01:50:00* Test Item Value Reference Range Interpretation Comme [facility] APTT Patient (test code = 3173-2) See_Comment [Automated message] The system which generated this result transmitted reference range: 23 - 38 Seconds. The reference range was not used to interpret this result as normal/abnormal. LOUIE (test code = LOUIE) The [facility] patient population mean normal value for aPTT is 30 seconds. Lab Interpretation (test code = 56007-3) Normal [facility] CenterPROTHROMBIN TIME / [id number] 01:48:00* Test Item Value Reference Range Interpretation Comme [facility] PROTIME PATIENT (test code = 5964-2) See_Comment H [Automated Figmenta Cegal] The system which generated this result transmitted reference range: 12.0 - 14.7 Seconds. The reference range was not used to interpret this result as normal/abnormal. INR (test code = 6301-6) Normal INR <1.1; Warfarin Therapeutic range 2.0 to 3.0 or 2.5 to 3.5, depending upon the indications. Lab Interpretation (test code = 71701-1) Abnormal [facility] CenterCBC WITH [id number] 01:36:00* Test Item Value Reference Range Interpretation Comme [facility] WBC (test code = 6690-2) See_Comment H [Automated Figmenta Cegal] The system which generated this result transmitted reference range: 4.20 - 10.70 10*3/?L. The reference range was not used to interpret this result as normal/abnormal. RBC (test code = 789-8) See_Comment [Automated Figmenta Cegal] The system which generated this result transmitted [...] 34.6 g/dL 31.2-35 RDW-SD (test code = 53577-5) 42.9 fL 38.5-51.6 RDW-CV (test code = 788-0) 13.8 % 12.1-15.4 PLT (test code = 777-3) See_Comment [Automated messa ge] The system which generated this result transmitted reference range: 150 - 328 10*3/?L. The reference range was not used to interpret this result as normal/abnormal. MPV (test code = 65069-8) 11.3 fL 9.8-13 NRBC/100 WBC (test code = 5408869719) See_Comment [Automated Whereoscope ssage] The system which generated this result transmitted reference range: 0.0 - 10.0 /100 WBCs. The reference range was not used to interpret this result as normal/abnormal. NRBC x10^3 (test code = 2470988496) <0.01 See_Comment [Automated Figmenta ge] The system which generated this result transmitted reference range: 10*3/?L. The reference range was not used to interpret this result as normal/abnormal. GRAN MAT (NEUT) % (test code = 770-8) 62.6 % IMM GRAN % (test code = 4985686430) 0.40 % LYMPH % (test code = 736-9) 31.0 % MONO % (test code = 5905-5) 5.2 % EOS % (test code = 713-8) 0.4 % BASO % (test code = 706-2) 0.4 % GRAN MAT x10^3(ANC) (test code = 6680931412) 7.04 10*3/uL 1.99-6.95 H IMM GRAN x10^3 (test code = 8864788373) 0.04 10*3/uL 0-0.06 LYMPH x10^3 (test code = 731-0) 3.49 10*3/uL 1.09-3.23 H MONO x10^3 (test code = 742-7) 0.59 10*3/uL 0.36-1.02 EOS x10^3 (test code = 711-2) 0.04 10*3/uL 0.06-0.53 L BASO x10^3 (test code = 704-7) 0.05 10*3/uL 0.01-0.09 Lab Interpretation (test code = 31644-7) Abnormal [facility] CenterADC,CLC OR [facility] ONLY - INFLUENZA A & B DIRECT [id number] 23:48:00* Test Item Value Reference Range Interpretation Comme nts Influenza A (test code = 95195-5) Negative Negative Influenza B (test code = 23386-3) Negative Negative Lab Interpretation (test cod e = 03639-6) Normal [facility] CenterRAPID STREP SCREEN FOR GROUP [id number] 23:32:00* Test Item Value Reference Range Interpretation Comme nts Streptococcus pyogenes (grou p A) antigen (test code = 06271-2) Negative Negative Lab Interpretation (test cod e = 10377-0) Normal [facility] Notes Date/Time Note Provider Source Jose Adamson [facility]"
[2025-03-04] MEDS ORDERED: KETOROLAC 30 MG/ML INJ ONE (15:39)
[2025-03-04 16:08] LABS: Absolute Lymphocytes (CBC) 2.0 K/uL (0.7-4.9); Hematocrit 43.9 % (39.6-49.0); Hemoglobin 14.7 g/dL (13.6-17.9); MCH 27.8 pg (27.0-35.0); MCHC 33.6 g/dL (32.0-36.0); MCV 82.9 fL (80-100); MPV 9.0 fL (7.6-11.3); Nucleated RBC Absolute Count 0.0 (0-0); Nucleated Red Blood Cells % 0.1 % (0-0); RBC Red Blood Cell Count 5.29 M/uL (4.33-5.43); White Blood Count 10.00 thou/uL (4.3-10.9)
[2025-03-04 16:36] LABS: Anion Gap 9.5 mEq/L (5.0-15.0); BUN Blood Urea Nitrogen 15.0 mg/dL (7-18); C-Reactive Protein 37.6 mg/L (<3.00); Glucose Level 126.0 mg/dL (74-106); Potassium 3.5 mEq/L (3.5-5.1)
--- NOTE | 2025-03-04 17:25 | RAD REPORT ---
EXAMINATION: CT MAXILLOFACIAL WITHOUT CONTRAST CLINICAL INDICATION: [facility] right lower jaw pain/swelling Bed Name: 10 TECHNIQUE: Axial images were obtained through the facial bones and orbits without intravenous contras t. Sagittal and coronal reconstructions were created from the data. One or more of the following dose reduction techniques were used: Automated exposure control, adjustment of the mA and/or kV accor ding to patient size, and/or iterative reconstruction. Unless otherwise specified, incidental findings do not require dedicated imaging follow-up. COMPARISON: No prior exam. FINDINGS: SOFT TISSUE: Right mandibular periapical collection probably relates to second premolar, with overlyi ng buccal cortical thinning and thin subperiosteal fluid collection measuring 11 x 10 mm in axial dimensions and 2 mm in thickness, suggesting a subperiosteal abscess.. Overlying soft tissue swelling along the right lower jaw, with platysma thickening, and skin and subcutaneous soft tissue edema. Postsurgical sequelae of left mandibular body resection and reconstruction with bone graft and plate and screw hardware. Mildly prominent lymph nodes in the right upper cervical levels, largest measuring 1 cm in short axis, likely reactive. BONES: No evidence of fracture, dislocation, or aggressive osseous lesions. No lesion of the visuali zed skull base or calvarium. ORBITS: The globes are intact. No intraorbital hemorrhage or mass. SINUSES: The paranasal sinuses and tympanomastoid cavities are predominantly clear. IMPRESSION: Right mandibular periapical collection probably relates to second premolar, with overlying buccal cor tical thinning and thin subperiosteal fluid collection measuring 11 x 10 mm in axial dimensions and 2 mm in thickness, suggesting a subperiosteal abscess. THIS REPORT CONTAINS FINDINGS THAT MAY BE CRITICAL TO PATIENT CARE. The findings were verbally commun icated via telephone to Lloyd Willson M.D. on 03/04/2025 5:19 PM.
[2025-03-04] MEDS ORDERED: CLINDAMYCIN 900MG/D5W 900 MG/50 ML IVPB IV ONE (17:37)
--- NOTE | 2025-03-04 18:07 | EDPHYS ---
Physician Documentation [facility] Name: Raza Causey Age: 39 yrs Sex: Male : 1985 Arrival Date: 03/04/2025 Time: 15:07 Bed 10 Private MD: ED Physician Lloyd Willson HPI: 03/04 15:35 This 39 yrs old Male presents to ER via Ambulatory with complaints of Jaw Pain.cp 15:35 The patient presents with pain, swelling. The problem is located in the right lower cp jaw. Onset: The symptoms/episode began/occurred 2 day(s) ago. 15:35 Duration: The symptoms are continuous, and are steadily getting worse. Modifying cp factors: the symptoms are aggravated by chewing. Associated signs and symptoms: Pertinent positives: swelling, mandibular, Pertinent negatives: anorexia, chills, dysphagia, fever, inability to eat. Severity of symptoms: in the emergency department the symptoms are unchanged, despite home interventions. 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 - Infectious Disease History:: Denies. - Social history:: Smoking status: Patient/guardian denies using tobacco, the patient reports quitting approximately 2 years ago. ROS: 15:40 Constitutional: Negative for body aches, chills, fever, poor PO intake, cp 15:40 Eyes: Negative for injury, pain, redness, and discharge, cp 15:40 ENT: Positive for ear pain, Negative for drainage from ear(s), sore throat, difficulty swallowing, difficulty handling secretions, 15:40 Cardiovascular: Negative for chest pain, palpitations, 15:40 Respiratory: Negative for cough, shortness of breath, wheezing, 15:40 Abdomen/GI: Positive for nausea, Negative for abdominal pain, vomiting, diarrhea, constipation, anorexia, 15:40 Neuro: Negative for altered mental status, dizziness, headache, numbness, weakness, 15:40 All other systems are negative, Exam: 15:40 Constitutional: The patient appears in no acute distress, alert, awake, non-toxic, well cp developed, well nourished, 15:40 Head/face: Noted is swelling, that is mild, of the right lower jaw, tenderness, that is moderate, of the right lower jaw, Sinus tenderness, is not appreciated, 15:40 Eyes: Periorbital structures: appear normal, Pupils: equal, round, and reactive to light and accomodation, Extraocular movements: intact throughout, Conjunctiva: normal, no exudate, no injection, Sclera: no appreciated abnormality, Lids and lashes: appear normal, bilaterally, 15:40 ENT: External ear(s): are unremarkable, Ear canal(s): are normal, clear, TM's: dullness, bilaterally, Nose: is normal, Mouth: Lips: moist, Oral mucosa: pink and intact, moist, Tongue: is normal, Posterior pharynx: Airway: no evidence of obstruction, patent, Tonsils: are normal in appearance, erythema, is not appreciated, exudate, is not appreciated, Dental exam: dental caries, that is moderate, diffusely, gum swelling, that is mild, specifically in the right lower gumline, pain, is not appreciated, Voice: is normal, 15:40 Neck: ROM/movement: is normal, is supple, without pain, no range of motions limitations, no nuchal rigidity, 15:40 Chest/axilla: Inspection: normal, 15:40 Cardiovascular: Rate: normal, Rhythm: regular, 15:40 Respiratory: the patient does not display signs of respiratory distress, Respirations: normal, no use of accessory muscles, no retractions, labored breathing, is not present, Breath sounds: are clear throughout, no decreased breath sounds, no stridor, no wheezing, stridor, is not appreciated, 15:40 Abdomen/GI: Inspection: abdomen appears normal, 15:40 Neuro: Orientation: to person, place \T\ time. Mentation: is normal, Motor: moves all fours, strength is normal, Sensation: is normal, Vital Signs: 15:15 BP 138 / 103; Pulse 83; Resp 16; Temp 98.3; Pulse Ox 98% ; Weight 104.33 kg; Height 5 dd2 ft. 9 in. ; Pain 8/10; 16:30 BP 117 / 68; Pulse 80; Resp 18; Pulse Ox 98% ; kj2 17:30 BP 106 / 62; Pulse 68; Resp 18; Pulse Ox 98% on R/A; kj2 18:24 BP 135 / 84; Pulse 72; Resp 18; Temp 98.3; Pulse Ox 100% on R/A; kj2 15:15 Body Mass Index 33.96 (104.33 kg, 175.26 cm) dd2 15:15 Pain Scale: Adult dd2 MDM: 15:14 Medical Screening Exam initiated cp 18:07 Data reviewed: vital signs, nurses notes, lab test result(s), radiologic studies, CT cp scan, I have discussed the patient's presentation/case with the attending Emergency Department Physician; and as a result, I will discharge patient. 18:07 Differential diagnosis: dental caries, gingivitis, dental abscess, pericoronitis, cp gingivostomatitis, sepsis. I considered the following discharge prescriptions or medication management in the emergency department Medications were administered in the Emergency Department. See MAR. Counseling: I had a detailed discussion with the patient and/or guardian regarding the historical points, exam findings, and any diagnostic results supporting the discharge/admit diagnosis, lab results, radiology results, the need for outpatient follow up, for definitive care, a dentist, to return to the emergency department if symptoms worsen or persist or if there are any questions or concerns that arise at home. Response to treatment: the patient's symptoms have mildly improved after treatment, and as a result, I will discharge patient. 03/04 15:33 Order name: CBC with Diff; Complete Time: 16:37 cp 03/04 15:33 Order name: BMP; Complete Time: 16:37 cp 03/04 16:39 Interpretation: Normal except: GLUC 126. cp 03/04 15:33 Order name: CRP; Complete Time: 16:37 cp 03/04 16:40 Interpretation: Abnormal: C-REACTIVE PROT 37.60. cp 03/04 15:33 Order name: CT Facial Bones W/ Con \T\ Mpr; Complete Time: 17:29 cp 03/04 15:33 Order name: IV; Complete Time: 15:58 cp Administered Medications: 15:58 Drug: Ketorolac IVP 15 mg IVP once Route: IVP; Site: right antecubital; kj2 16:45 Follow up: Response: No adverse reaction; Pain is decreased kj2 17:42 Drug: Clindamycin IVPB 900 mg IVPB once over 30 mins; (mix in 50 mL) Route: IVPB; kj2 Infused Over: 30 mins; Site: right antecubital; 18:26 Follow up: IV Status: Completed infusion; IV Intake: 50ml kj2 Disposition: 18:53 Co-signature as Attending Physician, Lloyd Willson MD I reviewed the patient's care rn provided by the Advanced Practice Provider and agree with the diagnosis and treatment plan. 03/05 16:53 Chart complete. cp Disposition Summary: 03/04/25 18:07 Discharge Ordered Notes: Location: Home cp Problem: new cp Symptoms: have improved cp Condition: Stable cp Diagnosis - Periapical abscess without sinus cp Followup: cp - With: Timoteo Sanchez DDS - When: 5 - 6 days - Reason: Recheck today's complaints Discharge Instructions: - Discharge Summary Sheet cp - Dental Abscess cp - Diet and Dental Disease cp Forms: - Medication Reconciliation Form cp - Antibiotic Education cp - Prescription Opioid Use cp - Patient Portal Instructions cp - Leadership Thank You Letter cp Prescriptions: - Anaprox DS 550 mg Oral Tablet - take 1 tablet ORAL route every 12 hours As needed; 20 tablet; Refills: 0, cp Product Selection Permitted - Clindamycin HCl 300 mg Oral Capsule - take 1 capsule ORAL route every 6 hours for 10 days; 40 capsule; Refills: 0, cp Product Selection Permitted Signatures: Dispatcher [employer] EDLloyd Heart MD MD rn Page, Corey, PA-C PAZoya Dey cp RN RN kj2 RELL STEARNS RN RN dd2
--- NOTE | 2025-03-04 18:07 | ER ---
Nurse's Notes [facility] Name: Raza Causey Age: 39 yrs Sex: Male : 1985 Arrival Date: 03/04/2025 Time: 15:07 Bed 10 Private MD: Diagnosis: Periapical abscess without sinus Presentation: 03/04 15:15 Chief complaint: Patient states: RT JAW PAIN THAT RADIATES TO RT FACE ADN RT HEAD. dd2 REPORTS TAKING TYLENOL AND IBUPROFEN. Coronavirus screen: At this time, the client does not indicate any symptoms associated with coronavirus-19. Ebola Screen: No symptoms or risks identified at this time. Initial Sepsis Screen: Does the patient meet any 2 criteria? No. Patient's initial sepsis screen is negative. Does the patient have a suspected source of infection? No. Patient's initial sepsis screen is negative. Risk Assessment: Do you want to hurt yourself or someone else? Patient reports no desire to harm self or others. Onset of symptoms was March 02, 2025. 15:15 Method Of Arrival: Ambulatory dd2 15:15 Acuity: DEBO 4 dd2 Triage Assessment: 15:17 General: Appears in no apparent distress. uncomfortable, Behavior is calm, cooperative, dd2 appropriate for age. Pain: Complains of pain in right temporal area, right caodaism, right zygomatic area, right cheek and right mandible. 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 - Infectious Disease History:: Denies. - Social history:: Smoking status: Patient/guardian denies using tobacco, the patient reports quitting approximately 2 years ago. Screenin:29 [facility] ED Fall Risk Assessment (Adult) History of falling in the last 3 months, kj2 including since admission No falls in past 3 months (0 pts) Confusion or Disorientation No (0 pts) Intoxicated or Sedated No (0 pts) Impaired Gait No (0 pts) Mobility Assist Device Used No (0 pt) Altered Elimination No (0 pt) Score/Fall Risk Level 0 - 2 = Low Risk Maintained a safe environment, Hourly rounding (assess needs \T\ fall precautionary measures) done. Abuse screen: Denies threats or abuse. Denies injuries from another. Nutritional screening: No deficits noted. Tuberculosis screening: No symptoms or risk factors identified. Assessment: 15:28 General: Appears uncomfortable. Pain: Complains of pain in right cheek and right kj2 temporal area. Neuro: Level of Consciousness is awake, alert, obeys commands, Oriented to person, place, time, situation. Cardiovascular: Patient's skin is warm and dry. Respiratory: Airway is patent Respiratory effort is even, unlabored. GI: No signs and/or symptoms were reported involving the gastrointestinal system. : No signs and/or symptoms were reported regarding the genitourinary system. 16:30 Reassessment: Patient appears in no apparent distress at this time. Patient and/or kj2 family updated on plan of care and expected duration. Pain level reassessed. 17:30 Reassessment: Patient appears in no apparent distress at this time. Patient and/or kj2 family updated on plan of care and expected duration. Pain level reassessed. 18:24 Reassessment: Patient appears in no apparent distress at this time. Patient and/or kj2 family updated on plan of care and expected duration. Pain level reassessed. Patient is alert, oriented x 3, equal unlabored respirations, skin warm/dry/pink. Vital Signs: 15:15 BP 138 / 103; Pulse 83; Resp 16; Temp 98.3; Pulse Ox 98% ; Weight 104.33 kg; Height 5 dd2 ft. 9 in. ; Pain 8/10; 16:30 BP 117 / 68; Pulse 80; Resp 18; Pulse Ox 98% ; kj2 17:30 BP 106 / 62; Pulse 68; Resp 18; Pulse Ox 98% on R/A; kj2 18:24 BP 135 / 84; Pulse 72; Resp 18; Temp 98.3; Pulse Ox 100% on R/A; kj2 15:15 Body Mass Index 33.96 (104.33 kg, 175.26 cm) dd2 15:15 Pain Scale: Adult dd2 ED Course: 15:08 Patient arrived in ED. ts1 15:09 [place] PA-C is PHCP. cp 15:09 Lloyd Willson MD is Attending Physician. cp 15:17 Triage completed. dd2 15:17 Arm band placed on right wrist. dd2 15:26 Zoya Landry, RN is Primary Nurse. kj2 15:30 Bed in low position. Call light in reach. Provided Education on: call light. kj2 15:58 Inserted saline lock: 20 gauge in right antecubital area, using aseptic technique. kj2 Blood collected. Flushed with 10 mL NS. 17:00 CT Facial Bones W/ Con \T\ Mpr In Process Unspecified. EDMS 18:07 Timoteo Sanchez DDS is Referral Physician. cp 18:26 No provider procedures requiring assistance completed. IV discontinued, intact, kj2 bleeding controlled, No redness/swelling at site. Pressure dressing applied. Administered Medications: 15:58 Drug: Ketorolac IVP 15 mg IVP once Route: IVP; Site: right antecubital; kj2 16:45 Follow up: Response: No adverse reaction; Pain is decreased kj2 17:42 Drug: Clindamycin IVPB 900 mg IVPB once over 30 mins; (mix in 50 mL) Route: IVPB; kj2 Infused Over: 30 mins; Site: right antecubital; 18:26 Follow up: IV Status: Completed infusion; IV Intake: 50ml kj2 Medication: 18:25 VIS not applicable for this client. kj2 Intake: 18:26 IV: 50ml; Total: 50ml. kj2 Outcome: 18:07 Discharge ordered by MD. cp 18:27 Discharged to home ambulatory, kj2 18:27 Condition: stable 18:27 Discharge instructions given to patient, Instructed on discharge instructions, follow up and referral plans. Demonstrated understanding of instructions, follow-up care, 18:27 Patient left the ED. kj2 Signatures: Dispatcher [employer] EDMA [place] Gonzalez PA-C PA-C Jackie Schreiber PAS PAS ts1 Zoya Landry, RN RN kj2 RELL STEARNS RN RN dd2 Corrections: (The following items were deleted from the chart) 18:25 16:30 BP 106 / 62; Pulse 68bpm; Resp 18bpm; Pulse Ox 98% RA; kj2 kj2
[2025-03-04 19:00] VITALS: TEMP 98.3
[2025-03-04 19:04] VITALS: BP 135/84; O2SAT 100
== END 2025-03-04 18:27 | disposition home or self-care (01) ==
LOC: ER 15:07
DX: K04.7 Periapical abscess without sinus (principal)
CPT/HCPCS: 96365; 85025; 80048; 36415; 86140; 70487; 76377; 96375; 99284; Q9967; J1885